=== PATIENT | female | born 1945 | race Caucasian/White ===

== ENCOUNTER 2018-11-28 20:50 | Emergency (ER) | payer MEDICARE, OTHER ==
[~2018-11-28] VITALS: Ht 165.1 cm; Wt 59.9 kg
--- NOTE | 2018-11-28 21:07 | ED Neurological Problem ---
General Stated Complaint: UNCONTROLLABLE SHAKING,WEAKNESS Source: patient, family, RN notes reviewed Exam Limitations: no limitations History of Present Illness Date Seen by Provider: Nov 28, 2018 Time Seen by Provider: 21:06 Initial Comments Patient presents c/ c/o chills and shaking today. States she has had abdominal pain for awhile now. Denies any respiratory, , or GI symptoms. Not aware of a fever. Timing/Duration: 4-6 hours Severity: moderate Associated Symptoms: denies symptoms (x/ as noted.), other (shaking) Allergies and Home Medications Allergies Coded Allergies: Sulfa (Sulfonamide Antibiotics) (Verified Allergy, Severe, 11/28/18) Home Medications Cefuroxime Axetil 250 Mg Tablet, 250 MG PO BID Prescribed by: MAXIM SAMUEL on 11/28/18 [id number] Patient Home Medication List Home Medication List Reviewed: Yes Review of Systems Review of Systems Constitutional: see HPI Gastrointestinal: abdominal pain : No Psychiatric/Neurological: Other (shaking) All Other Systems Reviewed Negative Unless Noted: Yes (Negative excepted noted.) Physical Exam Vital Signs Vital Signs - First Documented 11/28/18 20:54 Temp 103.2 Pulse 110 Resp 18 B/P (MAP) 196/74 (114) Pulse Ox 98 O2 Delivery Room Air Capillary Refill : Height, Weight, BMI Height: '" Weight: lbs. oz. kg; BMI Method: General Appearance: WD/WN, no apparent distress HEENT: normal ENT inspection Neck: normal inspection Respiratory: no respiratory distress Cardiovascular: tachycardia Gastrointestinal: soft; No guarding, No rebound; tenderness (suprapubic) Neurologic/Psychiatric: no motor/sensory deficits, alert, depressed affect Skin: warm/dry Focused Exam Lactate Level 11/28/18 21:02: Lactic Acid Level 1.65 Lactic Acid Level Laboratory Tests Test 11/28/18 21:02 Lactic Acid Level 1.65 MMOL/L (0.50-2.00) Progress/Results/Core Measures Results/Orders Lab Results Laboratory Tests Test 11/28/18 21:02 11/28/18 21:10 Range/Units White Blood Count 6.5 4.3-11.0 10^3/uL Red Blood Count 3.75 L 4.35-5.85 10^6/uL Hemoglobin 10.8 L 11.5-16.0 G/DL Hematocrit 33 L 35-52 % Mean Corpuscular Volume 87 80-99 FL Mean Corpuscular Hemoglobin 29 25-34 PG Mean Corpuscular Hemoglobin Concent 33 32-36 G/DL Red Cell Distribution Width 14.1 10.0-14.5 % Platelet Count 318 130-400 10^3/uL Mean Platelet Volume 10.1 7.4-10.4 FL Neutrophils (%) (Auto) 82 H 42-75 % Lymphocytes (%) (Auto) 12 12-44 % Monocytes (%) (Auto) 5 0-12 % Eosinophils (%) (Auto) 1 0-10 % Basophils (%) (Auto) 0 0-10 % Neutrophils # (Auto) 5.3 1.8-7.8 X 10^3 Lymphocytes # (Auto) 0.8 L 1.0-4.0 X 10^3 Monocytes # (Auto) 0.3 0.0-1.0 X 10^3 Eosinophils # (Auto) 0.1 0.0-0.3 10^3/uL Basophils # (Auto) 0.0 0.0-0.1 10^3/uL Sodium Level 136 135-145 MMOL/L Potassium Level 4.5 3.6-5.0 MMOL/L Chloride Level 94 L 98-107 MMOL/L Carbon Dioxide Level 24 21-32 MMOL/L Anion Gap 18 H 5-14 MMOL/L Blood Urea Nitrogen 27 H 7-18 MG/DL Creatinine 0.81 0.60-1.30 MG/DL Estimat Glomerular Filtration Rate > 60 BUN/Creatinine Ratio 33 Glucose Level 96 70-105 MG/DL Lactic Acid Level 1.65 0.50-2.00 MMOL/L Calcium Level 11.1 H 8.5-10.1 MG/DL Corrected Calcium 10.7 H 8.5-10.1 MG/DL Magnesium Level 1.5 L 1.8-2.4 MG/DL Total Bilirubin 0.3 0.1-1.0 MG/DL Aspartate Amino Transf (AST/SGOT) 22 5-34 U/L Alanine Aminotransferase (ALT/SGPT) 12 0-55 U/L Alkaline Phosphatase 119 40-136 U/L Total Protein 7.8 6.4-8.2 GM/DL Albumin 4.5 3.2-4.5 GM/DL Urine Color YELLOW Urine Clarity SLT CLOUDY Urine pH 7.0 5-9 Urine Specific [place] 1.010 L 1.016-1.022 Urine Protein 2+ H NEGATIVE Urine Glucose (UA) NEGATIVE NEGATIVE Urine Ketones NEGATIVE NEGATIVE Urine Nitrite POSITIVE H NEGATIVE Urine Bilirubin NEGATIVE NEGATIVE Urine Urobilinogen 0.2 NORMAL MG/DL Urine Leukocyte Esterase 3+ H NEGATIVE Urine RBC (Auto) 2+ H NEGATIVE Urine RBC NONE /HPF Urine WBC >100 H /HPF Urine Squamous Epithelial Cells NONE /HPF Urine Crystals NONE /LPF Urine Bacteria MODERATE H /HPF Urine Casts NONE /LPF Urine Mucus NONE /LPF Urine Culture Indicated YES My Orders Orders - MAXIM SAMUEL DO Ed Iv/Invasive Line Start (11/28/18 21:10) Ekg Tracing (11/28/18 21:10) Cbc With Automated Diff (11/28/18 21:10) Comprehensive Metabolic Panel (11/28/18 21:10) Lactic Acid Analyzer (11/28/18 21:10) Magnesium (11/28/18 21:10) Ua Culture If Indicated (11/28/18 21:10) Blood Culture (11/28/18 21:10) Chest 1 View Ap/Pa Only (11/28/18 21:10) Acetaminophen Tablet (Tylenol Tablet) (11/28/18 21:15) Urine Culture (11/28/18 21:10) Ceftriaxone For Iv Use (Rocephin For I (11/28/18 22:00) Ct Abdomen/Pelvis W (11/28/18 21:55) Iohexol Injection (Omnipaque 350 Mg/Ml 1 (11/28/18 22:00) Received Contrast (Hold Metformin- Contr (11/28/18 22:00) Ns (Ivpb) (Sodium Chloride 0.9% Ivpb Bag (11/28/18 22:00) Ceftriaxone For Iv Use (Rocephin For I (11/28/18 22:01) Water (Sterile) For Injection (Sterile W (11/28/18 22:01) Medications Given in ED Current Medications Medications Dose Ordered Sig/Kasandra Route Start Time Stop Time Status Last Admin Dose Admin Acetaminophen 1,000 mg ONCE ONCE PO 11/28/18 21:15 11/28/18 21:16 DC 11/28/18 21:31 1,000 MG Ceftriaxone Sodium 1000 mg/ Sterile Water 10 ml @ 200 mls/hr ONCE ONCE IV 11/28/18 22:00 11/28/18 23:01 DC 11/28/18 22:07 200 MLS/HR Iohexol 100 ml ONCE ONCE IV 11/28/18 22:00 11/28/18 22:01 DC 11/28/18 22:11 100 ML Sodium Chloride 100 ml ONCE ONCE IV 11/28/18 22:00 11/28/18 22:01 DC 11/28/18 22:11 100 ML Vital Signs/I&O 11/28/18 11/28/18 20:54 23:17 Temp 103.2 101.6 Pulse 110 102 Resp 18 16 B/P (MAP) 196/74 (114) 180/53 (95) Pulse Ox 98 97 O2 Delivery Room Air Room Air Initial ECG Impression Date: Nov 28, 2018 Initial ECG Impression Time: 21:05 Initial ECG Rate: 103 Initial ECG Rhythm: S.Tach Initial ECG Intervals: Normal Initial ECG Impression: Nonspecific Changes Initial ECG Comparisson: No Previous ECG Available Diagnostic Imaging Diagonstic Imaging: Xray, CT Plain Films/CT/US/NM/MRI: chest (nothing acute), abdomen, pelvis (nothing acute) Departure Impression Primary Impression: Fever Additional Impression: UTI (urinary tract infection) Disposition: 01 HOME, SELF-CARE Condition: Improved Departure-Patient Inst. Decision time for Depature: 23:11 Patient Instructions: Urinary Tract Infections in Adults, Fever, Adult (DC) Add. Discharge Instructions: RECOMMEND 1000 mg OF TYLENOL EVERY 6 HOURS NEEDED FOR FEVER/CHILLS. PUSH FLUIDS. Scripts Cefuroxime Axetil (Cefuroxime) 250 Mg Tablet 250 MG PO BID for UTI for 10 Days, #20 TAB 0 Refills Prov: MAXIM SAMUEL DO 11/28/18 MAXIM SAMUEL DO Nov 28, 2018 21:07
[2018-11-28] MEDS ORDERED: ACETAMINOPHEN 500 MG TAB (TYLENOL) PO ONE (21:15)
[2018-11-28 21:26] LABS: BASOPHILS % (AUTO) 0 % (0-10); EOSINOPHILS % (AUTO) 1 % (0-10); HEMATOCRIT 33 % (35-52); HEMOGLOBIN 10.8 G/DL (11.5-16.0); LYMPHOCYTES % (AUTO) 12 % (12-44); MEAN CORPUSCULAR HEMOGLOBIN 29 PG (25-34); MEAN CORPUSCULAR HGB CONC 33 G/DL (32-36); MEAN CORPUSCULAR VOLUME 87 FL (80-99); MEAN PLATELET VOLUME 10.1 FL (7.4-10.4); MONOCYTES % (AUTO) 5 % (0-12); NEUTROPHILS % (AUTO) 82 % (42-75); PLATELET COUNT 318 10^3/uL (130-400); RED CELL DISTRIBUTION WIDTH 14.1 % (10.0-14.5); WHITE BLOOD COUNT 6.5 10^3/uL (4.3-11.0)
[2018-11-28 21:27] LABS: EOSINOPHILS # (AUTO) 0.1 10^3/uL (0.0-0.3); LYMPHOCYTES # (AUTO) 0.8 X 10^3 (1.0-4.0); MONOCYTES # (AUTO) 0.3 X 10^3 (0.0-1.0); NEUTROPHILS # (AUTO) 5.3 X 10^3 (1.8-7.8)
--- OUTSIDE RECORDS SUMMARY | 2018-11-28 21:36 | XMS REPORT | Continuity of Care Document ---
Author Organization Unknown Address Unknown Allergies There is no data. Medications There is no data. Problems There is no data. Procedures There is no data. Results Test Result Range CMP - 08/10/18 12:21 GLUCOSE 66 mg/dL 65-99 UREA NITROGEN (BUN) 19 mg/dL 7-25 CREATININE 0.78 mg/dL 0.60-0.93 eGFR NON-AFR. PU[place] R[place] 76 mL/min/1.73m2 > OR=60 eGFR 88 mL/min/1.73m2 > OR=60 BUN/CREATININE RATIO NOT APPLICABLE (calc) 6-22 SODIUM 138 mmol/L 135-146 POTASSIUM 4.9 mmol/L 3.5-5.3 CHLORIDE 100 mmol/L 98-110 CARBON DIOXIDE 28 mmol/L 20-32 CALCIUM 10.8 mg/dL 8.6-10.4 PROTEIN, TOTAL 7.8 g/dL 6.1-8.1 ALBUMIN 4.6 g/dL 3.6-5.1 GLOBULIN 3.2 g/dL (calc) 1.9-3.7 ALBUMIN/GLOBULIN RATIO 1.4 (calc) 1.0-2.5 BILIRUBIN, TOTAL 0.3 mg/dL 0.2-1.2 ALKALINE PHOSPHATASE 119 U/L 33-130 AST 30 U/L 10-35 ALT 11 U/L 6-29 CBC w/MANUAL DIFF - 08/10/18 12:21 WHITE BLOOD CELL COUNT 11.0 Thousand/uL 3.8-10.8 RED BLOOD CELL COUNT 4.37 Million/uL 3.80-5.10 HEMOGLOBIN 11.8 g/dL 11.7-15.5 HEMATOCRIT 36.0 % 35.0-45.0 MCV 82.4 fL 80.0-100.0 MCH 27.0 pg 27.0-33.0 MCHC 32.8 g/dL 32.0-36.0 RDW 12.9 % 11.0-15.0 PLATELET COUNT 640 Thousand/uL 140-400 MPV 10.6 fL 7.5-12.5 ABSOLUTE NEUTROPHILS 7876 cells/uL 6847-9355 ABSOLUTE MONOCYTES 539 cells/uL 200-950 ABSOLUTE EOSINOPHILS 0 cells/uL 15-500 ABSOLUTE BASOPHILS 0 cells/uL 0-200 NEUTROPHILS 71.6 % NRG LYMPHOCYTES 20.6 % NRG MONOCYTES 4.9 % NRG EOSINOPHILS 0 % NRG BASOPHILS 0 % NRG ABSOLUTE BAND NEUTROPHILS 319 cells/uL 0-750 ABSOLUTE LYMPHOCYTES 2266 cells/uL 850-3900 BAND NEUTROPHILS 2.9 % NRG PLATELET ESTIMATION INCREASED ADEQUATE CBC MORPHOLOGY NORMAL A1C - 08/10/18 12:21 HEMOGLOBIN A1c 7.8 % of total Hgb <5.7 CULTURE, URINE - 08/16/18 15:04 CULTURE, URINE, ROUTINE SEE NOTE NRG CBC - 09/21/18 15:00 WHITE BLOOD CELL COUNT 8.8 Thousand/uL 3.8-10.8 RED BLOOD CELL COUNT 4.00 Million/uL 3.80-5.10 HEMOGLOBIN 11.1 g/dL 11.7-15.5 HEMATOCRIT 33.1 % 35.0-45.0 MCV 82.8 fL 80.0-100.0 MCH 27.8 pg 27.0-33.0 MCHC 33.5 g/dL 32.0-36.0 RDW 14.5 % 11.0-15.0 PLATELET COUNT 346 Thousand/uL 140-400 MPV 11.3 fL 7.5-12.5 ABSOLUTE NEUTROPHILS 6292 cells/uL 2594-2618 ABSOLUTE LYMPHOCYTES 2086 cells/uL 850-3900 ABSOLUTE MONOCYTES 352 cells/uL 200-950 ABSOLUTE EOSINOPHILS 18 cells/uL 15-500 ABSOLUTE BASOPHILS 53 cells/uL 0-200 NEUTROPHILS 71.5 % NRG LYMPHOCYTES 23.7 % NRG MONOCYTES 4.0 % NRG EOSINOPHILS 0.2 % NRG BASOPHILS 0.6 % NRG PDM - TRAMADOL - 11/12/18 10:54 Prescribed Drug 1 Tramadol NRG COMMENT NRG Desmethyltramadol 3689 ng/mL <100 medMATCH Desmethyltram CONSISTENT NRG Tramadol 9748 ng/mL <100 medMATCH Tramadol CONSISTENT NRG Encounters ACCT No. Visit Date/Time Discharge Status Pt. Type Provider Facility Loc./Unit Complaint [id number] 09/21/2018 13:30:00 09/21/2018 23:59:59 CLS Outpatient CANDIDO KEARNEY [facility] [id number] 11/12/2018 10:00:00 11/12/2018 23:59:59 CLS Outpatient CANDIDO KEARNEY [facility] [id number] 11/12/2018 10:00:00 Document Registration [id number] 09/21/2018 13:30:00 Document Registration [id number] 08/16/2018 14:15:00 Document Registration [id number] 08/10/2018 11:20:00 Document Registration
--- NOTE | 2018-11-28 21:38 | Diagnostic Imaging Report ---
INDICATION: Chills. TIME OF EXAM: 9:29 p.m. COMPARISON: No prior study is available for comparison. EXAMINATION: Single view of the chest was obtained. FINDINGS: Spinal stimulators overlie the midthoracic spine. There is a calcified nodule in the left base consistent with a granuloma. No infiltrates are seen. No effusion or pneumothorax is identified. IMPRESSION: No acute cardiopulmonary process is detected. Dictated by: Dictated on workstation # [id number]
[2018-11-28 21:39] LABS: BILIRUBIN,URINE NEGATIVE (NEGATIVE); CLARITY,URINE SLT CLOUDY; COLOR,URINE YELLOW; GLUCOSE, URINE (UA) NEGATIVE (NEGATIVE); KETONES,URINE NEGATIVE (NEGATIVE); LEUKOCYTE ESTERASE ,URINE 3+ (NEGATIVE); NITRITE,URINE POSITIVE (NEGATIVE); PROTEIN,URINE 2+ (NEGATIVE); UROBILINOGEN,URINE 0.2 MG/DL (NORMAL)
[2018-11-28 21:40] LABS: BACTERIA,URINE MODERATE /HPF; WBC,URINE >100 /HPF
[2018-11-28 21:43] LABS: ALANINE AMINOTRANSFERASE 12 U/L (0-55); ALKALINE PHOSPHATASE 119 U/L (40-136); BILIRUBIN,TOTAL 0.3 MG/DL (0.1-1.0); BUN/CREATININE RATIO 33; CALCIUM 11.1 MG/DL (8.5-10.1); CARBON DIOXIDE 24 MMOL/L (21-32); CHLORIDE 94 MMOL/L (98-107); CREATININE SERUM 0.81 MG/DL (0.60-1.30); GFR ESTIMATED > 60; GLUCOSE 96 MG/DL (70-105); MAGNESIUM 1.5 MG/DL (1.8-2.4); POTASSIUM 4.5 MMOL/L (3.6-5.0); SODIUM 136 MMOL/L (135-145)
[2018-11-28 21:44] LABS: ALBUMIN 4.5 GM/DL (3.2-4.5); TOTAL PROTEIN 7.8 GM/DL (6.4-8.2)
[2018-11-28] MEDS ORDERED: HOLD METFORMIN - RECEIVED CONTRAST 20 ML VIAL IV SCH (22:00)
[2018-11-28] MEDS ORDERED: IOHEXOL 350 MG/ML 100 ML (OMNIPAQUE 350) VIAL IV ONE (22:00)
[2018-11-28] MEDS ORDERED: NS 100 ML (IVPB) BAG IV ONE (22:00)
[2018-11-28] MEDS ORDERED: cefTRIAXone FOR IV USE 1,000 MG in WATER (STERILE) FOR INJECTION 10 ML IV ONE (22:00)
[2018-11-28] MEDS ORDERED: WATER (STERILE) FOR INJECTION 10 ML ONE (22:01)
[2018-11-28] MEDS ORDERED: cefTRIAXone 1,000 MG IV (ROCEPHIN) VIAL ONE (22:01)
[2018-11-28] MEDS ORDERED: CEFU250T80 PO (23:12)
[2018-11-28 23:17] VITALS: BP 180/53
[2018-11-28 23:32] VITALS: BP 180/53
--- NOTE | 2018-11-29 05:41 | Diagnostic Imaging Report ---
PROCEDURE: CT abdomen and pelvis with contrast. TECHNIQUE: Multiple contiguous axial images were obtained through the abdomen and pelvis after administration of intravenous contrast. Auto Exposure Controls were utilized during the CT exam to meet ALARA standards for radiation dose reduction. INDICATION: Chills and abdominal pain. COMPARISON: None available. FINDINGS: There is a calcified granuloma in the anterior basal segment of the left lower lobe. Lung bases are otherwise clear. The visualized heart is normal in size. Calcified granulomas are demonstrated in the liver and spleen. No focal hepatic or splenic lesion is demonstrated. Gallbladder surgically absent. No biliary ductal dilatation is appreciated. There is moderate atrophy of the pancreas. No pancreatic ductal dilatation is demonstrated. The adrenal glands are normal. The kidneys are symmetric in size and demonstrate normal enhancement, without evidence of renal calculus on either side. There is mild fullness of the collecting systems, without overt hydronephrosis on either side. There is mild nonspecific perinephric stranding on both sides. No focal perinephric collection is demonstrated. There is suggestion of mild urothelial enhancement in the collecting systems and ureters. No ureteral dilatation is appreciated. Subcentimeter foci of low attenuation right kidney are too small to characterize, likely cysts. No suspicious renal mass. There is no evidence of obstruction or focal bowel wall thickening. The appendix is surgically absent. There is no pneumoperitoneum, abdominal free fluid, or loculated collection. There is moderate colonic diverticulosis, without evidence of acute diverticulitis. No lymphadenopathy. There is marked calcified atherosclerotic plaque involving abdominal aorta, without aneurysmal dilatation. There is no evidence of venous thrombosis. There is suggestion of mild bladder wall thickening. A tiny focus of gas is demonstrated in the anti-dependent portion of the bladder. The uterus is surgically absent. No pelvic free fluid is demonstrated. There is no adnexal mass appreciated. The abdominal wall is unremarkable. Multilevel degenerative changes involve the spine. Spinal stimulator is demonstrated. There is moderate levoscoliosis of the lumbar spine. No acute osseous abnormality is appreciated. IMPRESSION: Minimal bladder wall thickening and mild urothelial enhancement could reflect urinary tract infection/cystitis. Recommend correlation with history/physical exam and urinalysis. There is mild bilateral perinephric stranding, greater on the left than on the right, which could be reactive in nature or reflect scarring. There is no discrete perinephric collection. Tiny focus of gas in the bladder could reflect recent instrumentation, less likely gas-forming organism. Otherwise no acute abdominal or pelvic pathology. Findings are in agreement with initial teleradiology report. Dictated by: Dictated on workstation # [id number]
== END 2018-11-28 23:35 | disposition home or self-care (01) ==
LOC: ER FS 20:54
DX: N39.0 Urinary tract infection, site not specified (principal); Z88.2 Allergy status to sulfonamides
CPT/HCPCS: 36415; 71045; 74177; 80053; 81000; 83605; 83735; 85025; 87040; 87077; 87088; 93005

== ENCOUNTER 2019-01-29 15:48 | Emergency (ER) | payer MEDICARE ==
[~2019-01-29] VITALS: Ht 165.1 cm; Wt 59.9 kg
[~2019-01-29 15:48] MED LIST: CEFU250T80 PO
[2019-01-29 16:15] LABS: CLARITY,URINE CLEAR; COLOR,URINE YELLOW; PH,URINE 7.5 (5-9); PROTEIN,URINE TRACE (NEGATIVE)
[2019-01-29 16:16] LABS: BACTERIA,URINE MODERATE /HPF; BILIRUBIN,URINE NEGATIVE (NEGATIVE); GLUCOSE, URINE (UA) NEGATIVE (NEGATIVE); KETONES,URINE NEGATIVE (NEGATIVE); LEUKOCYTE ESTERASE ,URINE 3+ (NEGATIVE); NITRITE,URINE NEGATIVE (NEGATIVE); RBC,URINE 0-2 /HPF; SQUAMOUS EPITHELIAL CELL,UR RARE /HPF; UROBILINOGEN,URINE 0.2 MG/DL (NORMAL); WBC,URINE 25-50 /HPF
--- NOTE | 2019-01-29 18:10 | ED GU-Female ---
General Chief Complaint: - Urinary Stated Complaint: BLOOD IN URINE Nursing Triage Note: Patient arrival to ED assisted with WC. Pt reports blood in urine since yesterday. Chronic UTI hx with urethral dilitations yrs ago. Pt on maintenance antibiotic Macrobid and was stopped Feb 18- to take her 7 day course Cephalexin 500 mg. Pt is up with help to void every 15-20 min. Nursing Sepsis Screen: No Definite Risk Source: patient, old records Exam Limitations: no limitations History of Present Illness Date Seen by Provider: Jan 29, 2019 Time Seen by Provider: 15:50 Initial Comments This 73-year-old woman presents to the emergency room with recurrent urinary tract infections. Last night and today she experienced hematuria. She has dysuria and back aching. She has lower abdominal pain as well that is migratory. She has extreme urinary frequency. She reports a remote history of a urethral dilation by a urologist who no longer practices in [place]. She is becoming very frustrated at her recurrent urinary tract infections. She generally feels quite well when she is on antibiotics but then feels ill again as soon as antibiotics are complete. Her primary care provider is Candido Kearney. She has not seen a urologist recently. Allergies and Home Medications Allergies Coded Allergies: Sulfa (Sulfonamide Antibiotics) (Verified Allergy, Severe, 11/28/18) Home Medications Cefuroxime Axetil 250 Mg Tablet, 250 MG PO BID Prescribed by: MAXIM SAMUEL on 11/28/18 [id number] Patient Home Medication List Home Medication List Reviewed: Yes Review of Systems Review of Systems Constitutional: no symptoms reported EENTM: no symptoms reported Respiratory: no symptoms reported Cardiovascular: no symptoms reported Gastrointestinal: no symptoms reported Genitourinary: see HPI : No Musculoskeletal: no symptoms reported Skin: no symptoms reported Psychiatric/Neurological: No Symptoms Reported Endocrine: No Symptoms Reported Past Wnshehk-Bvvoum-Yjtqaw Hx Past Med/Social Hx: Reviewed Nursing Past Med/Soc Hx Patient Social History Alcohol Use: Denies Use Recreational Drug Use: No Smoking Status: Former Smoker Type Used: Cigarettes Former Smoker, Quit: Jun 01, 1989 2nd Hand Smoke Exposure: No Recent Foreign Travel: No Contact w/Someone Who Travel: No Recent Infectious Disease Expo: No Recent Hopitalizations: No Physical Abuse: No Sexual Abuse: No Mistreated: No Fear: No Seasonal Allergies Seasonal Allergies: No Past Medical History Surgeries: Yes (Cystourethroscopy, colonoscopy, EGD, removal spinal stimulator, ESWL) Appendectomy, Gallbladder, Hysterectomy Respiratory: Yes (Hx former tobaccoism) Pneumonia Cardiac: Yes (Diastolic dysfunction) Hypertension Neurological: Yes Neuropathy Genitourinary: Yes (Urethral strictures, Hx Klebsiella cystitis) Kidney Stones, UTI-Chronic Gastrointestinal: Yes (Regional enteritis) Gastroesophageal Reflux, Crohns Disease Musculoskeletal: No Endocrine: Yes (DM Type II) Diabetes, Non-Insulin dep HEENT: No Cancer: No Psychosocial: No Integumentary: No Blood Disorders: No Physical Exam Vital Signs Vital Signs - First Documented 01/29/19 17:00 Temp 99.1 Pulse 72 Resp 18 B/P (MAP) 208/72 (117) Pulse Ox 99 O2 Delivery Room Air Capillary Refill : Less Than 3 Seconds Height, Weight, BMI Height: 5'5.00" Weight: 132lbs. oz. 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 nml as tested, no motor/sensory deficits, alert, normal mood/affect, oriented x 3 Skin: normal color, warm/dry Progress/Results/Core Measures Suspected Sepsis Recent Fever Within 48 Hours: No Infection Criteria Present: None New/Unexplained Altered Menta: No Sepsis Screen: No Definite Risk SIRS Temperature:99.1 Pulse: 72 Respiratory Rate: 18 Blood Pressure 208 /72 Mean: 117 Results/Orders Lab Results Laboratory Tests Test 01/29/19 15:53 Range/Units Urine Color YELLOW Urine Clarity CLEAR Urine pH 7.5 5-9 Urine Specific [place] 1.010 L 1.016-1.022 Urine Protein TRACE H NEGATIVE Urine Glucose (UA) NEGATIVE NEGATIVE Urine Ketones NEGATIVE NEGATIVE Urine Nitrite NEGATIVE NEGATIVE Urine Bilirubin NEGATIVE NEGATIVE Urine Urobilinogen 0.2 NORMAL MG/DL Urine Leukocyte Esterase 3+ H NEGATIVE Urine RBC (Auto) 3+ H NEGATIVE Urine RBC 0-2 /HPF Urine WBC 25-50 H /HPF Urine Squamous Epithelial Cells RARE /HPF Urine Crystals NONE /LPF Urine Bacteria MODERATE H /HPF Urine Casts NONE /LPF Urine Mucus NONE /LPF Urine Culture Indicated YES My Orders Orders - LIN RUIZ MD Ua Culture If Indicated (01/29/19 15:50) Urine Culture (01/29/19 15:53) Vital Signs/I&O 01/29/19 17:00 Temp 99.1 Pulse 72 Resp 18 B/P (MAP) 208/72 (117) Pulse Ox 99 O2 Delivery Room Air Capillary Refill : Less Than 3 Seconds Blood Pressure Mean: 117 Progress Note : Progress Note Patient was again found to have urinary tract infection by urinalysis. She was up to the bathroom multiple times throughout her ER stay. Bladder scan revealed a post void residual in the 200-300+ range. Garner catheter was inserted and patient was instructed to pursue follow-up with urology. Her first dose of Cipro was administered in the ER. Cipro was selected based on review of prior cultures. Patient was seen in this ER in October for significant bladder infection. CT scan was performed at that time and showed no evidence of ureteral stones. Patient states she does have a remote history of up to 9 and ureteral stones. Departure Impression Primary Impression: Urinary tract infection Qualified Codes: N39.0 - Urinary tract infection, site not specified Additional Impression: Urinary retention Disposition: 01 HOME, SELF-CARE Condition: Improved Departure-Patient Inst. Decision time for Depature: 18:15 [address]errals: [facility] (PCP) Primary Care Physician CANDIDO KEARNEY APRN (Family) Primary Care Physician FREDDY KRAUSE MD Patient Instructions: Urinary Tract Infections in Adults, Garner Catheter, Female Add. Discharge Instructions: Empty your catheter bag frequently. Keep the catheter bag lower than the level of your bladder. Complete your antibiotics as prescribed. Drink plenty of clear liquids. Follow-up with Dr. Krause and your primary care provider as soon as possible. Please call them on Thursday morning to schedule appointments. Return to the emergency room if you have worsening symptoms. All discharge instructions reviewed with patient and/or family. Voiced understanding. Scripts Ciprofloxacin HCl (Ciprofloxacin HCl) 500 Mg Tablet 500 MG PO BID, #14 TAB Prov: LIN RUIZ MD 01/29/19 Copy Copies To 1: FREDDY KRAUSE MD Copies To 2: NEIL CHOUDHURY JOSHUA T MD Jan 29, 2019 18:10
[2019-01-29] MEDS ORDERED: CIPR500T4 PO (18:22)
[2019-01-29] MEDS ORDERED: CIPROFLOXACIN 500 MG (CIPRO) TABLET PO ONE (18:30)
[2019-01-29 19:25] VITALS: BP 160/68
--- NOTE | 2019-01-29 19:25 | NUR ---
Pt discharged from ER via with spouse not assisting pt. Pt with significant gait imbalance r/t neuropathy of feet. Garner catheter placed in ED after post residual 330 ml urine and frequency of every 15-20 minutes to bathroom to void tiny amts. Pt was full assist helping to pull pt up from for all ambulatory requirements. Pt had 500 ml drainage immediate upon catheterizing and 700 ml emptied before discharge as total. Spouse was instructed three times with hands on training of usage of large overnight catheter drainage bag. Pt states she will not apply leg bag as stated "it is too much work to empty frequently." Pt's spouse appears nervous and anxious over ER visit. Upon discharge the asks if the overnight drainage bag could all urine till the urology visit sometime next week. Again instructed to keep bag level lower than bladder height, drain frequently if bag appears moderately full. Return to ED with any further questions or problems. Instructed on Cipro RX at [facility] pharmacy to pickle maker tomorrow. Pt's spouse asks if it can wait till next week with appt. Again explained the importance of starting script and completing as prescribed.
== END 2019-01-29 19:25 | disposition home or self-care (01) ==
LOC: EDUNIT# 15:48 → ER FS 15:49
DX: N39.0 Urinary tract infection, site not specified (principal); I10 Essential (primary) hypertension; E11.40 Type 2 diabetes mellitus with diabetic neuropathy, unspecified; K21.9 Gastro-esophageal reflux disease without esophagitis; Z87.19 Personal history of other diseases of the digestive system; Z87.442 Personal history of urinary calculi; Z88.2 Allergy status to sulfonamides; Z87.891 Personal history of nicotine dependence; Z90.710 Acquired absence of both cervix and uterus; Z90.49 Acquired absence of other specified parts of digestive tract
CPT/HCPCS: 51702; 81000; 87077; 87088; 87186

== ENCOUNTER 2019-04-04 12:37 | Inpatient (IN) | payer MEDICARE ==
[~2019-04-04] VITALS: Ht 162.6 cm; Wt 66.2 kg
[~2019-04-04 12:37] MED LIST changes: +CIPR500T4 PO
[2019-04-04 13:14] LABS: BASOPHILS % (AUTO) 0 % (0-10); EOSINOPHILS % (AUTO) 0 % (0-10); HEMATOCRIT 35 % (35-52); HEMOGLOBIN 11.4 G/DL (11.5-16.0); LYMPHOCYTES # (AUTO) 1.8 X 10^3 (1.0-4.0); LYMPHOCYTES % (AUTO) 25 % (12-44); MEAN CORPUSCULAR HEMOGLOBIN 28 PG (25-34); MEAN CORPUSCULAR HGB CONC 33 G/DL (32-36); MEAN CORPUSCULAR VOLUME 86 FL (80-99); MEAN PLATELET VOLUME 10.2 FL (7.4-10.4); MONOCYTES # (AUTO) 0.4 X 10^3 (0.0-1.0); MONOCYTES % (AUTO) 5 % (0-12); NEUTROPHILS # (AUTO) 5.1 X 10^3 (1.8-7.8); NEUTROPHILS % (AUTO) 70 % (42-75); PLATELET COUNT 351 10^3/uL (130-400); RED CELL DISTRIBUTION WIDTH 13.6 % (10.0-14.5); WHITE BLOOD COUNT 7.4 10^3/uL (4.3-11.0)
--- NOTE | 2019-04-04 13:25 | ED GU-Female ---
General Stated Complaint: VAGINAL BLEEDING Source: patient, other (plan) Exam Limitations: no limitations History of Present Illness Date Seen by Provider: Apr 04, 2019 Time Seen by Provider: 13:21 Initial Comments This 73-year-old white female presents with history of recurrent urinary tract infections. She is currently being suppressed with Macrobid daily. The patient began passing large clots precipitating her presentation in the emergency department. Patient had a recent urethroplasty with Dr. Moseley. Allergies and Home Medications Allergies Coded Allergies: Sulfa (Sulfonamide Antibiotics) (Verified Allergy, Severe, 11/28/18) Home Medications Cefuroxime Axetil 250 Mg Tablet, 250 MG PO BID Prescribed by: MAXIM SAMUEL on 11/28/18 2312 Ciprofloxacin HCl 500 Mg Tablet, 500 MG PO BID Prescribed by: LIN CASSIDY on 01/29/191821 Patient Home Medication List Home Medication List Reviewed: Yes Review of Systems Review of Systems Constitutional: No chills, No fever; weakness EENTM: no symptoms reported Respiratory: No cough Cardiovascular: No chest pain Gastrointestinal: abdominal pain (suprapubic abdominal discomfort); No nausea, No vomiting Genitourinary: hematuria Musculoskeletal: no symptoms reported; No back pain Skin: no symptoms reported; No change in color Psychiatric/Neurological: No Symptoms Reported Endocrine: No Symptoms Reported Hematologic/Lymphatic: No Symptoms Reported Past [place]eppo-Azezxq Hx Past Med/Social Hx: Reviewed Nursing Past Med/Soc Hx Patient Social History Type Used: Cigarettes Former Smoker, Quit: Jun 01, 1989 2nd Hand Smoke Exposure: No Recent Hopitalizations: No Seasonal Allergies Seasonal Allergies: No Past Medical History Surgeries: Yes (Cystourethroscopy, colonoscopy, EGD, removal spinal stimulator, ESWL) Appendectomy, Gallbladder, Hysterectomy Respiratory: Yes (Hx former tobaccoism) Pneumonia Cardiac: Yes (Diastolic dysfunction) Hypertension Neurological: Yes Neuropathy Genitourinary: Yes (Urethral strictures, Hx Klebsiella cystitis) Kidney Stones, UTI-Chronic Gastrointestinal: Yes (Regional enteritis) Gastroesophageal Reflux, Crohns Disease Musculoskeletal: No Endocrine: Yes (DM Type II) Diabetes, Non-Insulin dep HEENT: No Cancer: No Psychosocial: No Integumentary: No Blood Disorders: No Physical Exam Vital Signs Vital Signs - First Documented 04/04/19 12:40 Temp 36.3 Pulse 103 Resp 18 B/P (MAP) 198/101 (133) Pulse Ox 94 O2 Delivery Room Air Capillary Refill : Height, Weight, BMI Height: 5'5.00" Weight: 132lbs. oz. 59.207694qk; BMI Method:Stated General Appearance: mild distress, cachetic HEENT: normal ENT inspection Neck: non-tender, full range of motion, supple Cardiovascular: regular rate, rhythm Respiratory: chest non-tender, decreased breath sounds Gastrointestinal: normal bowel sounds, soft, tenderness (in the suprapubic region) Back: normal inspection Neurologic/Psychiatric: no motor/sensory deficits, alert, normal mood/affect Skin: normal color, warm/dry Focused Exam Lactate Level 04/04/19 13:50: Lactic Acid Level 1.11 Lactic Acid Level Laboratory Tests Test 04/04/19 13:50 Lactic Acid Level 1.11 MMOL/L (0.50-2.00) Progress/Results/Core Measures Suspected Sepsis SIRS Temperature: Pulse: Respiratory Rate: Laboratory Tests 04/04/19 12:50: White Blood Count 7.4 Blood Pressure / Mean: 04/04/19 13:50: Lactic Acid Level 1.11 Laboratory Tests 04/04/19 12:50: Creatinine 1.03, Platelet Count 351, Total Bilirubin 0.2 Results/Orders Lab Results Laboratory Tests Test 04/04/19 12:50 04/04/19 13:30 04/04/19 13:50 Range/Units White Blood Count 7.4 4.3-11.0 10^3/uL Red Blood Count 4.05 L 4.35-5.85 10^6/uL Hemoglobin 11.4 L 11.5-16.0 G/DL Hematocrit 35 35-52 % Mean Corpuscular Volume 86 80-99 FL Mean Corpuscular Hemoglobin 28 25-34 PG Mean Corpuscular Hemoglobin Concent 33 32-36 G/DL Red Cell Distribution Width 13.6 10.0-14.5 % Platelet Count 351 130-400 10^3/uL Mean Platelet Volume 10.2 7.4-10.4 FL Neutrophils (%) (Auto) 70 42-75 % Lymphocytes (%) (Auto) 25 12-44 % Monocytes (%) (Auto) 5 0-12 % Eosinophils (%) (Auto) 0 0-10 % Basophils (%) (Auto) 0 0-10 % Neutrophils # (Auto) 5.1 1.8-7.8 X 10^3 Lymphocytes # (Auto) 1.8 1.0-4.0 X 10^3 Monocytes # (Auto) 0.4 0.0-1.0 X 10^3 Eosinophils # (Auto) 0.0 0.0-0.3 10^3/uL Basophils # (Auto) 0.0 0.0-0.1 10^3/uL Sodium Level 137 135-145 MMOL/L Potassium Level 4.5 3.6-5.0 MMOL/L Chloride Level 101 98-107 MMOL/L Carbon Dioxide Level 23 21-32 MMOL/L Anion Gap 13 5-14 MMOL/L Blood Urea Nitrogen 19 H 7-18 MG/DL Creatinine 1.03 0.60-1.30 MG/DL Estimat Glomerular Filtration Rate 53 BUN/Creatinine Ratio 18 Glucose Level 152 H 70-105 MG/DL Calcium Level 11.1 H 8.5-10.1 MG/DL Corrected Calcium 8.5-10.1 MG/DL Total Bilirubin 0.2 0.1-1.0 MG/DL Aspartate Amino Transf (AST/SGOT) 24 5-34 U/L Alanine Aminotransferase (ALT/SGPT) 12 0-55 U/L Alkaline Phosphatase 101 40-136 U/L Total Protein 8.1 6.4-8.2 GM/DL Albumin 4.7 H 3.2-4.5 GM/DL Urine Color BROWN H Urine Clarity VERY CLOUDY H Urine pH 7 5-9 Urine Specific [place] 1.010 L 1.016-1.022 Urine Protein 3+ H NEGATIVE Urine Glucose (UA) 2+ H NEGATIVE Urine Ketones NEGATIVE NEGATIVE Urine Nitrite NEGATIVE NEGATIVE Urine Bilirubin NEGATIVE NEGATIVE Urine Urobilinogen NORMAL NORMAL MG/DL Urine Leukocyte Esterase 2+ H NEGATIVE Urine RBC (Auto) 5+ H NEGATIVE Urine RBC TNTC H /HPF Urine WBC 2-5 /HPF Urine Squamous Epithelial Cells RARE /HPF Urine Crystals PRESENT H /LPF Urine Amorphous Sediment FEW ALTA PHOSPHATE H /LPF Urine Bacteria FEW H /HPF Urine Casts NONE /LPF Urine Mucus NEGATIVE /LPF Urine Culture Indicated NO Lactic Acid Level 1.11 0.50-2.00 MMOL/L My Orders Orders - MADDY CARBAJAL MD Ua Culture If Indicated (04/04/19 13:06) Cbc With Automated Diff (04/04/19 13:06) Comprehensive Metabolic Panel (04/04/19 13:06) Chest 1 View, Ap/Pa Only (04/04/19 13:34) Blood Culture (04/04/19 13:34) Lactic Acid Analyzer (04/04/19 13:34) Blood Culture (04/04/19 13:38) Ns Iv 1000 Ml (Sodium Chloride 0.9%) (04/04/19 14:00) Ceftriaxone For Iv Use (Rocephin For I (04/04/19 14:00) Ct Abdomen/Pelvis Wo (04/04/19 13:54) Fentanyl Injection (Sublimaze Injection (04/04/19 15:00) Medications Given in ED Current Medications Medications Dose Ordered Sig/Kasandra Route Start Time Stop Time Status Last Admin Dose Admin Ceftriaxone Sodium 1000 mg/ Sterile Water 10 ml @ 200 mls/hr ONCE ONCE IV 04/04/19 14:00 04/04/19 14:02 DC 04/04/19 14:06 200 MLS/HR Fentanyl Citrate 50 mcg ONCE ONCE IVP 04/04/19 15:00 04/04/19 15:01 DC 04/04/19 14:56 50 MCG Vital Signs/I&O 04/04/19 12:40 Temp 36.3 Pulse 103 Resp 18 B/P (MAP) 198/101 (133) Pulse Ox 94 O2 Delivery Room Air Capillary Refill : Progress Note : Time: 16:04 Progress Note The patient laboratory and radiographic evaluation demonstrated no evidence of acute infection. Patient's urine did not require culture. Patient's white count was not elevated. Garner catheter was placed and patient was found to be in retention with [address] the abdomen and pelvis demonstrated a large fecal impaction which I digitally removed.. After consultation with plan was made with Garner catheter in place for him to see the patient on Thursday. Unfortunately the patient was too weak to get out of bed and walk. I called the hospitalist for their assistance in caring for this patient. Departure Communication (Admissions) Time/Spoke to Admitting Phy: 16:16 Dr. Ann Time/Spoke to Consulting Phy: 16:16 Dr. Moseley Impression Primary Impression: Weakness Additional Impressions: Urinary retention Fecal impaction in rectum Disposition: ADMITTED INPATIENT Condition: Improved Admissions Decision to Admit Reason: Admit from ER (General) Decision to Admit/Date: Apr 04, 2019 Time/Decision to Admit Time: 16:17 Departure-Patient Inst. Referrals: [facility] (PCP) Primary Care Physician CANDIDO KEARNEY APRN (Family) Primary Care Physician MADDY CARBAJAL MD Apr 04, 2019 13:25 POS
[2019-04-04 13:27] LABS: ALANINE AMINOTRANSFERASE 12 U/L (0-55); ALBUMIN 4.7 GM/DL (3.2-4.5); ALKALINE PHOSPHATASE 101 U/L (40-136); BILIRUBIN,TOTAL 0.2 MG/DL (0.1-1.0); BUN/CREATININE RATIO 18; CALCIUM 11.1 MG/DL (8.5-10.1); CARBON DIOXIDE 23 MMOL/L (21-32); CHLORIDE 101 MMOL/L (98-107); CREATININE SERUM 1.03 MG/DL (0.60-1.30); GFR ESTIMATED 53; GLUCOSE 152 MG/DL (70-105); POTASSIUM 4.5 MMOL/L (3.6-5.0); SODIUM 137 MMOL/L (135-145); TOTAL PROTEIN 8.1 GM/DL (6.4-8.2)
[2019-04-04 13:35] LABS: BILIRUBIN,URINE NEGATIVE (NEGATIVE); CLARITY,URINE VERY CLOUDY; COLOR,URINE BROWN; GLUCOSE, URINE (UA) 2+ (NEGATIVE); KETONES,URINE NEGATIVE (NEGATIVE); LEUKOCYTE ESTERASE ,URINE 2+ (NEGATIVE); NITRITE,URINE NEGATIVE (NEGATIVE); PH,URINE 7 (5-9); PROTEIN,URINE 3+ (NEGATIVE)
[2019-04-04 13:51] LABS: AMORPHOUS SEDIMENT,UR FEW AMOR PHOSPHATE /LPF; BACTERIA,URINE FEW /HPF; RBC,URINE TNTC /HPF; SQUAMOUS EPITHELIAL CELL,UR RARE /HPF
[2019-04-04] MEDS ORDERED: NS IV 1000 ML 1,000 ML IV SCH (14:00)
[2019-04-04] MEDS ORDERED: cefTRIAXone FOR IV USE 1,000 MG in WATER (STERILE) FOR INJECTION 10 ML IV ONE (14:00)
--- NOTE | 2019-04-04 14:10 | NUR ---
Pt reports increase abd pain. Increased abd distention noted. Facial grimacing, moaning, and guarding abd noted. Provider notified of change in pt status.
--- NOTE | 2019-04-04 14:43 | Diagnostic Imaging Report ---
PROCEDURE: CT abdomen and pelvis without contrast. TECHNIQUE: Multiple contiguous axial images were obtained through the abdomen and pelvis without the use of intravenous contrast. Auto Exposure Controls were utilized during the CT exam to meet ALARA standards for radiation dose reduction. INDICATION: Abdominal pain and bloating. Vaginal bleeding. Past surgical history includes appendectomy, cholecystectomy, and hysterectomy. COMPARISON: 11/28/2018. FINDINGS: The heart size is normal. The lung bases are clear. The liver is normal in size without focal lesions. The gallbladder is surgically absent. There is no biliary ductal dilatation. The spleen is normal. The pancreas and adrenal glands are unremarkable. The kidneys are normal in appearance. The aorta demonstrates some atherosclerotic calcification but is nonaneurysmal. The bowel gas pattern is nonspecific. There is a moderate amount of retained fecal material, likely reflecting some degree of constipation. There is diverticular disease without evidence of diverticulitis. There is no free air. There is no ascites. There are no focal inflammatory changes. There are degenerative changes in the spine. There is a Garner catheter in the bladder. IMPRESSION: There is a moderate amount of retained fecal material, likely reflecting some degree of constipation. Additionally, there is some diverticular disease without evidence of diverticulitis. Previous cholecystectomy, appendectomy, and hysterectomy. Degenerative changes in the spine. Dictated by: Dictated on workstation # [id number]
[2019-04-04] MEDS ORDERED: fentaNYL INJECTION 100 MCG/2 ML AMP IVP ONE (15:00)
--- NOTE | 2019-04-04 15:00 | NUR ---
Assisted provider with digital rectal exam to remove fecal impaction.
--- NOTE | 2019-04-04 15:21 | Diagnostic Imaging Report ---
INDICATION: Cardiac valvular disease COMPARISON: 11/28/2018 FINDINGS: There is no failure pattern. There is no evidence for pneumonia. Spinal stimulators unchanged from previous exam. No failure, effusion or pneumothorax. There are benign calcified granulomatous changes and mild apical scarring, chronic. IMPRESSION: Stable chronic findings, no failure or acute abnormality. Dictated by: Dictated on workstation # [id number]
--- NOTE | 2019-04-04 15:45 | NUR ---
1400ml brown, clear urine output via patent reyes catheter.
--- NOTE | 2019-04-04 15:50 | NUR ---
Attempted to assist pt with ambulating via walker. In attempt, pt reports she became light headed and felt as though she was going to pass out when ED staff attempted to place lower extremities on floor. Weakness noted. Provider notified.
--- NOTE | 2019-04-04 16:35 | NUR ---
Attempted to call pt report to fourth floor nurse, Raven, with no answer.
--- NOTE | 2019-04-04 17:08 | NUR ---
250ml pale, clear urine output via patent urinary catheter.
[2019-04-04 17:18] VITALS: BP 199/84
--- NOTE | 2019-04-04 17:23 | NUR ---
SUDHEER PATTERSON admitted to room 433-1, with an admitting diagnosis of constipation, on 04/04/19 from [place] via cart, accompanied by staff.SUDHEER PATTERSON introduced to surroundings, call light, bed controls, phone, TV, temperature control, lights, meal times, smoking policy, visitor policy, side rail policy, bathrooms and showers. Patient Rights given to patient in the handbook. SUDHEER PATTERSON verbalizes understanding that [facility] is not responsible for the loss or damage to any personal effects or valuables that are kept in the patients posession during their hospitalization. The following Patient Care Plans were discussed with the pt: Discharge Planning. SUDHEER PATTERSON verbalizes understanding of Interdisciplinary Patient Education. Patient and/or family were informed about the Rapid Response Team and its purpose.
[2019-04-04] MEDS ORDERED: CATHETER FLUSH 10 ML SYR IV PRN (17:30)
[2019-04-04] MEDS ORDERED: ONDANSETRON 4 MG (ZOFRAN) ORAL DISSOLVE TAB PO PRN (17:30)
[2019-04-04] MEDS: NS IV 1000 ML 1,000 ML IV SCH (18:13)
[2019-04-04 19:36] VITALS: BP 169/71
[2019-04-04] MEDS ORDERED: ONDANSETRON 4 MG/2 ML (SDV) Z0FRAN IVP PRN (20:30)
[2019-04-04] MEDS ORDERED: CALCIUM CARBONATE 500 MG (TUMS) TAB.CHEW PO PRN (20:30)
[2019-04-04] MEDS ORDERED: diphenhydrAMINE 25 MG TAB (BENADRYL) PO PRN (20:30)
[2019-04-04] MEDS: ENOXAPARIN 40 MG/0.4 ML (LOVENOX) SYR SC SCH (20:41)
[2019-04-04] MEDS: SENNA W/DOCUSATE (SENOKOT S) TABLET PO SCH (20:42)
[2019-04-04] MEDS: HYDROcodone/APAP 5 MG/325 MG (LORTAB) TAB PO PRN (20:58)
[2019-04-04] MEDS: inSUlin ASPART (NovoLOG) 1 UNIT/0.01 ML (CHARGE PER UNIT) SC SCH (21:38)
[2019-04-05] VITALS: BP 159/71
[2019-04-05] MEDS ORDERED: NITR0.4T39 SL (02:53)
[2019-04-05] MEDS ORDERED: PREG75CA PO (02:53)
[2019-04-05] MEDS ORDERED: PRED5TAB PO (02:53)
[2019-04-05] MEDS ORDERED: ISOS30TA3 PO (02:53)
[2019-04-05] MEDS ORDERED: NITR-68 PO (02:53)
[2019-04-05] MEDS ORDERED: GLIM4TAB PO (02:53)
[2019-04-05] MEDS ORDERED: CITA20TA12 PO (02:53)
[2019-04-05] MEDS ORDERED: TRAM50TA2 PO (02:53)
[2019-04-05] MEDS ORDERED: DICY10CA12 PO (02:53)
[2019-04-05] MEDS ORDERED: SIMV40TA4 PO (02:53)
[2019-04-05] MEDS ORDERED: METF-399 PO (02:53)
[2019-04-05] MEDS ORDERED: GEMF600T8 PO (02:53)
[2019-04-05] MEDS ORDERED: Premarin PV (03:11)
[2019-04-05] MEDS ORDERED: TRIM100T PO (03:11)
[2019-04-05 04:00] VITALS: BP 189/84
[2019-04-05] MEDS: inSUlin ASPART (NovoLOG) 1 UNIT/0.01 ML (CHARGE PER UNIT) SC SCH (06:17)
[2019-04-05 07:14] LABS: BASOPHILS % (AUTO) 1 % (0-10); EOSINOPHILS # (AUTO) 0.2 10^3/uL (0.0-0.3); EOSINOPHILS % (AUTO) 3 % (0-10); HEMATOCRIT 31 % (35-52); HEMOGLOBIN 9.9 G/DL (11.5-16.0); LYMPHOCYTES # (AUTO) 2.6 X 10^3 (1.0-4.0); LYMPHOCYTES % (AUTO) 43 % (12-44); MEAN CORPUSCULAR HEMOGLOBIN 28 PG (25-34); MEAN CORPUSCULAR HGB CONC 32 G/DL (32-36); MEAN CORPUSCULAR VOLUME 88 FL (80-99); MEAN PLATELET VOLUME 10.5 FL (7.4-10.4); MONOCYTES # (AUTO) 0.7 X 10^3 (0.0-1.0); MONOCYTES % (AUTO) 12 % (0-12); NEUTROPHILS # (AUTO) 2.5 X 10^3 (1.8-7.8); NEUTROPHILS % (AUTO) 41 % (42-75); PLATELET COUNT 320 10^3/uL (130-400); RED CELL DISTRIBUTION WIDTH 13.9 % (10.0-14.5)
[2019-04-05 07:43] LABS: ALANINE AMINOTRANSFERASE 11 U/L (0-55); ALBUMIN 3.8 GM/DL (3.2-4.5); ALKALINE PHOSPHATASE 86 U/L (40-136); BILIRUBIN,TOTAL 0.1 MG/DL (0.1-1.0); BUN/CREATININE RATIO 22; CALCIUM 9.2 MG/DL (8.5-10.1); CARBON DIOXIDE 22 MMOL/L (21-32); CHLORIDE 108 MMOL/L (98-107); CREATININE SERUM 0.82 MG/DL (0.60-1.30); GFR ESTIMATED > 60; GLUCOSE 136 MG/DL (70-105); POTASSIUM 3.8 MMOL/L (3.6-5.0); SODIUM 140 MMOL/L (135-145); TOTAL PROTEIN 6.5 GM/DL (6.4-8.2)
[2019-04-05 08:00] VITALS: BP 173/99
[2019-04-05] MEDS: SENNA W/DOCUSATE (SENOKOT S) TABLET PO SCH ×2 (09:07→20:47)
--- NOTE | 2019-04-05 09:25 | Physical Therapy Evaluation ---
PT Evaluation-General Medical Diagnosis Admission Date Apr 04, 2019 at 16:15 Medical Diagnosis: weakness, urinary retention, fecal impaction Onset Date: Apr 04, 2019 Therapy Diagnosis Therapy Diagnosis: generalized weakness and debility Height/Weight Height (Feet): 5 Height (Inches): 5.00 Weight (Pounds): 132 Precautions Precautions/Isolations: Standard Precautions Weight Bear Status Right Lower Extremity: Right Weight Bearing/Tolerated Left Lower Extremity: Left Weight Bearing/Tolerated Referral Physician: Marissa Reason for Referral: Evaluation/Treatment Medical History Pertinent Medical History: DM, HTN, Neuropathy Current History ER secondary to vaginal bleeding Reviewed History: Yes Social History Home: Single Level Current Living Status: Spouse Prior Prior Level of Function SCALE: Activities may be completed with or without assistive devices. 8-Gjdrqzgboh-eqxhvyi completes the activity by him/herself with no assistance from a helper. 5-Set-up or Clean-up Assistance-helper sets up or cleans up; patient completes activity. [place] assists only prior to or following the activity. 4-Supervision or Touching Assistance-helper provides verbal cues and/or touching/steadying and/or contact guard assistance as patient completes activity. Assistance may be provided throughout the activity or intermittently. 3-Partial/Moderate Assistance-helper does LESS THAN HALF the effort. [place] lifts, holds or supports trunk or limbs, but provides less than half the effort. 2-Substantial/Maximal Assistance-helper does MORE THAN HALF the effort. [place] lifts or holds trunk or limbs and provides more than half the effort. 0-Cwfgsbacv-gerpww does ALL the effort. Patient does none of the effort to complete the activity. Or, the assistance of 2 or more helpers is required for the patient to complete the activity. If activity was not attempted, code reason: 7-Patient Refused. 9-Not Applicable-not attempted and the patient did not perform the activity before the current illness, exacerbation or injury. 10-Not Attempted due to Environmental Limitations-(lack of equipment, weather restraints, etc.). 88-Not Attempted due to Medical Conditions or Safety Concerns. Bed Mobility: 5 Transfers (B,C,W/C): 5 Gait: 5 Indoor Mobility (Ambulation): Independent Prior Devices Use: Walker (or cane) PT Evaluation-Current Subjective Patient agrees to PT at this time. Patient reports severe LBP and pain that radiates down the legs. Patient is emotional about being in the hospital and missing other events. Pain Numeric Pain Scale: 8 Location: Lower Location Body Site: Back Pain Description: Ache Objective Patient Orientation: Normal For Age Problem Solving: Fair Attachments: Garner Catheter, IV ROM/Strength ROM Lower Extremities limited R knee active flexion Strength Lower Extremities grossly 3/5 Integumentary/Posture Integumentary See nursing notes Bladder Incontinence: Yes Posture WFL Sensory Vision: Functional Hearing: Functional Transfers Roll Left to Right (QC): 2 Sit to Lying (QC): 2 Lying to Sitting/Side of Bed(Q: 2 Sit to Stand (QC): 2 Chair/Fsj-yr-Uxkzc Xfer(QC): 2 Gait Does the Patient Walk?: Yes Mode of Locomotion: Walk Anticipated Mode of Locomotion: Walk Gait Assistive Device: FWW Comments/Gait Description did not assess Balance Sitting Static: Normal Sitting Dynamic: Normal Standing Static: Poor Standing Dynamic: Poor Assessment/Needs Patient required max assist to stand and transfer. Patient demonstrated poor standing balance due to ataxia in extremities and swaying but this did not appear to affect sitting balance. Patient required assistance to remain standing with FWW. Patient reported ambulation at home with cane or walker but ambulation was not assessed at this time d/t ataxia. Rehab Potential: Guarded PT Senior Production Manager Goals Senior Production Manager Goals PT Assisted Goals Time Frame: Apr 12, 2019 Sit to Lying (QC): 5 Lying-Sitting on Side/Bed(QC): 5 Sit to Stand (QC): 5 Roll Left to Right (QC): 5 Chair/Obu-cy-Xlyzs Xfer(QC): 5 Car Transfer (QC): 5 Does the Patient Walk: Yes Distance: 100' Walk 10 feet (QC): 5 Walk 50ft with 2 Turns (QC): 5 Gait Assistive Device: FWW PT Plan Problem List Problem List: Activity Tolerance, Functional Strength, Safety, Balance, Gait, Transfer, Bed Mobility Treatment/Plan Treatment Plan: Continue Plan of Care Treatment Plan: Bed Mobility, Education, Functional Activity Stephanie, Functional Strength, Gait, Safety, Therapeutic Exercise, Transfers Frequency: 6 times per week Estimated Hrs Per Day: .25 hour per day Patient and/or Family Agrees t: Yes Time/GCodes Time In: 900 Time Out: 913 Total Billed Treatment Time: 13 Total Billed Treatment 1 visit EVM 13min JADON EMMANUEL PT Apr 05, 2019 09:25 POS
[2019-04-05] MEDS ORDERED: CITA20TA9 PO (10:41)
[2019-04-05] MEDS ORDERED: [UNRECOGNIZED DRUG - CODE] PO (10:41)
[2019-04-05] MEDS ORDERED: METF-397 PO (10:41)
[2019-04-05] MEDS ORDERED: DOCU-143 PO (10:44)
[2019-04-05] MEDS ORDERED: ASCO500T6 PO (10:44)
[2019-04-05] MEDS ORDERED: CRAN450C PO (10:44)
[2019-04-05] MEDS ORDERED: NAPR220T66 PO (10:44)
[2019-04-05] MEDS ORDERED: EST30C VG (10:48)
--- NOTE | 2019-04-05 10:48 | NUR ---
SPOKE WITH THE PATIENT ABOUT HER MEDICATIONS. WE WENT OVER THE LIST THAT WAS SCANNED INTO HER CHART WELL COMPARING WITH THE EXT MED HX. SHE STATES SHE IS NO LONGER TAKING THE LYRICA THAT IS ON HER LIST BECAUSE SHE CAN NOT AFFORD IT, SHE STATES IT DID HELP HER HOWEVER. HER LIST HAS NITROFURANTOIN MAC DAILY HOWEVER MOST RECENTLY SHE HAS FILLED TRIMETHOPRIM, SHE VERIFIED THAT IS WHAT SHE IS NOW TAKING DAILY. IN ADDITION TO HER LIST SHE STATES SHE WAS PUT ON A VAGINAL CREAM, I VERIFIED WITH [facility] IN [place] THEY FILLED PREMARIN VAGINAL CREAM 02-28-19 1/2 GM TWICE WEEKLY. SHE TAKES THE FOLLOWING OTC: ANTACID CHEW 2 QID PRN COLACE HS ALEVE 1 PRN VITAMIN C DAILY CRANBERRY DAILY
--- NOTE | 2019-04-05 11:05 | History & Physical-Hospitalist ---
[facility] 04/05/19 1105: History of Present Illness HPI/Chief Complaint Pt is a poor historian regarding dates and actual procedures performed, but is able to recall most of her medical history. She states she has had some vaginal bleeding described as dark blood clots that started 2 days ago. She reports having bright red blood vaginal bleeding 1 month ago as well. She has a history of urinary retention with chronic UTI prophylaxis, followed by Dr. Moseley. She reports that in the [place] ER they found some constipation and did a digital rectal to help get it moving. She states he was able to get some fecal products, but states she has not had an actual bowel movement. She states she has been having small round BM recently and not a normal size BM. She was found to have urinary retention in the ER and placed on a Reyes catheter to remove the urine. She had 500-600ml of fluid in her bladder. She has a history of a nerve stimul ator in her back as well, but she was uncertain whe she had it placed. She states she has been falling a lot recently, uses a cane at home to walk. She denies feeling dizzy or lightheaded or tripping related to her falls , but states it was more that her legs would just give out form under her. She denies hitting her head or losing consciousness, but she did not seek any medical attention for her falls. When PT came in the room to have her stand she was extremely wobbly and unable to stand at all without a lot of assistance. Source: patient Exam Limitations: other (Poor historian) Date Seen 04/05/19 Attending Physician Shakira Paige DO [facility] Referring Physician Date of Admission Apr 04, 2019 at 16:15 Home Medications & Allergies Home Medications Reviewed patient Home Medication Reconciliation performed by pharmacy medication reconciliations paintless dent repair technician and/or nursing. Patients Allergies have been reviewed. Allergies Allergies Coded Allergies Sulfa (Sulfonamide Antibiotics) (Verified Allergy, Severe, 11/28/18) Past Lkjryjy-Zjkgfy-Otkkmm Hx Past Med/Social Hx: Reviewed Nursing Past Med/Soc Hx Patient Social History Alcohol Use: Denies Use Recreational Drug Use: No Smoking Status: Former Smoker Former Smoker, Quit: Jun 01, 1989 Type Used: Cigarettes 2nd Hand Smoke Exposure: No Recent Foreign Travel: No Contact w/other who traveled: No Recent Hopitalizations: No Recent Infectious Disease Expo: No Immunizations Up To Date Date of Pneumonia Vaccine: Apr 14, 2018 Date of Influenza Vaccine: Mar 03, 2019 Seasonal Allergies Seasonal Allergies: No Past Medical History Surgeries: Appendectomy, Gallbladder, Hysterectomy Cardiac: Hypertension Neurological: Neuropathy Genitourinary: Kidney Stones, UTI-Chronic Gastrointestinal: Gastroesophageal Reflux, Crohns Disease Endocrine: Diabetes, Non-Insulin dep History of Blood Disorders: No Review of Systems Constitutional: No chills, No dizziness, No fever; weakness EENTM: No blurred vision, No double vision Respiratory: No cough, No short of breath Cardiovascular: No chest pain, No palpitations Gastrointestinal: abdominal pain (Fullness Suprapubic), constipation; No diarrhea, No nausea, No vomiting Genitourinary: decreased output, pain Musculoskeletal: back pain, joint pain, muscle cramps, muscle weakness Psychiatric/Neurological: Numbness (Bilateral feet), Tingling (Bilateral Feet) Physical Exam Physical Exam Vital Signs Vital Signs - First Documented 04/04/19 12:40 Temp 36.3 Pulse 103 Resp 18 B/P (MAP) 198/101 (133) Pulse Ox 94 O2 Delivery Room Air Capillary Refill : Less Than 3 Seconds Height, Weight, BMI Height: 5'5.00" Weight: 132lbs. oz. 59.308498hl; 152.09 BMI Method:Stated General Appearance: Chronically ill, Moderate Distress, Thin Respiratory: Chest Non Tender, Lungs Clear, Normal Breath Sounds, No Accessory Muscle Use, No Respiratory Distress Cardiovascular: Regular Rate, Rhythm, No Edema, Normal Peripheral Pulses Gastrointestinal: Normal Bowel Sounds, Soft Extremity: Non Tender, No Calf Tenderness, No Pedal Edema Neurologic/Psychiatric: Alert, Abnormal Gait, Motor Weakness (Legs), Other (Poor historian) Skin: Normal Color, Warm/Dry Results Results/Procedures Labs Laboratory Tests 04/04/19 12:50 04/05/19 06:30 Patient resulted labs reviewed. Assessment/Plan Assessment and Plan Assessment: Urinary retention Constipation, Hx of Crohn's disease Vaginal bleeding Lower extremity weakness Diabetes Pain nerve stimulator lumbar in place Anemia (Hgb 9.9) HTN Plan: Consult about obtaining MRI of lumbar spine Consult Dr Moseley Urology, maintain Reyes catheter Consult DENTAL DETAIL REPRESENTATIVE for vaginal bleeding Consult cardiology for HTN management Manage diabetes Monitor anemia Monitor/Manage constipation DVT Prophylaxis Clinical Quality Measures DVT/VTE Risk/Contraindication: Risk Factor Score Per Nursin RFS Level Per Nursing on Admit: 2=Moderate SHAKIRA PAIGE DO 04/05/192001: History of Present Illness HPI/Chief Complaint Chief complaint: Weakness with urinary retention and impaction. HPI: This is a 73yoWF who is a very poor historian, who presented with urinary retention, reyes catheter initiated in the ER and Dr. Moseley was consulted and will leave reyes catheter in until Thursday, and a fecal impaction that was removed by the ER nurse staff. She was admitted, placed with supportive care, but upon PT and OT evaluation Pt was found to have severe inability to ambulate and stand without multiple odd gyrations and Pt has a history of pain stimulator will obtain more details with that, but Pt appears to be in need of a spinal MRI, so will evaluate if we can get that if it is compatible with the pain stimulator if she does have one, but very poor history from the Pt, will try our best to get more details. Source: patient Exam Limitations: other (Poor historian) Time Seen by a Provider: 08:00 Past Tmypppp-Vhnbxh-Mkzxxy Hx Past Med/Social Hx: Reviewed Nursing Past Med/Soc Hx, Reviewed and Corrections made Past Medical History Musculoskeletal: Chronic Back Pain Review of Systems Constitutional: see HPI, weakness Gastrointestinal: constipation Genitourinary: decreased output Musculoskeletal: back pain Physical Exam Physical Exam General Appearance: Anxious, Chronically ill, Moderate Distress, Thin Respiratory: Lungs Clear Cardiovascular: Regular Rate, Rhythm Neurologic/Psychiatric: Abnormal Gait, Motor Weakness (Legs) Assessment/Plan Admission Diagnosis Assessment: Neurological deficit likely at spinal cord or brain level Urinary retention acute Fecal impaction acute s/p disimpaction Dementia? DM with hypoglycemia episode this am Plan: Evaluate safety of MRI of pain stimulator since she needs spine and brain Reyes cath BM regimen PT/OT CT scan of c spine, brain and t-l-spine Admission Status: Observation Diagnosis/Problems Diagnosis/Problems (1) Neurological deficit present (2) Ataxia (3) Disorder of lumbar spine (4) Fecal impaction in rectum Status: Acute (5) Weakness Status: Acute (6) Urinary retention Status: Acute Supervisory-Addendum Brief Verification & Attestation Participated in pt care: history, MDM, physical Personally performed: exam, history, MDM, supervision of care Care discussed with: Medical Student Procedures: n/a Results interpretation: Verified all documentation Verification and Attestation of Medical Student E/M Service A medical student performed and documented this service in my presence. I reviewed and verified all information documented by the medical student and made modifications to such information, when appropriate. I personally performed the physical exam and medical decision making. Shakira Paige, Apr 05, 2019,20:05 [facility] Apr 05, 2019 11:05 SHAKIRA SMITH DO Apr 05, 2019 20:02 POS
[2019-04-05] MEDS: HYDROcodone/APAP 5 MG/325 MG (LORTAB) TAB PO PRN (13:38)
[2019-04-05] MEDS: NS IV 1000 ML 1,000 ML IV SCH (14:28)
--- NOTE | 2019-04-05 15:30 | Occupational Therapy Eval ---
OT Evaluation-General/PLF Medical Diagnosis Admission Date Apr 04, 2019 at 16:15 Medical Diagnosis: weakness, urinary retention, fecal impaction Onset Date: Apr 04, 2019 Therapy Diagnosis Therapy Diagnosis: Decreased ADL function Height/Weight Height (Feet): 5 Height (Inches): 5.00 Weight (Pounds): 132 Precautions Precautions/Isolations: Fall Prevention, Standard Precautions Safety Interventions: None Referral Physician: Marissa Referral Reason: Activity Tolerance, Self Care, Evaluation/Treatment, Strengthening/ROM Medical History Pertinent Medical History: DM, HTN, Neuropathy Additional Medical History hysterectomy, HTN, UTI chronic Current History Per H&P: "Pt is a poor historian regarding dates and actual procedures performed, but is able to recall most of her medical history. She states she has had some vaginal bleeding described as dark blood clots that started 2 days ago. She reports having bright red blood vaginal bleeding 1 month ago as well. She has a history of urinary retention with chronic UTI prophylaxis, followed by Dr. Moseley. She reports that in the [place] ER they found some constipation and did a digital rectal to help get it moving. She states he was able to get some fecal products, but states she has not had an actual bowel movement. She states she has been having small round BM recently and not a normal size BM. She was found to have urinary retention in the ER and placed on a Garner catheter to remove the urine. She had 500-600ml of fluid in her bladder. She has a history of a nerve stimulator in her back as well, but she was uncertain whe she had it placed. She states she has been falling a lot recently, uses a cane at home to walk. She denies feeling dizzy or lightheaded or tripping related to her falls , but states it was more that her legs would just give out form under her. She denies hitting her head or losing consciousness, but she did not seek any medical attention for her falls. When PT came in the room to have her stand she was extremely wobbly and unable to stand at all without a lot of assistance." Reviewed History: Yes Social History Home: Single Level Current Living Status: Spouse Entry Into Home: Ramp Steps Into Home: 0 Pt's retired, though he is at school from 8am-6pm 5x a week. Pt states is a hoarder and she is only able to ambulate with cane due to space within the home. Pt states neighbors gave her a horn to blow in case of falls, upon questioning pt states she has cell phone but hasn't made a habit of carrying it with her. ADL-Prior Level of Function SCALE: Activities may be completed with or without assistive devices. 5-Uizzvtiyyr-pzlbjqa completes the activity by him/herself with no assistance from a helper. 5-Set-up or Clean-up Assistance-helper sets up or cleans up; patient completes activity. Clymer assists only prior to or following the activity. 4-Supervision or Touching Assistance-helper provides verbal cues and/or touching/steadying and/or contact guard assistance as patient completes activity. Assistance may be provided throughout the activity or intermittently. 3-Partial/Moderate Assistance-helper does LESS THAN HALF the effort. Clymer lifts, holds or supports trunk or limbs, but provides less than half the effort. 2-Substantial/Maximal Assistance-helper does MORE THAN HALF the effort. Clymer lifts or holds trunk or limbs and provides more than half the effort. 0-Xsfnekxae-qhvfcs does ALL the effort. Patient does none of the effort to complete the activity. Or, the assistance of 2 or more helpers is required for the patient to complete the activity. If activity was not attempted, code reason: 7-Patient Refused. 9-Not Applicable-not attempted and the patient did not perform the activity before the current illness, exacerbation or injury. 10-Not Attempted due to Environmental Limitations-(lack of equipment, weather restraints, etc.). 88-Not Attempted due to Medical Conditions or Safety Concerns. Self Care: Needed Some Help Functional Cognition: Independent DME/Equipment: Bedside Commode, Tub/Shower DME/Equipment Comments Pt utilizes FWW outside of home and cane within the home due to limited space. Bedside commode used. Pt states her PLOF as "limited," she would lay/ sit on EOB to watch TV throughout day, receives Meals on Wheels for lunch, and eats sandwiches with for dinner. Pt states she was IND with activities but only utilized bedside commode beside bed and would complete sponge bath, though she states she hasn't taken one in "awhile." Pt states she has had multiple falls, she would stand and fall back to surface, states body just "gives out" Occupation: retired Drive Self: No Leisure Interests: cats OT Current Status Subjective Pt seen in recliner chair, /10 pain in R thigh, states "burning/ shooting" of upper thigh. Pt states she takes medication to regulate this at home. Pt agreeable to OT evaluation. Mental Status/Objective Patient Orientation: Person, Place, Situation, Normal For Age Attachments: Garner Catheter, IV Current Glasses/Contacts: Yes Hearing Aids: No Dentures/Partials: Yes Hand Dominance: Right Upper Extremity ROM WFL BUE shoulder/ elbow R hand impaired: finger MCP flexion ~90, limited IP flexion, cannot make full fist. Upper Extremity Coordination R impaired Upper Extremity Sensation no c/o paresthesias UE, but R LE burning/ shooting pain in anterior thigh Upper Extremity Strength Impaired BUE ADL-Treatment Eating (QC): 6 On/Off Footwear (QC): 4 (SBA in chair.) Other Treatments Pt completes sit to stand with min A, does not stand with knees extended before requires sit. Pt completes sock doff/ donning in chair with SBA. Pt left in recliner with all needs met, call light in reach, pillows for comfort. Education OT Patient Education: Correct positioning, Modified ADL techniques, Purpose of tx/functional activities, Rehab process, Safety issues, Transfer techniques Teaching Recipient: Patient Teaching Methods: Demonstration, Discussion Response to Teaching: Verbalize Understanding, Return Demonstration OT Short Term Goals Short Term Goals 1=Demonstrate adherence to instructed precautions during ADL tasks. 2=Patient will verbalize/demonstrate understanding of assistive devices/modifications for ADL. 3=Patient will improve strength/tolerance for activity to enable patient to perform ADL's. OT Longterm Goals Longterm Goals Time Frame: Apr 12, 2019 Eating (QC): 6 Oral Hygiene (QC): 6 Shower/Bathe Self (QC): 6 Upper Body Dressing (QC): 6 Lower Body Dressing (QC): 4 On/Off Footwear (QC): 6 Toileting Hygiene (QC): 4 Toilet/Commode Transfer (QC): 4 Additional Goals: 1-Demonstrate ADL Tasks, 2-Verbalize Understanding, 3- ImproveStrength/Stephanie 1=Demonstrate adherence to instructed precautions during ADL tasks. 2=Patient will verbalize/demonstrate understanding of assistive devices/modifications for ADL. 3=Patient will improve strength/tolerance for activity to enable patient to perform ADL's. OT Education/Plan Problem List/Assessment Assessment: Decreased Activ Tolerance, Decreased UE Strength, Dependent Transfers, Impaired Coordination, Impaired Funct Balance, Impaired I ADL's, Impaired Self-Care Skills Discharge Recommendations Plan/Recommendations: Continue POC Therapy Discharge Recommendati: Scheduled Assistance, Bath Aide, Post Acute OT Treatment Plan/Plan of Care Treatment,Training & Education: Yes Patient would benefit from OT for education, treatment and training to promote independence in ADL's, mobility, safety and/or upper extremity function for ADL's. Plan of Care: ADL Retraining, Caregiver Training, Functional Mobility, Group Exercise/Act as Ind, UE Funct Exercise/Act Treatment Duration: Apr 12, 2019 Frequency: 5 times per week Estimated Hrs Per Day: .25 hour per day Agreement: Yes Rehab Potential: Guarded Time/GCodes Start Time: 10:14 Stop Time: 10:38 Total Time Billed (hr/min): 24 Billed Treatment Time 1, EVM, ADL (24) KAILEY BENZ OTR Apr 05, 2019 15:30 POS
[2019-04-05 16:00] VITALS: BP 163/83
--- NOTE | 2019-04-05 16:49 | NUR ---
RD ASSESSMENT PMHx: HTN; GERD; Crohn's disease; DM PT INTERACTION: Pt was awake and pleasant during consult for MST score. Note pt is a poor historian, per chart review. Pt states current appetite is not very good, and has been this way for the last week. Note pt's avg PO intake <75% x1d, per chart review. Pt states following a low-CHO diet at home, and currently has no issues with chewing/swallowing food. Pt states no recent issues with n/v at this time. Pt states having some issues with constipation. Note pt currently on bowel regimen of colace, senna, per chart review. Pt states recent wt loss of "several pounds", but could not give an amount lost or timeframe of wt lost. Note recent 5# wt gain x2mon, per chart review. Given pt's PO intake and wt hx, pt is not at risk for malnutrition per ASPEN guidelines. ABNORMAL NUTRITION-RELATED LAB VALUES: Cl 108 (H); glu 136 (H) Est. kcal needs: 9113-2495 kcal (25-30 kcal/kg) Est. Pro needs: 62-74 g Pro (1.0-1.2 g Pro/kg) PES STATEMENT: Inadequate oral intake (NI-2.1) related to loss of appetite | constipation as evidenced by pt interview | <75% meals x1d INTERVENTION: Continue with current diet order of Regular diet. Encouraged pt to eat when able. MONITOR/EVALUATE: PO Intake; Plan of Care; Hydration Status; Weight Status; Lab Values Candido Vivar, MS, RD, LD Ext. 133
--- NOTE | 2019-04-05 18:00 | NUR ---
Patient reports having spine stimulater placed by a in [place] at [facility]. Phone number obtained from [facility] on physician card. Call placed to numbers on card. Numbers no longer working. Attempted to call Dr. Mcallister with [facility], his office states that they only do temporary stimulators and only do them in [place] office. Attempted to get records through [facility], received fax back stating that their were o records for patient. Patient report to this RN that she had her records released from [facility] to [facility] in [place]. Will attempt to get records from [facility]. Patient reports that stimulator was placed in 2012.
[2019-04-05 20:00] VITALS: BP 163/80
[2019-04-05] MEDS: ENOXAPARIN 40 MG/0.4 ML (LOVENOX) SYR SC SCH (20:47)
--- NOTE | 2019-04-05 21:07 | NUR ---
DR PAIGE CONTACTED REGARDING PT HOME MEDS, DR RESTARTED HOME MEDS.
[2019-04-05] MEDS ORDERED: NITROGLYCERIN 0.4 MG SL TABS BTL 25'S SL PRN (21:15)
[2019-04-05] MEDS: ALPRAZolam 0.25 MG (XANAX) TAB PO PRN (22:01)
[2019-04-05 23:55] VITALS: BP 160/76
[2019-04-06 04:00] VITALS: BP 165/65
[2019-04-06 05:14] LABS: BASOPHILS % (AUTO) 0 % (0-10); EOSINOPHILS # (AUTO) 0.2 10^3/uL (0.0-0.3); EOSINOPHILS % (AUTO) 4 % (0-10); HEMATOCRIT 32 % (35-52); HEMOGLOBIN 10.1 G/DL (11.5-16.0); LYMPHOCYTES # (AUTO) 2.3 X 10^3 (1.0-4.0); LYMPHOCYTES % (AUTO) 39 % (12-44); MEAN CORPUSCULAR HEMOGLOBIN 28 PG (25-34); MEAN CORPUSCULAR HGB CONC 32 G/DL (32-36); MEAN CORPUSCULAR VOLUME 88 FL (80-99); MEAN PLATELET VOLUME 10.6 FL (7.4-10.4); MONOCYTES # (AUTO) 0.6 X 10^3 (0.0-1.0); MONOCYTES % (AUTO) 9 % (0-12); NEUTROPHILS # (AUTO) 2.9 X 10^3 (1.8-7.8); NEUTROPHILS % (AUTO) 48 % (42-75); PLATELET COUNT 313 10^3/uL (130-400); RED CELL DISTRIBUTION WIDTH 13.8 % (10.0-14.5)
[2019-04-06 05:25] LABS: ALANINE AMINOTRANSFERASE 9 U/L (0-55); ALBUMIN 3.7 GM/DL (3.2-4.5); ALKALINE PHOSPHATASE 75 U/L (40-136); BILIRUBIN,TOTAL 0.2 MG/DL (0.1-1.0); BUN/CREATININE RATIO 18; CALCIUM 9.1 MG/DL (8.5-10.1); CARBON DIOXIDE 19 MMOL/L (21-32); CHLORIDE 112 MMOL/L (98-107); CREATININE SERUM 0.72 MG/DL (0.60-1.30); GFR ESTIMATED > 60; GLUCOSE 112 MG/DL (70-105); SODIUM 142 MMOL/L (135-145); TOTAL PROTEIN 6.3 GM/DL (6.4-8.2)
[2019-04-06] MEDS: HYDROcodone/APAP 5 MG/325 MG (LORTAB) TAB PO PRN ×3 (07:57→18:00)
[2019-04-06 08:00] VITALS: BP 162/80
[2019-04-06] MEDS ORDERED: NON-FORMULARY MEDICATION 1 EA EA (Cranberry Fruit Concentrate (Cranberry) 450 MG) PO SCH (09:00)
--- NOTE | 2019-04-06 09:00 | NUR ---
Records received from [facility] in [facility]. No [facility] records at this time. This RN attempted to call to get information. Unable to get call to go through to .
[2019-04-06] MEDS: ASCORBIC ACID (VIT C) 500 MG TABLET PO SCH (09:48)
[2019-04-06] MEDS: ISOSORBIDE MONONITRATE 30 MG (IMDUR) TAB PO SCH (09:48)
[2019-04-06] MEDS: DICYCLOMINE 10 MG (BENTYL) CAP PO SCH ×4 (09:49→20:52)
[2019-04-06] MEDS: SENNA W/DOCUSATE (SENOKOT S) TABLET PO SCH ×2 (09:49→20:53)
[2019-04-06] MEDS: predniSONE 5 MG TAB PO SCH (09:49)
--- NOTE | 2019-04-06 10:26 | Diagnostic Imaging Report ---
PROCEDURE: CT head and CT cervical spine without contrast. TECHNIQUE: Multiple contiguous axial images were obtained through the brain and cervical spine without the use of intravenous contrast. Sagittal and coronal reformations through the cervical spine were then performed. Auto Exposure Controls were utilized during the CT exam to meet ALARA standards for radiation dose reduction. INDICATION: Head and neck pain and confusion. FINDINGS: There is prominence of the ventricles and sulci. There is some chronic microvascular ischemic disease. There is no hydrocephalus. There is no midline shift. There is no intracranial mass, hemorrhage or extra-axial fluid collection. Calvarium is intact. Sinuses and mastoid air cells are clear. There is straightening of the normal cervical lordosis with some degenerative disc disease at C5-C6 and C6-C7. There is posterior facet arthropathy. There is no fracture or traumatic subluxation. The odontoid is intact and the lateral masses are well aligned. The prevertebral soft tissues are within normal limits. The lung apices are clear. IMPRESSION: Atrophy and mild chronic microvascular ischemic disease however no acute intracranial abnormality. Moderate lower cervical spondylosis and degenerative disease without acute fracture or traumatic fixation Dictated by: Dictated on workstation # [id number]
--- NOTE | 2019-04-06 11:10 | Progress Note - Hospitalist ---
[facility] 04/06/19 1110: Subjective HPI/CC On Admission Date Seen by Provider: Apr 06, 2019 Time Seen by Provider: 07:00 Chief complaint: Weakness with urinary retention and impaction. HPI: This is a 73yoWF who is a very poor historian, who presented with urinary retention, reyes catheter initiated in the ER and Dr. Moseley was consulted and will leave reyes catheter in until Thursday, and a fecal impaction that was removed by the ER nurse staff. She was admitted, placed with supportive care, but upon PT and OT evaluation Pt was found to have severe inability to ambulate and stand without multiple odd gyrations and Pt has a history of pain stimulator will obtain more details with that, but Pt appears to be in need of a spinal MRI, so will evaluate if we can get that if it is compatible with the pain stimulator if she does have one, but very poor history from the Pt, will try our best to get more details. Subjective/Events-last exam * Pt reports having a large BM yesterday that did temporarily help with her abdominal bloating and tension * She reports that the bloating has returned today however * She has started to have blood in her urinary catheter today * She states she has had increased back pain associated with her nerve stimulator in the lumbar region * She states that her stimulator has not been charging recently as well stating the interlocking tower operator shows an error like the stimulator is not responding * She reports having increased pain in her right leg especially the medial thigh region, and increased numbness in the lower right leg from the knee down * We have not been able to contact the surgeon who placed the stimulator or find the manufacture information to determine if it is safe to be able to obtain an MRI of the Lumbar spine * She does report increased pain in her bilateral knees related to arthritis * She is still a poor historian, but is able to remember most of the details related to her medical history, and her has been unable to be reached to provide further information Review of Systems General: No Chills; Fatigue HEENT: No Head Aches, No Visual Changes Pulmonary: No Dyspnea; Cough Cardiovascular: No: Chest Pain, Palpitations, Edema Gastrointestinal: Abdominal Pain (Fullness, Bloating), Constipation; No: Na usea, Vomiting, Diarrhea Genitourinary: Hematuria, Retention Musculoskeletal: back pain, leg pain, foot pain Neurological: Weakness, Numbness Focused Exam Lactate Level 04/04/19 13:50: Lactic Acid Level 1.11 Respiratory: Chest Non Tender, Lungs Clear, Normal Breath Sounds, No Accessory Muscle Use, No Respiratory Distress Cardiovascular: Regular Rate, Rhythm, No Edema, No JVD, No Murmur, Normal Peripheral Pulses Peripheral Pulses: 2+ Radial Pulses (R), 2+ Radial Pulses (L) Skin: normal color, warm/dry Objective Exam Vital Signs Vital Signs Date Time Temp Pulse Resp B/P (MAP) Pulse Ox O2 Delivery O2 Flow Rate FiO2 04/06/19 08:00 Room Air 04/06/19 08:00 36.9 80 18 162/80 (107) 99 Capillary Refill : Less Than 3 Seconds General Appearance: Moderate Distress Respiratory: Chest Non Tender, Lungs Clear, Normal Breath Sounds, No Accessory Muscle Use, No Respiratory Distress Cardiovascular: Regular Rate, Rhythm, No Edema, No Murmur, Normal Peripheral Pulses Gastrointestinal: Normal Bowel Sounds, Non Tender, Soft, Distended Extremity: No Non Tender (Right lower extremity ); No Calf Tenderness, No Pedal Edema Neurologic/Psychiatric: Alert, Oriented x3, Normal Mood/Affect, Abnormal Gait, Motor Weakness, Sensory Deficit Skin: Normal Color, Warm/Dry Results/Procedures Lab Laboratory Tests 04/06/19 04:20 Patient resulted labs reviewed. Assessment/Plan Assessment and Plan Assess & Plan/Chief Complaint Assessment: Urinary retention, hematuria Constipation, Hx of Crohn's disease Lower extremity weakness, pain Diabetes Pain nerve stimulator lumbar in place Anemia (Hgb 9.9) HTN Plan: Consult about obtaining MRI of lumbar spine Consult Dr Moseley Urology, maintain Reyes catheter Consult cardiology for HTN management Manage diabetes Monitor anemia Monitor/Manage constipation DVT Prophylaxis (SCD due to new onset hematuria likely related to anti coagulation) Clinical Quality Measures DVT/VTE Risk/Contraindication: Risk Factor Score Per Nursin RFS Level Per Nursing on Admit: 2=Moderate SHAKIRA PAIGE DO 04/07/19 0717: Subjective Subjective/Events-last exam Pt doing much better Spine CT scan pending at time of dictation but CT of the brain and cervical spine revealed no abnormalities. Inpatient rehab will be an option, we will submit for approval after CT of the spine is completed Hematuria noted so Lovenox will be held SCDS will be maintained Bowel regimen will be maintained Review of Systems Neurological: Weakness, Numbness, Incoordination Objective Exam General Appearance: No Apparent Distress, WD/WN, Chronically ill Respiratory: Lungs Clear Cardiovascular: Regular Rate, Rhythm Neurologic/Psychiatric: Motor Weakness, Sensory Deficit Assessment/Plan Assessment and Plan Assess & Plan/Chief Complaint CT scan of spine Dr Roblero consultation? PT/OT IRF? Diagnosis/Problems Diagnosis/Problems (1) Urinary retention Status: Acute (2) Weakness Status: Acute (3) Fecal impaction in rectum Status: Acute (4) Ataxia (5) Neurological deficit present (6) Disorder of lumbar spine Supervisory-Addendum Brief Verification & Attestation Participated in pt care: history, MDM, physical Personally performed: exam, history, MDM, supervision of care Care discussed with: Medical Student Procedures: n/a Results interpretation: Verified all documentation Verification and Attestation of Medical Student E/M Service A medical student performed and documented this service in my presence. I reviewed and verified all information documented by the medical student and made modifications to such information, when appropriate. I personally performed the physical exam and medical decision making. Shakira Paige, Apr 07, 2019,07:17 [facility] Apr 06, 2019 11:10 SHAKIRA SMITH DO Apr 07, 2019 07:17 POS
--- NOTE | 2019-04-06 11:33 | Physical Therapy Daily Note ---
PT Daily Note-Current Subjective Patient has just completed OT and agrees to PT at this time. Patient is in chair with LEs elevated. Pain Numeric Pain Scale: 7 Location: Right Location Body Site: Knee Pain Description: Ache Appearance Patient in recliner post tx with nurse call, phone, tray, all needs met. Mental Status Patient Orientation: Normal For Age Attachments: Garner Catheter, IV Transfers SCALE: Activities may be completed with or without assistive devices. 8-Ssyhehrxjf-fjtycun completes the activity by him/herself with no assistance from a helper. 5-Set-up or Clean-up Assistance-helper sets up or cleans up; patient completes activity. [place] assists only prior to or following the activity. 4-Supervision or Touching Assistance-helper provides verbal cues and/or touching/steadying and/or contact guard assistance as patient completes activity. Assistance may be provided throughout the activity or intermittently. 3-Partial/Moderate Assistance-helper does LESS THAN HALF the effort. [place] lifts, holds or supports trunk or limbs, but provides less than half the effort. 2-Substantial/Maximal Assistance-helper does MORE THAN HALF the effort. [place] lifts or holds trunk or limbs and provides more than half the effort. 4-Qpeqlpbuh-pluodh does ALL the effort. Patient does none of the effort to complete the activity. Or, the assistance of 2 or more helpers is required for the patient to complete the activity. If activity was not attempted, code reason: 7-Patient Refused. 9-Not Applicable-not attempted and the patient did not perform the activity before the current illness, exacerbation or injury. 10-Not Attempted due to Environmental Limitations-(lack of equipment, weather restraints, etc.). 88-Not Attempted due to Medical Conditions or Safety Concerns. Sit to Stand (QC): 1 Weight Bearing Right Lower Extremity: Right Weight Bearing/Tolerated Left Lower Extremity: Left Weight Bearing/Tolerated Exercises Seated Therapy Exercises: Long arc quads, Hip flexion Seated Reps: 8 (AAROM) Treatments standing, LE exercise Assessment Current Status: Poor Progress Before standing, patient instructed to flex R knee to bring under body for standing, which proved difficult and painful for patient. Patient able to stand from recliner with assist of 2 and began shaking once standing. Patient stood for approximately 1 minute with FWW without subsiding of shaking and swaying some side to side. Patient instructed to reach back with hands for chair before sitting. Babinski test was performed and was negative bilaterally and no abnormal clonus was noted. Patient demonstrated reduced sensation bilaterally below the knees and reports she often doesn't feel things on her feet. Patient performed LAQ with assistance for knee flexion and some flexion resistance was noted bilaterally. Patient performed hip flexion marches in seated and used manual assistance to perform exercise on RLE. Patient noted during exercise that LLE was stronger than RLE. Patient reclined in chair with feet elevated and call light at conclusion of treatment. PT Snf Goals [employer] Professor Goals PT Snf Goals Time Frame: Apr 12, 2019 Sit to Lying (QC): 5 Lying-Sitting on Side/Bed(QC): 5 Sit to Stand (QC): 5 Roll Left to Right (QC): 5 Chair/Rti-cv-Nwcbg Xfer(QC): 5 Car Transfer (QC): 5 Does the Patient Walk: Yes Distance: 100' Walk 10 feet (QC): 5 Walk 50ft with 2 Turns (QC): 5 Gait Assistive Device: FWW PT Plan Problem List Problem List: Activity Tolerance, Functional Strength, Safety, Balance, Gait, Transfer, Bed Mobility, ROM Treatment/Plan Treatment Plan: Continue Plan of Care Treatment Plan: Bed Mobility, Concurrent Therapy, Education, Functional Activity Stephanie, Functional Strength, Gait, Safety, Therapeutic Exercise, Transfe rs Frequency: 6 times per week Estimated Hrs Per Day: .25 hour per day Patient and/or Family Agrees t: Yes Safety Risks/Education Patient Education: Correct Positioning, Safety Issues Teaching Recipient: Patient Teaching Methods: Demonstration, Discussion Response to Teaching: Reinforcement Needed Time/GCodes Time In: 1106 Time Out: 1123 Total Billed Treatment Time: 17 Total Billed Treatment 1 visit FA 17min RAMYA RIOS PT Apr 06, 2019 11:33 POS
--- NOTE | 2019-04-06 11:33 | Occupational Ther Daily Note ---
OT Current Status-Daily Note Subjective Pt seen in bed, states 7/10 pain in R medial thigh, describes as "burning". Pt agreeable to OT tx session. Mental Status/Objective Patient Orientation: Normal For Age Attachments: Drains, IV ADL-Treatment Therapy Code Descriptions/Definitions Functional [place] Measure: 0=Not Assessed/NA 4=Minimal Assistance 1=Total Assistance 5=Supervision or Setup 2=Maximal Assistance 6=Modified [place] 3=Moderate Assistance 7=Complete IndependenceSCALE: Activities may be completed with or without assistive devices. 2-Gwmievljbf-bdesnfb completes the activity by him/herself with no assistance from a helper. 5-Set-up or Clean-up Assistance-helper sets up or cleans up; patient completes activity. [place] assists only prior to or following the activity. 4-Supervision or Touching Assistance-helper provides verbal cues and/or touching/steadying and/or contact guard assistance as patient completes activi ty. Assistance may be provided throughout the activity or intermittently. 3-Partial/Moderate Assistance-helper does LESS THAN HALF the effort. [place] lifts, holds or supports trunk or limbs, but provides less than half the effort. 2-Substantial/Maximal Assistance-helper does MORE THAN HALF the effort. [place] lifts or holds trunk or limbs and provides more than half the effort. 7-Suqnpsckb-zdknga does ALL the effort. Patient does none of the effort to complete the activity. Or, the assistance of 2 or more helpers is required for the patient to complete the activity. If activity was not attempted, code reason: 7-Patient Refused. 9-Not Applicable-not attempted and the patient did not perform the activity before the current illness, exacerbation or injury. 10-Not Attempted due to Environmental Limitations-(lack of equipment, weather restraints, etc.). 88-Not Attempted due to Medical Conditions or Safety Concerns. Other Treatment Pt seen in bed, supine. Pt agreeable to move to chair and work on sitting endurance and encourage abdominal strengthening throughout day. Pt bed mob with min A, able to mobilize L leg to EOB, requires assist with R leg to EOB. Pt scoots forward to EOB with encouragement. Pt sit to stand with max Ax1, legs shaking in standing position, squat-pivot completed to recliner chair. Pt educated on benefits of seated position and UE movement throughout day. Pt able to elevate legs with lever, left with PT with call light in reach, all needs met. Education OT Patient Education: Correct positioning, Energy conservation, Purpose of tx/functional activities, Transfer techniques Teaching Recipient: Patient Teaching Methods: Demonstration, Discussion Response to Teaching: Verbalize Understanding, Return Demonstration, Reinforcement Needed OT Short Term Goals Short Term Goals 1=Demonstrate adherence to instructed precautions during ADL tasks. 2=Patient will verbalize/demonstrate understanding of assistive devices/modifications for ADL. 3=Patient will improve strength/tolerance for activity to enable patient to perform ADL's. OT Carbon Lamp Cleaner Goals Carbon Lamp Cleaner Goals Time Frame: Apr 12, 2019 Eating (QC): 6 Oral Hygiene (QC): 6 Shower/Bathe Self (QC): 6 Upper Body Dressing (QC): 6 Lower Body Dressing (QC): 4 On/Off Footwear (QC): 6 Toileting Hygiene (QC): 4 Toilet/Commode Transfer (QC): 4 Additional Goals: 1-Demonstrate ADL Tasks, 2-Verbalize Understanding, 3-Impro veStrength/Stephanie 1=Demonstrate adherence to instructed precautions during ADL tasks. 2=Patient will verbalize/demonstrate understanding of assistive devices/modifications for ADL. 3=Patient will improve strength/tolerance for activity to enable patient to perform ADL's. OT Education/Plan Problem List/Assessment Assessment: Decreased Activ Tolerance, Decreased UE Strength, Dependent Transfers, Impaired Bed Mobility, Impaired Funct Balance, Impaired I ADL's, Impaired Self-Care Skills Discharge Recommendations Plan/Recommendations: Continue POC Therapy Discharge Recommendati: Scheduled Assistance, Post Acute OT Treatment Plan/Plan of Care Treatment,Training & Education: Yes Patient would benefit from OT for education, treatment and training to promote i ndependence in ADL's, mobility, safety and/or upper extremity function for ADL's. Plan of Care: ADL Retraining, Caregiver Training, Functional Mobility, Group Exercise/Act as Ind, UE Funct Exercise/Act Treatment Duration: Apr 12, 2019 Frequency: 5 times per week Estimated Hrs Per Day: .25 hour per day Agreement: Yes Rehab Potential: Guarded Time/GCodes Start Time: 10:55 Stop Time: 11:05 Total Time Billed (hr/min): 10 Billed Treatment Time 1, MILIND (10) KAILEY BENZ OTR Apr 06, 2019 11:32 POS
[2019-04-06] MEDS: GEMFIBROZIL 600 MG (LOPID) TAB PO SCH ×2 (11:59→20:52)
[2019-04-06 12:00] VITALS: BP 187/77
--- NOTE | 2019-04-06 12:05 | Diagnostic Imaging Report ---
PROCEDURE: CT thoracic and lumbar spine without contrast. TECHNIQUE: Multiple contiguous axial images were obtained through the thoracic and lumbar spine without the use of intravenous contrast. Sagittal and coronal reformations were then performed. INDICATION: Mid back pain. FINDINGS: The reconstructed coronal images do show levoscoliosis of the lumbar spine. This appearance is similar to the CT abdomen/pelvis exam performed on 11/28/2018. The axial images do show that there is trefoil stenosis at L4-L5 with narrowing of the neural foramen bilaterally, particularly on the right. These degenerative changes are similar to the previous CT abdomen/pelvis exam. There is also narrowing of the neural foramen on the right at L3-L4, and this too is unchanged when compared to the prior exam. In addition, there is slight anterior translation of L5 with respect to S1. There is narrowing of the disc space at this level, and there is a broad-based disc bulge eccentric to the right. There is no high-grade central stenosis evident, but the disc bulge to the right at L5-S1 may encroach upon the exiting right nerve root. The remainder of the lumbar spine and the thoracic spine show no sign of a high-grade central stenosis. As noted on the previous exam, there is a dorsal stimulator device in place. The leads enter the thecal sac at the L1-L2 level, and the leads extend cephalad to the level of T8. There is no fracture or acute bony abnormality appreciated. There is scar formation in both lung apices. The lungs where visualized are otherwise clear. There is no sign of a paraspinal mass. IMPRESSION: 1. There is no evidence for an acute bony abnormality. 2. 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 The L4-L5 level is the most severely affected as there is trefoil stenosis at this level with neural foraminal narrowing bilaterally, particularly on the right. There is no high-grade stenosis at L3-L4 or L5-S1, but there is neural foraminal narrowing on the right at both of these levels. These degenerative changes do seem similar to the previous CT abdomen/pelvis exam. 3. There is no evidence for spinal stenosis or nerve root encroachment in the thoracic spine. 4. The neurostimulator device seen previously is again evident. Dictated by: Dictated on workstation # [id number]
[2019-04-06] MEDS: NS IV 1000 ML 1,000 ML IV SCH (15:25)
[2019-04-06 16:00] VITALS: BP 151/68
[2019-04-06] MEDS: ENOXAPARIN 40 MG/0.4 ML (LOVENOX) SYR SC SCH (18:46)
[2019-04-06] MEDS: DOCUSATE SODIUM 100 MG (COLACE) CAP PO SCH (20:53)
[2019-04-06] MEDS: SIMvastatin 40 MG (ZOCOR) TAB PO SCH (20:53)
[2019-04-06] MEDS: TRIMETHOPRIM 100 MG TAB (PROLOPRIM) NON-FORMULARY PO SCH (20:59)
[2019-04-07] VITALS: BP 144/69
[2019-04-07] MEDS: NS IV 1000 ML 1,000 ML IV SCH ×2 (07:36)
[2019-04-07] MEDS: HYDROcodone/APAP 5 MG/325 MG (LORTAB) TAB PO PRN ×2 (07:44→13:43)
[2019-04-07 07:49] LABS: BASOPHILS % (AUTO) 0 % (0-10); EOSINOPHILS # (AUTO) 0.2 10^3/uL (0.0-0.3); EOSINOPHILS % (AUTO) 2 % (0-10); HEMATOCRIT 30 % (35-52); HEMOGLOBIN 9.3 G/DL (11.5-16.0); LYMPHOCYTES # (AUTO) 2.5 X 10^3 (1.0-4.0); LYMPHOCYTES % (AUTO) 35 % (12-44); MEAN CORPUSCULAR HEMOGLOBIN 28 PG (25-34); MEAN CORPUSCULAR HGB CONC 31 G/DL (32-36); MEAN CORPUSCULAR VOLUME 89 FL (80-99); MONOCYTES # (AUTO) 0.6 X 10^3 (0.0-1.0); MONOCYTES % (AUTO) 8 % (0-12); NEUTROPHILS # (AUTO) 3.8 X 10^3 (1.8-7.8); NEUTROPHILS % (AUTO) 54 % (42-75); PLATELET COUNT 310 10^3/uL (130-400); WHITE BLOOD COUNT 7.1 10^3/uL (4.3-11.0)
[2019-04-07 08:00] VITALS: BP 176/62
[2019-04-07 08:09] LABS: ALANINE AMINOTRANSFERASE 11 U/L (0-55); ALBUMIN 3.7 GM/DL (3.2-4.5); ALKALINE PHOSPHATASE 78 U/L (40-136); BILIRUBIN,TOTAL 0.2 MG/DL (0.1-1.0); BUN/CREATININE RATIO 22; CALCIUM 9.1 MG/DL (8.5-10.1); CARBON DIOXIDE 18 MMOL/L (21-32); CHLORIDE 115 MMOL/L (98-107); CREATININE SERUM 0.72 MG/DL (0.60-1.30); GFR ESTIMATED > 60; GLUCOSE 132 MG/DL (70-105); POTASSIUM 4.4 MMOL/L (3.6-5.0); SODIUM 142 MMOL/L (135-145); TOTAL PROTEIN 6.2 GM/DL (6.4-8.2)
[2019-04-07] MEDS: GEMFIBROZIL 600 MG (LOPID) TAB PO SCH ×2 (09:15→20:48)
[2019-04-07] MEDS: ASCORBIC ACID (VIT C) 500 MG TABLET PO SCH (09:16)
[2019-04-07] MEDS: ISOSORBIDE MONONITRATE 30 MG (IMDUR) TAB PO SCH (09:16)
[2019-04-07] MEDS: DICYCLOMINE 10 MG (BENTYL) CAP PO SCH ×4 (09:16→20:45)
[2019-04-07] MEDS: SENNA W/DOCUSATE (SENOKOT S) TABLET PO SCH ×2 (09:16→20:45)
[2019-04-07] MEDS: predniSONE 5 MG TAB PO SCH (09:19)
[2019-04-07] MEDS ORDERED: LACTULOSE SYRUP 10GM/15ML (ENULOSE) 30ML UDC PO NR (10:00)
[2019-04-07] MEDS ORDERED: BISACODYL 10 MG SUPP (DULCOLAX) PR NR (10:00)
--- NOTE | 2019-04-07 10:11 | Physical Therapy Daily Note ---
PT Daily Note-Current Subjective Patient agrees to PT at this time. Patient agrees to standing and moving to chair but reports that she is still very shaking when standing and walking will not happen today. Patient reports severe pain with movement of R knee. Pain Numeric Pain Scale: 10-Worst Possible Pain Location: Right Location Body Site: Knee Pain Description: Ache Mental Status Patient Orientation: Normal For Age Attachments: Polar Pack, IV Transfers SCALE: Activities may be completed with or without assistive devices. 2-Iybbcfhjum-fszekuo completes the activity by him/herself with no assistance from a helper. 5-Set-up or Clean-up Assistance-helper sets up or cleans up; patient completes activity. [place] assists only prior to or following the activity. 4-Supervision or Touching Assistance-helper provides verbal cues and/or touching/steadying and/or contact guard assistance as patient completes activity. Assistance may be provided throughout the activity or intermittently. 3-Partial/Moderate Assistance-helper does LESS THAN HALF the effort. [place] lifts, holds or supports trunk or limbs, but provides less than half the effort. 2-Substantial/Maximal Assistance-helper does MORE THAN HALF the effort. [place] lifts or holds trunk or limbs and provides more than half the effort. 2-Xzytavzjy-owoapu does ALL the effort. Patient does none of the effort to complete the activity. Or, the assistance of 2 or more helpers is required for the patient to complete the activity. If activity was not attempted, code reason: 7-Patient Refused. 9-Not Applicable-not attempted and the patient did not perform the activity before the current illness, exacerbation or injury. 10-Not Attempted due to Environmental Limitations-(lack of equipment, weather restraints, etc.). 88-Not Attempted due to Medical Conditions or Safety Concerns. Roll Left to Right (QC): 4 Sit to Lying (QC): 4 Sit to Stand (QC): 2 Chair/Irv-bb-Espgj Xfer(QC): 2 Bed to/from Chair: 2 Weight Bearing Right Lower Extremity: Right Weight Bearing/Tolerated Left Lower Extremity: Left Weight Bearing/Tolerated Gait Training Does the Patient Walk?: Yes Distance: 10' Walk 10 feet (QC): 2 Walk 50 ft with 2 Turns(QC): 88 Walk 150 ft (QC): 88 Gait Assistive Device: FWW ataxic/no purposeful bilateral LE movement Exercises Supine Ex: Ankle pumps, Heel Slides Supine Reps: 10 Assessment Patient performed heel slides while in bed with assistance, limited ROM, and increase in knee pain. As repetitions progressed, LEs became increasingly resistant to movement. Patient sat to EOB, requiring cues to roll over and assistance to sit up. Patient stood with max assist and FWW and shaking began once standing. Patient was able to take about 10 steps to transfer to chair with shaking and sway subsiding some and was seated in recliner with legs elevated. PT [facility] Goals Library Associate Goals PT [facility] Goals Time Frame: Apr 12, 2019 Sit to Lying (QC): 5 Lying-Sitting on Side/Bed(QC): 5 Sit to Stand (QC): 5 Roll Left to Right (QC): 5 Chair/Txy-qc-Arzfc Xfer(QC): 5 Car Transfer (QC): 5 Does the Patient Walk: Yes Distance: 100' Walk 10 feet (QC): 5 Walk 50ft with 2 Turns (QC): 5 Gait Assistive Device: FWW PT Plan Treatment/Plan Treatment Plan: Continue Plan of Care Treatment Plan: Bed Mobility, Concurrent Therapy, Education, Functional Activity Stephanie, Functional Strength, Gait, Safety, Therapeutic Exercise, Transfers Frequency: 6 times per week Estimated Hrs Per Day: .25 hour per day Patient and/or Family Agrees t: Yes Time/GCodes Time In: 923 Time Out: 943 Total Billed Treatment Time: 20 Total Billed Treatment 1 visit FA 20min JADON EMMANUEL PT Apr 07, 2019 10:11 POS
--- NOTE | 2019-04-07 10:27 | Progress Note - Hospitalist ---
[facility] 04/07/19 1027: Subjective HPI/CC On Admission Date Seen by Provider: Apr 07, 2019 Time Seen by Provider: 08:06 Chief complaint: Weakness with urinary retention and impaction. HPI: This is a 73yoWF who is a very poor historian, who presented with urinary retention, reyes catheter initiated in the ER and Dr. Moseley was consulted and will leave reyes catheter in until Thursday, and a fecal impaction that was removed by the ER nurse staff. She was admitted, placed with supportive care, but upon PT and OT evaluation Pt was found to have severe inability to ambulate and stand without multiple odd gyrations and Pt has a history of pain stimulator will obtain more details with that, but Pt appears to be in need of a spinal MRI, so will evaluate if we can get that if it is compatible with the pain stimulator if she does have one, but very poor history from the Pt, will try our best to get more details. Subjective/Events-last exam * Pt reports feeling about the same as yesterday * She is still having the abdominal bloating that has a fullness/tightness sensation * She did not have a BM yesterday but was able to have a small one earlier this morning * She is still having hematuria in her catheter and was wondering what may be causing it * She does report feeling dizzy especially if she turns her head to quickly * She states she did sleep really well last night * She reports having pain in her right leg especially and in her back near the nerve stimulator Review of Systems General: No Chills HEENT: No Head Aches, No Visual Changes Pulmonary: No Dyspnea; Cough (dry) Cardiovascular: No: Chest Pain, Palpitations Gastrointestinal: Constipation; No: Nausea, Vomiting, Abdominal Pain, Diarrhea Genitourinary: Hematuria, Retention Neurological: Weakness Focused Exam Lactate Level 04/04/19 13:50: Lactic Acid Level 1.11 Respiratory: Chest Non Tender, Lungs Clear, Normal Breath Sounds, No Accessory Muscle Use, No Respiratory Distress Cardiovascular: Regular Rate, Rhythm, No Edema, Normal Peripheral Pulses Peripheral Pulses: 2+ Dorsalis Pedis (R), 2+ Left Dors-Pedis (L), 2+ Radial Pulses (R), 2+ Radial Pulses (L) Skin: normal color, warm/dry Objective Exam Vital Signs Vital Signs Date Time Temp Pulse Resp B/P (MAP) Pulse Ox O2 Delivery O2 Flow Rate FiO2 04/07/19 09:46 37.2 04/07/19 08:00 Room Air 04/07/19 00:00 56 16 144/69 (94) 99 Capillary Refill : Less Than 3 Seconds General Appearance: Mild Distress Respiratory: Chest Non Tender, Lungs Clear, Normal Breath Sounds, No Accessory Muscle Use, No Respiratory Distress Cardiovascular: Regular Rate, Rhythm, No Edema, No Gallop, No Murmur, Normal Peripheral Pulses Gastrointestinal: Normal Bowel Sounds, No Organomegaly, Non Tender, Soft Extremity: No Calf Tenderness, No Pedal Edema, Other (Right leg tender from medial thigh to foot) Neurologic/Psychiatric: Alert, Normal Mood/Affect Skin: Normal Color, Warm/Dry Results/Procedures Lab Laboratory Tests 04/07/19 07:40 Patient resulted labs reviewed. Assessment/Plan Assessment and Plan Assess & Plan/Chief Complaint Assessment: Urinary retention, hematuria Constipation, Hx of Crohn's disease Lower extremity weakness, pain Diabetes Pain nerve stimulator lumbar in place Anemia HTN Debility, inability to stand/walk Plan: Consult about obtaining MRI of lumbar spine Consult Dr Moseley Urology, maintain Reyes catheter Consult cardiology for HTN management Manage diabetes Monitor anemia Monitor/Manage constipation DVT Prophylaxis (SCD due to new onset hematuria likely related to anti coagulation) Inpatient rehab evaluation Clinical Quality Measures DVT/VTE Risk/Contraindication: Risk Factor Score Per Nursin RFS Level Per Nursing on Admit: 2=Moderate SHAKIRA PAIGE 04/07/19 1709: Subjective Subjective/Events-last exam Hematuria still remains. Reports that she has hasBM but needs more meds so I initiated more aggressive r egimen. PT and OT working for her. Inpatient rehab referral. Reviewed CT scan and conferred with Dr. Roblero spine surgery. Checked meds and labs. Overall very complex case and unclear if we will be able to modify and improve enough to avoid a fdc at discharge. Review of Systems General: Fatigue Musculoskeletal: back pain Neurological: Weakness, Incoordination Objective Exam General Appearance: No Apparent Distress, WD/WN, Chronically ill Respiratory: Lungs Clear Cardiovascular: Regular Rate, Rhythm Neurologic/Psychiatric: Alert, Motor Weakness, Sensory Deficit Assessment/Plan Assessment and Plan Assess & Plan/Chief Complaint Hold Lovenox Conferred with spine surgery no acute surgery requirements Diagnosis/Problems Diagnosis/Problems (1) Neurological deficit present (2) Disorder of lumbar spine (3) Ataxia (4) Fecal impaction in rectum Status: Acute (5) Weakness Status: Acute (6) Urinary retention Status: Acute Supervisory-Addendum Brief Verification & Attestation Participated in pt care: history, MDM, physical Personally performed: exam, history, MDM, supervision of care Care discussed with: Medical Student Procedures: n/a Results interpretation: Verified all documentation Verification and Attestation of Medical Student E/M Service A medical student performed and documented this service in my presence. I reviewed and verified all information documented by the medical student and made modifications to such information, when appropriate. I personally performed the physical exam and medical decision making. Shakira Paige, Apr 07, 2019,17:09 [facility] Apr 07, 2019 10:27 SHAKIRA SMITH DO Apr 07, 2019 17:09 POS
--- NOTE | 2019-04-07 13:55 | NUR ---
IRF Evaluation Order received to evaluate patient for the ARU. Chart review complete and findings discussed with Dr. Ann - patient accepted. Prior authorization process initiated with [employer]. Will continue to follow. Thank you for this referral.
--- NOTE | 2019-04-07 15:07 | Occupational Ther Daily Note ---
OT Current Status-Daily Note Subjective Pt states no pain in R leg today, pt states 8/10 pain in abdomen, nursing present. Pt agreeable to OT tx session, seen in bed. Mental Status/Objective Patient Orientation: Normal For Age ADL-Treatment Therapy Code Descriptions/Definitions Functional [place] Measure: 0=Not Assessed/NA 4=Minimal Assistance 1=Total Assistance 5=Supervision or Setup 2=Maximal Assistance 6=Modified [place] 3=Moderate Assistance 7=Complete IndependenceSCALE: Activities may be completed with or without assistive devices. 3-Ysksmtpksl-oistseb completes the activity by him/herself with no assistance from a helper. 5-Set-up or Clean-up Assistance-helper sets up or cleans up; patient completes activity. [place] assists only prior to or following the activity. 4-Supervision or Touching Assistance-helper provides verbal cues and/or touching/steadying and/or contact guard assistance as patient completes activity. Assistance may be provided throughout the activity or intermittently. 3-Partial/Moderate Assistance-helper does LESS THAN HALF the effort. [place] lifts, holds or supports trunk or limbs, but provides less than half the effort. 2-Substantial/Maximal Assistance-helper does MORE THAN HALF the effort. [place] lifts or holds trunk or limbs and provides more than half the effort. 8-Apblmoqgn-kmcwax does ALL the effort. Patient does none of the effort to complete the activity. Or, the assistance of 2 or more helpers is required for the patient to complete the activity. If activity was not attempted, code reason: 7-Patient Refused. 9-Not Applicable-not attempted and the patient did not perform the activity before the current illness, exacerbation or injury. 10-Not Attempted due to Environmental Limitations-(lack of equipment, weather restraints, etc.). 88-Not Attempted due to Medical Conditions or Safety Concerns. Eating (QC): 6 Lower Body Dressing (QC): 2 (max A in bed. Able to reach L sock to doff/ requires assist to don both) Other Treatment Pt completes shower cap/ grooming in bed, completes with min cues. Pt states completes hair washing for her. Pt completes washing LB with wet wipes, requires assist with lower LE and feet. Pt completes hair grooming and UE washing with IND. Pt denies out of bed activities. Pt left in bed, head reclined, all needs met, call light in reach. Education OT Patient Education: Correct positioning, Modified ADL techniques, Purpose of tx/functional activities, Safety issues Teaching Recipient: Patient Teaching Methods: Demonstration, Discussion Response to Teaching: Verbalize Understanding, Return Demonstration OT Short Term Goals Short Term Goals 1=Demonstrate adherence to instructed precautions during ADL tasks. 2=Patient will verbalize/demonstrate understanding of assistive devices/modifications for ADL. 3=Patient will improve strength/tolerance for activity to enable patient to perform ADL's. OT Punch Card Operator Goals Punch Card Operator Goals Time Frame: Apr 12, 2019 Eating (QC): 6 (met) Oral Hygiene (QC): 6 Shower/Bathe Self (QC): 6 Upper Body Dressing (QC): 6 Lower Body Dressing (QC): 4 On/Off Footwear (QC): 6 Toileting Hygiene (QC): 4 Toilet/Commode Transfer (QC): 4 Additional Goals: 1-Demonstrate ADL Tasks, 2-Verbalize Understanding, 3- ImproveStrength/Stephanie 1=Demonstrate adherence to instructed precautions during ADL tasks. 2=Patient will verbalize/demonstrate understanding of assistive devices/modifications for ADL. 3=Patient will improve strength/tolerance for activity to enable patient to perform ADL's. OT Education/Plan Problem List/Assessment Assessment: Decreased Activ Tolerance, Decreased UE Strength, Impaired Funct Balance, Impaired I ADL's, Impaired Self-Care Skills Discharge Recommendations Plan/Recommendations: Continue POC Therapy Discharge Recommendati: Scheduled Assistance Treatment Plan/Plan of Care Treatment,Training & Education: Yes Patient would benefit from OT for education, treatment and training to promote independence in ADL's, mobility, safety and/or upper extremity function for ADL's. Plan of Care: ADL Retraining, Caregiver Training, Functional Mobility, Group Exercise/Act as Ind, UE Funct Exercise/Act Treatment Duration: Apr 12, 2019 Frequency: 5 times per week Estimated Hrs Per Day: .25 hour per day Agreement: Yes Rehab Potential: Guarded Time/GCodes Start Time: 13:43 Stop Time: 13:53 Total Time Billed (hr/min): 10 Billed Treatment Time 1, ADL (10) KAILEY BENZ OTR Apr 07, 2019 15:07 POS
[2019-04-07] MEDS: CALCIUM CARBONATE 500 MG (TUMS) TAB.CHEW PO PRN (16:30)
[2019-04-07 16:34] VITALS: BP 175/75
[2019-04-07] MEDS: TRIMETHOPRIM 100 MG TAB (PROLOPRIM) NON-FORMULARY PO SCH (20:45)
[2019-04-07] MEDS: DOCUSATE SODIUM 100 MG (COLACE) CAP PO SCH (20:45)
[2019-04-07] MEDS: SIMvastatin 40 MG (ZOCOR) TAB PO SCH (20:45)
[2019-04-07] MEDS: ENOXAPARIN 40 MG/0.4 ML (LOVENOX) SYR SC SCH (20:48)
[2019-04-08 00:40] VITALS: BP 163/77
[2019-04-08] MEDS: NS IV 1000 ML 1,000 ML IV SCH ×2 (03:47→22:33)
[2019-04-08 05:16] LABS: BASOPHILS % (AUTO) 0 % (0-10); EOSINOPHILS # (AUTO) 0.3 10^3/uL (0.0-0.3); EOSINOPHILS % (AUTO) 3 % (0-10); HEMATOCRIT 31 % (35-52); HEMOGLOBIN 9.9 G/DL (11.5-16.0); LYMPHOCYTES # (AUTO) 3.2 X 10^3 (1.0-4.0); LYMPHOCYTES % (AUTO) 39 % (12-44); MEAN CORPUSCULAR HEMOGLOBIN 28 PG (25-34); MEAN CORPUSCULAR HGB CONC 32 G/DL (32-36); MEAN CORPUSCULAR VOLUME 89 FL (80-99); MEAN PLATELET VOLUME 10.4 FL (7.4-10.4); MONOCYTES # (AUTO) 0.6 X 10^3 (0.0-1.0); MONOCYTES % (AUTO) 7 % (0-12); NEUTROPHILS # (AUTO) 4.2 X 10^3 (1.8-7.8); NEUTROPHILS % (AUTO) 50 % (42-75); PLATELET COUNT 314 10^3/uL (130-400); WHITE BLOOD COUNT 8.3 10^3/uL (4.3-11.0)
[2019-04-08 05:34] LABS: ALANINE AMINOTRANSFERASE 9 U/L (0-55); ALKALINE PHOSPHATASE 80 U/L (40-136); BILIRUBIN,TOTAL 0.1 MG/DL (0.1-1.0); BUN/CREATININE RATIO 20; CALCIUM 9.4 MG/DL (8.5-10.1); CARBON DIOXIDE 17 MMOL/L (21-32); CHLORIDE 115 MMOL/L (98-107); CREATININE SERUM 0.75 MG/DL (0.60-1.30); GFR ESTIMATED > 60; GLUCOSE 118 MG/DL (70-105); POTASSIUM 4.3 MMOL/L (3.6-5.0); SODIUM 142 MMOL/L (135-145); TOTAL PROTEIN 6.6 GM/DL (6.4-8.2)
[2019-04-08 08:00] VITALS: BP 184/81
[2019-04-08] MEDS: ISOSORBIDE MONONITRATE 30 MG (IMDUR) TAB PO SCH (08:09)
[2019-04-08] MEDS: DOCUSATE SODIUM 100 MG (COLACE) CAP PO PRN (08:10)
[2019-04-08] MEDS: predniSONE 5 MG TAB PO SCH (08:10)
[2019-04-08] MEDS: DICYCLOMINE 10 MG (BENTYL) CAP PO SCH ×4 (08:10→19:57)
[2019-04-08] MEDS: ASCORBIC ACID (VIT C) 500 MG TABLET PO SCH (08:10)
[2019-04-08] MEDS: HYDROcodone/APAP 5 MG/325 MG (LORTAB) TAB PO PRN (08:11)
[2019-04-08] MEDS: GEMFIBROZIL 600 MG (LOPID) TAB PO SCH ×2 (08:11→19:57)
--- NOTE | 2019-04-08 09:19 | Progress Note - Hospitalist ---
[facility] 04/08/19 0919: Subjective HPI/CC On Admission Date Seen by Provider: Apr 08, 2019 Time Seen by Provider: 08:28 Chief complaint: Weakness with urinary retention and impaction. HPI: This is a 73yoWF who is a very poor historian, who presented with urinary retention, reyes catheter initiated in the ER and Dr. Moseley was consulted and will leave reyes catheter in until Thursday, and a fecal impaction that was removed by the ER nurse staff. She was admitted, placed with supportive care, but upon PT and OT evaluation Pt was found to have severe inability to ambulate and stand without multiple odd gyrations and Pt has a history of pain stimulator will obtain more details with that, but Pt appears to be in need of a spinal MRI, so will evaluate if we can get that if it is compatible with the pain stimulator if she does have one, but very poor history from the Pt, will try our best to get more details. Subjective/Events-last exam * Pt reports feeling about the same as yesterday * She has been having more bowel movements that have been getting looser and more frequent * She is concerned why her stomach is still bloated, but I told her she had a significant amount of stool in her bowel * She complains that her right knee is the most painful and requiring pain medi cation * She did report that she has been having some hearing loss, and it is worse on the left side * She reports not having as much dizziness yesterday * She reports having chronic nose bleeds that clot and require her clean out damaris dried blood in right nostril * She is still having weakness and trouble getting her knee to bend in order to get her feet underneath her to be able to stand Review of Systems General: No Chills, No Fatigue HEENT: No Head Aches, No Visual Changes; Sinus Congestion Pulmonary: No Dyspnea, No Cough Cardiovascular: No: Chest Pain, Palpitations Gastrointestinal: Constipation; No: Nausea, Vomiting, Diarrhea Genitourinary: Hematuria, Retention Musculoskeletal: back pain, leg pain (Bilateral knee) Neurological: Weakness Objective Exam Vital Signs Vital Signs Date Time Temp Pulse Resp B/P (MAP) Pulse Ox O2 Delivery O2 Flow Rate FiO2 04/08/19 08:00 Room Air 04/08/19 08:00 36.2 67 18 184/81 (115) 100 Capillary Refill : Less Than 3 Seconds General Appearance: Chronically ill, Mild Distress Neck: Full Range of Motion, Non Tender Respiratory: Chest Non Tender, Lungs Clear, Normal Breath Sounds, No Accessory Muscle Use, No Respiratory Distress Cardiovascular: Regular Rate, Rhythm, No Edema, No Murmur, Normal Peripheral Pulses Gastrointestinal: Normal Bowel Sounds, No Organomegaly, Soft, Distended Extremity: No Calf Tenderness, No Pedal Edema, Other (Tenderness right medial thigh to foot, right knee pain) Neurologic/Psychiatric: Alert, Oriented x3, Normal Mood/Affect, Abnormal Gait, Motor Weakness (Bilateral legs ) Skin: Normal Color, Warm/Dry Results/Procedures Lab Laboratory Tests 04/08/19 04:45 Patient resulted labs reviewed. Assessment/Plan Assessment and Plan Assess & Plan/Chief Complaint Assessment: Urinary retention, hematuria Constipation, Hx of Crohn's disease Lower extremity weakness, pain Diabetes Pain nerve stimulator lumbar in place Anemia HTN Debility, inability to stand/walk Right knee pain Left sided Hearing loss Plan: Consult about obtaining MRI of lumbar spine Consult Dr Moseley Urology, maintain Reyes catheter Consult cardiology for HTN management Manage diabetes Monitor anemia Monitor/Manage constipation DVT Prophylaxis (SCD due to new onset hematuria likely related to anti coagulation) Inpatient rehab evaluation Clinical Quality Measures DVT/VTE Risk/Contraindication: Risk Factor Score Per Nursin RFS Level Per Nursing on Admit: 2=Moderate SHAKIRA PAIGE DO 04/08/19 1718: Subjective Subjective/Events-last exam Pt still not able to get around. Dr. Moseley will see her on Thursday for Hematuria since that has been going on apparently before the admission. No spine changes on CT scan that would require emergent surgery. Overall very complicated case. Review of Systems General: Fatigue Musculoskeletal: leg pain (Bilateral knee) Neurological: Confusion Objective Exam General Appearance: No Apparent Distress, WD/WN, Chronically ill Respiratory: Lungs Clear, Normal Breath Sounds Cardiovascular: Regular Rate, Rhythm Neurologic/Psychiatric: Alert, Oriented x3, Motor Weakness (Bilateral legs ) Assessment/Plan Assessment and Plan Assess & Plan/Chief Complaint Difficult case IRF not approved by insurance Needs AZP Supervisory-Addendum Brief Verification & Attestation Participated in pt care: history, MDM, physical Personally performed: exam, history, MDM, supervision of care Care discussed with: Medical Student Procedures: n/a Results interpretation: Verified all documentation Verification and Attestation of Medical Student E/M Service A medical student performed and documented this service in my presence. I reviewed and verified all information documented by the medical student and made modifications to such information, when appropriate. I personally performed the physical exam and medical decision making. Shakira Paige, Apr 08, 2019,17:[address] [facility] Apr 08, 2019 09:19 SHAKIRA SMITH DO Apr 08, 2019 17:18 POS
--- NOTE | 2019-04-08 10:12 | Occupational Ther Daily Note ---
OT Current Status-Daily Note Subjective Pt seen in recliner chair, pt no c/o pain currently in sit. Pt agreeable to OT tx session. ADL-Treatment Therapy Code Descriptions/Definitions Functional [place] Measure: 0=Not Assessed/NA 4=Minimal Assistance 1=Total Assistance 5=Supervision or Setup 2=Maximal Assistance 6=Modified [place] 3=Moderate Assistance 7=Complete IndependenceSCALE: Activities may be completed with or without assistive devices. 4-Hfsdsqhktg-wwbhpde completes the activity by him/herself with no assistance from a helper. 5-Set-up or Clean-up Assistance-helper sets up or cleans up; patient completes activity. [place] assists only prior to or following the activity. 4-Supervision or Touching Assistance-helper provides verbal cues and/or touching/steadying and/or contact guard assistance as patient completes activity. Assistance may be provided throughout the activity or intermittently. 3-Partial/Moderate Assistance-helper does LESS THAN HALF the effort. [place] lifts, holds or supports trunk or limbs, but provides less than half the effort. 2-Substantial/Maximal Assistance-helper does MORE THAN HALF the effort. [place] lifts or holds trunk or limbs and provides more than half the effort. 4-Eqtmuivnd-pvjeew does ALL the effort. Patient does none of the effort to complete the activity. Or, the assistance of 2 or more helpers is required for the patient to complete the activity. If activity was not attempted, code reason: 7-Patient Refused. 9-Not Applicable-not attempted and the patient did not perform the activity before the current illness, exacerbation or injury. 10-Not Attempted due to Environmental Limitations-(lack of equipment, weather restraints, etc.). 88-Not Attempted due to Medical Conditions or Safety Concerns. Eating (QC): 6 Other Treatment Pt completes UB exercises with modeling, pt completes with min cues, focusing on UE strength and endurance. Pt educated on importance of movement, especially while in bed. Pt completes yellow theraband exercises (2 exercises- external rotation and back flies) x5 reps. Pt demonstrates SOB, reminders to breathe. Pt completes AROM exercises with weight of arms, completes 10 reps of forward shoulder flexion, abduction, and back flies. Pt desires abdominal exercises, pt completes 3 modified abdominal crunches in chair with cues. Pt states she was not getting out of bed for many days prior to hospitalization due to her not having anything to do. Pt states she thinks she was depressed prior, denies current depression. Pt states she wants to be able to talk to/ go see family who is having health problems but not able to take her due to his schedule and phone has limited minutes to talk. Pt encouraged to write family members, pt states R hand discourages her to write due to reduced/ restricted ROM. Pt given 2 built up handles for food use and pen use. Pt demonstrates ability to write full name with legible writing with built up handles and ability to utilize knife with handles. Pt left with call light in reach, all needs met, pt in recliner chair. Education OT Patient Education: Correct positioning, Exercise program, Home exercise program, Modified ADL techniques, Purpose of tx/functional activities, Use of adapted equipment Teaching Recipient: Patient Teaching Methods: Demonstration, Discussion Response to Teaching: Verbalize Understanding, Return Demonstration OT Short Term Goals Short Term Goals 1=Demonstrate adherence to instructed precautions during ADL tasks. 2=Patient will verbalize/demonstrate understanding of assistive devices/modifications for ADL. 3=Patient will improve strength/tolerance for activity to enable patient to perform ADL's. OT Group Home Goals Group Home Goals Time Frame: Apr 12, 2019 Eating (QC): 6 (met) Oral Hygiene (QC): 6 Shower/Bathe Self (QC): 6 Upper Body Dressing (QC): 6 Lower Body Dressing (QC): 4 On/Off Footwear (QC): 6 Toileting Hygiene (QC): 4 Toilet/Commode Transfer (QC): 4 Additional Goals: 1-Demonstrate ADL Tasks, 2-Verbalize Understanding, 3-Improv eStrength/Stephanie 1=Demonstrate adherence to instructed precautions during ADL tasks. 2=Patient will verbalize/demonstrate understanding of assistive devices/modifications for ADL. 3=Patient will improve strength/tolerance for activity to enable patient to p erform ADL's. OT Education/Plan Problem List/Assessment Assessment: Decreased Activ Tolerance, Decreased UE Strength, Dependent Transfers, Impaired Bed Mobility, Impaired Coordination, Impaired Funct Balance, Impaired I ADL's, Impaired Self-Care Skills, Restricted Funct UE ROM Discharge Recommendations Plan/Recommendations: Continue POC Treatment Plan/Plan of Care Treatment,Training & Education: Yes Patient would benefit from OT for education, treatment and training to promote independence in ADL's, mobility, safety and/or upper extremity function for ADL's. Plan of Care: ADL Retraining, Caregiver Training, Functional Mobility, Group Exercise/Act as Ind, UE Funct Exercise/Act Treatment Duration: Apr 12, 2019 Frequency: 5 times per week Estimated Hrs Per Day: .25 hour per day Agreement: Yes Rehab Potential: Guarded Time/GCodes Start Time: 09:30 Stop Time: 09:45 Total Time Billed (hr/min): 15 Billed Treatment Time 1, EX (15) KAILEY BENZ OTR Apr 08, 2019 10:12 POS
[2019-04-08] MEDS: SENNA W/DOCUSATE (SENOKOT S) TABLET PO SCH ×2 (10:20→19:57)
--- NOTE | 2019-04-08 11:20 | NUR ---
FELECIA/SS spoke with the patient to assess for needs within the home. The patient states that she does plan to return home after the hospital stay but did state she had some concerns with the living situation. The patient verbalized she cannot walk about the house because she can't fit the walker in there due to husbands hoarding. The patient verbalized that she has tried to talk to her but he does not want to give up his stuff. The patient stated that her is in college and is gone alot which leaves her alone and not able to get up and around. The patient does not have any caregivers in the home. The patient does receive food from meals on wheels. FELECIA/SS gave the patient contact information for [facility] to possibly get homemaker services in the home. The patient does have a neighbor that will come check in on them every once in a while. Will continue to follow. Addendum: 04/08/19 at 1227 by SARITA WHITTAKER waxing machine operator helper student note approved by Sarita Whittaker [facility]
--- NOTE | 2019-04-08 12:15 | NUR ---
PHUONG made a Adult Protective Service report today on 04/08/19. The intake ID number is [id number]. Addendum: 04/08/19 at 1227 by SARITA RODRIGUEZ Yolanda approved by Sarita Webber
--- NOTE | 2019-04-08 12:59 | NUR ---
Initial visit by Riveting Machine Operatorvinny Castro: Pt states she is feeling less pain and fatigue. Riveting Machine Operator engaged in rapport building and introduced pt to Spiritual Care Services. No urgent needs reported to pastoral department.
--- NOTE | 2019-04-08 13:15 | Physical Therapy Daily Note ---
PT Daily Note-Current Subjective Patient in recliner pre tx, agrees to PT, voices no complaints of pain. Appearance Patient in recliner post tx with nurse call, phone, tray, all needs met. Mental Status Patient Orientation: Person, Place, Situation Attachments: Garner Catheter, IV Transfers SCALE: Activities may be completed with or without assistive devices. 1-Shyxlhzcog-qwcqtvy completes the activity by him/herself with no assistance from a helper. 5-Set-up or Clean-up Assistance-helper sets up or cleans up; patient completes activity. [place] assists only prior to or following the activity. 4-Supervision or Touching Assistance-helper provides verbal cues and/or touching/steadying and/or contact guard assistance as patient completes ac tivity. Assistance may be provided throughout the activity or intermittently. 3-Partial/Moderate Assistance-helper does LESS THAN HALF the effort. [place] lifts, holds or supports trunk or limbs, but provides less than half the effort. 2-Substantial/Maximal Assistance-helper does MORE THAN HALF the effort. [place] lifts or holds trunk or limbs and provides more than half the effort. 0-Icdaknufi-bfujvc does ALL the effort. Patient does none of the effort to complete the activity. Or, the assistance of 2 or more helpers is required for the patient to complete the activity. If activity was not attempted, code reason: 7-Patient Refused. 9-Not Applicable-not attempted and the patient did not perform the activity before the current illness, exacerbation or injury. 10-Not Attempted due to Environmental Limitations-(lack of equipment, weather restraints, etc.). 88-Not Attempted due to Medical Conditions or Safety Concerns. Sit to Stand (QC): 2 Weight Bearing Right Lower Extremity: Right Weight Bearing/Tolerated Left Lower Extremity: Left Weight Bearing/Tolerated Gait Training Distance: 5' Gait Persons Needed: 1 Gait Assistive Device: FWW Patient stood with max assist, has difficulty with flexing at the knees and getting her weight forward to prepare to stand, has increased bilateral LE extensor tone, after standing she takes a few steps forward, she doesn't need assist advancing her feet but it is very difficult for her, no foot clearance, no heel strike, poor foot advancement. Patient has a rhythmic shaking of the knees and hips and trunk all together. Exercises Attempted LAQ and hamstring curls and ankle pumps but patient doesn't seem to really be able to perform this possibly due to extensor tone or just poor control, she needs therapist assist to just flex at the knee and sits with knees fully extended and feet off the floor. Treatments standing, ambulation, LE exercise Assessment Current Status: Poor Progress Patient is a high fall risk, has shaking with mobility PT Investment Underwriter Goals Investment Underwriter Goals PT Investment Underwriter Goals Time Frame: Apr 12, 2019 Sit to Lying (QC): 5 Lying-Sitting on Side/Bed(QC): 5 Sit to Stand (QC): 5 Roll Left to Right (QC): 5 Chair/Cxb-py-Yuuvm Xfer(QC): 5 Car Transfer (QC): 5 Does the Patient Walk: Yes Distance: 100' Walk 10 feet (QC): 5 Walk 50ft with 2 Turns (QC): 5 Gait Assistive Device: FWW PT Plan Problem List Problem List: Activity Tolerance, Functional Strength, Safety, Balance, Gait, Transfer, Bed Mobility, ROM Treatment/Plan Treatment Plan: Continue Plan of Care Treatment Plan: Bed Mobility, Concurrent Therapy, Education, Functional Activity Stephanie, Functional Strength, Gait, Safety, Therapeutic Exercise, Transfers Frequency: 6 times per week Estimated Hrs Per Day: .25 hour per day Patient and/or Family Agrees t: Yes Safety Risks/Education Patient Education: Gait Training, Transfer Techniques, Correct Positioning, Safety Issues Teaching Methods: Demonstration, Discussion Response to Teaching: Reinforcement Needed Time/GCodes Time In: 1127 Time Out: 1140 Total Billed Treatment Time: 13 Total Billed Treatment 1 visit FA RAMYA PRIETO PT Apr 08, 2019 13:15 POS
--- NOTE | 2019-04-08 14:53 | NUR ---
IRF Received denial for admission from [facility]. If doctor elects to proceed with gvzq-ej-qqma, this can be completed by calling by noon on 04/11/19. Dr. Ann notified.
[2019-04-08 16:12] VITALS: BP 156/74
[2019-04-08] MEDS: ACETAMINOPHEN 325 MG TABLET PO PRN (18:35)
[2019-04-08] MEDS: SIMvastatin 40 MG (ZOCOR) TAB PO SCH (19:57)
[2019-04-08] MEDS: DOCUSATE SODIUM 100 MG (COLACE) CAP PO SCH (19:57)
[2019-04-08] MEDS: NAPROXEN 250 MG (NAPROSYN) TABLET PO PRN (20:02)
[2019-04-08] MEDS: TRIMETHOPRIM 100 MG TAB (PROLOPRIM) NON-FORMULARY PO SCH (20:02)
[2019-04-08] MEDS: ALPRAZolam 0.25 MG (XANAX) TAB PO PRN (22:33)
[2019-04-09] VITALS: BP 169/80
[2019-04-09 08:00] VITALS: BP 187/71
[2019-04-09] MEDS: GEMFIBROZIL 600 MG (LOPID) TAB PO SCH ×2 (08:43→19:48)
[2019-04-09] MEDS: SENNA W/DOCUSATE (SENOKOT S) TABLET PO SCH ×2 (08:44→19:48)
[2019-04-09] MEDS: ASCORBIC ACID (VIT C) 500 MG TABLET PO SCH (08:44)
[2019-04-09] MEDS: ISOSORBIDE MONONITRATE 30 MG (IMDUR) TAB PO SCH (08:44)
[2019-04-09] MEDS: DICYCLOMINE 10 MG (BENTYL) CAP PO SCH ×4 (08:44→19:48)
[2019-04-09] MEDS: predniSONE 5 MG TAB PO SCH (08:44)
--- NOTE | 2019-04-09 09:54 | Physical Therapy Daily Note ---
PT Daily Note-Current Subjective States that her legs still don't want to work. Transfers SCALE: Activities may be completed with or without assistive devices. 3-Rrmfqiwqhw-crkuvqv completes the activity by him/herself with no assistance from a helper. 5-Set-up or Clean-up Assistance-helper sets up or cleans up; patient completes activity. [place] assists only prior to or following the activity. 4-Supervision or Touching Assistance-helper provides verbal cues and/or touching/steadying and/or contact guard assistance as patient completes activity. Assistance may be provided throughout the activity or intermittently. 3-Partial/Moderate Assistance-helper does LESS THAN HALF the effort. [place] lifts, holds or supports trunk or limbs, but provides less than half the effort. 2-Substantial/Maximal Assistance-helper does MORE THAN HALF the effort. [place] lifts or holds trunk or limbs and provides more than half the effort. 5-Gnkgpqkzv-dwlfiz does ALL the effort. Patient does none of the effort to complete the activity. Or, the assistance of 2 or more helpers is required for the patient to complete the activity. If activity was not attempted, code reason: 7-Patient Refused. 9-Not Applicable-not attempted and the patient did not perform the activity before the current illness, exacerbation or injury. 10-Not Attempted due to Environmental Limitations-(lack of equipment, weather restraints, etc.). 88-Not Attempted due to Medical Conditions or Safety Concerns. Weight Bearing Right Lower Extremity: Right Weight Bearing/Tolerated Left Lower Extremity: Left Weight Bearing/Tolerated Gait Training Gait: 1 Distance: 0 patient unable to take steps today Exercises Supine Ex: LE Protocol Supine Reps: 15 Assessment Current Status: Excellent Progress, Good Progress The patient had difficulty with weightbearing throughout the right LE. PT Retirement Goals Bulk Pallet Builder Goals PT Retirement Goals Time Frame: Apr 12, 2019 Sit to Lying (QC): 5 Lying-Sitting on Side/Bed(QC): 5 Sit to Stand (QC): 5 Roll Left to Right (QC): 5 Chair/Tgi-cb-Duaad Xfer(QC): 5 Car Transfer (QC): 5 Does the Patient Walk: Yes Distance: 100' Walk 10 feet (QC): 5 Walk 50ft with 2 Turns (QC): 5 Gait Assistive Device: FWW PT Plan Treatment/Plan Treatment Plan: Continue Plan of Care Treatment Plan: Bed Mobility, Concurrent Therapy, Education, Functional Activity Stephanie, Functional Strength, Gait, Safety, Therapeutic Exercise, Transfers Frequency: 6 times per week Estimated Hrs Per Day: .25 hour per day Patient and/or Family Agrees t: Yes Time/GCodes Time In: 929 Time Out: 944 Total Billed Treatment Time: 15 Total Billed Treatment 1, EX x 15 RACHEL MENDIETA PT Apr 09, 2019 09:54 POS
[2019-04-09 12:00] VITALS: BP 178/74
[2019-04-09] MEDS: amLODIPine 5 MG (NORVASC) TAB PO SCH (16:37)
[2019-04-09] MEDS: NS IV 1000 ML 1,000 ML IV SCH (16:39)
[2019-04-09 16:45] VITALS: BP 187/81
[2019-04-09 19:42] VITALS: BP 174/78
[2019-04-09] MEDS: TRIMETHOPRIM 100 MG TAB (PROLOPRIM) NON-FORMULARY PO SCH (19:48)
[2019-04-09] MEDS: SIMvastatin 40 MG (ZOCOR) TAB PO SCH (19:48)
[2019-04-09] MEDS: DOCUSATE SODIUM 100 MG (COLACE) CAP PO SCH (19:48)
[2019-04-09] MEDS: ALPRAZolam 0.25 MG (XANAX) TAB PO PRN (19:54)
[2019-04-10 00:35] VITALS: BP 160/76
[2019-04-10 08:00] VITALS: BP 158/66
[2019-04-10] MEDS: amLODIPine 5 MG (NORVASC) TAB PO SCH (08:54)
[2019-04-10] MEDS: ASCORBIC ACID (VIT C) 500 MG TABLET PO SCH (08:54)
[2019-04-10] MEDS: ISOSORBIDE MONONITRATE 30 MG (IMDUR) TAB PO SCH (08:54)
[2019-04-10] MEDS: SENNA W/DOCUSATE (SENOKOT S) TABLET PO SCH ×2 (08:54→19:46)
[2019-04-10] MEDS: DICYCLOMINE 10 MG (BENTYL) CAP PO SCH ×4 (08:55→19:46)
[2019-04-10] MEDS: predniSONE 5 MG TAB PO SCH (08:57)
[2019-04-10] MEDS: GEMFIBROZIL 600 MG (LOPID) TAB PO SCH ×2 (08:57→19:46)
[2019-04-10] MEDS: NAPROXEN 250 MG (NAPROSYN) TABLET PO PRN (09:59)
--- NOTE | 2019-04-10 15:12 | Progress Note - Hospitalist ---
Subjective HPI/CC On Admission Date Seen by Provider: Apr 10, 2019 Time Seen by Provider: 15:00 Chief complaint: Weakness with urinary retention and impaction. HPI: This is a 73yoWF who is a very poor historian, who presented with urinary retention, reyes catheter initiated in the ER and Dr. Moseley was consulted and will leave reyes catheter in until Thursday, and a fecal impaction that was removed by the ER nurse staff. She was admitted, placed with supportive care, but upon PT and OT evaluation Pt was found to have severe inability to ambulate and stand without multiple odd gyrations and Pt has a history of pain stimulator will obtain more details with that, but Pt appears to be in need of a spinal MRI, so will evaluate if we can get that if it is compatible with the pain stimulator if she does have one, but very poor history from the Pt, will try our best to get more details. Subjective/Events-last exam Patient is without complaint. She wants to stay long enough to get everything fixed. She is hoping for an MRI of her back. She doesn't want a hurry going home. She has no complaints is sitting up in a chair is very cheerful and very relaxed Review of Systems Neurological: Weakness Objective Exam Vital Signs Vital Signs Date Time Temp Pulse Resp B/P (MAP) Pulse Ox O2 Delivery O2 Flow Rate FiO2 04/10/19 08:00 Room Air 04/10/19 08:00 36.8 60 16 158/66 (96) 100 Capillary Refill : Less Than 3 Seconds General Appearance: No Apparent Distress Neck: Normal Inspection, Non Tender, Supple Respiratory: Chest Non Tender, Lungs Clear, Normal Breath Sounds, No Accessory Muscle Use, No Respiratory Distress Cardiovascular: Regular Rate, Rhythm, No Gallop, No Murmur Gastrointestinal: Non Tender, Soft Extremity: Other (Profound weakness of the right lower extremity) Neurologic/Psychiatric: Alert, Motor Weakness Results/Procedures Lab Patient resulted labs reviewed. Assessment/Plan Assessment and Plan Assess & Plan/Chief Complaint 1. Leg weakness and inability to care for herself and ambulate most likely secondary to her chronic back problems 2. Fecal impaction resolved 3. Urinary retention possibly secondary to back pathology 4. Anemia we'll recheck a CBC in the morning Clinical Quality Measures DVT/VTE Risk/Contraindication: Risk Factor Score Per Nursin RFS Level Per Nursing on Admit: 2=Moderate SANDNESS,SINDY M MD Apr 10, 2019 15:12 POS
[2019-04-10 16:00] VITALS: BP 159/72
[2019-04-10] MEDS: SIMvastatin 40 MG (ZOCOR) TAB PO SCH (19:45)
[2019-04-10] MEDS: TRIMETHOPRIM 100 MG TAB (PROLOPRIM) NON-FORMULARY PO SCH (19:45)
[2019-04-10] MEDS: DOCUSATE SODIUM 100 MG (COLACE) CAP PO SCH (19:46)
[2019-04-10] MEDS: ALPRAZolam 0.25 MG (XANAX) TAB PO PRN (19:49)
[2019-04-11 00:55] VITALS: BP 178/84
[2019-04-11 05:51] LABS: BASOPHILS % (AUTO) 0 % (0-10); EOSINOPHILS # (AUTO) 0.2 10^3/uL (0.0-0.3); EOSINOPHILS % (AUTO) 3 % (0-10); HEMATOCRIT 31 % (35-52); HEMOGLOBIN 10.1 G/DL (11.5-16.0); LYMPHOCYTES # (AUTO) 2.9 X 10^3 (1.0-4.0); LYMPHOCYTES % (AUTO) 36 % (12-44); MEAN CORPUSCULAR HEMOGLOBIN 28 PG (25-34); MEAN CORPUSCULAR HGB CONC 32 G/DL (32-36); MEAN CORPUSCULAR VOLUME 87 FL (80-99); MEAN PLATELET VOLUME 10.2 FL (7.4-10.4); MONOCYTES # (AUTO) 0.8 X 10^3 (0.0-1.0); MONOCYTES % (AUTO) 10 % (0-12); NEUTROPHILS # (AUTO) 4.1 X 10^3 (1.8-7.8); NEUTROPHILS % (AUTO) 51 % (42-75); PLATELET COUNT 377 10^3/uL (130-400); RED CELL DISTRIBUTION WIDTH 14.5 % (10.0-14.5)
[2019-04-11 06:13] LABS: ALANINE AMINOTRANSFERASE 10 U/L (0-55); ALBUMIN 4.1 GM/DL (3.2-4.5); ALKALINE PHOSPHATASE 82 U/L (40-136); BILIRUBIN,TOTAL 0.2 MG/DL (0.1-1.0); BUN/CREATININE RATIO 20; CALCIUM 10.1 MG/DL (8.5-10.1); CARBON DIOXIDE 17 MMOL/L (21-32); CHLORIDE 117 MMOL/L (98-107); CREATININE SERUM 0.87 MG/DL (0.60-1.30); GFR ESTIMATED > 60; GLUCOSE 120 MG/DL (70-105); POTASSIUM 4.6 MMOL/L (3.6-5.0); SODIUM 143 MMOL/L (135-145)
[2019-04-11] MEDS: ACETAMINOPHEN 325 MG TABLET PO PRN ×2 (07:32→17:26)
[2019-04-11 08:00] VITALS: BP 162/68
[2019-04-11] MEDS: ISOSORBIDE MONONITRATE 30 MG (IMDUR) TAB PO SCH (09:32)
[2019-04-11] MEDS: GEMFIBROZIL 600 MG (LOPID) TAB PO SCH ×2 (09:32→20:14)
[2019-04-11] MEDS: DICYCLOMINE 10 MG (BENTYL) CAP PO SCH ×4 (09:33→20:14)
[2019-04-11] MEDS: amLODIPine 5 MG (NORVASC) TAB PO SCH (09:33)
[2019-04-11] MEDS: ASCORBIC ACID (VIT C) 500 MG TABLET PO SCH (09:33)
[2019-04-11] MEDS: SENNA W/DOCUSATE (SENOKOT S) TABLET PO SCH ×2 (09:34→20:13)
[2019-04-11] MEDS: predniSONE 5 MG TAB PO SCH (09:36)
--- NOTE | 2019-04-11 11:29 | Occupational Ther Daily Note ---
OT Current Status-Daily Note Subjective Pt seen on commode. Pt states no pain but "numbness" of BLE, agreeable to OT tx session. Mental Status/Objective Patient Orientation: Normal For Age ADL-Treatment Therapy Code Descriptions/Definitions Functional Lander Measure: 0=Not Assessed/NA 4=Minimal Assistance 1=Total Assistance 5=Supervision or Setup 2=Maximal Assistance 6=Modified Lander 3=Moderate Assistance 7=Complete IndependenceSCALE: Activities may be completed with or without assistive devices. 2-Hbpahuorvn-sxdbxbf completes the activity by him/herself with no assistance from a helper. 5-Set-up or Clean-up Assistance-helper sets up or cleans up; patient completes activity. [place] assists only prior to or following the activity. 4-Supervision or Touching Assistance-helper provides verbal cues and/or touching/steadying and/or contact guard assistance as patient completes activity. Assistance may be provided throughout the activity or intermittently. 3-Partial/Moderate Assistance-helper does LESS THAN HALF the effort. [place] lifts, holds or supports trunk or limbs, but provides less than half the effort. 2-Substantial/Maximal Assistance-helper does MORE THAN HALF the effort. [place] lifts or holds trunk or limbs and provides more than half the effort. 5-Unripyjnp-enzrqm does ALL the effort. Patient does none of the effort to complete the activity. Or, the assistance of 2 or more helpers is required for the patient to complete the activity. If activity was not attempted, code reason: 7-Patient Refused. 9-Not Applicable-not attempted and the patient did not perform the activity before the current illness, exacerbation or injury. 10-Not Attempted due to Environmental Limitations-(lack of equipment, weather restraints, etc.). 88-Not Attempted due to Medical Conditions or Safety Concerns. Eating (QC): 6 Shower/Bathe Self (QC): 2 (Pt completes sponge bath with warm wipes. Pt able to wipe abdomen/ chest/ upper LB and UB. Pt requires assist with bilateral feet, back, bottom/ shannon area. Pt requires min A in stance- CGA. Pt completes shower cap with s/u) Upper Body Dressing (QC): 5 (Pt completes gown doff/ donning wiht s/u) Lower Body Dressing (QC): 2 (Pt requires intermittent assist threading BLE, requires touching assist and mod A to pull breif up due to decreased balance and coordination in stance.) Toileting Hygiene (QC): 1 Toilet Transfer (QC): 2 (Pt sit to stand with min A, CGA throughout stance. Requires max cues for correct/ safe stance and max cues for walker placement to move to chair. Pt sits with CGA.) Other Treatment Pt states she has been completing AROM exercises but has not felt stronger, pt educated on continued repetitions to gain strength/ endurance. Pt completes sponge bath in chair, states assists with back and feet washing and also sock donning/ doffing. pt states she completes underwear donning/ doffing without assist from . Pt completes transfers with max cues. While transitioning sit to stand, pt placed R foot out from body, requires cues for placement on floor. Pt reaches to walker with L hand, requires additional time to gain balance to transfer R hand from commode to FWW. pt requires CGA-min A to maintain balance while at FWW. Pt returns to chair with feet elevated, call light in reach, all needs met. Education OT Patient Education: Correct positioning, Energy conservation, Exercise program, Home exercise program Teaching Recipient: Patient Teaching Methods: Demonstration, Discussion Response to Teaching: Verbalize Understanding, Return Demonstration OT Short Term Goals Short Term Goals 1=Demonstrate adherence to instructed precautions during ADL tasks. 2=Patient will verbalize/demonstrate understanding of assistive devices/ modifications for ADL. 3=Patient will improve strength/tolerance for activity to enable patient to perform ADL's. OT [facility] Goals Sound Recordist Goals Time Frame: Apr 12, 2019 Eating (QC): 6 (met) Oral Hygiene (QC): 6 Shower/Bathe Self (QC): 6 Upper Body Dressing (QC): 6 Lower Body Dressing (QC): 4 On/Off Footwear (QC): 6 Toileting Hygiene (QC): 4 Toilet/Commode Transfer (QC): 4 Additional Goals: 1-Demonstrate ADL Tasks, 2-Verbalize Understanding, 3- ImproveStrength/Stephanie 1=Demonstrate adherence to instructed precautions during ADL tasks. 2=Patient will verbalize/demonstrate understanding of assistive devices/modifications for ADL. 3=Patient will improve strength/tolerance for activity to enable patient to perform ADL's. OT Education/Plan Problem List/Assessment Assessment: Decreased Activ Tolerance, Decreased UE Strength, Dependent Transfers, Impaired Funct Balance, Impaired I ADL's, Impaired Self-Care Skills Discharge Recommendations Plan/Recommendations: Continue POC Therapy Discharge Recommendati: Scheduled Assistance, Post Acute OT Treatment Plan/Plan of Care Treatment,Training & Education: Yes Patient would benefit from OT for education, treatment and training to promote independence in ADL's, mobility, safety and/or upper extremity function for ADL's. Plan of Care: ADL Retraining, Caregiver Training, Functional Mobility, Group Exercise/Act as Ind, UE Funct Exercise/Act Treatment Duration: Apr 12, 2019 Frequency: 5 times per week Estimated Hrs Per Day: .25 hour per day Agreement: Yes Rehab Potential: Guarded Time/GCodes Start Time: 10:59 Stop Time: 11:17 Total Time Billed (hr/min): 18 Billed Treatment Time 1, ADL (18) KAILEY BENZ OTR Apr 11, 2019 11:29 POS
--- NOTE | 2019-04-11 12:40 | NUR ---
CM/SS followed up with the patient. The patient states that she is doing okay today. The patients was not present and she stated that he wouldn't be here today. The patient verbalized that she has a "[employer] Card" that she wants her to bring in to use for IRF. The patient stated that she worries about going back home and being able to shower. The patient verbalized that she will call the [facility] when she gets home. No other needs were expressed at this time. Will continue to follow.
--- NOTE | 2019-04-11 14:01 | Physical Therapy Daily Note ---
PT Daily Note-Current Subjective Patient agrees to PT at this time. Reports she is feeling pretty good today. Reports pain in legs that was worse after walking. Pain Numeric Pain Scale: 7 Location: Right Location Body Site: Thigh Pain Description: Ache Mental Status Patient Orientation: Normal For Age Transfers SCALE: Activities may be completed with or without assistive devices. 4-Yysytetivf-nhalrjj completes the activity by him/herself with no assistance from a helper. 5-Set-up or Clean-up Assistance-helper sets up or cleans up; patient completes activity. [place] assists only prior to or following the activity. 4-Supervision or Touching Assistance-helper provides verbal cues and/or touching/steadying and/or contact guard assistance as patient completes activity. Assistance may be provided throughout the activity or intermittently. 3-Partial/Moderate Assistance-helper does LESS THAN HALF the effort. [place] lifts, holds or supports trunk or limbs, but provides less than half the effort. 2-Substantial/Maximal Assistance-helper does MORE THAN HALF the effort. [place] lifts or holds trunk or limbs and provides more than half the effort. 5-Xirixaaji-ccuojq does ALL the effort. Patient does none of the effort to complete the activity. Or, the assistance of 2 or more helpers is required for the patient to complete the activity. If activity was not attempted, code reason: 7-Patient Refused. 9-Not Applicable-not attempted and the patient did not perform the activity before the current illness, exacerbation or injury. 10-Not Attempted due to Environmental Limitations-(lack of equipment, weather restraints, etc.). 88-Not Attempted due to Medical Conditions or Safety Concerns. Sit to Lying (QC): 3 Sit to Stand (QC): 2 Weight Bearing Right Lower Extremity: Right Weight Bearing/Tolerated Left Lower Extremity: Left Weight Bearing/Tolerated Gait Training Does the Patient Walk?: Yes Distance: 15' Walk 10 feet (QC): 3 Gait Assistive Device: FWW frequent LOB backwards, required assistance to move walker Exercises Seated Therapy Exercises: Long arc quads Seated Reps: 15 Assessment Patient performed LAQ, some AAROM to get full ROM and some within AROM to practice movement. Patient stood with moderate assistance and cues and was able to remain standing with slightly less shaking and swaying than previously. Patient ambulated 15' within room with FWW and mod assist. Patient had frequent LOB and required assistance to maintain balance and maneuver walker. Patient sat EOB and was able to lay supine from sitting with minimal assistance to move LEs. Patient positioned in bed with HOB elevated. PT Longterm Goals Longterm Goals PT Longterm Goals Time Frame: Apr 12, 2019 Sit to Lying (QC): 5 Lying-Sitting on Side/Bed(QC): 5 Sit to Stand (QC): 5 Roll Left to Right (QC): 5 Chair/Vhc-ir-Xfgvf Xfer(QC): 5 Car Transfer (QC): 5 Does the Patient Walk: Yes Distance: 100' Walk 10 feet (QC): 5 Walk 50ft with 2 Turns (QC): 5 Gait Assistive Device: FWW PT Plan Treatment/Plan Treatment Plan: Continue Plan of Care Treatment Plan: Bed Mobility, Concurrent Therapy, Education, Functional Activity Stephanie, Functional Strength, Gait, Safety, Therapeutic Exercise, Transfers Frequency: 6 times per week Estimated Hrs Per Day: .25 hour per day Patient and/or Family Agrees t: Yes Time/GCodes Time In: 1332 Time Out: 1351 Total Billed Treatment Time: 19 Total Billed Treatment 1 visit FA 19min JADON EMMANUEL PT Apr 11, 2019 14:00 POS
--- NOTE | 2019-04-11 14:24 | Progress Note ---
Subjective Subjective/Events-last exam Seen at 1125 am. Afebrile, states she is doing okay, still very weak. Anticipating bladder scope tomorrow. Objective Exam Last Set of Vital Signs Vital Signs Date Time Temp Pulse Resp B/P (MAP) Pulse Ox O2 Delivery O2 Flow Rate FiO2 04/11/19 08:00 Room Air 04/11/19 08:00 36.3 63 18 162/68 (99) 99 Capillary Refill : Less Than 3 Seconds I&O Intake and Output 04/11/19 00:00 Intake Total 2480 ml Output Total 3925 ml Balance -1445 ml Intake Oral 2480 ml Output Urine Total 3925 ml # Bowel Movements 2 General: Alert, No Acute Distress Lungs: Clear to Auscultation, Normal Air Movement Heart: Regular Rate, No Murmurs Abdomen: Normal Bowel Sounds, Soft Neuro: Normal Speech, Other (left leg with 4/5 strength, right leg with inability to flex at hip against gravity, inability to flex knee, able to dorsiflex foot but not against resistance) Psych/Mental Status: Mood NL Results/Procedures Lab Laboratory Tests 04/11/19 05:10: White Blood Count 8.0, Red Blood Count 3.57L, Hemoglobin 10.1L, Hematocrit 31L, Mean Corpuscular Volume 87, Mean Corpuscular Hemoglobin 28, Mean Corpuscular He moglobin Concent 32, Red Cell Distribution Width 14.5, Platelet Count 377, Mean Platelet Volume 10.2, Neutrophils (%) (Auto) 51, Lymphocytes (%) (Auto) 36, Monocytes (%) (Auto) 10, Eosinophils (%) (Auto) 3, Basophils (%) (Auto) 0, Neutrophils # (Auto) 4.1, Lymphocytes # (Auto) 2.9, Monocytes # (Auto) 0.8, Eosinophils # (Auto) 0.2, Basophils # (Auto) 0.0, Sodium Level 143, Potassium Level 4.6, Chloride Level 117H, Carbon Dioxide Level 17L, Anion Gap 9, Blood Urea Nitrogen 17, Creatinine 0.87, Estimat Glomerular Filtration Rate > 60, BUN/Creatinine Ratio 20, Glucose Level 120H, Calcium Level 10.1, Corrected Calcium 10.0, Total Bilirubin 0.2, Aspartate Amino Transf (AST/SGOT) 14, Alanine Aminotransferase (ALT/SGPT) 10, Alkaline Phosphatase 82, Total Protein 7.0, Albumin 4.1 Microbiology 04/04/19 Blood Culture - Final, Complete No growth Assessment/Plan Assessment/Plan (1) Ataxia Status: Acute Assessment & Plan: PT (2) Disorder of lumbar spine Status: Acute Assessment & Plan: 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 Per patient had outpatient referral but ended up admitted before having done. (3) Urinary retention Status: Acute Assessment & Plan: Garner taken out today, plan for scope per Dr. Moseley tomorrow. (4) Weakness Status: Acute Assessment & Plan: PT working with her, insurance declined inpatient rehab. Will need at least home health PT on d/c, may not be safe for home setting due to significant difficulty with ambulation. (5) Anemia Assessment & Plan: Uncertain etiology, per clinic chart did have mild anemia several months ago. Will check iron and peripheral smear. (6) DVT prophylaxis Status: Acute Assessment & Plan: SCDs, no enoxaparin due to hematuria and anemia. Clinical Quality Measures DVT/VTE Risk/Contraindication: Risk Factor Score Per Nursin RFS Level Per Nursing on Admit: 2=Moderate MERON LAMBERT MD Apr 11, 2019 14:24 POS
--- NOTE | 2019-04-11 15:06 | NUR ---
[employer] Social Work student note reviewed and approved
[2019-04-11 15:31] LABS: ABSOLUTE RETIC # 71 10e9/L (24-90); BASOPHILS % (AUTO) 1 % (0-10); EOSINOPHILS # (AUTO) 0.1 10^3/uL (0.0-0.3); EOSINOPHILS % (AUTO) 1 % (0-10); HEMATOCRIT 32 % (35-52); HEMOGLOBIN 10.4 G/DL (11.5-16.0); LYMPHOCYTES # (AUTO) 1.3 X 10^3 (1.0-4.0); LYMPHOCYTES % (AUTO) 15 % (12-44); MEAN CORPUSCULAR HEMOGLOBIN 28 PG (25-34); MEAN CORPUSCULAR HGB CONC 32 G/DL (32-36); MEAN CORPUSCULAR VOLUME 87 FL (80-99); MEAN PLATELET VOLUME 10.1 FL (7.4-10.4); MONOCYTES # (AUTO) 0.3 X 10^3 (0.0-1.0); MONOCYTES % (AUTO) 4 % (0-12); NEUTROPHILS # (AUTO) 7.1 X 10^3 (1.8-7.8); NEUTROPHILS % (AUTO) 81 % (42-75); PLATELET COUNT 379 10^3/uL (130-400); RED CELL DISTRIBUTION WIDTH 14.5 % (10.0-14.5); RETICULOCYTE % 1.94 % (0.50-2.40); WHITE BLOOD COUNT 8.8 10^3/uL (4.3-11.0)
--- NOTE | 2019-04-11 16:03 | NUR ---
CM/SS spoke with the patient about possible skilled nursing placement. The patient verbalized that she would feel better talking about it when her was present. CM/SS attempted to contact her Thony ([phone]) to discuss discharge planning but he did not answer and voice mail was full. Will try again Thursday. The patient seemed open to the idea of a skilled nursing placement but was concerned about the financial aspect. Will continue to follow.
[2019-04-11 16:04] VITALS: BP 145/66
[2019-04-11 16:14] LABS: BAND NEUTROPHILS 0 %; BASOPHILS % (MANUAL) 0 %; EOSINOPHILS % (MANUAL) 1 %; LYMPHOCYTES % (MANUAL) 10 %; MONOCYTES % (MANUAL) 3 %; NEUTROPHILS % (MANUAL) 86 %; RBC MORPH NORMAL
--- NOTE | 2019-04-11 16:31 | CONSULTATION REPORT ---
DATE OF SERVICE: 04/11/2019 ATTENDING PHYSICIAN: Dr. Ann. SUMMARY: After reviewing the patient's record at the office and in the hospital, this is a 73-year-old white lady previously known to me because of history of UTI, stone, gross hematuria and retention. She was worked up in the office on 02/[address] scan that was negative. A postvoid residual was 150. UD was carried easily. Cystoscopy was negative. Vaginal exam revealed atrophic vaginitis. She was put on Premarin vaginal cream half a gram twice a week at bedtime, vitamin C 500 mg daily, cranberry tablet b.i.d. and Proloprim 100 mg each day at bedtime. She was admitted a week ago from the emergency room with gross hematuria, retention, fecal impaction and weakness, and subsequently started getting better. Her urine is clear. She may need some physical therapy and rehabilitation, if she qualifies. IMPRESSION: Gross hematuria, retention with a history of urinary tract infection. PLAN: Discontinue Garner catheter and see the trial of voiding. Tomorrow under local, we will perform cystoscopy with possible urethral dilatation under local. Procedure was fully explained to the patient. Job ID: [id number] DocumentID: [id number] Dictated Date: 04/11/2019 11:12:07 Supervisor Slitting And Shipping Date: 04/11/2019 13:26:17 Dictated By: FREDDY KRAUSE MD
[2019-04-11] MEDS: ALPRAZolam 0.25 MG (XANAX) TAB PO PRN (17:25)
[2019-04-11] MEDS: SIMvastatin 40 MG (ZOCOR) TAB PO SCH (20:14)
[2019-04-11] MEDS: DOCUSATE SODIUM 100 MG (COLACE) CAP PO SCH (20:14)
[2019-04-11] MEDS: TRIMETHOPRIM 100 MG TAB (PROLOPRIM) NON-FORMULARY PO SCH (20:14)
[2019-04-12] VITALS: BP 135/65
[2019-04-12 06:08] LABS: HEMOGLOBIN 10.1 G/DL (11.5-16.0); MEAN PLATELET VOLUME 10.1 FL (7.4-10.4); RED CELL DISTRIBUTION WIDTH 14.6 % (10.0-14.5)
[2019-04-12 06:29] LABS: BUN/CREATININE RATIO 19; CARBON DIOXIDE 17 MMOL/L (21-32); CHLORIDE 114 MMOL/L (98-107); CREATININE SERUM 0.86 MG/DL (0.60-1.30); GFR ESTIMATED > 60; GLUCOSE 158 MG/DL (70-105); POTASSIUM 4.1 MMOL/L (3.6-5.0); SODIUM 140 MMOL/L (135-145)
[2019-04-12 08:00] VITALS: BP 144/78
--- NOTE | 2019-04-12 08:00 | NUR ---
TO OR PER BED.
[2019-04-12] MEDS ORDERED: LIDOCAINE UROJET 2% GEL 10 ML PKG ONE (08:07)
--- NOTE | 2019-04-12 08:08 | Progress Note-Pre Operative ---
Pre-Operative Progress Note H&P Reviewed The H&P was reviewed, patient examined and no changes noted. Date Seen by Provider: Apr 12, 2019 Time Seen by Provider: 08:07 Date H&P Reviewed: Apr 12, 2019 Time H&P Reviewed: 08:08 Pre-Operative Diagnosis: GROSS HEMATURIA AND URINE RETENTION FREDDY KRAUSE MD Apr 12, 2019 08:08 POS
--- NOTE | 2019-04-12 08:11 | Physical Therapy Progress Note ---
Therapy Progress Note Patient currently undergoing procedure. Will attempt tx again later. 1 visit, 0 tx, 8:07 am. JADON EMMANUEL PT Apr 12, 2019 08:11 POS
--- NOTE | 2019-04-12 08:32 | Progress Note-Post Operative ---
Post-Operative Progess Note Surgeon (s)/Gourmet Coffee Attendant (s) Surgeon FREDDY KRAUSE MD Gourmet Coffee Attendant: NONE Pre-Operative Diagnosis GROSS HEMATURIA AND URINE RETENTION Post-Operative Diagnosis SAME Procedure & Operative Findings Date of Procedure 04/12/19 Procedure Performed/Findings CYSTOSCOPY, U.D, AND VAGINAL EXAM Anesthesia Type LOCAL Estimated Blood Loss Estimated blood loss (mL): NONE Specimens/Packing Specimens Removed NONE Packing: NONE FREDDY KRAUSE MD Apr 12, 2019 08:32 POS
--- NOTE | 2019-04-12 08:35 | NUR ---
RETURNED FROM OR PER BED. ALERT AND COOPERATIVE. SKIN W/D RESP. REGULAR. C/O OF PIN IN LEGS MAGGIE. RATING IT 12/08. NO ACTIVE BLEEDING NOTED. MX=922/87 P-61 O2 SAT-97% ON R/A.
--- NOTE | 2019-04-12 08:42 | NUR ---
Pt currently having procedure. Will attempt nutrition follow-up later. Candido Vivar, MS, RD, LD
[2019-04-12 09:53] VITALS: BP 168/74
--- NOTE | 2019-04-12 09:54 | Occupational Ther Daily Note ---
OT Current Status-Daily Note Subjective Pt laying in bed at start of session, asked if her call light was on outside, OT told her it was not and asked what she needed. Pt reported pain in her legs 7- 01/08 stating she needed something for the pain. Nursing notified. Pt agreeable to OT session with focus on ADLs ADL-Treatment Pt used wet washcloth to wash face and hands during session, only requiring set up assist for task. Therapy Code Descriptions/Definitions Functional [place] Measure: 0=Not Assessed/NA 4=Minimal Assistance 1=Total Assistance 5=Supervision or Setup 2=Maximal Assistance 6=Modified [place] 3=Moderate Assistance 7=Complete IndependenceSCALE: Activities may be completed with or without assistive devices. 5-Wkzfbapwtf-edhhqml completes the activity by him/herself with no assistance from a helper. 5-Set-up or Clean-up Assistance-helper sets up or cleans up; patient completes activity. [place] assists only prior to or following the activity. 4-Supervision or Touching Assistance-helper provides verbal cues and/or touching/steadying and/or contact guard assistance as patient completes activity. Assistance may be provided throughout the activity or intermittently. 3-Partial/Moderate Assistance-helper does LESS THAN HALF the effort. [place] lifts, holds or supports trunk or limbs, but provides less than half the effort. 2-Substantial/Maximal Assistance-helper does MORE THAN HALF the effort. [place] lifts or holds trunk or limbs and provides more than half the effort. 0-Tnnbipnlq-inauwv does ALL the effort. Patient does none of the effort to complete the activity. Or, the assistance of 2 or more helpers is required for the patient to complete the activity. If activity was not attempted, code reason: 7-Patient Refused. 9-Not Applicable-not attempted and the patient did not perform the activity before the current illness, exacerbation or injury. 10-Not Attempted due to Environmental Limitations-(lack of equipment, weather restraints, etc.). 88-Not Attempted due to Medical Conditions or Safety Concerns. Oral Hygiene (QC): 4 (set up, pt able to complete oral hygiene at bed level. She brushed her dentures with toothbrush, then placed them into her mouth.) Other Treatment Pt laying in bed at start of session, stating she would like to put her dentures in. OT encouraged pt to walk to bathroom to perform task, pt pleasantly declined due to leg pain. Pt performed oral hygiene at bed level and washed face/hands. Pt then told OT that she has been completing her arm exercises in bed and reported they are going well. Post OT session, pt laying in bed with call light and tray table in reach, all needs met. Education OT Patient Education: Correct positioning, Energy conservation, Modified ADL techniques, Progress toward Goal/Update tx plan, Purpose of tx/functional activities Teaching Recipient: Patient Teaching Methods: Demonstration, Discussion Response to Teaching: Verbalize Understanding OT Short Term Goals Short Term Goals 1=Demonstrate adherence to instructed precautions during ADL tasks. 2=Patient will verbalize/demonstrate understanding of assistive devices/modifications for ADL. 3=Patient will improve strength/tolerance for activity to enable patient to perform ADL's. OT [facility] Goals Potato Chip Frier Goals Time Frame: Apr 12, 2019 Eating (QC): 6 (met) Oral Hygiene (QC): 6 Shower/Bathe Self (QC): 6 Upper Body Dressing (QC): 6 Lower Body Dressing (QC): 4 On/Off Footwear (QC): 6 Toileting Hygiene (QC): 4 Toilet/Commode Transfer (QC): 4 Additional Goals: 1-Demonstrate ADL Tasks, 2-Verbalize Understanding, 3- ImproveStrength/Stephanie 1=Demonstrate adherence to instructed precautions during ADL tasks. 2=Patient will verbalize/demonstrate understanding of assistive devices/modifications for ADL. 3=Patient will improve strength/tolerance for activity to enable patient to perform ADL's. OT Education/Plan Problem List/Assessment Assessment: Decreased Activ Tolerance, Decreased UE Strength, Impaired I ADL's, Impaired Self-Care Skills Discharge Recommendations Plan/Recommendations: Continue POC Treatment Plan/Plan of Care Patient would benefit from OT for education, treatment and training to promote independence in ADL's, mobility, safety and/or upper extremity function for ADL's. Plan of Care: ADL Retraining, Caregiver Training, Functional Mobility, Group Exercise/Act as Ind, UE Funct Exercise/Act Treatment Duration: Apr 12, 2019 Frequency: 5 times per week Estimated Hrs Per Day: .25 hour per day Agreement: Yes Rehab Potential: Guarded Time/GCodes Start Time: 09:20 Stop Time: 09:35 Total Time Billed (hr/min): 15 Billed Treatment Time 1, ADL (15min) CRUMPACKER,HAMIDA OT Apr 12, 2019 09:54 POS
[2019-04-12] MEDS: ISOSORBIDE MONONITRATE 30 MG (IMDUR) TAB PO SCH (10:06)
[2019-04-12] MEDS: amLODIPine 5 MG (NORVASC) TAB PO SCH (10:06)
[2019-04-12] MEDS: ASCORBIC ACID (VIT C) 500 MG TABLET PO SCH (10:07)
[2019-04-12] MEDS: predniSONE 5 MG TAB PO SCH (10:07)
[2019-04-12] MEDS: SENNA W/DOCUSATE (SENOKOT S) TABLET PO SCH ×2 (10:08→20:26)
[2019-04-12] MEDS: ACETAMINOPHEN 325 MG TABLET PO PRN ×2 (10:11→16:29)
[2019-04-12] MEDS: GEMFIBROZIL 600 MG (LOPID) TAB PO SCH ×2 (10:11→20:26)
[2019-04-12] MEDS: DICYCLOMINE 10 MG (BENTYL) CAP PO SCH ×4 (10:15→20:26)
--- NOTE | 2019-04-12 12:08 | Physical Therapy Daily Note ---
PT Daily Note-Current Subjective Patient agrees to PT at this time. Reports she recently had a pain pill so her legs are feeling much better. Agrees to transfer to chair. Pain Numeric Pain Scale: 3 Location: Right Location Body Site: Knee Pain Description: Ache Comment: and thigh and calf Mental Status Patient Orientation: Normal For Age Transfers SCALE: Activities may be completed with or without assistive devices. 7-Okckiljhbn-cuwpqwj completes the activity by him/herself with no assistance from a helper. 5-Set-up or Clean-up Assistance-helper sets up or cleans up; patient completes activity. [place] assists only prior to or following the activity. 4-Supervision or Touching Assistance-helper provides verbal cues and/or touching/steadying and/or contact guard assistance as patient completes activity. Assistance may be provided throughout the activity or intermittently. 3-Partial/Moderate Assistance-helper does LESS THAN HALF the effort. [place] lifts, holds or supports trunk or limbs, but provides less than half the effort. 2-Substantial/Maximal Assistance-helper does MORE THAN HALF the effort. [place] lifts or holds trunk or limbs and provides more than half the effort. 6-Qhqtjhsqr-ykfljb does ALL the effort. Patient does none of the effort to complete the activity. Or, the assistance of 2 or more helpers is required for the patient to complete the activity. If activity was not attempted, code reason: 7-Patient Refused. 9-Not Applicable-not attempted and the patient did not perform the activity before the current illness, exacerbation or injury. 10-Not Attempted due to Environmental Limitations-(lack of equipment, weather restraints, etc.). 88-Not Attempted due to Medical Conditions or Safety Concerns. Roll Left to Right (QC): 4 Sit to Stand (QC): 2 Chair/Ogl-wc-Isfmt Xfer(QC): 2 Reluctant to flex and bear weight on RLE to stand Weight Bearing Right Lower Extremity: Right Weight Bearing/Tolerated Left Lower Extremity: Left Weight Bearing/Tolerated Assessment Patient performed bed mobility with minimal assistance to complete LE movement off EOB. Once sitting EOB, patient can flex L knee to place foot flat on floor but keeps R knee extended. Patient stands with max assist, not bearing weight on RLE. Patient demonstrated difficulty straightening up to stand and balance. Patient able to assist with transfer to wheelchair for x-rays with use of FWW. PT Compass Operator Goals Penitentiary Goals PT Penitentiary Goals Time Frame: Apr 12, 2019 Sit to Lying (QC): 5 Lying-Sitting on Side/Bed(QC): 5 Sit to Stand (QC): 5 Roll Left to Right (QC): 5 Chair/Hkq-bd-Uetdc Xfer(QC): 5 Car Transfer (QC): 5 Does the Patient Walk: Yes Distance: 100' Walk 10 feet (QC): 5 Walk 50ft with 2 Turns (QC): 5 Gait Assistive Device: FWW PT Plan Treatment/Plan Treatment Plan: Continue Plan of Care Treatment Plan: Bed Mobility, Concurrent Therapy, Education, Functional Activity Stephanie, Functional Strength, Gait, Safety, Therapeutic Exercise, Transfers Frequency: 6 times per week Estimated Hrs Per Day: .25 hour per day Patient and/or Family Agrees t: Yes Time/GCodes Time In: 1152 Time Out: 1201 Total Billed Treatment Time: 9 Total Billed Treatment 1 visit FA 9min JADON EMMANUEL PT Apr 12, 2019 12:08 POS
--- NOTE | 2019-04-12 12:16 | OPERATIVE REPORT ---
DATE OF SERVICE: 04/12/2019 PREOPERATIVE DIAGNOSES: Gross hematuria and urinary retention. POSTOPERATIVE DIAGNOSES: Gross hematuria and urinary retention. OPERATION PERFORMED: Cystoscopy with urethral dilatation and vaginal exam. SURGEON: Bakari Krause MD ANESTHESIA: Local. COMPLICATIONS: None. DESCRIPTION OF PROCEDURE: With the patient in lithotomy position, genitalia were prepped and draped in the usual sterile fashion. Urethra was infiltrated with lidocaine jelly and a 4 x 4 gauze was applied. This was then removed and urethral dilatation was carried from 24 to 30-Bengali easily. There was about 100 mL residual. The patient had voided about an hour ago and the urine is clear. Cystoscopy was performed with both lenses and the bladder measuring enough for the catheter to be there for at least a week was completely negative. There was no catheter cystitis. No cystitis, carcinoma in situ, bladder tumor, foreign body or stone. Ureteric orifices with clear effluxes bilaterally. Bladder was evacuated and cystoscope was removed. Vaginoscopy showed no bleeding in the vagina at all and no lesions. The previous atrophic vaginitis was improved with the use of the Premarin cream. The patient tolerated the procedure and anesthesia well and was sent back upstairs in stable condition. PLAN: May discharge oneill and to keep their followup appointment as previously had in the office. Job ID: [id number] DocumentID: [id number] Dictated Date: 04/12/2019 08:35:52 Administrative Executive Date: 04/12/2019 12:15:47 Dictated By: BAKARI KRAUSE MD
--- NOTE | 2019-04-12 13:04 | Diagnostic Imaging Report ---
EXAM: LUMBAR SPINE COMP/BENDING. INDICATION: Low back pain. Spinal stimulator. COMPARISON: CT lumbar spine without contrast dated 04/06/2019. FINDINGS: There are five lumbar-type vertebral bodies. Moderate left apex lumbar curvature. Grade 2 anterolisthesis of L5 on S1. This appears to be stable with flexion and extension. Alignment is otherwise unremarkable. Vertebral body heights are preserved. Moderate degenerative endplate changes are greatest at L1-L3. An epidural spinal stimulator enters the spinal canal at T12-L1 and travels superiorly out of the eztyl-ry-nuqr. Moderate degenerative changes in the sacroiliac joints as well as surgical clips in the pelvis. Advanced atherosclerotic calcifications. IMPRESSION: 1. 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 2. Grade 2 anterolisthesis of L5 on S1 is stable with flexion and extension. 3. Moderate degenerative changes in the sacroiliac joints. Dictated by: Dictated on workstation # [id number]
--- NOTE | 2019-04-12 14:04 | Progress Note ---
Subjective Subjective/Events-last exam Seen at 0935. Afebrile, continues to have minimal movement of right leg. Had cystoscopy this am. Objective Exam Last Set of Vital Signs Vital Signs Date Time Temp Pulse Resp B/P (MAP) Pulse Ox O2 Delivery O2 Flow Rate FiO2 04/12/19 09:53 168/74 (105) 04/12/19 08:00 36.4 63 18 99 Room Air Capillary Refill : Less Than 3 Seconds I&O Intake and Output 04/12/19 00:00 Intake Total 1850 ml Output Total 2700 ml Balance -850 ml Intake Oral 1850 ml Output Urine Total 2700 ml # Bowel Movements 3 General: Alert, No Acute Distress Lungs: Clear to Auscultation, Normal Air Movement Heart: Regular Rate, No Murmurs Abdomen: Normal Bowel Sounds, Soft Neuro: Normal Speech Psych/Mental Status: Mood NL Results/Procedures Lab Laboratory Tests 04/11/19 15:08: White Blood Count 8.8, Red Blood Count 3.68L, Hemoglobin 10.4L, Hematocrit 32L, Mean Corpuscular Volume 87, Mean Corpuscular Hemoglobin 28, Mean Corpuscular Hemoglobin Concent 32, Red Cell Distribution Width 14.5, Platelet Count 379, Mean Platelet Volume 10.1, Neutrophils (%) (Auto) 81H, Lymphocytes (%) (Auto) 15, Monocytes (%) (Auto) 4, Eosinophils (%) (Auto) 1, Basophils (%) (Auto) 1, Neutrophils # (Auto) 7.1, Lymphocytes # (Auto) 1.3, Monocytes # (Auto) 0.3, Eosinophils # (Auto) 0.1, Basophils # (Auto) 0.0, Neutrophils % (Manual) 86, Lymphocytes % (Manual) 10, Monocytes % (Manual) 3, Eosinophils % (Manual) 1, Basophils % (Manual) 0, Band Neutrophils 0, Blood Morphology Comment NORMAL, Abs olute Reticulocyte Count 71, Percent Reticulocyte Count 1.94, Iron Level 33L, Total Iron Binding Capacity 442H, Unsaturated Iron Binding Capacity 409, Transferrin % Saturation 7L, Ferritin 13.9L 04/12/19 05:30: White Blood Count 7.0, Red Blood Count 3.68L, Hemoglobin 10.1L, Hematocrit 32L, Mean Corpuscular Volume 87, Mean Corpuscular Hemoglobin 27, Mean Corpuscular Hemoglobin Concent 32, Red Cell Distribution Width 14.6H, Platelet Count 415H, Mean Platelet Volume 10.1, Sodium Level 140, Potassium Level 4.1, Chloride Level 114H, Carbon Dioxide Level 17L, Anion Gap 9, Blood Urea Nitrogen 16, Creatinine 0.86, Estimat Glomerular Filtration Rate > 60, BUN/Creatinine Ratio 19, Glucose Level 158H, Calcium Level 10.0 Microbiology 04/04/19 Blood Culture - Final, Complete No growth Assessment/Plan Assessment/Plan (1) Ataxia Status: Acute Assessment & Plan: PT, looking in to SNF for d/c. (2) Disorder of lumbar spine Status: Acute Assessment & Plan: 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 Per patient had outpatient referral but ended up admitted before having done. 04/12 Ortho spine consulted (3) Urinary retention Status: Acute Assessment & Plan: Garner taken out today, plan for scope per Dr. Moseley tomorrow. 04/12 cystoscopy done this am with urethral dilatation and vaginal exam, no source of bleeding noted. (4) Weakness Status: Acute Assessment & Plan: PT working with her, insurance declined inpatient rehab. Will need at least home health PT on d/c, may not be safe for home setting due to significant difficulty with ambulation. (5) Anemia Assessment & Plan: Uncertain etiology, per clinic chart did have mild anemia several months ago. Will check iron and peripheral smear. 04/12 iron studies consistent with iron deficiency, did have gross hematuria more than once, will check hemoccult. (6) DVT prophylaxis Status: Acute Assessment & Plan: SCDs, no enoxaparin due to hematuria and anemia. Clinical Quality Measures DVT/VTE Risk/Contraindication: Risk Factor Score Per Nursin RFS Level Per Nursing on Admit: 2=Moderate MERON LAMBERT MD Apr 12, 2019 14:04 POS
[2019-04-12 16:00] VITALS: BP 145/69
--- NOTE | 2019-04-12 16:38 | NUR ---
RD ASSESSMENT PMHx: HTN; GERD; DM; Crohn's disease PT INTERACTION: Pt was awake and pleasant during follow-up. Pt states eating well since last assessment. Note pt avg PO intake >75% x3 day, per chart review. Pt states recent difficulty chewing food and would like to request softer food. Pt states no recent issues with n/v since last assessment. Pt states some recent issues with constipation since last assessment. Note last BM was 04/11 and pt currently on bowel regimen of senna, colace, per chart review. ABNORMAL NUTRITION-RELATED LAB VALUES: Cl 114 (H); glu 158 (H) Est. kcal needs: 9935-9552 kcal (20-25 kcal/kg) Est. Pro needs: 66-79 g Pro (1.0-1.2 g Pro/kg) PES STATEMENT: Biting/chewing (masticatory) difficulty (NC-1.2) related to pt having no teeth as evidenced by pt interview INTERVENTION: Recommend switch current diet order to DYS2 Mechanically Altered diet for patient comfort. Pt requested softer foods as she currently is without her dentures. MONITOR/EVALUATE: PO Intake; Plan of Care; Hydration Status; Weight Status; Lab Values Candido Vivar, MS, RD, LD
--- NOTE | 2019-04-12 17:12 | NUR ---
Pt willing to pursue ort-term skilled care at [facility]. Admission packet faxed and awaiting insurance and their approval
--- NOTE | 2019-04-12 17:45 | Consultation ---
History of Present Illness History of Present Illness Patient Consulted On(yesica/time) 04/12/19 17:38 Date Seen by Provider: Apr 12, 2019 Time Seen by Provider: 17:38 Reason for Visit: Weakness History of Present Illness 73 y/o white female admitted with progressive weakness and falls. Denies any headache, neck ache or upper extremity symptoms. Long standing history of back pain, Stimulator place [place] [address] Mcallister, [employer]. Had done well with that until it quit working. She now has noticed progressive weakness and numbness in her lower feet and legs, L>R. Allergies and Home Medications Allergies Coded Allergies: Sulfa (Sulfonamide Antibiotics) (Verified Allergy, Severe, 11/28/18) Home Medications Ascorbic Acid 500 Mg Tablet, 500 MG PO DAILY, (Reported) Calcium Carbonate 300 Mg Tab.chew, 1-2 TAB.CHEW PO QID PRN for INDIGESTION, (Reported) Citalopram Hydrobromide 20 Mg Tablet, 20 MG PO HS, (Reported) Cranberry Fruit Concentrate 450 Mg Capsule, 450 MG PO DAILY, (Reported) Dicyclomine HCl 10 Mg Capsule, 20 MG PO QID, (Reported) TAKES 2 (10MG) CAPSULES Docusate Sodium 100 Mg Capsule, 100 MG PO HS, (Reported) Estrogens Conjugated 30 Gm Cr, 0.5 GM VG TWICE WEEKLY, (Reported) Gemfibrozil 600 Mg Tablet, 600 MG PO BID, (Reported) Glimepiride 4 Mg Tablet, 4 MG PO DAILY, (Reported) Isosorbide Mononitrate 30 Mg Tab.er.24h, 30 MG PO DAILY, (Reported) Metformin HCl 500 Mg Tablet, 1,000 MG PO BID, (Reported) TAKES 2 (500MG) TABLETS Naproxen Sodium 220 Mg Tablet, 220 MG PO Q8H PRN for PAIN-MILD, (Reported) Nitroglycerin 0.4 Mg Tab.subl, 0.4 MG SL UD PRN for CHEST PAIN, (Reported) Prednisone 5 Mg Tablet, 5 MG PO DAILY, (Reported) Simvastatin 40 Mg Tablet, 40 MG PO HS, (Reported) Tramadol HCl 50 Mg Tablet, 50 MG PO Q6H PRN for PAIN-MODERATE, (Reported) Trimethoprim 100 Mg Tablet, 100 MG PO HS, (Reported) Patient Home Medication List Home Medication List Reviewed: Yes Past Expkmvm-Yainnx-Hohvpg Hx Past Med/Social Hx: Reviewed Nursing Past Med/Soc Hx, Reviewed and Corrections made Patient Social History Alcohol Use: Denies Use Recreational Drug Use: No Smoking Status: Former Smoker Type Used: Cigarettes Former Smoker, Quit: Jun 01, 1989 2nd Hand Smoke Exposure: No Recent Foreign Travel: No Contact w/Someone Who Travel: No Recent Infectious Disease Expo: No Recent Hopitalizations: No Physical Abuse: No Sexual Abuse: No Immunizations Up To Date Date of Pneumonia Vaccine: Apr 14, 2018 Date of Influenza Vaccine: Mar 03, 2019 Seasonal Allergies Seasonal Allergies: No Past Medical History Surgeries: Yes (Cystourethroscopy, colonoscopy, EGD, removal spinal stimulator, ESWL) Appendectomy, Gallbladder, Hysterectomy Respiratory: Yes Pneumonia Cardiac: Yes (Diastolic dysfunction) Hypertension Neurological: Yes Neuropathy : No Genitourinary: Yes (Urethral strictures, Hx Klebsiella cystitis) Kidney Stones, UTI-Chronic Gastrointestinal: Yes (Regional enteritis) Gastroesophageal Reflux, Crohns Disease Musculoskeletal: No Chronic Back Pain Endocrine: Yes (DM Type II) Diabetes, Non-Insulin dep HEENT: No Cancer: No Psychosocial: No Integumentary: No Blood Disorders: No Review of Systems-General Constitutional: no symptoms reported EENTM: no symptoms reported Respiratory: no symptoms reported Cardiovascular: no symptoms reported Gastrointestinal: no symptoms reported Genitourinary: decreased output : No Musculoskeletal: back pain Skin: no symptoms reported Psychiatric/Neurological: Numbness, Paresthesia, Weakness Physical Exam-General Problems Physical Exam Vital Signs Vital Signs - First Documented 04/06/19 04:00 Temp 37.1 Pulse 68 Resp 20 B/P (MAP) 165/65 (98) O2 Delivery Room Air Capillary Refill : Less Than 3 Seconds General Appearance: WD/WN, no apparent distress Eyes: Bilateral Eye Normal Inspection HEENT: normal ENT inspection Neck: non-tender, full range of motion, supple, normal inspection Respiratory: no respiratory distress, no accessory muscle use Cardiovascular: regular rate, rhythm Gastrointestinal: non tender, soft Rectal: deferred Back: no vertebral tenderness Extremities: normal range of motion, non-tender, normal inspection, no calf tenderness, normal capillary refill Neurologic/Psychiatric: alert, normal mood/affect, oriented x 3, motor weakness, sensory deficit, other (She has a significant foot drop on right, mild on left, has gastroc weakness bilaterally as well. can raise with assistance her legs off the bed. DTR's are decreased in lowers, normal in uppers. normal motor in uppers. normal genital senastion.) Reflexes: 2+ Bicep (R), 2+ Bicep (L); 0 Knee (R), 0 Knee (L), 0 Ankle (R), 0 Ankle (L) Skin: normal color, warm/dry Lymphatic: no adenopathy Comments CT lumbar spine shows high grade stenosis L4-5, centrally and in lateral recesses. Grade 1 spondy present at L4-5 and L5-S1. High grade neuroforaminal stenosis is present at L5-S1. CT T spine negative CT C spine, with spondylosis, without high grade stenosis. Flex/Ext films, show spondy at L4-S1. Assessment/Plan Assessment/Plan Admission Diagnosis/Plan High Grade Lumbar Spinal Stenosis Lumbar Spondylolisthesis Foot Drop/Lower extremity weakness Urinary retention S/P MRI compatable SCS placement Plan: Needs MRI scans of T and L spine will likely need a L4-S1 TLIF/PSF with Laminectomy and SCS battery removal on 04/14/19 once imaging and pre-operative optimization performed Will likely need SNF vs inpt rehab due to severe decompensation/weakness. D/W Dr Jones and [employer] Rep about MRI compatibility. Admission Status: Inpatient Order (span 2 midnights) Clinical Quality Measures DVT/VTE Risk/Contraindication: Risk Factor Score Per Nursin RFS Level Per Nursing on Admit: 2=Moderate MANPREET LALA MD Apr 12, 2019 17:45 POS
[2019-04-12] MEDS: DOCUSATE SODIUM 100 MG (COLACE) CAP PO SCH (20:26)
[2019-04-12] MEDS: TRIMETHOPRIM 100 MG TAB (PROLOPRIM) NON-FORMULARY PO SCH (20:26)
[2019-04-12] MEDS: SIMvastatin 40 MG (ZOCOR) TAB PO SCH (20:26)
[2019-04-12 23:51] VITALS: BP_SYST 145; BP_SYST 156; BP_DIAS 69; BP_DIAS 73
[2019-04-13 05:23] LABS: HEMOGLOBIN 10.2 G/DL (11.5-16.0); MEAN PLATELET VOLUME 10.3 FL (7.4-10.4); RED CELL DISTRIBUTION WIDTH 14.3 % (10.0-14.5); WHITE BLOOD COUNT 8.2 10^3/uL (4.3-11.0)
[2019-04-13 05:50] LABS: BUN/CREATININE RATIO 25; CALCIUM 10.1 MG/DL (8.5-10.1); CARBON DIOXIDE 17 MMOL/L (21-32); CHLORIDE 113 MMOL/L (98-107); CREATININE SERUM 0.84 MG/DL (0.60-1.30); GFR ESTIMATED > 60; GLUCOSE 157 MG/DL (70-105); POTASSIUM 4.1 MMOL/L (3.6-5.0); SODIUM 140 MMOL/L (135-145)
--- NOTE | 2019-04-13 06:37 | Progress Note ---
Subjective Subjective/Events-last exam Reviewed clinic records in advance of planned surgery- saw Cardiology 11/2018 and documented at that time- MPI 07/13/17- EF 75%, no ischemia. Echo 07/13/17- EF 60- 65%, no regional wall motion abnormalities, grade 1 diastolic dysfunction, mild aortic insufficiency, recommended repeat echocardiogram. She states she was to follow up with Cardiology in May. Objective Exam Last Set of Vital Signs Vital Signs Date Time Temp Pulse Resp B/P (MAP) Pulse Ox O2 Delivery O2 Flow Rate FiO2 04/12/19 23:51 37.3 66 16 156/73 (100) 99 Room Air Capillary Refill : Less Than 3 Seconds I&O Intake and Output 04/13/19 00:00 Intake Total 1150 ml Output Total 1350 ml Balance -200 ml Intake Oral 1150 ml Output Urine Total 1350 ml # Bowel Movements 1 General: Alert, No Acute Distress Lungs: Clear to Auscultation, Normal Air Movement Heart: Regular Rate, No Murmurs Neuro: Normal Speech Results/Procedures Lab Laboratory Tests 04/13/19 04:35: White Blood Count 8.2, Red Blood Count 3.62L, Hemoglobin 10.2L, Hematocrit 32L, Mean Corpuscular Volume 87, Mean Corpuscular Hemoglobin 28, Mean Corpuscular Hemoglobin Concent 32, Red Cell Distribution Width 14.3, Platelet Count 402H, Mean Platelet Volume 10.3, Sodium Level 140, Potassium Level 4.1, Chloride Level 113H, Carbon Dioxide Level 17L, Anion Gap 10, Blood Urea Nitrogen 21H, Creatinine 0.84, Estimat Glomerular Filtration Rate > 60, BUN/Creatinine Ratio 25, Glucose Level 157H, Calcium Level 10.1 Microbiology 04/04/19 Blood Culture - Final, Complete No growth Assessment/Plan Assessment/Plan (1) Ataxia Status: Acute Assessment & Plan: PT, looking in to SNF for d/c. (2) Disorder of lumbar spine Status: Acute Assessment & Plan: 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 Per patient had outpatient referral but ended up admitted before having done. 04/12 Ortho spine consulted 04/13- plan for surgery tomorrow, consult Cardiology due to history of DD and AI. (3) Urinary retention Status: Acute Assessment & Plan: Garner taken out today, plan for scope per Dr. Moseley tomorrow. 04/12 cystoscopy done this am with urethral dilatation and vaginal exam, no source of bleeding noted. (4) Weakness Status: Acute Assessment & Plan: PT working with her, insurance declined inpatient rehab. Will need at least home health PT on d/c, may not be safe for home setting due to significant difficulty with ambulation. Will eval for IRF after surgery. (5) Anemia Assessment & Plan: Uncertain etiology, per clinic chart did have mild anemia several months ago. Will check iron and peripheral smear. 04/12 iron studies consistent with iron deficiency, did have gross hematuria more than once, will check hemoccult. (6) DVT prophylaxis Status: Acute Assessment & Plan: SCDs, no enoxaparin due to hematuria and anemia. Clinical Quality Measures DVT/VTE Risk/Contraindication: Risk Factor Score Per Nursin RFS Level Per Nursing on Admit: 2=Moderate MERON LAMBERT MD Apr 13, 2019 06:37 POS
[2019-04-13 08:00] VITALS: BP 171/76
--- NOTE | 2019-04-13 09:15 | NUR ---
Dr. Roblero text regarding MRI. Scan unable to be completed without stimulator remote
--- NOTE | 2019-04-13 09:54 | Occupational Ther Daily Note ---
OT Current Status-Daily Note Subjective Pt pleasantly agreed to OT session this AM. Pt denied need to complete toileting but agreeable to UE exercises. Pt did not report any pain this tx. Mental Status/Objective Attachments: IV ADL-Treatment Therapy Code Descriptions/Definitions Functional [place] Measure: 0=Not Assessed/NA 4=Minimal Assistance 1=Total Assistance 5=Supervision or Setup 2=Maximal Assistance 6=Modified [place] 3=Moderate Assistance 7=Complete IndependenceSCALE: Activities may be completed with or without assistive devices. 7-Dayklnffnn-bpdnikc completes the activity by him/herself with no assistance from a helper. 5-Set-up or Clean-up Assistance-helper sets up or cleans up; patient completes activity. [place] assists only prior to or following the activity. 4-Supervision or Touching Assistance-helper provides verbal cues and/or touching/steadying and/or contact guard assistance as patient completes activity. Assistance may be provided throughout the activity or intermittently. 3-Partial/Moderate Assistance-helper does LESS THAN HALF the effort. [place] lifts, holds or supports trunk or limbs, but provides less than half the effort. 2-Substantial/Maximal Assistance-helper does MORE THAN HALF the effort. [place] lifts or holds trunk or limbs and provides more than half the effort. 4-Sbpmkrouu-opwekp does ALL the effort. Patient does none of the effort to complete the activity. Or, the assistance of 2 or more helpers is required for the patient to complete the activity. If activity was not attempted, code reason: 7-Patient Refused. 9-Not Applicable-not attempted and the patient did not perform the activity before the current illness, exacerbation or injury. 10-Not Attempted due to Environmental Limitations-(lack of equipment, weather restraints, etc.). 88-Not Attempted due to Medical Conditions or Safety Concerns. Other Treatment Pt laying in bed at start of session. In order to increase strength and fun ctional endurance in BUE, pt completed x10 reps each of the following movements with BUE: shoulder flexion, elbow flexion/extension, shoulder external rotation, wrist flexion/extension, ulnar/radial deviation, & finger flexion/extension. Pt reports she didn't realize how weak her arms felt. Post OT session, pt laying in bed, call light in reach and all needs met. Education OT Patient Education: Correct positioning, Energy conservation, Exercise program, Progress toward Goal/Update tx plan, Purpose of tx/functional activities Teaching Recipient: Patient Teaching Methods: Demonstration, Discussion Response to Teaching: Verbalize Understanding, Return Demonstration OT Short Term Goals Short Term Goals 1=Demonstrate adherence to instructed precautions during ADL tasks. 2=Patient will verbalize/demonstrate understanding of assistive devices/modifications for ADL. 3=Patient will improve strength/tolerance for activity to enable patient to perform ADL's. OT [facility] Goals Manager [employer] Goals Time Frame: Apr 12, 2019 Eating (QC): 6 (met) Oral Hygiene (QC): 6 Shower/Bathe Self (QC): 6 Upper Body Dressing (QC): 6 Lower Body Dressing (QC): 4 On/Off Footwear (QC): 6 Toileting Hygiene (QC): 4 Toilet/Commode Transfer (QC): 4 Additional Goals: 1-Demonstrate ADL Tasks, 2-Verbalize Understanding, 3- ImproveStrength/Stephanie 1=Demonstrate adherence to instructed precautions during ADL tasks. 2=Patient will verbalize/demonstrate understanding of assistive devices/modifications for ADL. 3=Patient will improve strength/tolerance for activity to enable patient to perform ADL's. OT Education/Plan Problem List/Assessment Assessment: Decreased Activ Tolerance, Decreased UE Strength, Impaired Funct Balance, Impaired I ADL's, Impaired Self-Care Skills Discharge Recommendations Plan/Recommendations: Continue POC Treatment Plan/Plan of Care Treatment,Training & Education: Yes Patient would benefit from OT for education, treatment and training to promote independence in ADL's, mobility, safety and/or upper extremity function for ADL's. Plan of Care: ADL Retraining, Caregiver Training, Functional Mobility, Group Exercise/Act as Ind, UE Funct Exercise/Act Treatment Duration: Apr 12, 2019 Frequency: 5 times per week Estimated Hrs Per Day: .25 hour per day Agreement: Yes Rehab Potential: Guarded Time/GCodes Start Time: 09:30 Stop Time: 09:40 Total Time Billed (hr/min): 10 Billed Treatment Time 1, EX (10mins) HAMIDA WOLFE OT Apr 13, 2019 09:54 POS
[2019-04-13] MEDS: ASCORBIC ACID (VIT C) 500 MG TABLET PO SCH (09:58)
[2019-04-13] MEDS: amLODIPine 5 MG (NORVASC) TAB PO SCH (09:59)
[2019-04-13] MEDS: ISOSORBIDE MONONITRATE 30 MG (IMDUR) TAB PO SCH (09:59)
[2019-04-13] MEDS: predniSONE 5 MG TAB PO SCH (10:00)
[2019-04-13] MEDS: GEMFIBROZIL 600 MG (LOPID) TAB PO SCH ×2 (10:00→20:51)
[2019-04-13] MEDS: DICYCLOMINE 10 MG (BENTYL) CAP PO SCH ×4 (10:03→20:50)
[2019-04-13] MEDS: SENNA W/DOCUSATE (SENOKOT S) TABLET PO SCH ×2 (10:04→20:50)
--- NOTE | 2019-04-13 10:05 | NUR ---
CM/SS following up with the patient. The patient states that she is to have surgery on her back tomorrow. The patient verbalized that her has not been here due to an eye issue. The will be in [place] to obtain treatment. [facility] Hope Dunham sent a referral to [facility] yesterday (04-13-19) and awaiting approval. The patient will be assessed again for Inpatient rehab after surgery tomorrow. Will continue to follow.
--- NOTE | 2019-04-13 10:10 | Occ Therapy Rehab Re-Cert ---
OT Re-Certification Form Plan of Care: ADL Retraining, Caregiver Training, Functional Mobility, Group Exercise/Act as Ind, UE Funct Exercise/Act Pt reports she is having surgery on her back tomorrow (04/14/19). Continue with pt's current POC, with goals remaining the same. Frequency: 5 times per week Estimated Hrs Per Day: .25 hour per day Agreement: Yes Rehab Potential: Guarded OT Short Term Goals Short Term Goals 1=Demonstrate adherence to instructed precautions during ADL tasks. 2=Patient will verbalize/demonstrate understanding of assistive devices/modifications for ADL. 3=Patient will improve strength/tolerance for activity to enable patient to perform ADL's. OT Mcc Goals Mcc Goals Time Frame: Apr 29, 2019 Additional Goals: 1-Demonstrate ADL Tasks, 2-Verbalize Understanding, 3- ImproveStrength/Stephanie 1=Demonstrate adherence to instructed precautions during ADL tasks. 2=Patient will verbalize/demonstrate understanding of assistive devices/modifications for ADL. 3=Patient will improve strength/tolerance for activity to enable patient to perform ADL's. Eating (QC): 6 Oral Hygiene (QC): 6 Shower/Bathe Self (QC): 6 Upper Body Dressing (QC): 6 Lower Body Dressing (QC): 4 On/Off Footwear (QC): 6 Toileting Hygiene (QC): 4 Toilet/Commode Transfer (QC): 4 HAMIDA WOLFE OT Apr 13, 2019 10:09 POS
--- NOTE | 2019-04-13 10:40 | Physical Therapy Daily Note ---
PT Daily Note-Current Subjective pt in bed pre-tx agrees to PT. Pt reports 7/10 pain in B/L LE at this time. in room during session states pt is to have back surgery tomorrow. Appearance pt in recliner with feet elevated post-tx with call light, room phone, tray table in reach and all needs met at this time. Mental Status Patient Orientation: Person, Place, Time, Situation Attachments: IV Transfers SCALE: Activities may be completed with or without assistive devices. 1-Wstfryiiew-cwvduiu completes the activity by him/herself with no assistance from a helper. 5-Set-up or Clean-up Assistance-helper sets up or cleans up; patient completes activity. [place] assists only prior to or following the activity. 4-Supervision or Touching Assistance-helper provides verbal cues and/or touching/steadying and/or contact guard assistance as patient completes activity. Assistance may be provided throughout the activity or intermittently. 3-Partial/Moderate Assistance-helper does LESS THAN HALF the effort. [place] lifts, holds or supports trunk or limbs, but provides less than half the effort. 2-Substantial/Maximal Assistance-helper does MORE THAN HALF the effort. [place] lifts or holds trunk or limbs and provides more than half the effort. 4-Zeyanihew-cqnozu does ALL the effort. Patient does none of the effort to complete the activity. Or, the assistance of 2 or more helpers is required for the patient to complete the activity. If activity was not attempted, code reason: 7-Patient Refused. 9-Not Applicable-not attempted and the patient did not perform the activity before the current illness, exacerbation or injury. 10-Not Attempted due to Environmental Limitations-(lack of equipment, weather restraints, etc.). 88-Not Attempted due to Medical Conditions or Safety Concerns. Roll Left to Right (QC): 6 Sit to Stand (QC): 3 (Reyes) Weight Bearing Right Lower Extremity: Right Weight Bearing/Tolerated Left Lower Extremity: Left Weight Bearing/Tolerated Gait Training Distance: 14' Walk 10 feet (QC): 3 (Reyes) Gait Assistive Device: FWW pt takes short shuffled hop steps with the LLE and drags the RLE in a toe out position. Pt continues to have a reflexive response to an unknown motion that throw the pt's trunk posterior and laterally to the L causing the pt to have a mod LOB Treatments pt performed bed mobility training, transfer training, skilled ambulation training and education this date. Assessment Current Status: Fair Progress pt continues to have reflexive response in the upper trunk with ambulation that causes pt to fatigue quickly. Pt is motivated and pleasant for therapy at this time. 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 Time Frame: Apr 12, 2019 Sit to Lying (QC): 5 Lying-Sitting on Side/Bed(QC): 5 Sit to Stand (QC): 5 Roll Left to Right (QC): 5 Chair/Bab-sv-Jnsef Xfer(QC): 5 Car Transfer (QC): 5 Does the Patient Walk: Yes Distance: 100' Walk 10 feet (QC): 5 Walk 50ft with 2 Turns (QC): 5 Gait Assistive Device: FWW PT Plan Problem List Problem List: Activity Tolerance, Functional Strength, Safety, Balance, Gait, Transfer, Bed Mobility, ROM Treatment/Plan Treatment Plan: Continue Plan of Care Treatment Plan: Bed Mobility, Concurrent Therapy, Education, Functional Activity Stephanie, Functional Strength, Gait, Safety, Therapeutic Exercise, Transfers Frequency: 6 times per week Estimated Hrs Per Day: .25 hour per day Patient and/or Family Agrees t: Yes Safety Risks/Education Patient Education: Gait Training, Transfer Techniques, Correct Positioning, Safety Issues Teaching Recipient: Patient Teaching Methods: Demonstration, Discussion Response to Teaching: Return Demonstration, Reinforcement Needed Time/GCodes Time In: 1017 Time Out: 1032 Total Billed Treatment Time: 15 Total Billed Treatment 1 visit FA 15' RAMYA RIOS PT Apr 13, 2019 10:40 POS
--- NOTE | 2019-04-13 11:04 | NUR ---
Dr Jones notified about MRI calling and needing the remote for the pt's nerve stimulator. Pt is unable to obtain remote at this time, MRI on hold.
--- NOTE | 2019-04-13 12:04 | Consultation-Cardiology ---
HPI-Cardiology Cardiology Consultation Date of Consultation 04/13/19 Date of Admission Time Seen by Provider: 11:58 Indication: HTN, HLP, cardiac risk factors HPI Patient is a 73 y/o female with history of HTN, HLP, DM. Began having progressive weakness and pain on lower extremities. History of back pain with stimulator placement. Dx with high grade lumbar spinal stenosis and lumbar spondylolisthesis and planning for OR. Needing cardiac clearance. Patient reports she has seen cardiology in earlier this summer and diagnosed with a leaky valve. Reports occasional episode of chest pain, relieved by nitro. Last reported chest pain approx 1 month ago. Denies any dizziness or lightheadedness. Denies dyspnea. 73-year-old lady with history of chronic stable angina, hypertension hyperlipidemia, has seen a dedicated intermodal truck driver in [place] recently, no recent cardiac workup. Admitted for urinary retention and bleeding, has been having increasing weakness in her legs and she is scheduled for back surgery tomorrow, I was called for preoperative cardiac evaluation. Denied any recent episodes of chest pain, reported occasional chest pressure described it as dull in the retrosternal area. No syncope. No palpitation, exercise ability somewhat limited. Home Medications & Allergies Allergies: Coded Allergies: Sulfa (Sulfonamide Antibiotics) (Verified Allergy, Severe, 11/28/18) Home Medication List Reviewed: Yes Medication list reviewed [id number]-Lqwepm Hx Patient Social History Employed/Student: retired Alcohol Use: Denies Use Recreational Drug Use: No Smoking Status: Former Smoker Type Used: Cigarettes 2nd Hand Smoke Exposure: No Recent Foreign Travel: No Recent Infectious Disease Expo: No Recent Hopitalizations: No Immunizations Up To Date Date of Pneumonia Vaccine: Apr 14, 2018 Date of Influenza Vaccine: Mar 03, 2019 Past Medical History Chronic stable angina, HTN, HLP, DM Family Medical History Family Medical Hx Noncontributory to her current condition Review of Systems-General Review of Systems Constitutional: no symptoms reported; No chills, No diaphoresis EENTM: no symptoms reported; No hearing loss, No blurred vision, No double vision Respiratory: no symptoms reported; No cough, No dyspnea on exertion Cardiovascular: chest pain; No edema, No Hx of Intervention, No palpitations, No syncope, No vascular heart diseas Gastrointestinal: no symptoms reported; No abdominal pain; constipation Genitourinary: decreased output; No hematuria : No Musculoskeletal: back pain, joint pain, muscle weakness Skin: no symptoms reported Psychiatric/Neurological: Numbness, Paresthesia, Weakness Reviewed Test Results Reviewed Test Results Lab Laboratory Tests 04/13/19 04:35: White Blood Count 8.2, Red Blood Count 3.62L, Hemoglobin 10.2L, Hematocrit 32L, Mean Corpuscular Volume 87, Mean Corpuscular Hemoglobin 28, Mean Corpuscular Hemoglobin Concent 32, Red Cell Distribution Width 14.3, Platelet Count 402H, Mean Platelet Volume 10.3, Sodium Level 140, Potassium Level 4.1, Chloride Level 113H, Carbon Dioxide Level 17L, Anion Gap 10, Blood Urea Nitrogen 21H, Creatinine 0.84, Estimat Glomerular Filtration Rate > 60, BUN/Creatinine Ratio 25, Glucose Level 157H, Calcium Level 10.1 Microbiology 04/04/19 Blood Culture - Final, Complete No growth ECG Impression ECG Initial ECG Rhythm: Normal Sinus Physical Exam Physical Exam Vital Signs Vital Signs - First Documented 04/07/19 00:00 Temp 37.2 Pulse 56 Resp 16 B/P (MAP) 144/69 (94) Pulse Ox 99 O2 Delivery Room Air Capillary Refill : Less Than 3 Seconds Height, Weight, BMI Height: 5'5.00" Weight: 132lbs. oz. 59.965171dv; 152.09 BMI Method:Stated General Appearance: No Apparent Distress Eyes: Bilateral Eye Normal Inspection HEENT: PERRL/EOMI, Normal ENT Inspection Neck: Normal Inspection, Non Tender, Supple Respiratory: Chest Non Tender, Lungs Clear, Normal Breath Sounds, No Accessory Muscle Use, No Respiratory Distress Cardiovascular: Regular Rate, Rhythm, No Edema, No Gallop, No Murmur, Other (left sided carotid bruit) Gastrointestinal: Non Tender, Soft Rectal: Deferred Back: No CVA Tenderness Extremity: No Pedal Edema, Other (Profound weakness of the right lower extremity) Neurologic/Psychiatric: Alert, Oriented x3, placement interviewer II-XII Norm as Tested, Motor Weakness Reflexes: 2+ Bicep (R), 2+ Bicep (L); 0 Knee (R), 0 Knee (L), 0 Ankle (R), 0 Ankle (L) Skin: Normal Color, Warm/Dry A/P-Cardiology Admission Diagnosis Chest pain CAD HTN HLP Assessment/Plan Chest pain, resembling chronic stable angina, with suspected underlying CAD. EKG reveals SR with no acute ST changes. Patient takes Isosorbide and uses SL nitro as needed to relieve chest pain. Last episode of chest pain approx 1 month ago. Reports she underwent stress testing approx 3 years ago. Has been following with dedicated intermodal truck driver in . I will obtain 2D echo, try to obtain copy of records from primary dedicated intermodal truck driver for further review. Patient will need to have a stress test done as an outpatient in the future HTN- controlled. Continue on current medications and continue to monitor. HLP- maintained on statin, continue to monitor DM, management per medical services Back pain, high grade lumbar spinal stenosis and lumbar spondylolisthesis, planning for OR with Dr. Roblero Preoperative cardiovascular clearance- overall patient is considered intermediate to high risk for perioperative cardiovascular complications. Risk versus benefits will be deferred to the surgeon. Recommend close monitoring with postoperative EKG and perioperative beta blockers. Thank you for allowing us to participate in the management of Ms. Gross. This is Shannan Hartley PA-C, as a scribe for Dr. Mckeon. Patient was seen and evaluated with Shannan, examination performed, management plan was discussed, agree with the current scribed note, I made few changes to the note using Italic font Patient is sitting in bed, comfortably, on examination lungs were clear to auscultation, faint left-sided carotid bruit Mild abdominal discomfort mainly in the left lower quadrant Good dorsalis pedis pulse, no significant edema Patient is considered at intermediate to high risk for perioperative cardiovascular complication, decision regarding the surgery, risks versus benefit is deferred to the surgeon EKG was done today showing sinus rhythm with no acute ischemic changes Recommend monitoring postoperative telemetry and blood pressure, use perioperative beta blockers as needed Clinical Quality Measures DVT/VTE Risk/Contraindication: Risk Factor Score Per Nursin RFS Level Per Nursing on Admit: 2=Moderate SHANNAN LYLES Apr 13, 2019 12:04 pm ALTHEA CASTELLANOS MD Apr 13, 2019 1:14 pm CHARLY
[2019-04-13 16:40] VITALS: BP 151/79
[2019-04-13] MEDS: DOCUSATE SODIUM 100 MG (COLACE) CAP PO SCH (20:49)
[2019-04-13] MEDS: SIMvastatin 40 MG (ZOCOR) TAB PO SCH (20:50)
[2019-04-13] MEDS: TRIMETHOPRIM 100 MG TAB (PROLOPRIM) NON-FORMULARY PO SCH (20:53)
[2019-04-14] VITALS (12 sets, daily range): BP systolic 120–160; BP diastolic 47–86
[2019-04-14 06:33] LABS: HEMOGLOBIN 10.2 G/DL (11.5-16.0); MEAN PLATELET VOLUME 10.1 FL (7.4-10.4); RED CELL DISTRIBUTION WIDTH 14.2 % (10.0-14.5); WHITE BLOOD COUNT 8.4 10^3/uL (4.3-11.0)
[2019-04-14 06:55] LABS: BUN/CREATININE RATIO 28; CALCIUM 9.9 MG/DL (8.5-10.1); CARBON DIOXIDE 16 MMOL/L (21-32); CHLORIDE 111 MMOL/L (98-107); CREATININE SERUM 0.89 MG/DL (0.60-1.30); GFR ESTIMATED > 60; GLUCOSE 190 MG/DL (70-105); POTASSIUM 3.9 MMOL/L (3.6-5.0); SODIUM 138 MMOL/L (135-145)
--- NOTE | 2019-04-14 08:10 | Cardiology Progress Note ---
Subjective Date Seen by Provider: Apr 14, 2019 Time Seen by Provider: 08:07 Subjective/Events-last exam Patient in bed, continues to complain of lower extremity weakness. Denies any chest pain or dyspnea. Review of Systems General: No Chills, No Night Sweats, No Fatigue; Malaise; No Appetite, No Other HEENT: No Head Aches, No Visual Changes, No Eye Pain, No Ear Pain, No Dysphasia, No Sinus Congestion, No Post Nasal Drip, No Sore Throat, No Other Pulmonary: No Dyspnea, No Cough, No Pleuritic Chest Pain, No Other Cardiovascular: No: Chest Pain, Palpitations, Orthopnea, Paroxysmal Noc. Dyspnea, Edema, Lt Headedness, Other Objective-Cardiology Exam Last Set of Vital Signs Vital Signs 04/14/19 00:00 Temp 36.5 Pulse 72 Resp 18 B/P (MAP) 120/74 (89) Pulse Ox 99 O2 Delivery Room Air Capillary Refill : Less Than 3 Seconds I&O Intake and Output 04/14/19 00:00 Intake Total 2240 ml Output Total 1050 ml Balance 1190 ml Intake Oral 2240 ml Output Urine Total 1050 ml # Voids 3 General: Alert, Oriented X3, Cooperative, No Acute Distress HEENT: Atraumatic, PERRLA Neck: Supple, Other (left carotid bruit) Lungs: Clear to Auscultation, Normal Air Movement Heart: Regular Rate, Normal S1, Normal S2, No Murmurs Abdomen: Normal Bowel Sounds, Soft Extremities: No Clubbing, No Edema Skin: No Rashes, No Significant Lesion Neuro: Normal Speech Psych/Mental Status: Mental Status NL, Mood NL Results Lab Laboratory Tests 04/14/19 06:25 A/P-Cardiology Admission Diagnosis Chest pain CAD HTN HLP Assessment/Plan Chest pain, resembling chronic stable angina, with suspected underlying CAD. EKG reveals SR with no acute ST changes. Patient takes Isosorbide and uses SL nitro as needed to relieve chest pain. Last episode of chest pain approx 1 month ago. Reports she underwent stress testing approx 3 years ago. Has been following with industrial health and safety professor in . 2D Echo done yesterday revealed mild AR, mild to mod TR, grade 1 diastolic dysfunction with EF 55-60%, PA 35-40mmHg. I try to obtain copy of records from primary industrial health and safety professor for further review. Patient will need to have a stress test done as an outpatient in the future HTN- controlled. Continue on current medications and continue to monitor. HLP- maintained on statin, continue to monitor DM, management per medical services Back pain, high grade lumbar spinal stenosis and lumbar spondylolisthesis, planning for OR with Dr. Roblero Preoperative cardiovascular clearance- overall patient is considered intermediate to high risk for perioperative cardiovascular complications. Risk versus benefits will be deferred to the surgeon. Recommend close monitoring with postoperative EKG and perioperative beta blockers. Patient was seen and evaluated with Shannan, examination performed, management plan was discussed, agree with the current scribed note, I made few changes to the note using Italic font Patient is in bed, still having discomfort in her legs and back, no chest pain today On examination lungs were clear to auscultation, heart is regular Scheduled for surgery today Continue to monitor blood pressure and lipids, planning to evaluate EKG tomorrow Clinical Quality Measures DVT/VTE Risk/Contraindication: Risk Factor Score Per Nursin RFS Level Per Nursing on Admit: 2=Moderate SHANNAN LYLES Apr 14, 2019 8:10 am ALTHEA CASTELLANOS MD Apr 14, 2019 8:42 am CHARLY
[2019-04-14] MEDS: HYDROmorphone 2 MG/ML VIAL (DILAUDID) IV ONE ×3 (09:05→19:05)
[2019-04-14] MEDS: ISOSORBIDE MONONITRATE 30 MG (IMDUR) TAB PO SCH (10:13)
[2019-04-14] MEDS: GEMFIBROZIL 600 MG (LOPID) TAB PO SCH ×2 (10:13→20:59)
[2019-04-14] MEDS: DICYCLOMINE 10 MG (BENTYL) CAP PO SCH ×4 (10:13→21:00)
[2019-04-14] MEDS: predniSONE 5 MG TAB PO SCH (10:13)
[2019-04-14] MEDS: SENNA W/DOCUSATE (SENOKOT S) TABLET PO SCH ×2 (10:14→21:00)
[2019-04-14] MEDS: amLODIPine 5 MG (NORVASC) TAB PO SCH (10:14)
[2019-04-14] MEDS: ASCORBIC ACID (VIT C) 500 MG TABLET PO SCH (10:14)
--- NOTE | 2019-04-14 10:22 | Occupational Ther Daily Note ---
OT Current Status-Daily Note Subjective Pt laying in bed at start of session, agreeable to OT tx with focus on ADLs, stating she would like to use the restroom. Pt reported she is ready for surgery this afternoon, and was wishing she was able to eat something. She reported that she understood she cannot have anything to eat/drink before surgery. Mental Status/Objective Attachments: IV ADL-Treatment Therapy Code Descriptions/Definitions Functional [place] Measure: 0=Not Assessed/NA 4=Minimal Assistance 1=Total Assistance 5=Supervision or Setup 2=Maximal Assistance 6=Modified [place] 3=Moderate Assistance 7=Complete IndependenceSCALE: Activities may be completed with or without assistive devices. 1-Lhpcpcymig-yvtzpui completes the activity by him/herself with no assistance from a helper. 5-Set-up or Clean-up Assistance-helper sets up or cleans up; patient completes activity. Isabel assists only prior to or following the activity. 4-Supervision or Touching Assistance-helper provides verbal cues and/or touching/steadying and/or contact guard assistance as patient completes activity. Assistance may be provided throughout the activity or intermittently. 3-Partial/Moderate Assistance-helper does LESS THAN HALF the effort. Isabel lifts, holds or supports trunk or limbs, but provides less than half the effort. 2-Substantial/Maximal Assistance-helper does MORE THAN HALF the effort. Isabel lifts or holds trunk or limbs and provides more than half the effort. 4-Xghzycdld-uhgqph does ALL the effort. Patient does none of the effort to complete the activity. Or, the assistance of 2 or more helpers is required for the patient to complete the activity. If activity was not attempted, code reason: 7-Patient Refused. 9-Not Applicable-not attempted and the patient did not perform the activity before the current illness, exacerbation or injury. 10-Not Attempted due to Environmental Limitations-(lack of equipment, weather restraints, etc.). 88-Not Attempted due to Medical Conditions or Safety Concerns. Toileting Hygiene (QC): 1 (Assist X2 in order to manage clothing off. Pt required assistance with hygiene, and assistance (assist x1) pulling pants up during stand. ) Toilet Transfer (QC): 1 (Pt completed stand pivot transfer from EOB to BSC. OT assisted pt with standing (mod A to stand), and assit to sit (min A). Pt's legs were shaking throughout transfer, pt stated, "I don't want to fall") Other Treatment Pt transferred supine to sit (required assist with BLE, she was able to pull her upper body up to seated position). Pt then completed stand pivot transfer from B to [facility] [place]. Pt completed toileting before transferring back to bed. Pt transferred sit to supine with assistance with BLE. OT flattened the bed, instructing pt on how to scoot herself up towards HOB using bed rails. Pt able to scoot up in bed with Min A from OT. Post OT session, pt lying in bed, call light in reach and all needs met. Education OT Patient Education: Correct positioning, Energy conservation, Modified ADL techniques, Progress toward Goal/Update tx plan, Purpose of tx/functional activities, Transfer techniques Teaching Recipient: Patient Teaching Methods: Demonstration, Discussion Response to Teaching: Verbalize Understanding OT Short Term Goals Short Term Goals 1=Demonstrate adherence to instructed precautions during ADL tasks. 2=Patient will verbalize/demonstrate understanding of assistive devices/modifications for ADL. 3=Patient will improve strength/tolerance for activity to enable patient to perform ADL's. OT Shelter Goals Shelter Goals Time Frame: Apr 29, 2019 Eating (QC): 6 (met) Oral Hygiene (QC): 6 Shower/Bathe Self (QC): 6 Upper Body Dressing (QC): 6 Lower Body Dressing (QC): 4 On/Off Footwear (QC): 6 Toileting Hygiene (QC): 4 Toilet/Commode Transfer (QC): 4 Additional Goals: 1-Demonstrate ADL Tasks, 2-Verbalize Understanding, 3- ImproveStrength/Stephanie 1=Demonstrate adherence to instructed precautions during ADL tasks. 2=Patient will verbalize/demonstrate understanding of assistive devices/modifications for ADL. 3=Patient will improve strength/tolerance for activity to enable patient to perform ADL's. OT Education/Plan Problem List/Assessment Assessment: Decreased Activ Tolerance, Decreased UE Strength, Impaired Bed Mobility, Impaired Funct Balance, Impaired I ADL's, Impaired Self-Care Skills Discharge Recommendations Plan/Recommendations: Continue POC Treatment Plan/Plan of Care Patient would benefit from OT for education, treatment and training to promote independence in ADL's, mobility, safety and/or upper extremity function for ADL's. Plan of Care: ADL Retraining, Caregiver Training, Functional Mobility, Group Exercise/Act as Ind, UE Funct Exercise/Act Treatment Duration: Apr 12, 2019 Frequency: 5 times per week Estimated Hrs Per Day: .25 hour per day Agreement: Yes Rehab Potential: Guarded Time/GCodes Start Time: 09:10 Stop Time: 09:27 Total Time Billed (hr/min): 17 Billed Treatment Time 1, ADL 17 HAMIDA WOLFE OT Apr 14, 2019 10:22 POS
--- NOTE | 2019-04-14 10:41 | Progress Note - Urology ---
Progress Note-Urology Progress Notes/Assess & Plan Progress/Assessment & Plan CONTINUES VOIDING WELL. BACK SURGERY THIS AFTERNOON Final Diagnosis URINE RETENTION AND HEMATURIA FREDDY KRAUSE MD Apr 14, 2019 10:41 POS
--- NOTE | 2019-04-14 11:58 | Physical Therapy Progress Note ---
Therapy Progress Note Patient to undergo procedure on this date. PT will monitor patient and resume tomorrow. 0 tx JADON EMMANUEL PT Apr 14, 2019 11:58 POS
--- NOTE | 2019-04-14 12:16 | Progress Note ---
Subjective Subjective/Events-last exam Afebrile, no acute events. Planning for surgery today. Objective Exam Last Set of Vital Signs Vital Signs Date Time Temp Pulse Resp B/P (MAP) Pulse Ox O2 Delivery O2 Flow Rate FiO2 04/14/19 08:00 36.8 63 20 143/67 (92) 98 Room Air Capillary Refill : Less Than 3 Seconds I&O Intake and Output 04/14/19 00:00 Intake Total 2240 ml Output Total 1050 ml Balance 1190 ml Intake Oral 2240 ml Output Urine Total 1050 ml # Voids 3 General: Alert, No Acute Distress Lungs: Clear to Auscultation, Normal Air Movement Heart: Regular Rate, No Murmurs Abdomen: Normal Bowel Sounds, Soft, Other (ttp diffusely) Neuro: Normal Speech Psych/Mental Status: Mood NL Results/Procedures Lab Laboratory Tests 04/14/19 06:25: White Blood Count 8.4, Red Blood Count 3.63L, Hemoglobin 10.2L, Hematocrit 31L, Mean Corpuscular Volume 87, Mean Corpuscular Hemoglobin 28, Mean Corpuscular Hemoglobin Concent 33, Red Cell Distribution Width 14.2, Platelet Count 408H, Mean Platelet Volume 10.1, Sodium Level 138, Potassium Level 3.9, Chloride Level 111H, Carbon Dioxide Level 16L, Anion Gap 11, Blood Urea Nitrogen 25H, Creatinine 0.89, Estimat Glomerular Filtration Rate > 60, BUN/Creatinine Ratio 28, Glucose Level 190H, Calcium Level 9.9 Microbiology 04/04/19 Blood Culture - Final, Complete No growth 04/12/19 MRSA Screen - Final, Complete MRSA not isolated Assessment/Plan Assessment/Plan (1) Ataxia Status: Acute Assessment & Plan: PT, looking in to SNF for d/c. (2) Disorder of lumbar spine Status: Acute Assessment & Plan: CT lumbar spine with multilevel degenerative disease and sp inal stimulator, but no central cord compression or lesions and is similar to 10/2018. Per patient had outpatient referral but ended up admitted before having done. 04/12 Ortho spine consulted 04/13- plan for surgery tomorrow, consult Cardiology due to history of DD and AI. (3) Urinary retention Status: Acute Assessment & Plan: Garner taken out 04/11, plan for scope per Dr. Moseley tomorrow. 04/12 cystoscopy done this am with urethral dilatation and vaginal exam, no source of bleeding noted. (4) Weakness Status: Acute Assessment & Plan: PT working with her, insurance declined inpatient rehab. Will need at least home health PT on d/c, may not be safe for home setting due to significant difficulty with ambulation. Will eval for IRF after surgery. (5) Anemia Assessment & Plan: Uncertain etiology, per clinic chart did have mild anemia several months ago. Will check iron and peripheral smear. 04/12 iron studies consistent with iron deficiency, did have gross hematuria more than once, will check hemoccult. (6) DVT prophylaxis Status: Acute Assessment & Plan: SCDs, no enoxaparin due to hematuria and anemia. Clinical Quality Measures DVT/VTE Risk/Contraindication: Risk Factor Score Per Nursin RFS Level Per Nursing on Admit: 2=Moderate MERON LAMBERT MD Apr 14, 2019 12:16 POS
[2019-04-14] MEDS ORDERED: SEVOFLURANE (ULTANE) 15 ML INHAL SOLN ONE ×12 (14:16→18:25)
[2019-04-14] MEDS ORDERED: fentaNYL INJECTION 100 MCG/2 ML AMP ONE (14:16)
[2019-04-14] MEDS ORDERED: ONDANSETRON 4 MG/2 ML (SDV) Z0FRAN ONE (14:16)
[2019-04-14] MEDS ORDERED: LIDOCAINE PF 2% 5 ML (XYLOCAINE) VIAL ONE (14:16)
[2019-04-14] MEDS ORDERED: proPOfol 200 MG/20 ML (DIPRIVAN) VIAL IV ONE ×2 (14:16→17:55)
[2019-04-14] MEDS ORDERED: GENTAMICIN 40 MG/ML 2 ML INJ SDV ONE (14:25)
[2019-04-14] MEDS ORDERED: VANCOMYCIN 1000 MG/VIAL ONE (14:25)
[2019-04-14] MEDS ORDERED: BACITRACIN OINTMENT 28 GM TUBE ONE (14:25)
[2019-04-14] MEDS ORDERED: SUCCINYLCHOLINE INJ 100 MG/5 ML SYR ONE (14:29)
[2019-04-14] MEDS ORDERED: ROCURONIUM 10 MG/ML 5 ML SYRINGE IV ONE (14:29)
[2019-04-14] MEDS ORDERED: MIDAZOLAM 2 MG/2 ML (VERSED) VIAL ONE (15:22)
--- NOTE | 2019-04-14 15:25 | NUR ---
Pt to surgery via bed with family and staff
[2019-04-14] MEDS ORDERED: LACTATED RINGERS 1,000 ML IV PRN (15:40)
[2019-04-14] MEDS ORDERED: ceFAZolin INJECTION 2,000 MG ONE (15:41)
[2019-04-14] MEDS: LACTATED RINGERS 1,000 ML IV PRN ×2 (15:42→16:35)
--- NOTE | 2019-04-14 15:43 | Progress Note-Pre Operative ---
Pre-Operative Progress Note H&P Reviewed The H&P was reviewed, patient examined and no changes noted. Date Seen by Provider: Apr 14, 2019 Time Seen by Provider: 15:32 Date H&P Reviewed: Apr 12, 2019 Time H&P Reviewed: 15:43 Pre-Operative Diagnosis: Lumbar Stenosis/Spondylolisthesis MANPREET LALA MD Apr 14, 2019 15:43 POS
[2019-04-14] MEDS ORDERED: ceFAZolin INJECTION 1,000 MG VIAL IV ONE (15:45)
[2019-04-14] MEDS ORDERED: TRANEXAMIC ACID 100 MG/ML 10 ML INJECTION IV ONE ×2 (16:03→16:22)
[2019-04-14] MEDS ORDERED: HYDROmorphone 2 MG/ML VIAL (DILAUDID) ONE (16:09)
[2019-04-14] MEDS ORDERED: PROPOFOL INJECTION 50 ML IV ONE ×2 (17:53→17:55)
[2019-04-14] MEDS ORDERED: GLYCOPYRROLATE 0.2 MG/ML (ROBINUL) 2 ML VIAL ONE (17:57)
[2019-04-14] MEDS ORDERED: NEOSTIGMINE 3 MG/3 ML VIAL ONE (17:57)
[2019-04-14] MEDS ORDERED: LABETALOL HCL 20 MG/4 ML VIAL ONE (18:24)
--- NOTE | 2019-04-14 18:24 | Diagnostic Imaging Report ---
IMPRESSION: 12 seconds of fluoroscopy was utilized by Dr. Roblero during a posterior lumbar interbody fusion of L4-L5 and L5-S1. Dictated by: Dictated on workstation # [id number]
--- NOTE | 2019-04-14 18:35 | Progress Note-Post Operative ---
Post-Operative Progess Note Surgeon (s)/Cage Clerk (s) Surgeon MANPREET LALA MD Cage Clerk: KIARA Hickey Pre-Operative Diagnosis Lumbar Stenosis/Spondylolisthesis Post-Operative Diagnosis Same Procedure & Operative Findings Date of Procedure 04/14/19 Procedure Performed/Findings L4-S1 TLIF/PSF with lami, instrumentation and bone graft Anesthesia Type GETA Estimated Blood Loss Estimated blood loss (mL): 150 Specimens/Packing Specimens Removed none Packing: NONE MANPREET LALA MD Apr 14, 2019 18:35 POS
[2019-04-14] MEDS ORDERED: ONDANSETRON 4 MG/2 ML (SDV) Z0FRAN IVP PRN (19:00)
[2019-04-14] MEDS: HYDROmorphone 2 MG/ML VIAL (DILAUDID) ONE ×2 (19:05→21:34)
[2019-04-14] MEDS: SIMvastatin 40 MG (ZOCOR) TAB PO SCH (20:59)
[2019-04-14] MEDS: TRIMETHOPRIM 100 MG TAB (PROLOPRIM) NON-FORMULARY PO SCH (20:59)
[2019-04-14] MEDS: DOCUSATE SODIUM 100 MG (COLACE) CAP PO SCH (21:00)
[2019-04-14] MEDS: HYDROcodone/APAP 5 MG/325 MG (LORTAB) TAB PO PRN (22:40)
[2019-04-14] MEDS: ceFAZolin 2 GM IV Premixed 50 ML IV SCH (22:40)
[2019-04-14] MEDS: ALPRAZolam 0.25 MG (XANAX) TAB PO PRN (22:40)
[2019-04-14] MEDS: fentaNYL INJECTION 100 MCG/2 ML AMP IVP PRN (22:46)
--- NOTE | 2019-04-14 23:51 | OPERATIVE REPORT ---
DATE OF SERVICE: 04/14/2019 PREOPERATIVE DIAGNOSES: High-grade lumbar spinal stenosis, lumbar spondylolisthesis, lumbar radiculopathy, footdrop and painful lumbar hardware. POSTOPERATIVE DIAGNOSES: High-grade lumbar spinal stenosis, lumbar spondylolisthesis, lumbar radiculopathy, footdrop and painful lumbar hardware. PROCEDURE PERFORMED: 1. L4-L5 transforaminal lumbar interbody fusion and posterior spinal fusion. 2. L5-S1 transforaminal lumbar interbody fusion and posterior spinal fusion. 3. L4-L5 interbody cage instrumentation without interval fixation. 4. L5-S1 interbody cage instrumentation without interval fixation. 5. L4, L5, S1 posterior segmental pedicle screw instrumentation. 6. Autograft for spine surgery, local. 7. Allograft for spine surgery, morselized. 8. Removal of battery for spinal cord stimulator. DATE AND TIME OF SURGERY: Please see anesthesia record. IMPLANTS USED: [employer] Vital pedicle screws, [employer] TrellOss titanium interbody cages, [employer] i-FACTOR bone graft. SURGEON: Manpreet Roblero MD PEOPLESOFT: DELORES Richards ROLE OF BALANCE WHEEL ARM BURNISHER: Aid in retraction of the procedure, aid in implantation incisional closure. ANESTHESIA: General endotracheal. ESTIMATED BLOOD LOSS: Minimal. INTRAVENOUS FLUIDS: Please see anesthesia record. ANTIBIOTICS: Ancef. COMPLICATIONS: Incidental durotomy repaired without difficulty. SPECIMENS: None. INDICATIONS FOR PROCEDURE: The patient is a 73-year-old female with severe high-grade spinal stenosis to the point lower extremity weakness, failed conservative therapy, desires operative treatment, has a nonfunctioning spinal cord stimulator, desires battery removal. Risks, benefits, alternatives discussed and elects to proceed with operative intervention. NEUROMONITORING: Standard intraoperative neuromonitoring carried out by means of real time continuous high quality bidirectional mode, audio and visual communication to both the sales technician and surgeon by Dr. Fung, who has performed SSEPs, EMGs, TcMEPs and TOFs were carried out continuously throughout the procedure and stable. DESCRIPTION OF PROCEDURE: The patient was taken to preoperative holding area and brought back to the operative suite. After adequate induction of general anesthesia, preoperative antibiotics, carefully turned prone on Rafat table, careful padding torso, extremities, sterilely prepped and draped posterior lumbar spine, attention directed to midline incision made from L4-S1. Dissection was carried down to the level of lamina. C-arm was brought in for confirmation of the level. Once the appropriate level was confirmed, standard TLIF approach on the left side was carried out at L4-L5, disk was prepped, trial spacer was utilized and 30 long 6-degree TrellOss cage filled with i-FACTOR bone graft was impacted into the disk space after autograft bone was packed in as well. Procedure was then carried out at the L5-S1 level and once both levels were decompressed and fused full, bilateral decompression and foraminotomy was carried out. Once full decompression was assured, attention was directed to placement of screws. Bilateral L4, L5 and S1 screws were placed, checked on imaging, checked with neuromonitoring. Rods were applied. Final tightening was performed. High speed bur was used to decorticate the posterolateral structures in the right-sided spine. A combination of autograft and allograft bone was packed in the posterolateral gutters for the fusion portion of the procedure. During inspection, there was noted to be a small hole in the dorsal surface of the dura where the laminectomy was performed. This was oversewn with a 4-0 Nurolon suture reinforced with Duragen and Evicel. At this point, the battery was disconnected from the wires in the subcutaneous tissue. The wound was then closed in layers. The patient was transferred to recovery room in stable condition, having tolerated the procedure well with stable spinal monitoring. Job ID: [id number] DocumentID: [id number] Dictated Date: 04/14/2019 18:31:50 Graphic Editor Date: 04/14/2019 19:40:54 Dictated By: MANPREET ROBLERO MD [facility]
[2019-04-15 00:50] VITALS: BP 143/67
[2019-04-15] MEDS: HYDROcodone/APAP 5 MG/325 MG (LORTAB) TAB PO PRN ×5 (02:46→20:22)
[2019-04-15] MEDS: fentaNYL INJECTION 100 MCG/2 ML AMP IVP PRN ×3 (04:44→18:53)
[2019-04-15] MEDS: ceFAZolin 2 GM IV Premixed 50 ML IV SCH ×2 (06:19→14:54)
[2019-04-15] MEDS: ALPRAZolam 0.25 MG (XANAX) TAB PO PRN ×2 (06:23→20:22)
[2019-04-15 07:59] LABS: HEMOGLOBIN 9.6 G/DL (11.5-16.0); MEAN PLATELET VOLUME 10.1 FL (7.4-10.4); RED CELL DISTRIBUTION WIDTH 14.1 % (10.0-14.5); WHITE BLOOD COUNT 11.5 10^3/uL (4.3-11.0)
[2019-04-15 08:00] VITALS: BP 148/70
[2019-04-15 08:17] LABS: BUN/CREATININE RATIO 21; CALCIUM 9.6 MG/DL (8.5-10.1); CARBON DIOXIDE 18 MMOL/L (21-32); CHLORIDE 110 MMOL/L (98-107); GFR ESTIMATED > 60; GLUCOSE 218 MG/DL (70-105); POTASSIUM 3.8 MMOL/L (3.6-5.0); SODIUM 141 MMOL/L (135-145)
[2019-04-15] MEDS: predniSONE 5 MG TAB PO SCH (08:34)
[2019-04-15] MEDS: amLODIPine 5 MG (NORVASC) TAB PO SCH (08:34)
[2019-04-15] MEDS: ASCORBIC ACID (VIT C) 500 MG TABLET PO SCH (08:34)
[2019-04-15] MEDS: DICYCLOMINE 10 MG (BENTYL) CAP PO SCH ×4 (08:35→20:23)
[2019-04-15] MEDS: SENNA W/DOCUSATE (SENOKOT S) TABLET PO SCH ×2 (08:35→20:22)
[2019-04-15] MEDS: GEMFIBROZIL 600 MG (LOPID) TAB PO SCH ×2 (08:35→20:22)
[2019-04-15] MEDS: ISOSORBIDE MONONITRATE 30 MG (IMDUR) TAB PO SCH (08:35)
--- NOTE | 2019-04-15 09:42 | Anesthesia-General Post-Op ---
General Patient Condition Mental Status/LOC: Same as Preop Cardiovascular: Satisfactory Nausea/Vomiting: Absent Respiratory: Satisfactory Pain: Uncontrolled Complications: Absent Post Op Complications Complications None Follow Up Care/Instructions Patient Instructions None needed. Anesthesia/Patient Condition Patient Condition Patient is doing well other than pain, no anesthetic complaints, stable vital signs, no apparent adverse anesthesia problems. No complications reported per nursing. SHAYLEE ZELAYA CRNA Apr 15, 2019 09:42 POS
--- NOTE | 2019-04-15 10:50 | Cardiology Progress Note ---
Subjective Date Seen by Provider: Apr 15, 2019 Time Seen by Provider: 10:48 Subjective/Events-last exam Patient is in bed, feeling better, still having back pain Review of Systems General: No Chills, No Night Sweats, No Fatigue, No Malaise, No Appetite, No Other HEENT: No Head Aches, No Visual Changes, No Eye Pain, No Ear Pain, No Dysphasia, No Sinus Congestion, No Post Nasal Drip, No Sore Throat, No Other Pulmonary: No Dyspnea, No Cough, No Pleuritic Chest Pain, No Other Cardiovascular: No: Chest Pain, Palpitations, Orthopnea, Paroxysmal Noc. Dyspnea, Edema, Lt Headedness, Other Objective-Cardiology Exam Last Set of Vital Signs Vital Signs 04/14/19 04/15/19 19:45 08:00 Temp 37.8 Pulse 97 Resp 18 B/P (MAP) 148/70 (96) Pulse Ox 95 O2 Delivery Room Air O2 Flow Rate 3 Capillary Refill : Less Than 3 SecondsLess Than 3 Seconds I&O Intake and Output 04/15/19 00:00 Intake Total 1350 ml Output Total 1175 ml Balance 175 ml Intake Oral 300 ml IV Total 1050 ml Output Urine Total 1025 ml Estimated Blood Loss 150 ml # Voids 3 # Bowel Movements 1 General: Alert, Oriented X3, Cooperative, No Acute Distress HEENT: Atraumatic, PERRLA Neck: Supple, Other (left carotid bruit) Lungs: Clear to Auscultation, Normal Air Movement Heart: Regular Rate, Normal S1, Normal S2, No Murmurs Abdomen: Normal Bowel Sounds, Soft, Other (ttp diffusely) Extremities: No Clubbing, No Edema Skin: No Rashes, No Significant Lesion Neuro: Normal Speech Psych/Mental Status: Mental Status NL, Mood NL Results Lab Laboratory Tests 04/15/19 07:48 A/P-Cardiology Admission Diagnosis Chest pain CAD HTN HLP Assessment/Plan Chest pain, resembling chronic stable angina, with suspected underlying CAD. EKG reveals SR with no acute ST changes. Patient takes Isosorbide and uses SL nitro as needed to relieve chest pain. Last episode of chest pain approx 1 month ago. Reports she underwent stress testing approx 3 years ago. Has been following with bellmaker in . 2D Echo showed mild AR, mild to mod TR, grade 1 diastolic dysfunction with EF 55-60%, PA 35-40mmHg. I try to obtain copy of records from primary bellmaker for further review. Patient will need to have a stress test done as an outpatient in the future HTN- controlled. Continue on current medications and continue to monitor. HLP- maintained on statin, continue to monitor DM, management per medical services Back pain, high grade lumbar spinal stenosis and lumbar spondylolisthesis, post surgery done on 04/14 ( spinal fusion), recovering slowly Clinical Quality Measures DVT/VTE Risk/Contraindication: Risk Factor Score Per Nursin RFS Level Per Nursing on Admit: 2=Moderate ALTHEA PRITCHETT MD Apr 15, 2019 10:50 POS
--- NOTE | 2019-04-15 10:53 | NUR ---
CM/SS following up with the patient. The patient reports that she is doing good today just having some pain from the surgery. CM/SS waiting to find out if she is eligible for IRF before sending more information to [facility]. Addendum: 04/15/19 at 1637 by MARIOLA PERRY SS CRYSTAL social work student note reviewed and approved
--- NOTE | 2019-04-15 11:30 | Progress Note ---
Subjective Subjective/Events-last exam Afebrile, no acute events. Back is hurting quite a bit inpatient. Objective Exam Last Set of Vital Signs Vital Signs Date Time Temp Pulse Resp B/P (MAP) Pulse Ox O2 Delivery O2 Flow Rate FiO2 04/15/19 08:00 95 Room Air 04/15/19 08:00 37.8 97 18 148/70 (96) 04/14/19 19:45 3 Capillary Refill : Less Than 3 SecondsLess Than 3 Seconds I&O Intake and Output 04/15/19 00:00 Intake Total 1350 ml Output Total 1175 ml Balance 175 ml Intake Oral 300 ml IV Total 1050 ml Output Urine Total 1025 ml Estimated Blood Loss 150 ml # Voids 3 # Bowel Movements 1 General: Alert, No Acute Distress Lungs: Clear to Auscultation, Normal Air Movement Heart: Regular Rate, No Murmurs Abdomen: Normal Bowel Sounds, Soft Psych/Mental Status: Mental Status NL Results/Procedures Lab Laboratory Tests 04/15/19 07:48: White Blood Count 11.5H, Red Blood Count 3.43L, Hemoglobin 9.6L, Hematocrit 30L, Mean Corpuscular Volume 87, Mean Corpuscular Hemoglobin 28, Mean Corpuscular Hemoglobin Concent 32, Red Cell Distribution Width 14.1, Platelet Count 345, Mean Platelet Volume 10.1, Sodium Level 141, Potassium Level 3.8, Chloride Level 110H, Carbon Dioxide Level 18L, Anion Gap 13, Blood Urea Nitrogen 19H, Creatinine 0.90, Estimat Glomerular Filtration Rate > 60, BUN/Creatinine Ratio 21, Glucose Level 218H, Calcium Level 9.6 Microbiology 04/04/19 Blood Culture - Final, Complete No growth 04/12/19 MRSA Screen - Final, Complete MRSA not isolated Assessment/Plan Assessment/Plan (1) Ataxia Status: Acute Assessment & Plan: PT, looking in to IRF for d/c. (2) Disorder of lumbar spine Status: Acute Assessment & Plan: 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 Per patient had outpatient referral but ended up admitted before having done. 04/12 Ortho spine consulted 04/13- plan for surgery tomorrow, consult Cardiology due to history of DD and AI. 04/15 s/p lumbar surgery (3) Urinary retention Status: Acute Assessment & Plan: Garner taken out 04/11, plan for scope per Dr. Moseley tomorrow. 04/12 cystoscopy done this am with urethral dilatation and vaginal exam, no source of bleeding noted. (4) Weakness Status: Acute Assessment & Plan: PT working with her, insurance declined inpatient rehab. Will need at least home health PT on d/c, may not be safe for home setting due to significant difficulty with ambulation. Will eval for IRF after surgery. (5) Anemia Assessment & Plan: Uncertain etiology, per clinic chart did have mild anemia several months ago. Will check iron and peripheral smear. 04/12 iron studies consistent with iron deficiency, did have gross hematuria more than once, will check hemoccult. (6) DVT prophylaxis Status: Acute Assessment & Plan: SCDs, no enoxaparin due to hematuria and anemia. Clinical Quality Measures DVT/VTE Risk/Contraindication: Risk Factor Score Per Nursin RFS Level Per Nursing on Admit: 2=Moderate MERON LAMBERT MD Apr 15, 2019 11:30 POS
--- NOTE | 2019-04-15 11:38 | Occupational Ther Daily Note ---
OT Current Status-Daily Note Subjective Pt seen in recliner chair, states 10/10 pain in back, states she just took medication prior to session. Pt agreeable to OT tx session. Mental Status/Objective Patient Orientation: Normal For Age ADL-Treatment Therapy Code Descriptions/Definitions Functional Love Measure: 0=Not Assessed/NA 4=Minimal Assistance 1=Total Assistance 5=Supervision or Setup 2=Maximal Assistance 6=Modified Love 3=Moderate Assistance 7=Complete IndependenceSCALE: Activities may be completed with or without assistive devices. 3-Ukbsyhifwt-urjowxw completes the activity by him/herself with no assistance from a helper. 5-Set-up or Clean-up Assistance-helper sets up or cleans up; patient completes activity. [place] assists only prior to or following the activity. 4-Supervision or Touching Assistance-helper provides verbal cues and/or touching/steadying and/or contact guard assistance as patient completes activity. Assistance may be provided throughout the activity or intermittently. 3-Partial/Moderate Assistance-helper does LESS THAN HALF the effort. [place] lifts, holds or supports trunk or limbs, but provides less than half the effort. 2-Substantial/Maximal Assistance-helper does MORE THAN HALF the effort. [place] lifts or holds trunk or limbs and provides more than half the effort. 5-Pzsgumuyu-gjscpb does ALL the effort. Patient does none of the effort to complete the activity. Or, the assistance of 2 or more helpers is required for the patient to complete the activity. If activity was not attempted, code reason: 7-Patient Refused. 9-Not Applicable-not attempted and the patient did not perform the activity before the current illness, exacerbation or injury. 10-Not Attempted due to Environmental Limitations-(lack of equipment, weather restraints, etc.). 88-Not Attempted due to Medical Conditions or Safety Concerns. Eating (QC): 6 Other Treatment Pt completes UE exercises against gravity in recliner chair with modeling to encourage functional movement and strengthening, pt completes 10 reps of 5 movements with UE weight. Pt educated on importance of movement throughout day. Pt educated of ARU expectations as pt had asked. Pt states she does not know if she can tolerate 3 hours of therapy, states it may be good for her to push through her pain. Pt educated in pain management techniques and ARU expectations reiterated. Pt's questions answered, call light in reach, all needs met. Education OT Patient Education: Correct positioning, Exercise program, Home exercise program, Rehab process Teaching Recipient: Patient Teaching Methods: Demonstration, Discussion Response to Teaching: Verbalize Understanding, Return Demonstration OT Short Term Goals Short Term Goals 1=Demonstrate adherence to instructed precautions during ADL tasks. 2=Patient will verbalize/demonstrate understanding of assistive devices/modifications for ADL. 3=Patient will improve strength/tolerance for activity to enable patient to perform ADL's. OT [facility] Goals Time Frame: Apr 29, 2019 Eating (QC): 6 (met) Oral Hygiene (QC): 6 Shower/Bathe Self (QC): 6 Upper Body Dressing (QC): 6 Lower Body Dressing (QC): 4 On/Off Footwear (QC): 6 Toileting Hygiene (QC): 4 Toilet/Commode Transfer (QC): 4 Additional Goals: 1-Demonstrate ADL Tasks, 2-Verbalize Understanding, 3- ImproveStrength/Stephanie 1=Demonstrate adherence to instructed precautions during ADL tasks. 2=Patient will verbalize/demonstrate understanding of assistive d evices/modifications for ADL. 3=Patient will improve strength/tolerance for activity to enable patient to perform ADL's. OT Education/Plan Problem List/Assessment Assessment: Decreased Activ Tolerance, Decreased UE Strength, Dependent Transfers, Impaired Funct Balance, Impaired I ADL's, Impaired Self-Care Skills Discharge Recommendations Plan/Recommendations: Continue POC Therapy Discharge Recommendati: Scheduled Assistance, Post Acute OT Treatment Plan/Plan of Care Treatment,Training & Education: Yes Patient would benefit from OT for education, treatment and training to promote independence in ADL's, mobility, safety and/or upper extremity function for ADL's. Plan of Care: ADL Retraining, Caregiver Training, Functional Mobility, Group Exercise/Act as Ind, UE Funct Exercise/Act Treatment Duration: Apr 12, 2019 Frequency: 5 times per week Estimated Hrs Per Day: .25 hour per day Agreement: Yes Rehab Potential: Guarded Time/GCodes Start Time: 11:15 Stop Time: 11:24 Total Time Billed (hr/min): 9 Billed Treatment Time 1, EX (9) KAILEY BENZ OTR Apr 15, 2019 11:38 POS
--- NOTE | 2019-04-15 11:42 | Physical Therapy Daily Note ---
PT Daily Note-Current Subjective Patient reports incisional pain but leg pain is better. Pain Numeric Pain Scale: 5-Moderate Pain Location: Lower Location Body Site: Back Pain Description: Acute Mental Status Patient Orientation: Normal For Age Attachments: Garner Catheter, IV Transfers SCALE: Activities may be completed with or without assistive devices. 2-Ligrrgipia-wnmwyez completes the activity by him/herself with no assistance from a helper. 5-Set-up or Clean-up Assistance-helper sets up or cleans up; patient completes activity. [place] assists only prior to or following the activity. 4-Supervision or Touching Assistance-helper provides verbal cues and/or touching/steadying and/or contact guard assistance as patient completes activity. Assistance may be provided throughout the activity or intermittently. 3-Partial/Moderate Assistance-helper does LESS THAN HALF the effort. [place] lifts, holds or supports trunk or limbs, but provides less than half the effort. 2-Substantial/Maximal Assistance-helper does MORE THAN HALF the effort. [place] lifts or holds trunk or limbs and provides more than half the effort. 0-Rkiurhddx-tdzgnv does ALL the effort. Patient does none of the effort to complete the activity. Or, the assistance of 2 or more helpers is required for the patient to complete the activity. If activity was not attempted, code reason: 7-Patient Refused. 9-Not Applicable-not attempted and the patient did not perform the activity before the current illness, exacerbation or injury. 10-Not Attempted due to Environmental Limitations-(lack of equipment, weather restraints, etc.). 88-Not Attempted due to Medical Conditions or Safety Concerns. Roll Left to Right (QC): 2 Sit to Lying (QC): 2 Sit to Stand (QC): 3 Chair/Rrf-vl-Ywdzj Xfer(QC): 3 Bed to/from Chair: 3 Weight Bearing Right Lower Extremity: Right Weight Bearing/Tolerated Left Lower Extremity: Left Weight Bearing/Tolerated Gait Training Does the Patient Walk?: Yes Distance: 30' Walk 10 feet (QC): 2 Walk 50 ft with 2 Turns(QC): 88 Walk 150 ft (QC): 88 Gait Assistive Device: FWW improve gait sequence, however, decreased marti and step length/ataxia improved Exercises Supine Ex: Ankle pumps, Heel Slides, Hip abd/add Supine Reps: 10 Seated Therapy Exercises: Long arc quads Seated Reps: 15 Assessment Patient requires time to complete all functional tasks. Patient is improving, however, tolerated minimal activity at this time. PT [facility] Goals [facility] Goals PT [facility] Goals Time Frame: Apr 23, 2019 Sit to Lying (QC): 5 Lying-Sitting on Side/Bed(QC): 5 Sit to Stand (QC): 5 Roll Left to Right (QC): 5 Chair/Gqf-do-Wdovm Xfer(QC): 5 Car Transfer (QC): 5 Does the Patient Walk: Yes Distance: 100' Walk 10 feet (QC): 5 Walk 50ft with 2 Turns (QC): 5 Gait Assistive Device: FWW PT Plan Treatment/Plan Treatment Plan: Continue Plan of Care Treatment Plan: Bed Mobility, Concurrent Therapy, Education, Functional Activit y Stephanie, Functional Strength, Gait, Safety, Therapeutic Exercise, Transfers Treatment Duration: Apr 23, 2019 Frequency: 6 times per week Estimated Hrs Per Day: .25 hour per day Patient and/or Family Agrees t: Yes Time/GCodes Time In: 935 Time Out: 958 Total Billed Treatment Time: 23 Total Billed Treatment 1 visit EX 9 min GT 14 min JADON EMMANUEL PT Apr 15, 2019 11:42 POS
--- NOTE | 2019-04-15 15:05 | Diagnostic Imaging Report ---
INDICATION: Lumbar fusion. TIME OF EXAM: 2:26 p.m. FINDINGS: Two views of the lumbar spine show normal lordotic curvature. There is left convexity scoliotic curvature. Spinal stimulator is noted in the midline of the mid thoracic spine. There are postoperative changes of posterior instrumented fusion with vertical stabilization rods and pedicle screws transfixing the L4-S1 levels. Hardware is intact. Intervertebral body spacers at the L4-L5 and L5-S1 levels are also seen. Vertebral body heights are maintained. No acute compression fracture is seen. There is generalized degenerative disc disease with variable disc space narrowing and marginal spurring. Atherosclerotic calcifications in the abdominal aorta are noted. IMPRESSION: Posterior instrumented fusion at L4-S1. No complicating features are detected. Dictated by: Dictated on workstation # [id number]
--- NOTE | 2019-04-15 15:13 | NUR ---
CM/SS spoke with the patient to let her know that she was denied from rehab. CM/SS have sent over the rest of the information to [facility] and spoke with staff there. They stated that most likely it will be Thursday before they are able to get her. will continue to follow. Addendum: 04/15/19 at 1638 by MARIOLA PERRY CRYSTAL huitron note reviewed and approved.
[2019-04-15 16:19] VITALS: BP 148/88
--- NOTE | 2019-04-15 16:38 | NUR ---
Recent evaluations and medication list faxed to [facility], They will contact pt's insurance approval and advise on Thursday if can accept.
[2019-04-15] MEDS: TRIMETHOPRIM 100 MG TAB (PROLOPRIM) NON-FORMULARY PO SCH (20:21)
[2019-04-15] MEDS: SIMvastatin 40 MG (ZOCOR) TAB PO SCH (20:21)
[2019-04-15] MEDS: DOCUSATE SODIUM 100 MG (COLACE) CAP PO SCH (20:23)
[2019-04-16] MEDS: ACETAMINOPHEN 325 MG TABLET PO PRN (00:34)
[2019-04-16] MEDS: HYDROcodone/APAP 5 MG/325 MG (LORTAB) TAB PO PRN ×4 (00:35→20:46)
[2019-04-16 00:38] VITALS: BP 158/65
--- NOTE | 2019-04-16 04:37 | Cardiology Progress Note ---
Subjective Date Seen by Provider: Apr 16, 2019 Time Seen by Provider: 04:36 Subjective/Events-last exam Patient is laying down in bed, complaining of back pain. No chest pain Review of Systems General: No Chills, No Night Sweats, No Fatigue, No Malaise, No Appetite, No Other HEENT: No Head Aches, No Visual Changes, No Eye Pain, No Ear Pain, No Dysphasia, No Sinus Congestion, No Post Nasal Drip, No Sore Throat, No Other Pulmonary: No Dyspnea, No Cough, No Pleuritic Chest Pain, No Other Cardiovascular: No: Chest Pain, Palpitations, Orthopnea, Paroxysmal Noc. Dyspnea, Edema, Lt Headedness, Other Objective-Cardiology Exam Last Set of Vital Signs Vital Signs 04/14/19 04/16/19 04/16/19 19:45 00:38 01:04 Temp 37.5 Pulse 90 Resp 18 B/P (MAP) 158/65 (96) Pulse Ox 98 O2 Delivery Room Air O2 Flow Rate 3 Capillary Refill : Less Than 3 SecondsLess Than 3 Seconds I&O Intake and Output 04/16/19 00:00 Intake Total 2400 ml Output Total 1225 ml Balance 1175 ml Intake Oral 2350 ml IV Total 50 ml Output Urine Total 1225 ml # Bowel Movements 1 General: Alert, No Acute Distress HEENT: Atraumatic, PERRLA Neck: Supple, Other (left carotid bruit) Lungs: Clear to Auscultation, Normal Air Movement Heart: Regular Rate, Normal S1, Normal S2, No Murmurs Abdomen: Normal Bowel Sounds, Soft Extremities: No Clubbing, No Edema Skin: No Rashes, No Significant Lesion Neuro: Normal Speech Psych/Mental Status: Mental Status NL Results Lab Laboratory Tests 04/15/19 07:48 A/P-Cardiology Admission Diagnosis Chest pain CAD HTN HLP Assessment/Plan Chest pain, resembling chronic stable angina, with suspected underlying CAD. EKG reveals SR with no acute ST changes. Patient takes Isosorbide and uses SL nitro as needed to relieve chest pain. Last episode of chest pain approx 1 month ago. Reports she underwent stress testing approx 3 years ago. Has been following with burn nurse in . 2D Echo showed mild AR, mild to mod TR, grade 1 diastolic dysfunction with EF 55-60%, PA 35-40mmHg. I try to obtain copy of records from primary burn nurse for further review. Patient will need to have a stress test done as an outpatient in the future Hypertension, poor control, probably due to steroids and pain, I will increase amlodipine to 10 mg daily and continue all other medications and monitor next Hyperlipidemia, maintained on Lopid and simvastatin. I will change simvastatin to Lipitor 20 mg and evaluate lipid profile Diabetes mellitus, followed and managed by primary care physician Back pain, high grade lumbar spinal stenosis and lumbar spondylolisthesis, post surgery done on 04/14 ( spinal fusion), recovering slowly, continue physical therapy Clinical Quality Measures DVT/VTE Risk/Contraindication: Risk Factor Score Per Nursin RFS Level Per Nursing on Admit: 2=Moderate ALTHEA PRITCHETT MD Apr 16, 2019 04:37 POS
[2019-04-16 06:16] LABS: BASOPHILS % (AUTO) 0 % (0-10); EOSINOPHILS # (AUTO) 0.1 10^3/uL (0.0-0.3); EOSINOPHILS % (AUTO) 0 % (0-10); HEMATOCRIT 27 % (35-52); HEMOGLOBIN 8.9 G/DL (11.5-16.0); LYMPHOCYTES # (AUTO) 2.4 X 10^3 (1.0-4.0); LYMPHOCYTES % (AUTO) 17 % (12-44); MEAN CORPUSCULAR HEMOGLOBIN 28 PG (25-34); MEAN CORPUSCULAR HGB CONC 33 G/DL (32-36); MEAN CORPUSCULAR VOLUME 86 FL (80-99); MEAN PLATELET VOLUME 9.9 FL (7.4-10.4); MONOCYTES # (AUTO) 1.5 X 10^3 (0.0-1.0); MONOCYTES % (AUTO) 11 % (0-12); NEUTROPHILS % (AUTO) 72 % (42-75); PLATELET COUNT 335 10^3/uL (130-400); RED CELL DISTRIBUTION WIDTH 14.1 % (10.0-14.5)
[2019-04-16 06:34] LABS: CALCIUM 10.1 MG/DL (8.5-10.1); CREATININE SERUM 0.93 MG/DL (0.60-1.30); POTASSIUM 3.5 MMOL/L (3.6-5.0)
[2019-04-16 08:00] VITALS: BP 146/72
--- NOTE | 2019-04-16 08:24 | Physical Therapy Daily Note ---
PT Daily Note-Current Subjective Patient reports less pain today than yesterday. Pain Numeric Pain Scale: 5-Moderate Pain Location: Lower Location Body Site: Back Pain Description: Acute, Chronic Mental Status Patient Orientation: Normal For Age Attachments: Garner Catheter Transfers SCALE: Activities may be completed with or without assistive devices. 4-Olnfzxnvzp-udvtpar completes the activity by him/herself with no assistance from a helper. 5-Set-up or Clean-up Assistance-helper sets up or cleans up; patient completes activity. [place] assists only prior to or following the activity. 4-Supervision or Touching Assistance-helper provides verbal cues and/or touching/steadying and/or contact guard assistance as patient completes activity. Assistance may be provided throughout the activity or intermittently. 3-Partial/Moderate Assistance-helper does LESS THAN HALF the effort. [place] l ifts, holds or supports trunk or limbs, but provides less than half the effort. 2-Substantial/Maximal Assistance-helper does MORE THAN HALF the effort. [place] lifts or holds trunk or limbs and provides more than half the effort. 8-Ieqfrzbsv-tsggtg does ALL the effort. Patient does none of the effort to complete the activity. Or, the assistance of 2 or more helpers is required for t he patient to complete the activity. If activity was not attempted, code reason: 7-Patient Refused. 9-Not Applicable-not attempted and the patient did not perform the activity before the current illness, exacerbation or injury. 10-Not Attempted due to Environmental Limitations-(lack of equipment, weather restraints, etc.). 88-Not Attempted due to Medical Conditions or Safety Concerns. Roll Left to Right (QC): 3 Sit to Lying (QC): 3 Sit to Stand (QC): 3 Chair/Dhj-sr-Uanij Xfer(QC): 3 Bed to/from Chair: 3 Weight Bearing Right Lower Extremity: Right Weight Bearing/Tolerated Left Lower Extremity: Left Weight Bearing/Tolerated Gait Training Does the Patient Walk?: Yes Distance: 50' Walk 10 feet (QC): 3 Walk 50 ft with 2 Turns(QC): 3 Walk 150 ft (QC): 88 Gait Assistive Device: FWW slow, shuffle gait sequence with skilled VC's for step length Exercises Seated Therapy Exercises: Ankle pumps, Long arc quads Seated Reps: 15 Assessment Patient improving slowly with treatment plan and is highly motivated with leyla temple. PT to continue to increase activity as tolerated by patient. PT [employer] Coordination [employer] Head Goals Assisted Goals PT Assisted Goals Time Frame: Apr 23, 2019 Sit to Lying (QC): 5 Lying-Sitting on Side/Bed(QC): 5 Sit to Stand (QC): 5 Roll Left to Right (QC): 5 Chair/Nxm-yl-Zbwhq Xfer(QC): 5 Car Transfer (QC): 5 Does the Patient Walk: Yes Distance: 100' Walk 10 feet (QC): 5 Walk 50ft with 2 Turns (QC): 5 Gait Assistive Device: FWW PT Plan Treatment/Plan Treatment Plan: Continue Plan of Care Treatment Plan: Bed Mobility, Concurrent Therapy, Education, Functional Activity Stephanie, Functional Strength, Gait, Safety, Therapeutic Exercise, Transfers Treatment Duration: Apr 23, 2019 Frequency: 6 times per week Estimated Hrs Per Day: .25 hour per day Patient and/or Family Agrees t: Yes Time/GCodes Time In: 753 Time Out: 805 Total Billed Treatment Time: 12 Total Billed Treatment 1 visit GT 12 min JADON EMMANUEL PT Apr 16, 2019 08:24 POS
[2019-04-16] MEDS: DICYCLOMINE 10 MG (BENTYL) CAP PO SCH ×4 (09:23→20:46)
[2019-04-16] MEDS: SENNA W/DOCUSATE (SENOKOT S) TABLET PO SCH ×2 (09:24→20:47)
[2019-04-16] MEDS: ISOSORBIDE MONONITRATE 30 MG (IMDUR) TAB PO SCH (09:24)
[2019-04-16] MEDS: ASCORBIC ACID (VIT C) 500 MG TABLET PO SCH (09:24)
[2019-04-16] MEDS: amLODIPine 10 MG (NORVASC) TAB PO SCH (09:24)
[2019-04-16] MEDS: GEMFIBROZIL 600 MG (LOPID) TAB PO SCH ×2 (09:28→20:47)
[2019-04-16] MEDS: predniSONE 5 MG TAB PO SCH (09:29)
[2019-04-16] MEDS: fentaNYL INJECTION 100 MCG/2 ML AMP IVP PRN (09:30)
--- NOTE | 2019-04-16 10:37 | Progress Note - Hospitalist ---
Subjective HPI/CC On Admission Date Seen by Provider: Apr 16, 2019 Time Seen by Provider: 09:45 Chief complaint: Weakness with urinary retention and impaction. HPI: This is a 73yoWF who is a very poor historian, who presented with urinary retention, reyes catheter initiated in the ER and Dr. Moseley was consulted and will leave reyes catheter in until Thursday, and a fecal impaction that was removed by the ER nurse staff. She was admitted, placed with supportive care, but upon PT and OT evaluation Pt was found to have severe inability to ambulate and stand without multiple odd gyrations and Pt has a history of pain stimulator will obtain more details with that, but Pt appears to be in need of a spinal MRI, so will evaluate if we can get that if it is compatible with the pain stimulator if she does have one, but very poor history from the Pt, will try our best to get more details. Subjective/Events-last exam patient spiked a temperature to 38.7 la she denies feeling feverish and denied Reiger's. Her incision site is less painful than yesterday and she denies cough and currently has a Reyes catheter in place Objective Exam Vital Signs Vital Signs Date Time Temp Pulse Resp B/P (MAP) Pulse Ox O2 Delivery O2 Flow Rate FiO2 04/16/19 01:04 37.5 04/16/19 00:38 90 18 158/65 (96) 98 Room Air 04/14/19 19:45 3 Capillary Refill : Less Than 3 SecondsLess Than 3 Seconds General Appearance: No Apparent Distress Respiratory: Chest Non Tender, Lungs Clear, Normal Breath Sounds, No Accessory Muscle Use, No Respiratory Distress Cardiovascular: Regular Rate, Rhythm, No Edema, No Gallop, No JVD, No Murmur, Normal Peripheral Pulses Gastrointestinal: Normal Bowel Sounds, No Organomegaly, No Pulsatile Mass, Non Tender, Soft Back: Normal Inspection, Other (no drainage on surgical bandage peaking at the wound is no erythema evidence for infection.) Results/Procedures Lab Laboratory Tests 04/16/19 06:00 Patient resulted labs reviewed. Assessment/Plan Assessment and Plan Assess & Plan/Chief Complaint 1. Lumbar radiculopathy with myelopathy postop day 2 lumbar fusion appearing well. 2. Fever last night no evidence to suggest infection continue to monitor Clinical Quality Measures DVT/VTE Risk/Contraindication: Risk Factor Score Per Nursin RFS Level Per Nursing on Admit: 2=Moderate MADDY SMYTH MD Apr 16, 2019 10:37 POS
--- NOTE | 2019-04-16 10:39 | Progress Note ---
Subjective Time Seen by a Provider: 10:35 Subjective/Events-last exam Pt states that she is doing better today. She is still sore in her back, but the pain is a lot less than yesterday. She is able to move her feet and has walked to the door and back, but she is still pretty weak. Optimistic about her recovery. Objective Exam Vital Signs Date Time Temp Pulse Resp B/P (MAP) Pulse Ox O2 Delivery O2 Flow Rate FiO2 04/16/19 01:04 37.5 04/16/19 00:38 38.7 90 18 158/65 (96) 98 Room Air 04/16/19 00:34 38.6 04/15/19 20:00 Room Air 04/15/19 16:19 37.6 99 18 148/88 (108) 98 Room Air I & O 04/16/19 07:00 Intake Total 2350 ml Output Total 1725 ml Balance 625 ml Capillary Refill : Less Than 3 SecondsLess Than 3 Seconds General Appearance: No Apparent Distress, WD/WN Respiratory: No Respiratory Distress Neurologic/Psychiatric: Alert, Oriented x3, Motor Weakness Skin: Normal Color, Warm/Dry Results Lab Laboratory Tests 04/16/19 06:00: White Blood Count 14.0H, Red Blood Count 3.19L, Hemoglobin 8.9L, Hematocrit 27L, Mean Corpuscular Volume 86, Mean Corpuscular Hemoglobin 28, Mean Corpuscular Hemoglobin Concent 33, Red Cell Distribution Width 14.1, Platelet Count 335, Mean Platelet Volume 9.9, Neutrophils (%) (Auto) 72, Lymphocytes (%) (Auto) 17, Monocytes (%) (Auto) 11, Eosinophils (%) (Auto) 0, Basophils (%) (Auto) 0, Neutrophils # (Auto) 10.0H, Lymphocytes # (Auto) 2.4, Monocytes # (Auto) 1.5H, Eosinophils # (Auto) 0.1, Basophils # (Auto) 0.0, Sodium Level 139, Potassium Level 3.5L, Chloride Level 107, Carbon Dioxide Level 19L, Anion Gap 13, Blood Urea Nitrogen 13, Creatinine 0.93, Estimat Glomerular Filtration Rate 59, BUN/Creatinine Ratio 14, Glucose Level 190H, Calcium Level 10.1 Microbiology 04/04/19 Blood Culture - Final, Complete No growth 04/12/19 MRSA Screen - Final, Complete MRSA not isolated Assessment/Plan Assessment/Plan Assess & Plan/Chief Complaint S/P lumbar fusion ABLA Ataxia Motor weakness Continue with PT and pain control Diligence with spirometer Clinical Quality Measures DVT/VTE Risk/Contraindication: Risk Factor Score Per Nursin RFS Level Per Nursing on Admit: 2=Moderate JAMES PETERS Apr 16, 2019 10:39 POS
[2019-04-16] MEDS: CALCIUM CARBONATE 500 MG (TUMS) TAB.CHEW PO PRN (12:14)
[2019-04-16 16:00] VITALS: BP 146/65
[2019-04-16] MEDS: TRIMETHOPRIM 100 MG TAB (PROLOPRIM) NON-FORMULARY PO SCH (20:45)
[2019-04-16] MEDS: ALPRAZolam 0.25 MG (XANAX) TAB PO PRN (20:45)
[2019-04-16] MEDS: DOCUSATE SODIUM 100 MG (COLACE) CAP PO SCH (20:47)
[2019-04-17] VITALS: BP 139/68
[2019-04-17 05:28] LABS: HEMOGLOBIN 8.4 G/DL (11.5-16.0); MEAN PLATELET VOLUME 10.3 FL (7.4-10.4); RED CELL DISTRIBUTION WIDTH 13.6 % (10.0-14.5); WHITE BLOOD COUNT 11.3 10^3/uL (4.3-11.0)
[2019-04-17 05:56] LABS: ALANINE AMINOTRANSFERASE 7 U/L (0-55); ALBUMIN 3.5 GM/DL (3.2-4.5); ALKALINE PHOSPHATASE 108 U/L (40-136); BILIRUBIN,TOTAL 0.2 MG/DL (0.1-1.0); BUN/CREATININE RATIO 11; CALCIUM 10.2 MG/DL (8.5-10.1); CARBON DIOXIDE 18 MMOL/L (21-32); CHLORIDE 106 MMOL/L (98-107); CHOLESTEROL 110 MG/DL (< 200); CREATININE SERUM 0.87 MG/DL (0.60-1.30); GFR ESTIMATED > 60; GLUCOSE 277 MG/DL (70-105); HDL CHOLESTEROL 45 MG/DL (40-60); POTASSIUM 3.4 MMOL/L (3.6-5.0); SODIUM 136 MMOL/L (135-145); TOTAL PROTEIN 6.7 GM/DL (6.4-8.2); TRIGLYCERIDES 72 MG/DL (<150); VLDL CHOLESTEROL 14 MG/DL (5-40)
--- NOTE | 2019-04-17 07:29 | Cardiology Progress Note ---
Subjective Date Seen by Provider: Apr 17, 2019 Time Seen by Provider: 07:27 Subjective/Events-last exam Patient is laying down in bed, feeling better, still having back pain Review of Systems General: No Chills, No Night Sweats, No Fatigue, No Malaise, No Appetite, No Other HEENT: No Head Aches, No Visual Changes, No Eye Pain, No Ear Pain, No Dysphasia, No Sinus Congestion, No Post Nasal Drip, No Sore Throat, No Other Pulmonary: No Dyspnea, No Cough, No Pleuritic Chest Pain, No Other Cardiovascular: No: Chest Pain, Palpitations, Orthopnea, Paroxysmal Noc. Dyspnea, Edema, Lt Headedness, Other Objective-Cardiology Exam Last Set of Vital Signs Vital Signs 04/14/19 04/17/19 19:45 00:00 Temp 37.6 Pulse 98 Resp 18 B/P (MAP) 139/68 (91) Pulse Ox 98 O2 Delivery Room Air O2 Flow Rate 3 Capillary Refill : Less Than 3 SecondsLess Than 3 Seconds I&O Intake and Output 04/17/19 00:00 Intake Total 1450 ml Output Total 2625 ml Balance -1175 ml Intake Oral 1400 ml IV Total 50 ml Output Urine Total 2625 ml General: Alert, Oriented X3, Cooperative, No Acute Distress HEENT: Atraumatic, PERRLA Neck: Supple, Other (left carotid bruit) Lungs: Clear to Auscultation, Normal Air Movement Heart: Regular Rate, Normal S1, Normal S2, No Murmurs Abdomen: Normal Bowel Sounds, Soft Extremities: No Clubbing, No Edema Skin: No Rashes, No Significant Lesion Neuro: Normal Speech Psych/Mental Status: Mental Status NL Results Lab Laboratory Tests 04/17/19 05:00 A/P-Cardiology Admission Diagnosis Chest pain CAD HTN HLP Assessment/Plan Chest pain, resembling chronic stable angina, with suspected underlying CAD. Currently chest pain-free. EKG reveals SR with no acute ST changes. Patient takes Isosorbide and uses SL nitro as needed to relieve chest pain. Last episode of chest pain approx 1 month ago. Reports she underwent stress testing approx 3 years ago. 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 2D Echo showed mild AR, mild to mod TR, grade 1 diastolic dysfunction with EF 55-60%, PA 35-40mmHg. Patient will need to have a stress test done as an outpatient in the future Hypertension, better control on current medication, continue to monitor Hyperlipidemia, started on Lipitor instead of simvastatin. Continue to monitor Diabetes mellitus, followed and managed by primary care physician Back pain, high grade lumbar spinal stenosis and lumbar spondylolisthesis, post Lumbar perfusion done on 04/14 ( spinal fusion), recovering slowly, continue physical therapy Clinical Quality Measures DVT/VTE Risk/Contraindication: Risk Factor Score Per Nursin RFS Level Per Nursing on Admit: 2=Moderate ALTHEA PRITCHETT MD Apr 17, 2019 07:29 POS
[2019-04-17 08:00] VITALS: BP 161/74
[2019-04-17] MEDS: DICYCLOMINE 10 MG (BENTYL) CAP PO SCH ×4 (09:39→20:02)
[2019-04-17] MEDS: ISOSORBIDE MONONITRATE 30 MG (IMDUR) TAB PO SCH (09:40)
[2019-04-17] MEDS: ASCORBIC ACID (VIT C) 500 MG TABLET PO SCH (09:40)
[2019-04-17] MEDS: SENNA W/DOCUSATE (SENOKOT S) TABLET PO SCH ×2 (09:40→20:03)
[2019-04-17] MEDS: HYDROcodone/APAP 5 MG/325 MG (LORTAB) TAB PO PRN ×2 (09:40→20:01)
[2019-04-17] MEDS: DOCUSATE SODIUM 100 MG (COLACE) CAP PO PRN (09:40)
[2019-04-17] MEDS: amLODIPine 10 MG (NORVASC) TAB PO SCH (09:40)
[2019-04-17] MEDS: GEMFIBROZIL 600 MG (LOPID) TAB PO SCH ×2 (09:43→20:03)
[2019-04-17] MEDS: predniSONE 5 MG TAB PO SCH (09:43)
--- NOTE | 2019-04-17 12:15 | Progress Note - Hospitalist ---
Subjective HPI/CC On Admission Date Seen by Provider: Apr 17, 2019 Time Seen by Provider: 12:10 Chief complaint: Weakness with urinary retention and impaction. HPI: This is a 73yoWF who is a very poor historian, who presented with urinary retention, reyes catheter initiated in the ER and Dr. Moseley was consulted and will leave reyes catheter in until Thursday, and a fecal impaction that was removed by the ER nurse staff. She was admitted, placed with supportive care, but upon PT and OT evaluation Pt was found to have severe inability to ambulate and stand without multiple odd gyrations and Pt has a history of pain stimulator will obtain more details with that, but Pt appears to be in need of a spinal MRI, so will evaluate if we can get that if it is compatible with the pain stimulator if she does have one, but very poor history from the Pt, will try our best to get more details. Subjective/Events-last exam Patient reports she feels well with increased right lower extremity strength although she still is max assist with transfer. She reports decreased low back pain at the site of her surgery incision no drainage is been reported. She denies any radicular pain in the right lower extremity has had no cough night sweats chills or fever subjective or recorded since the night before last. Objective Exam Vital Signs Vital Signs Date Time Temp Pulse Resp B/P (MAP) Pulse Ox O2 Delivery O2 Flow Rate FiO2 04/17/19 08:00 36.0 101 16 161/74 (103) 93 Room Air 04/14/19 19:45 3 Capillary Refill : Less Than 3 SecondsLess Than 3 Seconds General Appearance: No Apparent Distress Respiratory: Chest Non Tender, Lungs Clear, Normal Breath Sounds, No Accessory Muscle Use, No Respiratory Distress Cardiovascular: Regular Rate, Rhythm, No Edema, No Gallop, No JVD, No Murmur, Normal Peripheral Pulses Extremity: Normal Range of Motion, No Pedal Edema Neurologic/Psychiatric: Alert, Oriented x3, Normal Mood/Affect, Other (Jesica 4+ strength of the right lower extremity 4-5+ of the left lower extremity) Results/Procedures Lab Laboratory Tests 04/17/19 05:00 Patient resulted labs reviewed. Assessment/Plan Assessment and Plan Assess & Plan/Chief Complaint 1. Lumbar radiculopathy with myelopathy postop day 3 lumbar fusion appearing well. 2. Fever to 38.7 night before last night no evidence to suggest infection and no fever last night continue to monitor. Considering ongoing myelopathy which hours improving she should be a good candidate for acute rehabilitation as she is still too weak requiring max assist of one for ria sharp for safe discharge to home. 3. Considering improvement in her other neurologic symptoms and resolution of fecal impaction will DC Reyes and monitor for any evidence for urinary retention. Clinical Quality Measures DVT/VTE Risk/Contraindication: Risk Factor Score Per Nursin RFS Level Per Nursing on Admit: 2=Moderate MADDY SMYTH MD Apr 17, 2019 12:15 POS
[2019-04-17] MEDS: CALCIUM CARBONATE 500 MG (TUMS) TAB.CHEW PO PRN (15:51)
[2019-04-17 16:00] VITALS: BP 152/67
[2019-04-17] MEDS: metFORMIN 500 MG (GLUCOPHAGE) TAB PO SCH (17:09)
[2019-04-17] MEDS: ALPRAZolam 0.25 MG (XANAX) TAB PO PRN (20:02)
[2019-04-17] MEDS: DOCUSATE SODIUM 100 MG (COLACE) CAP PO SCH (20:03)
[2019-04-17] MEDS: TRIMETHOPRIM 100 MG TAB (PROLOPRIM) NON-FORMULARY PO SCH (20:03)
[2019-04-18 00:55] VITALS: BP 147/73
[2019-04-18] MEDS: metFORMIN 500 MG (GLUCOPHAGE) TAB PO SCH (06:50)
[2019-04-18 08:00] VITALS: BP 134/62
[2019-04-18] MEDS: HYDROcodone/APAP 5 MG/325 MG (LORTAB) TAB PO PRN (08:40)
[2019-04-18] MEDS: ISOSORBIDE MONONITRATE 30 MG (IMDUR) TAB PO SCH (08:41)
[2019-04-18] MEDS: SENNA W/DOCUSATE (SENOKOT S) TABLET PO SCH (08:41)
[2019-04-18] MEDS: DICYCLOMINE 10 MG (BENTYL) CAP PO SCH ×2 (08:41→12:52)
[2019-04-18] MEDS: amLODIPine 10 MG (NORVASC) TAB PO SCH (08:41)
[2019-04-18] MEDS: ASCORBIC ACID (VIT C) 500 MG TABLET PO SCH (08:41)
[2019-04-18] MEDS: predniSONE 5 MG TAB PO SCH (08:45)
[2019-04-18] MEDS: GEMFIBROZIL 600 MG (LOPID) TAB PO SCH (08:45)
[2019-04-18] MEDS ORDERED: GLIMEPIRIDE 4 MG (AMARYL) TAB PO SCH (09:00)
--- NOTE | 2019-04-18 09:37 | Cardiology Progress Note ---
Subjective Date Seen by Provider: Apr 18, 2019 Time Seen by Provider: 09:34 Subjective/Events-last exam patient is receiving therapy. No chest pain, no palpitation. Review of Systems General: No Chills, No Night Sweats, No Fatigue, No Malaise, No Appetite, No Other HEENT: No Head Aches, No Visual Changes, No Eye Pain, No Ear Pain, No Dysphasia, No Sinus Congestion, No Post Nasal Drip, No Sore Throat, No Other Pulmonary: No Dyspnea, No Cough, No Pleuritic Chest Pain, No Other Cardiovascular: No: Chest Pain, Palpitations, Orthopnea, Paroxysmal Noc. Dyspnea, Edema, Lt Headedness, Other Objective-Cardiology Exam Last Set of Vital Signs Vital Signs 04/14/19 19:45 O2 Flow Rate 3 Capillary Refill : Less Than 3 SecondsLess Than 3 Seconds I&O Intake and Output 04/18/19 00:00 Intake Total 1002 ml Output Total 2000 ml Balance -998 ml Intake Oral 1002 ml Output Urine Total 1400 ml Post Void Residual 600 ml # Voids 5 General: Alert, Oriented X3, Cooperative, No Acute Distress HEENT: Atraumatic, PERRLA Neck: Supple, Other (left carotid bruit) Lungs: Clear to Auscultation, Normal Air Movement Heart: Regular Rate, Normal S1, Normal S2, No Murmurs Abdomen: Normal Bowel Sounds, Soft Extremities: No Clubbing, No Edema Skin: No Rashes, No Significant Lesion Neuro: Normal Speech Psych/Mental Status: Mental Status NL A/P-Cardiology Admission Diagnosis Chest pain CAD HTN HLP Assessment/Plan Chest pain, resembling chronic stable angina, with suspected underlying CAD. Currently chest pain-free. EKG reveals SR with no acute ST changes. Patient takes Isosorbide and uses SL nitro as needed to relieve chest pain. Last episode of chest pain approx 1 month ago. Reports she underwent stress testing approx 3 years ago. 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 2D Echo showed mild AR, mild to mod TR, grade 1 diastolic dysfunction with EF 55-60%, PA 35-40mmHg. Patient will need to have a stress test done as an outpatient in the future Hypertension, better control on current medication, continue to monitor Hyperlipidemia, started on Lipitor instead of simvastatin. Continue to monitor Diabetes mellitus, followed and managed by primary care physician Back pain, high grade lumbar spinal stenosis and lumbar spondylolisthesis, post Lumbar perfusion done on 04/14 ( spinal fusion), recovering slowly, continue physical therapy Okay for discharge from Cardiology standpoint. Follow up as an outpatient Clinical Quality Measures DVT/VTE Risk/Contraindication: Risk Factor Score Per Nursin RFS Level Per Nursing on Admit: 2=Moderate ALTHEA PRITCHETT MD Apr 18, 2019 09:37 POS
--- NOTE | 2019-04-18 09:54 | Cardiology Progress Note ---
Subjective Date Seen by Provider: Apr 18, 2019 Time Seen by Provider: 08:55 Subjective/Events-last exam Patient sitting up in chair, complaining of some back pain. Denies any chest pain. Objective-Cardiology Exam Last Set of Vital Signs Vital Signs 04/14/19 19:45 O2 Flow Rate 3 Capillary Refill : Less Than 3 SecondsLess Than 3 Seconds I&O Intake and Output 04/18/19 00:00 Intake Total 1002 ml Output Total 2000 ml Balance -998 ml Intake Oral 1002 ml Output Urine Total 1400 ml Post Void Residual 600 ml # Voids 5 General: Alert, Oriented X3, Cooperative, No Acute Distress HEENT: Atraumatic, PERRLA Neck: Supple, Other (left carotid bruit) Lungs: Clear to Auscultation, Normal Air Movement Heart: Regular Rate, Normal S1, Normal S2, No Murmurs Abdomen: Normal Bowel Sounds, Soft Extremities: No Clubbing, No Edema Skin: No Rashes, No Significant Lesion Neuro: Normal Speech Psych/Mental Status: Mental Status NL A/P-Cardiology Admission Diagnosis Chest pain CAD HTN HLP Assessment/Plan Chest pain, resembling chronic stable angina, with suspected underlying CAD. Currently chest pain-free. EKG reveals SR with no acute ST changes. Patient takes Isosorbide and uses SL nitro as needed to relieve chest pain. Last episode of chest pain approx 1 month ago. Reports she underwent stress testing approx 3 years ago. 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 2D Echo showed mild AR, m ild to mod TR, grade 1 diastolic dysfunction with EF 55-60%, PA 35-40mmHg. Patient will need to have a stress test done as an outpatient in the future Hypertension, controlled on current medication, continue to monitor Hyperlipidemia, started on Lipitor instead of simvastatin. Continue to monitor Diabetes mellitus, followed and managed by primary care physician Back pain, high grade lumbar spinal stenosis and lumbar spondylolisthesis, post Lumbar perfusion done on 04/14 ( spinal fusion), recovering slowly, continue physical therapy Mild hypokalemia, replace and continue to monitor. Okay for discharge from Cardiology standpoint. Follow up as an outpatient Clinical Quality Measures DVT/VTE Risk/Contraindication: Risk Factor Score Per Nursin RFS Level Per Nursing on Admit: 2=Moderate VICKI LYLES Apr 18, 2019 09:54 POS
--- NOTE | 2019-04-18 09:58 | Physical Therapy Daily Note ---
PT Daily Note-Current Subjective Patient agrees to PT. Reports she is feeling better and stronger, only having pain at incision sight but she was recently given pain pill, so pain is low. Pain Numeric Pain Scale: 3 Location: Lower Location Body Site: Back Pain Description: Acute Mental Status Patient Orientation: Normal For Age Transfers SCALE: Activities may be completed with or without assistive devices. 0-Krqqbmvqsd-gpqhjki completes the activity by him/herself with no assistance from a helper. 5-Set-up or Clean-up Assistance-helper sets up or cleans up; patient completes activity. [place] assists only prior to or following the activity. 4-Supervision or Touching Assistance-helper provides verbal cues and/or touching/steadying and/or contact guard assistance as patient completes ac tivity. Assistance may be provided throughout the activity or intermittently. 3-Partial/Moderate Assistance-helper does LESS THAN HALF the effort. [place] lifts, holds or supports trunk or limbs, but provides less than half the effort. 2-Substantial/Maximal Assistance-helper does MORE THAN HALF the effort. [place] lifts or holds trunk or limbs and provides more than half the effort. 4-Xepjltvvy-fwfyfn does ALL the effort. Patient does none of the effort to complete the activity. Or, the assistance of 2 or more helpers is required for the patient to complete the activity. If activity was not attempted, code reason: 7-Patient Refused. 9-Not Applicable-not attempted and the patient did not perform the activity before the current illness, exacerbation or injury. 10-Not Attempted due to Environmental Limitations-(lack of equipment, weather restraints, etc.). 88-Not Attempted due to Medical Conditions or Safety Concerns. Sit to Stand (QC): 3 Weight Bearing Right Lower Extremity: Right Weight Bearing/Tolerated Left Lower Extremity: Left Weight Bearing/Tolerated Gait Training Does the Patient Walk?: Yes Distance: 30' Walk 10 feet (QC): 3 Gait Assistive Device: FWW Very slow pace, small, shuffling, step to pattern Exercises Supine Ex: Ankle pumps, Heel Slides, Straight leg raise Supine Reps: 10 Seated Therapy Exercises: Long arc quads, Hip flexion Seated Reps: 10 Assessment Patient performed supine and seated exercises in recliner chair. Demonstrated improved strength and ability to perform exercises with less assistance than previously required. Patient also able to complete full knee ROM during exercises independently. Patient stood from chair with FWW with mod assist and demonstrated less shaking than previously. Ambulated with very slow small shuffling steps 30' with FWW and mod assist. Patient returned to chair with legs elevated at conclusion of treatment. PT Leaflet Distributor Goals Leaflet Distributor Goals PT Senior Living Goals Time Frame: Apr 23, 2019 Sit to Lying (QC): 5 Lying-Sitting on Side/Bed(QC): 5 Sit to Stand (QC): 5 Roll Left to Right (QC): 5 Chair/Nmn-oz-Eezqp Xfer(QC): 5 Car Transfer (QC): 5 Does the Patient Walk: Yes Distance: 100' Walk 10 feet (QC): 5 Walk 50ft with 2 Turns (QC): 5 Gait Assistive Device: FWW PT Plan Treatment/Plan Treatment Plan: Continue Plan of Care Treatment Plan: Bed Mobility, Concurrent Therapy, Education, Functional Activity Stephanie, Functional Strength, Gait, Safety, Therapeutic Exercise, Transfers Treatment Duration: Apr 23, 2019 Frequency: 6 times per week Estimated Hrs Per Day: .25 hour per day Patient and/or Family Agrees t: Yes Time/GCodes Time In: 910 Time Out: 933 Total Billed Treatment Time: 23 Total Billed Treatment 1 visit GT 10min EX 13min JADON EMMANUEL PT Apr 18, 2019 09:58 POS
--- NOTE | 2019-04-18 10:31 | Progress Note - Hospitalist ---
[facility] 04/18/19 1031: Subjective HPI/CC On Admission Date Seen by Provider: Apr 18, 2019 Time Seen by Provider: 07:12 Chief complaint: Weakness with urinary retention and impaction. HPI: This is a 73yoWF who is a very poor historian, who presented with urinary retention, reyes catheter initiated in the ER and Dr. Moseley was consulted and will leave reyes catheter in until Thursday, and a fecal impaction that was removed by the ER nurse staff. She was admitted, placed with supportive care, but upon PT and OT evaluation Pt was found to have severe inability to ambulate and stand without multiple odd gyrations and Pt has a history of pain stimulator will obtain more details with that, but Pt appears to be in need of a spinal MRI, so will evaluate if we can get that if it is compatible with the pain stimulator if she does have one, but very poor history from the Pt, will try our best to get more details. Subjective/Events-last exam Pt reports decreased pain in her legs since the surgery on her back She is stilling having pain around the surgical site on her back She is no longer having the abdominal bloating or pain She did not have BM yesterday, but thinks she is going to have one today She states she has been able to walk a little using the walker, but she gets ti red and her legs feel very weak She is unable to stand up from sitting on her own due to the leg weakness She no longer has any blood in her urine and Dr Moseley told her that if she starts bleeding to go to the ER and make sure they find out if the blood is from the bladder or vagina Review of Systems General: No Chills HEENT: No Head Aches, No Visual Changes Pulmonary: No Dyspnea, No Cough Cardiovascular: No: Chest Pain, Palpitations Gastrointestinal: No: Nausea, Vomiting, Abdominal Pain, Diarrhea, Constipation Genitourinary: No Dysuria, No Hematuria Musculoskeletal: back pain; No: leg pain, foot pain Neurological: Weakness; No: Numbness Objective Exam Vital Signs Vital Signs Date Time Temp Pulse Resp B/P (MAP) Pulse Ox O2 Delivery O2 Flow Rate FiO2 04/18/19 08:00 36.0 88 18 134/62 (86) 96 Room Air 04/14/19 19:45 3 Capillary Refill : Less Than 3 SecondsLess Than 3 Seconds General Appearance: No Apparent Distress, WD/WN Respiratory: Chest Non Tender, Lungs Clear, Normal Breath Sounds, No Accessory Muscle Use, No Respiratory Distress Cardiovascular: Regular Rate, Rhythm, No Edema, Normal Peripheral Pulses Gastrointestinal: Non Tender, Soft Extremity: Non Tender, No Calf Tenderness, No Pedal Edema Neurologic/Psychiatric: Alert, Oriented x3, Normal Mood/Affect, Abnormal Gait Skin: Normal Color, Warm/Dry Results/Procedures Lab Patient resulted labs reviewed. Assessment/Plan Assessment and Plan Assess & Plan/Chief Complaint Assessment: Lower extremity weakness Post Lumbar spine surgery and nerve stimulator removal Hx urinary retention Hx of Crohn's disease Diabetes Anemia HTN Debility, inability to stand/walk Plan: Manage post surgical pain Consult cardiology for HTN management Manage diabetes Monitor anemia Monitor constipation DVT Prophylaxis (SCD due to new onset hematuria likely related to anti coagulation) crisis worker consult for mcc placement likely Clinical Quality Measures DVT/VTE Risk/Contraindication: Risk Factor Score Per Nursin RFS Level Per Nursing on Admit: 2=Moderate SHAKIRA PAIGE DO 04/18/19 1847: Subjective Subjective/Events-last exam Pt doing much better Bowels moving okay no impaction No urinary retention Leg pain is much improved [facility] pending for placement Very slow, weak and shaky Objective Exam General Appearance: No Apparent Distress, Anxious, Chronically ill, Thin Respiratory: Lungs Clear Cardiovascular: Regular Rate, Rhythm Assessment/Plan Assessment and Plan Assess & Plan/Chief Complaint NHP once arranged Diagnosis/Problems Diagnosis/Problems (1) Disorder of lumbar spine Status: Acute (2) Neurological deficit present Status: Acute (3) Hypertension (4) Ataxia Status: Acute (5) Anemia (6) Diabetes mellitus, type 2 Supervisory-Addendum Brief Verification & Attestation Participated in pt care: history, MDM, physical Personally performed: exam, history, MDM, supervision of care Care discussed with: Medical Student Procedures: n/a Results interpretation: Verified all documentation Verification and Attestation of Medical Student E/M Service A medical student performed and documented this service in my presence. I reviewed and verified all information documented by the medical student and made modifications to such information, when appropriate. I personally performed the physical exam and medical decision making. Shakira Paige, Apr 18, 2019,18:47 [facility] Apr 18, 2019 10:31 SHAKIRA SMITH DO Apr 18, 2019 18:47 POS
[2019-04-18] MEDS ORDERED: AMLO10TA7 PO (14:42)
[2019-04-18] MEDS ORDERED: ACHD5005 PO (14:42)
--- NOTE | 2019-04-18 14:42 | Occupational Ther Daily Note ---
OT Current Status-Daily Note Subjective Pt seen in recliner chair, states no current pain. Pt agreeable to OT tx session. Mental Status/Objective Patient Orientation: Normal For Age ADL-Treatment Therapy Code Descriptions/Definitions Functional [place] Measure: 0=Not Assessed/NA 4=Minimal Assistance 1=Total Assistance 5=Supervision or Setup 2=Maximal Assistance 6=Modified [place] 3=Moderate Assistance 7=Complete IndependenceSCALE: Activities may be completed with or without assistive devices. 9-Mdvinzvlcr-pldnrol completes the activity by him/herself with no assistance from a helper. 5-Set-up or Clean-up Assistance-helper sets up or cleans up; patient completes activity. [place] assists only prior to or following the activity. 4-Supervision or Touching Assistance-helper provides verbal cues and/or touching/steadying and/or contact guard assistance as patient completes activity. Assistance may be provided throughout the activity or intermittently. 3-Partial/Moderate Assistance-helper does LESS THAN HALF the effort. [place] lifts, holds or supports trunk or limbs, but provides less than half the effort. 2-Substantial/Maximal Assistance-helper does MORE THAN HALF the effort. [place] lifts or holds trunk or limbs and provides more than half the effort. 7-Vqkzoqrgp-yaacli does ALL the effort. Patient does none of the effort to complete the activity. Or, the assistance of 2 or more helpers is required for the patient to complete the activity. If activity was not attempted, code reason: 7-Patient Refused. 9-Not Applicable-not attempted and the patient did not perform the activity before the current illness, exacerbation or injury. 10-Not Attempted due to Environmental Limitations-(lack of equipment, weather restraints, etc.). 88-Not Attempted due to Medical Conditions or Safety Concerns. Eating (QC): 6 (Pt drinks from cup with straw) Shower/Bathe Self (QC): 3 (Pt completes sponge bath with wipes, requires assist with feet and back. Pt states she does not need to wash bottom/ shannon area due to showering previous date. ) Other Treatment Pt completes ADLs in recliner chair, denies need for bathroom or other ADL activities. Pt discusses plan to go to [facility], expresses desire to continue to work towards [facility]. Pt not able to reach feet for washing or sock doff/ donning; pt educated on dressing stick for sock doffing and sock aide for sock donning. Pt states she is interested in demonstration. Pt left in recliner with call light in reach, all needs met. Education OT Patient Education: Correct positioning, Progress toward Goal/Update tx plan, Use of adapted equipment Teaching Recipient: Patient Teaching Methods: Demonstration, Discussion Response to Teaching: Verbalize Understanding, Return Demonstration OT Short Term Goals Short Term Goals 1=Demonstrate adherence to instructed precautions during ADL tasks. 2=Patient will verbalize/demonstrate understanding of assistive de vices/modifications for ADL. 3=Patient will improve strength/tolerance for activity to enable patient to perform ADL's. OT Senior Care Goals Senior Care Goals Time Frame: Apr 29, 2019 Eating (QC): 6 (met) Oral Hygiene (QC): 6 Shower/Bathe Self (QC): 6 Upper Body Dressing (QC): 6 Lower Body Dressing (QC): 4 On/Off Footwear (QC): 6 Toileting Hygiene (QC): 4 Toilet/Commode Transfer (QC): 4 Additional Goals: 1-Demonstrate ADL Tasks, 2-Verbalize Understanding, 3- ImproveStrength/Stephanie 1=Demonstrate adherence to instructed precautions during ADL tasks. 2=Patient will verbalize/demonstrate understanding of assistive devices/modifications for ADL. 3=Patient will improve strength/tolerance for activity to enable patient to perform ADL's. OT Education/Plan Problem List/Assessment Assessment: Decreased Activ Tolerance, Decreased UE Strength, Dependent Transfers, Impaired Funct Balance, Impaired I ADL's, Impaired Self-Care Skills Discharge Recommendations Plan/Recommendations: Continue POC Therapy Discharge Recommendati: Post Acute OT Treatment Plan/Plan of Care Treatment,Training & Education: Yes Patient would benefit from OT for education, treatment and training to promote independence in ADL's, mobility, safety and/or upper extremity function for ADL's. Plan of Care: ADL Retraining, Caregiver Training, Functional Mobility, Group Exercise/Act as Ind, UE Funct Exercise/Act Treatment Duration: Apr 12, 2019 Frequency: 5 times per week Estimated Hrs Per Day: .25 hour per day Agreement: Yes Rehab Potential: Guarded Time/GCodes Start Time: 13:36 Stop Time: 13:49 Total Time Billed (hr/min): 13 Billed Treatment Time 1, ADL (13) KAILEY BENZ OTR Apr 18, 2019 14:42 POS
--- NOTE | 2019-04-18 14:44 | Discharge Inst-Skilled Nursing ---
Discharge Inst-Skilled NF Reconcile Patient Problems Problems Reviewed?: Yes Chief Complaint Chief complaint: Weakness with urinary retention and impaction. HPI: This is a 73yoWF who is a very poor historian, who presented with urinary retention, reyes catheter initiated in the ER and Dr. Moseley was consulted and will leave reyes catheter in until Thursday, and a fecal impaction that was removed by the ER nurse staff. She was admitted, placed with supportive care, but upon PT and OT evaluation Pt was found to have severe inability to ambulate and stand without multiple odd gyrations and Pt has a history of pain stimulator will obtain more details with that, but Pt appears to be in need of a spinal MRI, so will evaluate if we can get that if it is compatible with the pain stimulator if she does have one, but very poor history from the Pt, will try our best to get more details. Patient Instructions Patient Problems: Lumar stenosis s/p surgery Weakness Confusion DM Goal: Return to indepednent living Consult/Follow Up/Orders Follow Up Appt.: [facility] rounds Skilled NF Admit to: [facility] Certification (SNF) I certify that SNF services are required to be given on an inpatient basis because of the above named patient's need for mcc care on a continuing basis for the conditions(s) for which he/she was receiving inpatient hospital services prior to his/her transfer to the SNF. Care Home Facility Order: Nursing Services, Heat Treatment Technician-Evaluate & Treat, Physical Therapy-Evaluate & Treat, Speech Language-Evaluate & Treat Oxygen Delivery Method: Room Air Discharge Diet: ADA Diet Daily Activity as Tolerated: Yes Resuscitation Status: Full Code New & Resume Previous Orders New Medications: Amlodipine Besylate (Amlodipine Besylate) 10 Mg Tablet 10 MG PO DAILY, #30 TAB Hydrocodone Bit/Acetaminophen (Hydrocodone/Acetaminophen 5/325mg Tablet) 1 Tab Tab 1 TAB PO Q4H PRN for PAIN-MODERATE (5-7), #15 TAB Continued Medications: Ascorbic Acid (Vitamin C) 500 Mg Tablet 500 MG PO DAILY, TAB Calcium Carbonate (Antacid) 300 Mg Tab.chew 1-2 TAB.CHEW PO QID PRN for INDIGESTION, TAB Citalopram Hydrobromide (Citalopram HBr) 20 Mg Tablet 20 MG PO HS, TAB Cranberry Fruit Concentrate (Cranberry) 450 Mg Capsule 450 MG PO DAILY, CAP Dicyclomine HCl (Dicyclomine HCl) 10 Mg Capsule 20 MG PO QID, CAP TAKES 2 (10MG) CAPSULES Docusate Sodium (Colace) 100 Mg Capsule 100 MG PO HS, CAP Estrogens Conjugated (Premarin) 30 Gm Cr 0.5 GM VG TWICE WEEKLY, TUBE Gemfibrozil (Gemfibrozil) 600 Mg Tablet 600 MG PO BID, TAB Glimepiride (Glimepiride) 4 Mg Tablet 4 MG PO DAILY, TAB Isosorbide Mononitrate (Isosorbide Mononitrate ER) 30 Mg Tab.er.24h 30 MG PO DAILY, TAB Metformin HCl (Metformin HCl) 500 Mg Tablet 1000 MG PO BID, TAB TAKES 2 (500MG) TABLETS Naproxen Sodium (Aleve) 220 Mg Tablet 220 MG PO Q8H PRN for PAIN-MILD, TAB Nitroglycerin (Nitroglycerin) 0.4 Mg Tab.subl 0.4 MG SL UD PRN for CHEST PAIN, TAB Prednisone (Prednisone) 5 Mg Tablet 5 MG PO DAILY, TAB Simvastatin (Simvastatin) 40 Mg Tablet 40 MG PO HS, TAB Tramadol HCl (Tramadol HCl) 50 Mg Tablet 50 MG PO Q6H PRN for PAIN-MODERATE, TAB Trimethoprim (Trimethoprim) 100 Mg Tablet 100 MG PO HS, TAB Shakira Paige Apr 18, 2019 14:43 SHAKIRA PAIGE DO Apr 18, 2019 14:44 POS
--- NOTE | 2019-04-18 14:52 | NUR ---
FELECIA/JENNIFER discussed approval of facility upon discharge. Plan: The patient is going to [facility] for skilled therapies. [facility] is picking up the patient today at 3:30. CM/SS informed the patient of the approval and cloth picker time. The patient verbalized understanding. FELECIA/SS informed the patients Nurse. FELECIA/JENNIFER Cyry Panfilo completed a Care Assessment with the patient and it was sent to the facility along with DAVE. Finalized discharge orders will be sent to the facility. No other needs at this time. Addendum: 04/18/19 at 1614 by MARIOLA RODRIGUEZ AT [employer] social work student note reviewed and approved. Addendum: 04/18/19 at 1615 by MARIOLA PERRY AT [employer] social work note reviewed and approved
--- NOTE | 2019-04-18 15:07 | Progress Note ---
Progress Note Hospital Course: Pt was admitted after having what she thought was vaginal bleeding with dark clots, but no vaginal bleeding was observed. She has a history of urinary retention and was placed on a Garner catheter due to retention. She began to have significant hematuria, and oral anticoagulation was discontinued along with consultation to Dr Moseley urology who later performed a cystoscopy that showed no significant findings. She was found to have significant constipation with associated bloating and abdominal pain that was treated with laxatives. She also had significant back and right leg pain that was associated with a nerve stimulator she had placed years ago. We were unable to find out if an MRI was safe to perform to evaluate her spine and resulting in CT imaging to evaluate. Findings included high-grade lumbar spinal stenosis, lumbar spondylolisthesis, lumbar radiculopathy, footdrop and painful lumbar hardware. Orthopedics Dr Roblero was consulted. He performed a lumbar vertebral fusion and fixation as well as removed the battery for the nerve stimulator. The patient reported no more lower extremity pain after the procedure and had only pain at the surgical incision site. Her gait and lower extremity weakness did not improve dramatically and she is unable to stand or walk without assistance. She will require skilled nursing placement due to moderate assist on movements and transfers until her strength and coordination return to her normal baseline levels. [facility] Apr 18, 2019 15:07 POS
[2019-04-18 16:12] VITALS: BP 134/62
--- NOTE | 2019-04-18 20:48 | Discharge Summary ---
Discharge Summary Hospital Course Was the Problem List Reviewed?: Yes Problems/Dx: (1) Disorder of lumbar spine Status: Acute (2) Neurological deficit present Status: Acute (3) Hypertension (4) Ataxia Status: Acute (5) Anemia (6) Diabetes mellitus, type 2 Hospital Course Date of Admission: Apr 07, 2019 at 13:18 Admission Diagnosis : Family Physician/Provider: Sushila Lynch Aprn Date of Discharge: 04/18/19 Discharge Diagnosis: Ataxia, lumbar stenosis, weakness dementia DM Hospital Course: Hospital course: Patient had an uneventful lengthy 14-day hospital course that began as urinary retention with hematuria along with fecal impaction and ataxia resulting in close monitoring and UTI treatment then CT scan of the spine since pain stimulator could not undergo MRI which revealed stenosis that ultimately required surgical intervention by Dr. Roblero. After a long course patient was very weak and still ataxia still a major fall risk and dementia and severe debility requiring alf placement. Labs and Pending Lab Test: Microbiology 04/04/19 Blood Culture - Final, Complete No growth 04/12/19 MRSA Screen - Final, Complete MRSA not isolated Home Meds Active Hydrocodone/Acetaminophen 5/325mg Tablet (Acetaminophen/Hydrocodone Bitart) 1 Tab Tab 1 Tab PO Q4H PRN Amlodipine Besylate 10 Mg Tablet 10 Mg PO DAILY Reported Premarin (Estrogens Conjugated) 30 Gm Cr 0.5 Gm VG TWICE WEEKLY Cranberry (Cranberry Fruit Concentrate) 450 Mg Capsule 450 Mg PO DAILY Vitamin C (Ascorbic Acid) 500 Mg Tablet 500 Mg PO DAILY Aleve (Naproxen Sodium) 220 Mg Tablet 220 Mg PO Q8H PRN Colace (Docusate Sodium) 100 Mg Capsule 100 Mg PO HS Antacid (Calcium Carbonate) 300 Mg Tab.chew 1-2 Tab.chew PO QID PRN Citalopram HBr (Citalopram Hydrobromide) 20 Mg Tablet 20 Mg PO HS Metformin HCl 500 Mg Tablet 1,000 Mg PO BID TAKES 2 (500MG) TABLETS Trimethoprim 100 Mg Tablet 100 Mg PO HS Nitroglycerin 0.4 Mg Tab.subl 0.4 Mg SL UD PRN Tramadol HCl 50 Mg Tablet 50 Mg PO Q6H PRN Simvastatin 40 Mg Tablet 40 Mg PO HS Prednisone 5 Mg Tablet 5 Mg PO DAILY Isosorbide Mononitrate ER (Isosorbide Mononitrate) 30 Mg Tab.er.24h 30 Mg PO DAILY Glimepiride 4 Mg Tablet 4 Mg PO DAILY Gemfibrozil 600 Mg Tablet 600 Mg PO BID Dicyclomine HCl 10 Mg Capsule 20 Mg PO QID TAKES 2 (10MG) CAPSULES Assessment/Pt Instructions [facility] rounds Discharge Planning: <30 minutes discharge planning Discharge Instructions Discharge Diet: ADA Diet Activity as Tolerated: Yes Discharge Physical Examination Vital Signs Vital Signs Date Time Temp Pulse Resp B/P (MAP) Pulse Ox O2 Delivery O2 Flow Rate FiO2 04/18/19 16:12 36.0 88 18 134/62 96 Room Air 3.00 General Appearance: No Apparent Distress, WD/WN, Chronically ill Neurologic/Psychiatric: Alert, Oriented x3, No Motor/Sensory Deficits, Normal Mood/Affect Allergies: Coded Allergies: Sulfa (Sulfonamide Antibiotics) (Verified Allergy, Severe, 11/28/18) Discharge Summary Date of Admission Apr 07, 2019 at 13:18 Date of Discharge Apr 18, 2019 at 16:17 Discharge Date: Apr 18, 2019 Admission Diagnosis Assessment: Neurological deficit likely at spinal cord or brain level Urinary retention acute Fecal impaction acute s/p disimpaction Dementia? DM with hypoglycemia episode this am Plan: Evaluate safety of MRI of pain stimulator since she needs spine and brain Garner cath BM regimen PT/OT CT scan of c spine, brain and t-l-spine Discharge Diagnosis NHP once arranged (1) Disorder of lumbar spine Status: Acute (2) Neurological deficit present Status: Acute (3) Hypertension (4) Ataxia Status: Acute (5) Anemia (6) Diabetes mellitus, type 2 Clinical Quality Measures DVT/VTE Risk/Contraindication: Risk Factor Score Per Nursin RFS Level Per Nursing on Admit: 2=Moderate ORA PAIGE DO Apr 18, 2019 20:48 POS
== END 2019-04-18 16:17 | DRG 454 ==
LOC: ER 12:37 → 4TH 16:15 → UNDOADMOB 16:15 → 4TH 16:15 → OBSVTOIN 04-07 13:18 → INTOOBSV 04-07 13:18 → 4TH 04-11 13:44 → UNDODISIN 04-18 16:17
PROVIDERS: ADMIT Internal Medicine; ATTEND Family Medicine
PROC: 0UJH8ZZ Inspection of Vagina and Cul-de-sac, Via Natural or Artificial Opening Endoscopic (ICD-10-PCS; 2019-04-12)
PROC: 0TJB8ZZ Inspection of Bladder, Via Natural or Artificial Opening Endoscopic (ICD-10-PCS; 2019-04-12)
PROC: 0SG30AJ Fusion of Lumbosacral Joint with Interbody Fusion Device, Posterior Approach, Anterior Column, Open Approach (ICD-10-PCS; 2019-04-14)
PROC: 0SG0071 Fusion of Lumbar Vertebral Joint with Autologous Tissue Substitute, Posterior Approach, Posterior Column, Open Approach (ICD-10-PCS; 2019-04-14)
PROC: 0SG3071 Fusion of Lumbosacral Joint with Autologous Tissue Substitute, Posterior Approach, Posterior Column, Open Approach (ICD-10-PCS; 2019-04-14)
PROC: 00QT0ZZ Repair Spinal Meninges, Open Approach (ICD-10-PCS; 2019-04-14)
PROC: 0JPT0MZ Removal of Stimulator Generator from Trunk Subcutaneous Tissue and Fascia, Open Approach (ICD-10-PCS; 2019-04-14)
PROC: 0SG00AJ Fusion of Lumbar Vertebral Joint with Interbody Fusion Device, Posterior Approach, Anterior Column, Open Approach (ICD-10-PCS; principal; 2019-04-14 15:42)
DX: M48.061 Spinal stenosis, lumbar region without neurogenic claudication (principal); M43.16 Spondylolisthesis, lumbar region; G95.89 Other specified diseases of spinal cord; M54.16 Radiculopathy, lumbar region; R26.0 Ataxic gait; G97.41 Accidental puncture or laceration of dura during a procedure; N39.0 Urinary tract infection, site not specified; D62 Acute posthemorrhagic anemia; Z45.42 Encounter for adjustment and management of neurostimulator; R31.0 Gross hematuria; R33.9 Retention of urine, unspecified; K59.00 Constipation, unspecified; E11.649 Type 2 diabetes mellitus with hypoglycemia without coma; E11.40 Type 2 diabetes mellitus with diabetic neuropathy, unspecified; I25.119 Atherosclerotic heart disease of native coronary artery with unspecified angina pectoris; N95.2 Postmenopausal atrophic vaginitis; I08.2 Rheumatic disorders of both aortic and tricuspid valves; M17.0 Bilateral primary osteoarthritis of knee; E87.6 Hypokalemia; I10 Essential (primary) hypertension; E78.5 Hyperlipidemia, unspecified; K21.9 Gastro-esophageal reflux disease without esophagitis; R29.6 Repeated falls; Z87.891 Personal history of nicotine dependence; Z90.710 Acquired absence of both cervix and uterus; Z79.84 Long term (current) use of oral hypoglycemic drugs
CPT/HCPCS: 36415; 51702; 70450; 71045; 72100; 72114; 72125; 72128; 72131; 74176; 80048; 80053; 80061; 81000; 82728; 82962; 83540; 83605; 85007; 85025; 85027; 85045; 87040; 87081; 93005; 93306; 94664; G0378

== ENCOUNTER → 2020-01-25 | Outpatient (CLI) | payer MEDICARE ==
[~2020-01-25] VITALS: Ht 162 cm; Wt 59.0 kg
[~2020-01-25] MED LIST changes: +ACHD5005 PO; +AMLO10TA7 PO; +ASCO500T17 PO; +CATHETER FLUSH 10 ML SYR IV PRN; +CITA20TA12 PO; +CITA20TA9 PO; +CRAN450C PO; +DICY10CA12 PO; +DOCU-143 PO; +EST30C VG; +GEMF600T8 PO; +GLIM4TAB5 PO; +ISOS30TA3 PO; +METF-397 PO; +METF-399 PO; +NAPR220T66 PO; +NITR-68 PO; +NITR0.4T39 SL; +PRED5TAB PO; +PREG75CA PO; +Premarin PV; +REGADENOSON 0.4 MG/5 ML SYR (LEXISCAN) IV ONE; +SIMV40TA25 PO; +TRIM100T PO; +TRM50T PO; +[UNRECOGNIZED DRUG - CODE] PO
[2020-01-25 11:10] LABS: ALANINE AMINOTRANSFERASE 12 U/L (0-55); ALBUMIN 4.7 GM/DL (3.2-4.5); ALKALINE PHOSPHATASE 104 U/L (40-136); BILIRUBIN,TOTAL 0.2 MG/DL (0.1-1.0); BUN/CREATININE RATIO 22; CALCIUM 11.7 MG/DL (8.5-10.1); CARBON DIOXIDE 27 MMOL/L (21-32); CHLORIDE 104 MMOL/L (98-107); CHOLESTEROL 153 MG/DL (< 200); CREATININE SERUM 0.94 MG/DL (0.60-1.30); GFR ESTIMATED 58; GLUCOSE 87 MG/DL (70-105); HDL CHOLESTEROL 63 MG/DL (40-60); POTASSIUM 4.6 MMOL/L (3.6-5.0); SODIUM 139 MMOL/L (135-145); TRIGLYCERIDES 77 MG/DL (<150); VLDL CHOLESTEROL 15 MG/DL (5-40)
[2020-01-25 12:48] VITALS: BP 160/92
--- NOTE | 2020-01-25 14:57 | Cardiology Stress Test Report ---
Stress Test Report Date of Procedure/Referring: Date of Procedure: Jan 25, 2020 PCP Althea Mckeon MD Admitting Physician [facility] Indications: Chest pain Baseline Heart Rate: 86 Baseline Blood Pressure: Blood Pressure Systolic: 160 Blood Pressure Diastolic: 92 Baseline Vitals Vital Signs Date Time Temp Pulse Resp B/P (MAP) Pulse Ox O2 Delivery O2 Flow Rate FiO2 01/25/20 12:48 99 19 160/92 (114) 99 Room Air Baseline EKG: Baseline EKG: normal sinus rhythm Summary After explaining the procedure to the patient, she signed a consent and then brought to the stress nuclear laboratory. Patient received 0.4 mg Lexiscan for stress test, ECG, heart rate and blood pressure were monitored continuously. Resting and stress dose of radio tracer were injected, imaging was acquired and reviewed in short axis, horizontal long axis and vertical long axis views. TID: 1.02 SSS: 2 SDS: 0 EF: 71 1. Patient tolerated Lexiscan well 2. No significant ischemia or infarction on SPECT images 3. Normal left ventricular size, EF 71 percent ALTHEA MCKEON MD Jan 25, 2020 14:57
== END ==
LOC: CARD 11:00
PROVIDERS: ATTEND Internal Medicine Cardiovascular Disease
DX: I35.1 Nonrheumatic aortic (valve) insufficiency (principal); I10 Essential (primary) hypertension; E11.9 Type 2 diabetes mellitus without complications; E78.2 Mixed hyperlipidemia
CPT/HCPCS: 78452; 80053; 80061; 93017; 93306; A9502; 36415

== ENCOUNTER 2020-04-25 10:00 | Day surgery (SDC) | payer MEDICARE ==
[~2020-04-25] VITALS: Ht 165.1 cm; Wt 66.0 kg
[2020-04-25] VITALS (16 sets, daily range): BP systolic 116–175; BP diastolic 48–80
[2020-04-25 08:34] LABS: MEAN PLATELET VOLUME 10.2 fL (9.0-12.2); WHITE BLOOD COUNT 7.6 10^3/uL (4.3-11.0)
[2020-04-25 08:50] LABS: PROTHROMBIN TIME PATIENT 13.6 SEC (12.2-14.7)
[2020-04-25 08:58] LABS: ALANINE AMINOTRANSFERASE 11 U/L (0-55); ALBUMIN 4.6 GM/DL (3.2-4.5); ALKALINE PHOSPHATASE 98 U/L (40-136); BILIRUBIN,TOTAL 0.2 MG/DL (0.1-1.0); BUN/CREATININE RATIO 14; CALCIUM 10.2 MG/DL (8.5-10.1); CARBON DIOXIDE 24 MMOL/L (21-32); CHLORIDE 106 MMOL/L (98-107); CHOLESTEROL 164 MG/DL (< 200); CREATININE SERUM 1.02 MG/DL (0.60-1.30); GFR ESTIMATED 53; GLUCOSE 123 MG/DL (70-105); HDL CHOLESTEROL 57 MG/DL (40-60); SODIUM 143 MMOL/L (135-145); TOTAL PROTEIN 7.8 GM/DL (6.4-8.2); TRIGLYCERIDES 77 MG/DL (<150); VLDL CHOLESTEROL 15 MG/DL (5-40)
--- NOTE | 2020-04-25 09:14 | Diagnostic Imaging Report ---
INDICATION: Coronary artery disease. COMPARISON: 11/28/2018. FINDINGS: A spinal stimulator device is in stable alignment. The lungs are clear. There is no failure, effusion, or pneumothorax. IMPRESSION: Stable chest. Dictated by: Dictated on workstation # [id number]
--- NOTE | 2020-04-25 09:40 | NUR ---
SPOKE WITH THE PT (SHE HAS HER HOME MEDS) TO COMPLETE THE MED REC 02-09-2020 METFORMIN 500MG #360/90DS 02-11-2020 GEMFIBROZIL 600MG #180/90DS 02-27-2020 PREDNISONE 5MG #90/90DS 02-29-2020 GLIMEPIRIDE 4MG #180/90DS 02-29-2020 PANTOPRAZOLE 20MG #90/90DS 02-29-2020 LOSARTAN 100MG #90/90DS 03-09-2020 SIMVASTATIN 40MG #90/90DS 03-23-2020 ISOSORBIDE MONO ER #90/90DS 04-13-2020 CITALOPRAM 20MG #90/90DS 04-13-2020 DICYCLOMINE 10MG #720/90DS 04-18-2020 TRAMADOL 50MG #112 OTC MEDS: GRACIA
[~2020-04-25 10:00] MED LIST changes: +ACET325T38 PO; +AMLO-251 PO; -AMLO10TA7 PO; -CATHETER FLUSH 10 ML SYR IV PRN; +HEParin (CATH LAB) 2,000 ML IV ONE; +LIDOCAINE 1% INJ 20 ML 20 ML VIAL ONE; +LOSA100T57 PO; +NS IV 1000 ML 1,000 ML IV SCH; +NS IV 1000 ML 1,000 ML ONE; +PANT20TA18 PO; +PANT40TA2 PO; -REGADENOSON 0.4 MG/5 ML SYR (LEXISCAN) IV ONE
[2020-04-25] MEDS ORDERED: fentaNYL INJECTION 100 MCG/2 ML AMP ONE (13:10)
[2020-04-25] MEDS ORDERED: MIDAZOLAM 5 MG/5 ML (VERSED) VIAL ONE (13:10)
[2020-04-25] MEDS ORDERED: VERAPAMIL 5 MG/2 ML (CALAN) VIAL IV ONE (13:18)
[2020-04-25] MEDS ORDERED: NITRO DRIP 25000 MCG/D5W 250 ML IV ONE (13:18)
[2020-04-25] MEDS ORDERED: HEParin 1000 UNIT/ML (10ML VIAL) FOR BOLUS ONE (13:18)
--- NOTE | 2020-04-25 14:01 | Cardiac Procedure Note-CS/ASA ---
Pre-Procedure Note Pre-Op Procedure Note H&P Reviewed The H&P was reviewed, patient examined and no changes noted. Date H&P Reviewed: Apr 25, 2020 Time H&P Reviewed: 11:00 Conscious Sedation Pre-Proced Time 11:00 ASA Score 3 For ASA 3 and 4: Consider anesthesia and medical clearance. Also, for patients with a history of failed moderate sedation consider anesthesia. Airway Lungs Heart ASA score ASA 1: a normal healthy patient ASA 2: a patient with a mild systemic disease (mid diabetes, controlled hypertension, obesity x ASA 3: a patient with a severe systemic disease that limits activity (angina, COPD, prior Myocardial infarction) ASA 4: a patient with an incapacitating disease that is a constant threat to life (CHF, renal failure) ASA 5: a moribund patient not expected to survive 24 hrs. (ruptured aneurysm) ASA 6: a declared brain- patient whose organs are being harvested. For emergent operations, add the letter E after the classification Mallampati Classification Grade 3 Sedation Plan Analgesia, Amnesia, Plan communicated to team members, Discussed options with patient/fam, Discussed risks with patient/fam The patient is an appropriate candidate to undergo the planned procedure, sedation, and anesthesia. The patient immediately re-assessed prior to indication. ALTHEA PRITCHETT MD Apr 25, 2020 2:01 pm
--- NOTE | 2020-04-25 14:03 | Discharge Inst-Post CATH ---
Discharge Inst-CATH/EP Problems Reviewed?: Yes Post Cardiac Cath/EP D/C Inst Follow Up/Plan Appointment with Dr Mckeon in 4 weeks <b>CARDIAC CATH/EP PROCEDURE DISCHARGE INSTRUCTIONS</b> ACTIVITY * Go Home directly and rest. * Limit activity of the leg (or wrist if it was used) for 7 days including aerobics, swimming, jogging, bicycling, etc. * Restrict stair-climbing for 7 days if possible, if not, climb up with your non-cath leg, then bring together on the same step. * Avoid lifting, pushing, pulling or excessive movement of the affected extremity for 7 days. * Customary sexual activity may be resumed after 2 days-use caution not to use a position that strains or causes pain to the affected extremity. * No driving for 24 hours. * NO SMOKING. * Avoid straining for bowel movements for 7 days. * Gentle walking on level ground is allowed. * Returning to work will depend on the type of procedure and the results. Your doctor will discuss this with you. CALL YOUR DOCTOR FOR ANY OF THE FOLLOWING: *If bleeding from the puncture site occurs- Apply gentle pressure to site with clean cloth and call your doctor or EMS. * If a knot or lump forms under the skin, increases in size, or causes pain. * If bruising appears to be worsening or moving further down your leg instead of disappearing. * Temperature above 101 F. CARE OF YOUR GROIN INCISION; * Bruising or purple discoloration of the skin near the puncture site is common. * You may shower only, no bathtub bathing for 5 days. Be careful to avoid slipping as your leg may feel stiff. * If a closure device was used on your femoral artery, please see the attached guide regarding care of the device and your leg. * Leave dressing on FOR 24 hours. CARE OF YOUR WRIST INCISION; * Bruising or purple discoloration of the skin near the puncture site is common. * You may shower. * DO NOT submerge wrist. * Leave dressing on FOR 24 hours. ALTHEA MCKEON MD Apr 25, 2020 2:03 pm
--- NOTE | 2020-04-25 14:09 | Cardiac Cath Report ---
Cardiac Cath Report Physician (s)/Meter Tester Primary (s) Physician ALTHEA PRITCHETT MD Pre-Procedure Diagnosis Pre-Procedure Diagnosis: chest pain, coronary artery disease Post-Procedure Note Procedure Start Date: Apr 25, 2020 Name of Procedure: Left heart catheterization Aortic root angiogram Findings/Procedure Note PROCEDURE NOTE: 74-year-old lady with history of recurrent chest pain, has been having increasing episodes of chest pain responsive to nitroglycerin, had abnormal stress test in the past but continue to have recurrent chest pain, she was scheduled for cardiac catheterization possible PTCA. After explaining the procedure to the patient, all pros and cons were explained, all questions were answered. The patient signed the consent and then she was placed on the cardiac catheterization laboratory. Groin was prepped SL fashion local anesthesia was used. Sheath placed in the right radial artery, [place] catheter advanced to the left ventricular cavity, left ventriculogram was done, pullback LV to aorta was done, dressed of the left coronary system and angiogram was done then I was unable to find any origin of her right coronary artery. I proceeded with multiple nonselective injection in the right coronary cusp and noncoronary cusp without finding any arteries coming off that area. The circumflex artery is a large dominant artery and giving the right ventricular branch, I exchanged the catheter to pigtail catheter and placed it in the aortic root and did aortic root angiogram. At the end of the procedure the sheath was removed. Vascular band was used FINDINGS: Hemodynamics LV 140/7, end-diastolic pressure of 7 Aorta 146/54 mean of 83 ANATOMY: Left Main is very short, almost separate ostium of the LAD and circumflex artery Left Anterior Descending is moderate in size with mild irregularity with no significant obstructive disease Left Circumflex is large dominant artery giving the right posterior descending branch and giving large right ventricular branch, probably compensating for the absent right coronary artery Right Coronory Artery was not visualized, I was unable to find the right coronary artery with multiple injection in the cusp and with aortic root angiogram probably absent right coronary artery LV Gram was done showing normal left ventricular size and systolic function and ejection fraction 60 percent Aorta evaluation done with aortic root angiogram showing normal aortic root, no dissection or aneurysm, normal cusp of the aortic valve, the left cusp showing origin of left coronary system, there is no other coronary artery coming off to the right side CONCLUSION: 1. Absent right coronary artery, a she has a large dominant circumflex artery that giving the right posterior descending branch of the right ventricular branch 2. Moderate LAD system with mild disease nonobstructive disease 3. Normal left ventricular size and systolic function estimated ejection fraction 60 percent 4. Normal aortic root and no dissection or aneurysm DISCUSSION AND RECOMMENDATION: Medical therapy is recommended. Patient has absent right coronary artery. She has been having chest pain responsive to nitroglycerin probably due to small vessel disease Anesthesia Type: Conscious Sedation Estimated blood loss (mL): 25 ml Contrast Amount: 75 ml Total Radiation Dose: 271 mGy Post-Procedure Diagnosis Post-operative diagnosis: Chest pain Coronary artery disease Hypertension Hyperlipidemia ALTHEA PRITCHETT MD Apr 25, 2020 2:09 pm
[2020-04-25] MEDS: NS IV 1000 ML 1,000 ML IV SCH (14:34)
[2020-04-25] MEDS ORDERED: NITROGLYCERIN 0.4 MG SL TABS BTL 25'S SL PRN (16:45)
[2020-04-25] MEDS ORDERED: ACETAMINOPHEN 325 MG TABLET PO PRN (16:45)
--- NOTE | 2020-04-25 17:00 | NUR ---
RIGHT AFTER REMOVING PRESSURE DEVICE AT APPROX 1620 THIS RN NOTICED SMALL KNOT NEAR PUNCTURE SITE AND OOZING FROM RIGHT RADIAL PUNCTURE SITE, REPLACED PRESSURE DEVICE AND FILLED WITH 10CC OF AIR. PULSE PRESENT TO RIGHT WRIST PER PALPATION. CALL DR. PRITCHETT AT 1625 TO REPORT OOZING/BLEEDING AT SITE, RECEIVED ORDER TO KEEP PATIENT OVERNIGHT TO MONITOR. THIS RN NOTIFIED WAGON DRIVER SALESPERSON. PATIENT TO GO TO ROOM 417. REPORT CALLED TO DALILA DIALLO AT APPROX. 1645. PATIENT VOIDED X1 VIA BEDPAN. DALILA MONTEMAYOR TRANSPORTED PATIENT UP TO 417 WITH MONITOR AT 1700.
--- NOTE | 2020-04-25 17:04 | NUR ---
PATIENT TO ROOM 417 VIA CART/ TRANSPORTED BY DAY VAMP STRAP IRONERDALILA MONTEMAYOR. TELEPHONE REPORT RECEIVED FROM DAY VAMP STRAP IRONERDALILA CASTANEDA. RIGHT RADIAL HEART CATH SIT ASSESSED, NO BLEEDING NOTED. VITALS TAKEN. PATIENT IS STABLE AND DENIES ANY NEEDS AT THIS TIME.
--- NOTE | 2020-04-25 18:31 | NUR ---
NOTIFIED DR PRITCHETT PRESSURE OFF RADIAL HEART CATH. NO BLEEDING. HE DOES NOT WANT TELEMETRY OR LOVENOX ORDERED.
[2020-04-25] MEDS ORDERED: DOCUSATE SODIUM 100 MG (COLACE) CAP PO SCH (21:00)
[2020-04-25] MEDS ORDERED: SIMvastatin 40 MG (ZOCOR) TAB PO SCH (21:00)
[2020-04-25] MEDS: GEMFIBROZIL 600 MG (LOPID) TAB PO SCH (21:56)
[2020-04-26 00:37] VITALS: BP 158/74
[2020-04-26] MEDS: NS IV 1000 ML 1,000 ML IV SCH ×2 (00:46→09:56)
[2020-04-26 04:00] VITALS: BP 152/65
[2020-04-26] MEDS ORDERED: GLIMEPIRIDE 4 MG (AMARYL) TAB PO SCH (07:00)
[2020-04-26 08:00] VITALS: BP 160/71
[2020-04-26] MEDS ORDERED: predniSONE 5 MG TAB PO SCH (08:00)
[2020-04-26] MEDS: GEMFIBROZIL 600 MG (LOPID) TAB PO SCH (08:27)
[2020-04-26] MEDS ORDERED: LOSARTAN 100 MG (COZAAR) TABLET PO SCH (09:00)
[2020-04-26] MEDS ORDERED: PANTOPRAZOLE 20 MG TABLET (PROTONIX) PO SCH (09:00)
[2020-04-26] MEDS ORDERED: ISOSORBIDE MONONITRATE 30 MG (IMDUR) TAB PO SCH (09:00)
--- NOTE | 2020-04-26 09:14 | Cardiology Progress Note ---
Subjective Date Seen by Provider: Apr 26, 2020 Time Seen by Provider: 09:37 Subjective/Events-last exam Patient is laying down in bed no new complaint. Feeling well Review of Systems General: No Chills, No Night Sweats, No Fatigue, No Malaise, No Appetite, No Other HEENT: No Head Aches, No Visual Changes, No Eye Pain, No Ear Pain, No Dysphasia, No Sinus Congestion, No Post Nasal Drip, No Sore Throat, No Other Pulmonary: No Dyspnea, No Cough, No Pleuritic Chest Pain, No Other Cardiovascular: No: Chest Pain, Palpitations, Orthopnea, Paroxysmal Noc. Dyspnea, Edema, Lt Headedness, Other Objective-Cardiology Exam Last Set of Vital Signs Vital Signs 04/26/20 04/26/20 08:00 09:00 Temp 36.5 Pulse 71 Resp 16 B/P (MAP) 160/71 (100) Pulse Ox 98 O2 Delivery Room Air Capillary Refill : Less Than 3 Seconds I&O Intake and Output 04/26/20 00:00 Intake Total 640 ml Balance 640 ml Intake Oral 640 ml # Voids 1 General: Alert, Oriented X3, Cooperative HEENT: Atraumatic, PERRLA Neck: Supple, No JVD, No Thyromegaly Lungs: Clear to Auscultation, Normal Air Movement Heart: Regular Rate, Normal S1, Normal S2, No Murmurs Abdomen: Normal Bowel Sounds, Soft, No Tenderness, No Hepatosplenomegaly, No Masses Extremities: No Clubbing, No Cyanosis, No Edema, Normal Pulses, No Tenderness/Swelling Skin: No Rashes, No Breakdown, No Significant Lesion Neuro: Normal Gait, Normal Speech, Strength at 5/5 X4 Ext, Normal Tone, Sensation Intact Psych/Mental Status: Mental Status NL, Mood NL A/P-Cardiology Admission Diagnosis Coronary artery disease Hypertension Hyperlipidemia Assessment/Plan Coronary artery disease status post cardiac catheterization, mild to moderate disease 1. Absent right coronary artery, a she has a large dominant circumflex artery that giving the right posterior descending branch of the right ventricular branch 2. Moderate LAD system with mild disease nonobstructive disease 3. Normal left ventricular size and systolic function estimated ejection fraction 60 percent 4. Normal aortic root and no dissection or aneurysm Hypertension, continue on home medication monitor Hyperlipidemia, continue to monitor Catheter site is healing well. No hematoma or bleed Clinical Quality Measures DVT/VTE Risk/Contraindication: Risk Factor Score Per Nursin RFS Level Per Nursing on Admit: 2=Moderate ALTHEA PRITCHETT MD Apr 26, 2020 9:14 am
--- NOTE | 2020-04-26 11:42 | NUR ---
CALLED TO NOTIFY HIM THE PATIENT IS DISCHARGED AND READY TO GO HOME. HIS PHONE IMMEDIATELY WENT TO VOICE MAIL BOX THAT IS FULL. CALLED NEIGHBOR LISTED EMERGENCY CONTACT. SHE IS IN [place] BUT WILL CALL ANOTHER NEIGHBOR WHO WILL BE ABLE TO LET KIKA KNOW THAT SUDHEER IS READY TO GO HOME.
[2020-04-26 12:00] VITALS: BP 130/61
[2020-04-26 14:30] VITALS: BP 130/61
== END 2020-04-26 14:30 ==
LOC: CATH 10:00 → SDC 14:07 → 4TH 17:05 → CATH 04-26 14:30
PROVIDERS: ATTEND Internal Medicine Cardiovascular Disease
DX: I25.10 Atherosclerotic heart disease of native coronary artery without angina pectoris (principal); I10 Essential (primary) hypertension; E78.5 Hyperlipidemia, unspecified; E78.2 Mixed hyperlipidemia; E11.9 Type 2 diabetes mellitus without complications; R94.39 Abnormal result of other cardiovascular function study; Z79.899 Other long term (current) drug therapy; Z79.84 Long term (current) use of oral hypoglycemic drugs; Z88.2 Allergy status to sulfonamides; Z87.891 Personal history of nicotine dependence
CPT/HCPCS: 71045; 80053; 80061; 85027; 85610; 85730; 87081; 93458; 93567; C1894; 36415

== ENCOUNTER → 2020-05-23 | Outpatient (CLI) | payer MEDICARE ==
[~2020-05-23] MED LIST changes: +CATHETER FLUSH 10 ML SYR IV PRN; -HEParin (CATH LAB) 2,000 ML IV ONE; +HOLD METFORMIN - RECEIVED CONTRAST 20 ML VIAL IV SCH; +IOHEXOL 350 MG/ML 100 ML (OMNIPAQUE 350) VIAL IV ONE; -LIDOCAINE 1% INJ 20 ML 20 ML VIAL ONE; +NS 100 ML (IVPB) BAG IV ONE; -NS IV 1000 ML 1,000 ML IV SCH; -NS IV 1000 ML 1,000 ML ONE
--- NOTE | 2020-05-23 11:23 | Diagnostic Imaging Report ---
CLINICAL INDICATION: Patient with history of occlusion and stenosis of carotid artery. EXAMS: 1: Head CT with and without IV contrast. Auto Exposure Controls were utilized during the CT exam to meet ALARA standards for radiation dose reduction. 2: CT angiogram of the head and neck performed with 100 cc of Omnipaque 350 IV contrast. Sagittal and coronal MIP reformations were created for better visualization of vascular anatomy. COMPARISON: CT scan of the head and cervical spine without contrast dated 04/06/2019. FINDINGS: Head CT: There is skull streak artifact which obscures portions of the brainstem, posterior fossa, and portions of the brain near the skull base. There is no evidence of acute cerebral infarct, intracranial hemorrhage, or gross mass effect. The brain parenchymal volume appears appropriate for patient's age. There are diffuse patchy and confluent areas of low-attenuation white matter changes seen throughout both cerebral hemispheres and periventricular regions are again seen and slightly progressed in interim. There is normal gamez-white matter distinction. There is no significant midline shift or herniation. There is no evidence of hydrocephalus. The basal cisterns are unremarkable. The skull, extracranial soft tissue, and orbits are unremarkable. The paranasal sinuses are unremarkable. Temporal bones show no significant abnormality. CT Angiogram: There is motion and streak artifact which obscures portions of aortic arch and proximal great vessels. There is common origin of the brachiocephalic artery and left common carotid consistent with bovine arch. There is mild stenosis involving the proximal mid left subclavian artery. Remainder of the left subclavian artery is patent. The brachiocephalic artery demonstrates significant artifact, but is patent. The right subclavian artery is patent. The proximal portion of the right common carotid artery is obscured by artifact. The distal right common carotid artery demonstrates atherosclerotic disease with pozi-sf-trgyyciw narrowing. There is atherosclerotic disease involving the origin of the right ECA and cervical right ICA region. There is roughly 50-69% stenosis of the origins of the cervical right ICA and right ECA regions. The remainder of the cervical right ICA and right ECA are patent. The left common carotid artery is patent. The cervical left ICA and left ECA are patent. The bilateral petrous, cavernous and supraclinoid ICA are patent without significant stenosis. There is a small caliber right A1 MARY. There is a prominent left A1 MARY and anterior communicating artery. Trifurcation is seen with patent bilateral A2 ACAs and their distal branches. The bilateral MCAs and their distal branches are patent. Bilateral cervical vertebral arteries are patent. Slightly dominant left cervical vertebral artery is seen. The intradural bilateral vertebral arteries are patent. The basilar artery, bilateral superior cerebellar arteries, and bilateral HAMMERSMITH HELPER are patent. There is prominence of the basilar tip with no definite aneurysm seen. The dural venous sinuses are patent. The neck soft tissue structures show no significant abnormality. There is cervical spine degenerative disease. There is bilateral apical pleural parenchymal scarring/thickening seen in the lung apices. IMPRESSION: 1: There is no definite CT evidence of interval acute cerebral infarction, intracranial hemorrhage, or mass seen. Given the diffuse low attenuation changes throughout the brain parenchyma which can obscure more subtle findings, if there is clinical concern for acute cerebral infarction, MRI of the brain would better evaluate. 2: There is progression of suspected diffuse chronic small vessel ischemic disease and leukoaraiosis. 3: There is 50-69% stenosis involving the origins of the cervical right ICA and right ECA regions. 4: Otherwise, the remainder of the CT angiogram of the head and neck shows no other significant stenosis, vascular malformation, aneurysm, or dissection. Dictated by: Dictated on workstation # [id number]
== END ==
LOC: RAD FS 09:50
PROVIDERS: ATTEND Physician Assistant
DX: I65.21 Occlusion and stenosis of right carotid artery (principal)
CPT/HCPCS: 70496; 70498

== ENCOUNTER 2020-06-29 10:03 | Emergency (ER) | payer MEDICARE ==
[~2020-06-29] VITALS: Ht 162.5 cm; Wt 66.0 kg
[~2020-06-29 10:03] MED LIST changes: -CATHETER FLUSH 10 ML SYR IV PRN; -HOLD METFORMIN - RECEIVED CONTRAST 20 ML VIAL IV SCH; -IOHEXOL 350 MG/ML 100 ML (OMNIPAQUE 350) VIAL IV ONE; -NS 100 ML (IVPB) BAG IV ONE
[2020-06-29 11:00] LABS: BASOPHILS % (AUTO) 0 % (0-10); EOSINOPHILS % (AUTO) 0 % (0-10); HEMATOCRIT 30 % (35-52); HEMOGLOBIN 10.2 G/DL (11.5-16.0); LYMPHOCYTES # (AUTO) 1.1 X 10^3 (1.0-4.0); LYMPHOCYTES % (AUTO) 13 % (12-44); MEAN CORPUSCULAR HEMOGLOBIN 29 PG (25-34); MEAN CORPUSCULAR HGB CONC 34 G/DL (32-36); MEAN CORPUSCULAR VOLUME 87 FL (80-99); MEAN PLATELET VOLUME 10.5 FL (7.4-10.4); MONOCYTES # (AUTO) 0.3 X 10^3 (0.0-1.0); MONOCYTES % (AUTO) 4 % (0-12); NEUTROPHILS % (AUTO) 82 % (42-75); PLATELET COUNT 334 10^3/uL (130-400); WHITE BLOOD COUNT 8.4 10^3/uL (4.3-11.0)
[2020-06-29] MEDS ORDERED: ONDANSETRON 4 MG/2 ML (SDV) Z0FRAN IVP ONE (11:15)
[2020-06-29] MEDS ORDERED: fentaNYL INJECTION 100 MCG/2 ML AMP IVP ONE (11:15)
[2020-06-29 11:16] LABS: ALKALINE PHOSPHATASE 106 U/L (40-136); BILIRUBIN,TOTAL 0.2 MG/DL (0.1-1.0); BUN/CREATININE RATIO 22; CARBON DIOXIDE 22 MMOL/L (21-32); CHLORIDE 93 MMOL/L (98-107); CREATININE SERUM 0.74 MG/DL (0.60-1.30); GFR ESTIMATED > 60; SODIUM 127 MMOL/L (135-145)
[2020-06-29 11:17] LABS: ALANINE AMINOTRANSFERASE 8 U/L (0-55); ALBUMIN 4.5 GM/DL (3.2-4.5); TOTAL PROTEIN 7.1 GM/DL (6.4-8.2)
[2020-06-29 11:19] LABS: GLUCOSE 452 MG/DL (70-105)
[2020-06-29 11:36] LABS: COLOR,URINE PALE YELLOW
[2020-06-29 11:37] LABS: CLARITY,URINE SLIGHTLY CLOUDY
[2020-06-29 11:38] LABS: BACTERIA,URINE LARGE /HPF; BILIRUBIN,URINE NEGATIVE (NEGATIVE); GLUCOSE, URINE (UA) 3+ (NEGATIVE); KETONES,URINE NEGATIVE (NEGATIVE); LEUKOCYTE ESTERASE ,URINE TRACE (NEGATIVE); NITRITE,URINE NEGATIVE (NEGATIVE); PROTEIN,URINE NEGATIVE (NEGATIVE); RBC,URINE 0-2 /HPF
--- NOTE | 2020-06-29 12:51 | ED General ---
General Chief Complaint: General Problems/Pain Stated Complaint: AMS; GEN WEAKNESS; ELEV BP Nursing Triage Note: Patient presents to the ED from [facility] with c/o of general weakness, confusion, and right flank pain. Patient is alert and oriented x 4 upon arrival to the ED. She states that a couple weeks ago she was seen and started on an antibiotic for a kidney infection; the antibiotic was then started on a new antibiotic a few days ago. She reports that she had this same issue back in May with a severe kidney infection and had to be admitted to [facility]; she states at that time her sodium was also low. Nursing Sepsis Screen: No Definite Risk Source of Information: Patient History of Present Illness Date Seen by Provider: Jun 29, 2020 Time Seen by Provider: 10:45 Initial Comments Patient is a 75-year-old female with history of Crohn's disease and recurrent urinary tract infections who presents with right flank pain, generalized weakness malaise and nausea. Patient also reports subjective fever and chills. Patient has been on antibiotics for the past 3 weeks and was started on the second antibiotic 2 days ago for treatment of the same. Urine culture results are unknown. Patient reports increased flank pain today. States symptoms are similar to condition 3 months ago which required hospitalization and treatment by her urologist.. Timing/Duration: 1-3 Hours, 3-4 Days Severity: Moderate Associated Systoms: Weakness Allergies and Home Medications Allergies Coded Allergies: Sulfa (Sulfonamide Antibiotics) (Verified Allergy, Severe, 11/28/18) Home Medications Acetaminophen 325 Mg Tablet, 325-650 MG PO Q8H PRN for PAIN-MILD (1-4), (Reported) Citalopram Hydrobromide 20 Mg Tablet, 20 MG PO HS, (Reported) Dicyclomine HCl 10 Mg Capsule, 20 MG PO QID, (Reported) TAKES 2 (10MG) CAPSULES Docusate Sodium 100 Mg Capsule, 100 MG PO HS, (Reported) Gemfibrozil 600 Mg Tablet, 600 MG PO BID, (Reported) Glimepiride 4 Mg Tablet, 4 MG PO BIDAC, (Reported) Isosorbide Mononitrate 30 Mg Tab.er.24h, 30 MG PO DAILY, (Reported) Losartan Potassium 100 Mg Tablet, 100 MG PO DAILY, (Reported) Metformin HCl 500 Mg Tablet, 1,000 MG PO BID, (Reported) TAKES 2 (500MG) TABLETS Nitroglycerin 0.4 Mg Tab.subl, 0.4 MG SL UD PRN for CHEST PAIN, (Reported) Pantoprazole Sodium 20 Mg Tablet.dr, 20 MG PO DAILY, (Reported) Prednisone 5 Mg Tablet, 5 MG PO DAILY, (Reported) Simvastatin 40 Mg Tablet, 40 MG PO HS, (Reported) Tramadol HCl 50 Mg Tablet, 50 MG PO Q6H PRN for PAIN-MODERATE, (Reported) Patient Home Medication List Home Medication List Reviewed: Yes Review of Systems Review of Systems Constitutional: see HPI EENTM: see HPI Respiratory: see HPI Cardiovascular: see HPI Gastrointestinal: see HPI Genitourinary: see HPI Musculoskeletal: see HPI Skin: see HPI Psychiatric/Neurological: See HPI Hematologic/Lymphatic: See HPI All Other Systems Reviewed Negative Unless Noted: Yes Past Duyiogc-Dkdxlk-Ghbhep Hx Past Med/Social Hx: Reviewed Nursing Past Med/Soc Hx Patient Social History Alcohol Use: Denies Use Smoking Status: Former Smoker Type Used: Cigarettes Former Smoker, Quit: Jun 01, 1989 2nd Hand Smoke Exposure: No Recent Infectious Disease Expo: No Recent Hopitalizations: No Immunizations Up To Date Date of Pneumonia Vaccine: Apr 14, 2018 Date of Influenza Vaccine: Mar 05, 2020 Seasonal Allergies Seasonal Allergies: No Past Medical History Surgeries: Yes (Cystourethroscopy, colonoscopy, EGD, removal spinal stimulator, ESWL) Appendectomy, Gallbladder, Hysterectomy Respiratory: Yes Pneumonia Cardiac: Yes (Diastolic dysfunction) Hypertension Neurological: Yes Neuropathy Genitourinary: Yes (Urethral strictures, Hx Klebsiella cystitis) Kidney Stones, UTI-Chronic Gastrointestinal: Yes (Regional enteritis) Gastroesophageal Reflux, Crohns Disease Musculoskeletal: No Chronic Back Pain Endocrine: Yes (DM Type II) Diabetes, Non-Insulin dep HEENT: No Cancer: No Psychosocial: No Integumentary: No Blood Disorders: No Physical Exam Vital Signs Vital Signs - First Documented 06/29/20 10:10 Temp 37.0 Pulse 82 Resp 12 B/P (MAP) 179/75 (109) Pulse Ox 98 O2 Delivery Room Air Capillary Refill : Less Than 3 Seconds Height, Weight, BMI Height: 5'5.00" Weight: 132lbs. oz. [id number]; 24.00 BMI Method:Stated General Appearance: Other Eyes: Bilateral Eye Normal Inspection, Bilateral Eye PERRL, Bilateral Eye EOMI HEENT: PERRL/EOMI, Pharynx Normal Neck: Full Range of Motion, Normal Inspection, Supple Respiratory: Chest Non Tender, Normal Breath Sounds Cardiovascular: Regular Rate, Rhythm, No Gallop, No JVD Gastrointestinal: Non Tender Back: Other (Right CVA tenderness) Extremity: Non Tender, No Calf Tenderness Neurologic/Psychiatric: Alert, Oriented x3 Focused Exam Sepsis Stage: Ruled Out Lactate Level 06/29/20 10:45: Lactic Acid Level 1.75 Lactic Acid Level Laboratory Tests Test 06/29/20 10:45 Lactic Acid Level 1.75 MMOL/L (0.50-2.00) Progress/Results/Core Measures Suspected Sepsis Recent Fever Within 48 Hours: No Infection Criteria Present: Documented Infection New/Unexplained Altered Menta: Yes Sepsis Screen: No Definite Risk SIRS Temperature: Pulse: 82 Respiratory Rate: 12 Laboratory Tests 06/29/20 10:20: White Blood Count 8.4 Blood Pressure 179 /75 Mean: 109 06/29/20 10:45: Lactic Acid Level 1.75 Laboratory Tests 06/29/20 10:20: Creatinine 0.74, Platelet Count 334, Total Bilirubin 0.2 Results/Orders Lab Results Laboratory Tests Test 06/29/20 10:20 06/29/20 10:45 06/29/20 11:05 06/29/20 13:51 Range/Units White Blood Count 8.4 4.3-11.0 10^3/uL Red Blood Count 3.46 L 4.35-5.85 10^6/uL Hemoglobin 10.2 L 11.5-16.0 G/DL Hematocrit 30 L 35-52 % Mean Corpuscular Volume 87 80-99 FL Mean Corpuscular Hemoglobin 29 25-34 PG Mean Corpuscular Hemoglobin Concent 34 32-36 G/DL Red Cell Distribution Width 13.5 10.0-14.5 % Platelet Count 334 130-400 10^3/uL Mean Platelet Volume 10.5 H 7.4-10.4 FL Immature Granulocyte % (Auto) 0 % Neutrophils (%) (Auto) 82 H 42-75 % Lymphocytes (%) (Auto) 13 12-44 % Monocytes (%) (Auto) 4 0-12 % Eosinophils (%) (Auto) 0 0-10 % Basophils (%) (Auto) 0 0-10 % Neutrophils # (Auto) 7.0 1.8-7.8 X 10^3 Lymphocytes # (Auto) 1.1 1.0-4.0 X 10^3 Monocytes # (Auto) 0.3 0.0-1.0 X 10^3 Eosinophils # (Auto) 0.0 0.0-0.3 10^3/uL Basophils # (Auto) 0.0 0.0-0.1 10^3/uL Immature Granulocyte # (Auto) 0.0 0.0-0.1 10^3/uL Sodium Level 127 L 135-145 MMOL/L Potassium Level 5.0 3.6-5.0 MMOL/L Chloride Level 93 L 98-107 MMOL/L Carbon Dioxide Level 22 21-32 MMOL/L Anion Gap 12 5-14 MMOL/L Blood Urea Nitrogen 16 7-18 MG/DL Creatinine 0.74 0.60-1.30 MG/DL Estimat Glomerular Filtration Rate > 60 BUN/Creatinine Ratio 22 Glucose Level 452 *H 70-105 MG/DL Calcium Level 10.0 8.5-10.1 MG/DL Corrected Calcium 9.6 8.5-10.1 MG/DL Total Bilirubin 0.2 0.1-1.0 MG/DL Aspartate Amino Transf (AST/SGOT) 18 5-34 U/L Alanine Aminotransferase (ALT/SGPT) 8 0-55 U/L Alkaline Phosphatase 106 40-136 U/L Pro-B-Type Natriuretic Peptide 89.9 H <75.0 PG/ML Total Protein 7.1 6.4-8.2 GM/DL Albumin 4.5 3.2-4.5 GM/DL Lactic Acid Level 1.75 0.50-2.00 MMOL/L Urine Color PALE YELLOW Urine Clarity SLIGHTLY CLOUDY Urine pH 7.0 5-[address] <=1.005 1.016-1.022 Urine Protein NEGATIVE NEGATIVE Urine Glucose (UA) 3+ H NEGATIVE Urine Ketones NEGATIVE NEGATIVE Urine Nitrite NEGATIVE NEGATIVE Urine Bilirubin NEGATIVE NEGATIVE Urine Urobilinogen 0.2 < = 1.0 MG/DL Urine Leukocyte Esterase TRACE H NEGATIVE Urine RBC (Auto) TRACE H NEGATIVE Urine RBC 0-2 /HPF Urine WBC 10-25 H /HPF Urine Squamous Epithelial Cells 2-5 /HPF Urine Crystals NONE /LPF Urine Bacteria LARGE H /HPF Urine Casts NONE /LPF Urine Mucus NEGATIVE /LPF Urine Culture Indicated YES Glucometer 215 H 70-110 MG/DL My Orders Orders - RACHEL BOTELLO DO Cbc With Automated Diff (06/29/20 10:41) Comprehensive Metabolic Panel (06/29/20 10:41) Ua Culture If Indicated (06/29/20 10:41) Blood Culture (06/29/20 10:41) Lactic Acid Analyzer (06/29/20 10:41) Probnp Fs (06/29/20 10:41) Fentanyl Injection (Sublimaze Injection (06/29/20 11:15) Ondansetron Injection (Zofran Injectio (06/29/20 11:15) Blood Culture (06/29/20 10:55) Urine Culture (06/29/20 11:05) Ct Abdomen/Pelvis Wo (06/29/20 12:12) Ns Iv 1000 Ml (Sodium Chloride 0.9%) (06/29/20 13:00) Medications Given in ED Current Medications Medications Dose Ordered Sig/Kasandra Route Start Time Stop Time Status Last Admin Dose Admin Fentanyl Citrate 50 mcg ONCE ONCE IVP 06/29/20 11:15 06/29/20 11:16 DC 06/29/20 11:16 50 MCG Ondansetron HCl 4 mg ONCE ONCE IVP 06/29/20 11:15 06/29/20 11:16 DC 06/29/20 11:16 4 MG Vital Signs/I&O 06/29/20 10:10 Temp 37.0 Pulse 82 Resp 12 B/P (MAP) 179/75 (109) Pulse Ox 98 O2 Delivery Room Air Capillary Refill : Less Than 3 Seconds Blood Pressure Mean: 109 Departure Communication (Admissions) CT abdomen pelvis: No acute findings per radiology report. Labs reviewed. Pain addressed. Blood sugar improved with fluids. 215 on recheck. Vital signs remained stable. Patient complains of generalized weakness with inability to stand by herself with frequent falls in the past week. Concern for generalized deconditioning and at risk grave injury from fall. Dr. Macias to admit to [facility]. Impression Primary Impression: Generalized weakness Additional Impression: Hyperglycemia Disposition: ADMITTED INPATIENT Condition: Stable Departure-Patient Inst. Decision time for Depature: 14:27 Referrals: [facility] (PCP) Primary Care Physician CANDIDO KEARNEY APRN (Family) Primary Care Physician Patient Instructions: Generalized Weakness (DC) RACHEL BOTELLO DO Jun 29, 2020 12:51
--- NOTE | 2020-06-29 12:55 | Diagnostic Imaging Report ---
CT ABDOMEN/PELVIS WO TECHNIQUE: Unenhanced CT imaging of the abdomen and pelvis was performed. 2-D reformats are created and submitted for interpretation. Automatic exposure controls were utilized to optimize patient dose. INDICATION: Right flank pain. COMPARISON: None available. FINDINGS: Evaluation of the abdominal viscera is mildly limited without contrast. Lower chest: The lung bases are clear. No pericardial or pleural effusion. Peritoneum: No free intraperitoneal air or fluid. Liver and biliary system: Unenhanced liver is normal. Cholecystectomy. No pathologic biliary duct dilatation. Spleen and Pancreas: Scattered calcified splenic granulomas are unchanged. No concerning splenic lesion. Unenhanced pancreas is grossly normal. Adrenals: Normal. tract: No renal or ureteral calculi. No obstructive uropathy. Hysterectomy. No adnexal mass. GI tract: Stomach is decompressed. No bowel obstruction. No pericolonic inflammatory changes. Appendectomy. Vasculature and Lymph nodes: Normal caliber aorta with moderate atherosclerotic plaquing. No abdominal or pelvic lymphadenopathy. Musculoskeletal: Discectomies of L4-L5 and L5-S1 with well-positioned interbody spacers. Posterior instrumented fusion of L4-S1 has intact hardware. Laminectomy of L5 is noted. IMPRESSION: 1. No urinary tract calculi or obstructive uropathy. 2. Cholecystectomy and appendectomy. 3. No colitis or diverticulitis. Dictated by: Dictated on workstation # [id number]
[2020-06-29] MEDS ORDERED: NS IV 1000 ML 1,000 ML IV SCH (13:00)
[2020-06-29 15:30] VITALS: BP 135/52
== END 2020-06-29 15:45 | disposition other institution (70) ==
LOC: EDUNIT# 10:03 → ER FS 10:07
DX: R53.1 Weakness (principal); E11.65 Type 2 diabetes mellitus with hyperglycemia; K21.9 Gastro-esophageal reflux disease without esophagitis; I10 Essential (primary) hypertension; Z79.84 Long term (current) use of oral hypoglycemic drugs; Z87.891 Personal history of nicotine dependence; Z88.2 Allergy status to sulfonamides; Z79.52 Long term (current) use of systemic steroids
CPT/HCPCS: 36415; 74176; 80053; 81000; 82962; 83605; 83880; 85025; 87040; 87077; 87088; 87186

== ENCOUNTER → 2020-08-29 | Outpatient (CLI) | payer MEDICARE ==
[~2020-08-29] MED LIST changes: +CALC-666 PO; -CIPR500T4 PO; +CIPR500T5 PO; -GEMF600T8 PO; +GEMF600T88 PO; -ISOS30TA3 PO; +ISOS30TA82 PO; -[UNRECOGNIZED DRUG - CODE] PO
[2020-08-29 14:34] LABS: BILIRUBIN,URINE NEGATIVE (NEGATIVE); CLARITY,URINE CLEAR; COLOR,URINE YELLOW; GLUCOSE, URINE (UA) 2+ (NEGATIVE); KETONES,URINE NEGATIVE (NEGATIVE); LEUKOCYTE ESTERASE ,URINE 1+ (NEGATIVE); NITRITE,URINE NEGATIVE (NEGATIVE); PH,URINE 6.5 (5-9); PROTEIN,URINE NEGATIVE (NEGATIVE)
[2020-08-29 14:35] LABS: BACTERIA,URINE MODERATE /HPF; SQUAMOUS EPITHELIAL CELL,UR 0-2 /HPF
== END ==
LOC: LAB FS 13:30
PROVIDERS: ATTEND Nurse Practitioner Family
DX: Z01.89 Encounter for other specified special examinations (principal)
CPT/HCPCS: 81000; 87088

== ENCOUNTER → 2020-09-21 | Outpatient (CLI) | payer MEDICARE ==
--- NOTE | 2020-09-21 11:44 | Diagnostic Imaging Report ---
INDICATION: Abdominal distention Supine and upright abdominal images show postoperative changes from a cholecystectomy. There are also mily in the right lower quadrant likely from appendectomy. The patient has had discectomy/fusion of L4-L5 and L5-S1. There are dorsal column stimulator leads projecting over the thoracic spine from T7 to T9. There is a moderate amount of stool fecal stasis in the colon. Bowel gas pattern is normal. There are no pathologic masses or calcifications. IMPRESSION: Fecal stasis consistent with constipation. Dictated by: Dictated on workstation # [id number]
== END ==
LOC: RAD FS 10:53
PROVIDERS: ATTEND Nurse Practitioner Family
DX: R14.0 Abdominal distension (gaseous) (principal); K56.41 Fecal impaction
CPT/HCPCS: 74019

== ENCOUNTER 2021-01-24 06:30 | Outpatient (CLI) | payer MEDICARE ==
[~2021-01-24] VITALS: Ht 162.6 cm; Wt 66.0 kg
[2021-01-26] MEDS ORDERED: METO-351 PO (09:08)
[2021-01-26] MEDS ORDERED: INSULIN SQ (09:10)
== END 2021-01-28 14:28 ==
LOC: PREOP 06:30
PROVIDERS: ATTEND Surgery
DX: Z01.818 Encounter for other preprocedural examination (principal)

== ENCOUNTER → 2021-01-30 | Outpatient (CLI) | payer MEDICARE ==
[~2021-01-30] MED LIST changes: +INSULIN SQ; +METO-351 PO
== END ==
LOC: LAB FS 10:09
PROVIDERS: ATTEND Surgery
DX: Z01.812 Encounter for preprocedural laboratory examination (principal); K21.9 Gastro-esophageal reflux disease without esophagitis; Z20.822 Contact with and (suspected) exposure to COVID-19
CPT/HCPCS: 87636

== ENCOUNTER 2021-02-01 13:07 | Day surgery (SDC) | payer MEDICARE ==
[~2021-02-01] VITALS: Ht 162.6 cm; Wt 66.0 kg
[2021-02-01] MEDS ORDERED: LACTATED RINGERS 1,000 ML IV STA (13:26)
[2021-02-01] MEDS ORDERED: LACTATED RINGERS 1,000 ML IV ONE (13:29)
[2021-02-01 13:30] VITALS: BP 164/81
[2021-02-01] MEDS ORDERED: HURRICAINE EXT TUBE (BENZOCAINE) XX PRN (13:30)
[2021-02-01] MEDS ORDERED: DEXTROSE 50% 50 ML (IMS) SYR IV ONE (13:45)
[2021-02-01] MEDS ORDERED: proPOfol 200 MG/20 ML (DIPRIVAN) VIAL IV ONE (14:14)
--- NOTE | 2021-02-01 14:25 | Progress Note-Pre Operative ---
Pre-Operative Progress Note H&P Reviewed The H&P was reviewed, patient examined and no changes noted. Date Seen by Provider: Feb 01, 2021 Time Seen by Provider: 14:24 Date H&P Reviewed: Feb 01, 2021 Time H&P Reviewed: 14:24 Pre-Operative Diagnosis: chest pain, gerd MADELIN LOYOLA DO Feb 01, 2021 14:25
[2021-02-01 14:40] VITALS: BP 147/65
[2021-02-01 14:45] VITALS: BP 137/65
[2021-02-01 14:50] VITALS: BP 154/67
[2021-02-01 14:55] VITALS: BP 154/67
--- NOTE | 2021-02-01 15:01 | Anesthesia-General Post-Op ---
MAC Patient Condition Mental Status/LOC: Same as Preop Cardiovascular: Satisfactory Nausea/Vomiting: Absent Respiratory: Satisfactory Pain: Controlled Complications: Absent Post Op Complications Complications None Follow Up Care/Instructions Patient Instructions None needed. Anesthesiology Discharge Order Discharge Order Patient is doing well, no complaints, stable vital signs, no apparent adverse anesthesia problems. No complications reported per nursing. SHAYLEE ZELAYA CRNA Feb 01, 2021 15:01
--- NOTE | 2021-02-01 15:03 | Discharge Inst-Simple/Standard ---
Discharge Inst-Standard Patient Instructions/Follow Up Plan of Care/Instructions/FU: 2 weeks Dylan Activity as Tolerated: Yes Discharge Diet: Regular Diet MADELIN LOYOLA DO Feb 01, 2021 15:03
[2021-02-01 15:21] VITALS: BP 160/69
--- NOTE | 2021-02-01 21:06 | OPERATIVE REPORT ---
DATE OF SERVICE: 02/01/2021 PREOPERATIVE DIAGNOSES: Gastroesophageal reflux disease and chest pain. POSTOPERATIVE DIAGNOSIS: Small hiatal hernia. SURGEON: Madelin Richardson DO ANESTHESIA: Per MDA. ESTIMATED BLOOD LOSS: None. COMPLICATIONS: None. INDICATIONS: The patient is a 75-year-old female in need of EGD for further evaluation of GERD and chest pain. She understands risks and benefits of procedure and wished to proceed with procedure. Consent was signed in the chart. DESCRIPTION OF PROCEDURE: The patient was taken to the endoscopy suite, placed in left lateral recumbent position. Timeout was performed. Scope was inserted in mouth, down the esophagus, stomach and into the duodenum without difficulty. There were no polyps, masses or ulcerations within the duodenum. Scope was slowly retracted back into the stomach where it was further insufflated. Biopsy of the antrum was obtained. Scope was retroflexed noting a small hiatal hernia, no other pathology. Scope was returned to its normal position, slowly withdrawn to the distal esophagus. No polyps, masses or ulcerations. Maybe some reflux esophagitis. Biopsy of the GE junction was obtained. Scope was slowly retracted back until completely removed. The patient tolerated procedure well without any complications. She was taken to recovery room in stable condition. RECOMMENDATIONS: The patient will follow up on pathology. We will not change any current medications at this time. Further recommendations pending. Followup symptoms and biopsies. CC: Sushila Lynch - requested, unable to deliver. Job ID: [id number] DocumentID: [id number] Dictated Date: 02/01/2021 16:23:52 [employer] Operator Date: 02/01/2021 21:05:14 Dictated By: MADELIN RICHARDSON DO
== END 2021-02-01 16:00 | disposition home or self-care (01) ==
LOC: ENDO 13:07
PROVIDERS: ATTEND Surgery
DX: K21.00 Gastro-esophageal reflux disease with esophagitis, without bleeding (principal); K44.9 Diaphragmatic hernia without obstruction or gangrene; I10 Essential (primary) hypertension; I20.9 Angina pectoris, unspecified; E11.40 Type 2 diabetes mellitus with diabetic neuropathy, unspecified; G89.29 Other chronic pain; M54.9 Dorsalgia, unspecified; Z79.899 Other long term (current) drug therapy; Z79.891 Long term (current) use of opiate analgesic; Z79.4 Long term (current) use of insulin; Z87.891 Personal history of nicotine dependence; Z90.49 Acquired absence of other specified parts of digestive tract; Z98.890 Other specified postprocedural states
CPT/HCPCS: 82947

== ENCOUNTER 2021-02-17 12:21 | Emergency (ER) | payer MEDICARE ==
[~2021-02-17] VITALS: Ht 162.6 cm; Wt 68.0 kg
[2021-02-17 12:44] LABS: CLARITY,URINE CLOUDY; COLOR,URINE YELLOW
[2021-02-17 12:45] LABS: BACTERIA,URINE MODERATE /HPF; BILIRUBIN,URINE NEGATIVE (NEGATIVE); GLUCOSE, URINE (UA) NEGATIVE (NEGATIVE); KETONES,URINE NEGATIVE (NEGATIVE); LEUKOCYTE ESTERASE ,URINE 2+ (NEGATIVE); NITRITE,URINE NEGATIVE (NEGATIVE); PH,URINE 6 (5-9); PROTEIN,URINE TRACE (NEGATIVE); WBC,URINE >100 /HPF
[2021-02-17] MEDS ORDERED: KETOROLAC 30 MG/ML VIAL IVP STA (13:28)
[2021-02-17] MEDS ORDERED: cefTRIAXone 1,000 MG in WATER (STERILE) FOR INJECTION 10 ML IV STA (13:28)
[2021-02-17] MEDS ORDERED: NS IV 1000 ML 1,000 ML IV STA (13:28)
[2021-02-17 13:33] LABS: BASOPHILS % (AUTO) 1 % (0-10); EOSINOPHILS # (AUTO) 0.1 10^3/uL (0.0-0.3); EOSINOPHILS % (AUTO) 2 % (0-10); HEMATOCRIT 30 % (35-52); HEMOGLOBIN 9.7 g/dL (11.5-16.0); LYMPHOCYTES # (AUTO) 1.3 X 10^3 (1.0-4.0); LYMPHOCYTES % (AUTO) 19 % (12-44); MEAN CORPUSCULAR HEMOGLOBIN 28 pg (25-34); MEAN CORPUSCULAR HGB CONC 33 g/dL (32-36); MEAN CORPUSCULAR VOLUME 85 fL (80-99); MONOCYTES # (AUTO) 0.4 X 10^3 (0.0-1.0); MONOCYTES % (AUTO) 5 % (0-12); NEUTROPHILS % (AUTO) 73 % (42-75); PLATELET COUNT 299 10^3/uL (130-400); WHITE BLOOD COUNT 6.8 10^3/uL (4.3-11.0)
[2021-02-17 13:35] LABS: ALBUMIN 4.4 GM/DL (3.2-4.5); BILIRUBIN,TOTAL 0.2 MG/DL (0.1-1.0); POTASSIUM 4.9 MMOL/L (3.6-5.0); TOTAL PROTEIN 7.7 GM/DL (6.4-8.2)
--- NOTE | 2021-02-17 13:58 | ED General ---
General Chief Complaint: Back Problems Stated Complaint: RIGHT SIDE/BACK PAIN Nursing Triage Note: Patient reports she began having burning with urination and right flank/back pain last night. Source of Information: Patient History of Present Illness Date Seen by Provider: Feb 17, 2021 Time Seen by Provider: 12:29 Initial Comments 75-year-old female presenting with complaints of right flank pain for several days. She states that it was more severe since last night. She has been having burning with urination as well. She had multiple urinary tract infections in the past and this feels similar. She does not usually get the flank pain with her urinary tract infections. She reports a history of Crohn's disease as well as kidney stones. She denies seeing any blood in her stools. She has had no fever or chills. She intermittently will have acute spasms of pain in her right flank. Allergies and Home Medications Allergies Coded Allergies: Sulfa (Sulfonamide Antibiotics) (Verified Allergy, Severe, 02/01/21) Patient Home Medication List Home Medication List Reviewed: Yes Ciprofloxacin HCl (Ciprofloxacin HCl) 500 Mg Tablet, 500 MG PO BID Prescribed by: CHUCHO LEO on 02/17/21 1501 Citalopram Hydrobromide (Citalopram HBr) 20 Mg Tablet, 20 MG PO HS, (Reported) Entered as Reported by: CANDIDO GUTIERREZ on 04/05/19 1041 Dicyclomine HCl (Dicyclomine HCl) 10 Mg Capsule, 20 MG PO QID, (Reported) Entered as Reported by: RAIN RUDOLPH on 04/05/19 025 Docusate Sodium (Colace) 100 Mg Capsule, 100 MG PO HS, (Reported) Entered as Reported by: CANDIDO GUTIERREZ on 04/05/19 1044 Gemfibrozil (Gemfibrozil) 600 Mg Tablet, 600 MG PO BID, (Reported) Entered as Reported by: RAIN RUDOLPH on 04/05/19 025 Glimepiride (Glimepiride) 4 Mg Tablet, 4 MG PO BIDAC, (Reported) Entered as Reported by: RAIN RUDOPLH on 04/05/19 025 Isosorbide Mononitrate (Isosorbide Mononitrate ER) 30 Mg Tab.er.24h, 30 MG PO DAILY, (Reported) Entered as Reported by: RAIN RUDOLPH on 04/05/19252 Losartan Potassium (Losartan Potassium) 100 Mg Tablet, 100 MG PO DAILY, (Reported) Entered as Reported by: DAVID ARITA on 04/25/20 08 Metformin HCl (Metformin HCl) 500 Mg Tablet, 1,000 MG PO BID, (Reported) Entered as Reported by: CANDIDO GUTIERREZ on 04/05/19 104 Metoprolol Succinate (Toprol Xl) 25 Mg Tab.er.24h, 25 MG PO DAILY, (Reported) Entered as Reported by: CONRAD WAGONER on 01/26/21 0908 Nitroglycerin (Nitroglycerin) 0.4 Mg Tab.subl, 0.4 MG SL UD PRN for CHEST PAIN, (Reported) Entered as Reported by: RAIN RUDOLPH on 04/05/19252 Pantoprazole Sodium (Pantoprazole Sodium) 20 Mg Tablet.dr, 20 MG PO DAILY, (Reported) Entered as Reported by: DAVID ARITA on 04/25/20 0938 Prednisone (Prednisone) 5 Mg Tablet, 5 MG PO DAILY, (Reported) Entered as Reported by: DAVID ARITA on 04/25/20 08 Simvastatin (Simvastatin) 40 Mg Tablet, 40 MG PO HS, (Reported) Entered as Reported by: RAIN RUDOLPH on 04/05/19252 Tramadol HCl (Tramadol HCl) 50 Mg Tablet, 50 MG PO Q6H PRN for PAIN-MODERATE, (Reported) Entered as Reported by: RAIN RUDOLPH on 04/05/19252 [Insulin] , 10 UNITS SQ, (Reported) Entered as Reported by: CONRAD WAGONER on 01/26/21 0910 Review of Systems Review of Systems Constitutional: No chills, No fever; malaise EENTM: no symptoms reported Respiratory: no symptoms reported Cardiovascular: no symptoms reported Gastrointestinal: see HPI Genitourinary: see HPI Musculoskeletal: back pain (Right flank pain with spasm) Skin: no symptoms reported Psychiatric/Neurological: Anxiety Past Dclcxpf-Wgseml-Vkjuzq Hx Patient Social History Tobacco Use?: No Substance use?: No Alcohol Use?: No Pt feels they are or have been: No Immunizations Up To Date First/Initial COVID19 Vaccinat: YES Second COVID19 Vaccination [place]: YES Seasonal Allergies Seasonal Allergies: No Past Medical History Surgeries: Yes (Cystourethroscopy, colonoscopy, EGD, removal spinal stimulator, ESWL) Appendectomy, Gallbladder, Hysterectomy Respiratory: Yes Pneumonia Currently Using CPAP: No Cardiac: Yes (Diastolic dysfunction) Hypertension Neurological: Yes Neuropathy Female Reproductive Disorders: Denies [employer] History: Hysterectomy HIV/AIDS: No Genitourinary: Yes (Urethral strictures, Hx Klebsiella cystitis) Kidney Stones, UTI-Chronic Gastrointestinal: Yes (Regional enteritis) Gastroesophageal Reflux, Crohns Disease Musculoskeletal: No Chronic Back Pain Endocrine: Yes (DM Type II) Diabetes, Insulin dep HEENT: No Hearing Impairment: Denies Cancer: No Psychosocial: No Integumentary: No Blood Disorders: No Physical Exam Vital Signs Vital Signs - First Documented 02/17/21 12:35 Temp 37.1 Pulse 73 Resp 14 B/P (MAP) 141/45 (77) Pulse Ox 100 O2 Delivery Room Air Capillary Refill : Less Than 3 Seconds Height, Weight, BMI Height: 5'5.00" Weight: 132lbs. oz. [id number]; 25.00 BMI Method:Stated General Appearance: Anxious, Chronically ill HEENT: Pharynx Normal Neck: Full Range of Motion, Normal Inspection, Non Tender, Supple Respiratory: Chest Non Tender, Lungs Clear, Normal Breath Sounds Cardiovascular: Regular Rate, Rhythm, Normal Peripheral Pulses Gastrointestinal: Normal Bowel Sounds, No Pulsatile Mass, Soft, Distended; No Guarding, No Rebound; Tenderness (Mild tenderness in the right flank) Rectal: Deferred Back: No CVA Tenderness Extremity: Normal Capillary Refill Neurologic/Psychiatric: Alert, Oriented x3 Skin: Warm/Dry Progress/Results/Core Measures Suspected Sepsis SIRS Temperature: Pulse: 73 Respiratory Rate: 14 Laboratory Tests 02/17/21 13:04: White Blood Count 6.8 Blood Pressure 141 /45 Mean: 77 Laboratory Tests 02/17/21 13:04: Creatinine 1.00, Platelet Count 299, Total Bilirubin 0.2 Results/Orders Lab Results Laboratory Tests Test 02/17/21 12:40 02/17/21 13:04 Range/Units Urine Color YELLOW Urine Clarity CLOUDY Urine pH 6 5-9 Urine Specific [place] <=1.005 1.016-1.022 Urine Protein TRACE H NEGATIVE Urine Glucose (UA) NEGATIVE NEGATIVE Urine Ketones NEGATIVE NEGATIVE Urine Nitrite NEGATIVE NEGATIVE Urine Bilirubin NEGATIVE NEGATIVE Urine Urobilinogen 0.2 < = 1.0 MG/DL Urine Leukocyte Esterase 2+ H NEGATIVE Urine RBC (Auto) 2+ H NEGATIVE Urine RBC 2-5 H /HPF Urine WBC >100 H /HPF Urine Squamous Epithelial Cells 5-10 /HPF Urine Crystals NONE /LPF Urine Bacteria MODERATE H /HPF Urine Casts NONE /LPF Urine Mucus NEGATIVE /LPF Urine Culture Indicated YES White Blood Count 6.8 4.3-11.0 10^3/uL Red Blood Count 3.50 L 3.80-5.11 10^6/uL Hemoglobin 9.7 L 11.5-16.0 g/dL Hematocrit 30 L 35-52 % Mean Corpuscular Volume 85 80-99 fL Mean Corpuscular Hemoglobin 28 25-34 pg Mean Corpuscular Hemoglobin Concent 33 32-36 g/dL Red Cell Distribution Width 14.5 10.0-14.5 % Platelet Count 299 130-400 10^3/uL Mean Platelet Volume 10.0 9.0-12.2 fL Immature Granulocyte % (Auto) 0 % Neutrophils (%) (Auto) 73 42-75 % Lymphocytes (%) (Auto) 19 12-44 % Monocytes (%) (Auto) 5 0-12 % Eosinophils (%) (Auto) 2 0-10 % Basophils (%) (Auto) 1 0-10 % Neutrophils # (Auto) 5.0 1.8-7.8 X 10^3 Lymphocytes # (Auto) 1.3 1.0-4.0 X 10^3 Monocytes # (Auto) 0.4 0.0-1.0 X 10^3 Eosinophils # (Auto) 0.1 0.0-0.3 10^3/uL Basophils # (Auto) 0.0 0.0-0.1 10^3/uL Immature Granulocyte # (Auto) 0.0 0.0-0.1 10^3/uL Sodium Level 130 L 135-145 MMOL/L Potassium Level 4.9 3.6-5.0 MMOL/L Chloride Level 96 L 98-107 MMOL/L Carbon Dioxide Level 22 21-32 MMOL/L Anion Gap 12 5-14 MMOL/L Blood Urea Nitrogen 18 7-18 MG/DL Creatinine 1.00 0.60-1.30 MG/DL Estimat Glomerular Filtration Rate 54 BUN/Creatinine Ratio 18 Glucose Level 117 H 70-105 MG/DL Calcium Level 11.0 H 8.5-10.1 MG/DL Corrected Calcium 10.7 H 8.5-10.1 MG/DL Total Bilirubin 0.2 0.1-1.0 MG/DL Aspartate Amino Transf (AST/SGOT) 25 5-34 U/L Alanine Aminotransferase (ALT/SGPT) 10 0-55 U/L Alkaline Phosphatase 137 H 40-136 U/L Total Protein 7.7 6.4-8.2 GM/DL Albumin 4.4 3.2-4.5 GM/DL Lipase 13 8-78 U/L My Orders Orders - CHUCHO LEO MD Ua Culture If Indicated (02/17/21 12:29) Urine Culture (02/17/21 12:40) Comprehensive Metabolic Panel (02/17/21 13:28) Lipase (02/17/21 13:28) Ed Iv/Invasive Line Start (02/17/21 13:28) Cbc With Automated Diff (02/17/21 13:28) Ct Abdomen/Pelvis Wo (02/17/21 13:28) Ns Iv 1000 Ml (Sodium Chloride 0.9%) (02/17/21 13:28) Ketorolac Injection (Toradol Injection) (02/17/21 13:28) Ceftriaxone (Rocephin) (02/17/21 13:28) Vital Signs/I&O 02/17/21 02/17/21 12:35 16:12 Temp 37.1 Pulse 73 68 Resp 14 18 B/P (MAP) 141/45 (77) 136/79 Pulse Ox 100 98 O2 Delivery Room Air Room Air Capillary Refill : Less Than 3 Seconds Blood Pressure Mean: 77 Progress Note #1: Progress Note Obtain urinalysis as well as check basic labs and a CT scan of her abdomen pelvis since she was having the flank pain and abdominal distention. She also has a history of kidney stones and Crohn's so a CT would help to look for other reasons for her pain besides a urinary tract infection. Give IV fluids for hydration, Toradol for pain Progress Note #2: Progress Note Labs appear stable without acute significant normality. Her urinalysis did show signs of infection so she was given a dose of Rocephin based off of her last urine culture in the system. She was previously on Macrobid was recently so we will plan on discharging on fluoroquinolone as she was resistant to most cephalosporins other than Rocephin. A new culture is pending. The CT scan of her abdomen pelvis did not show any acute significant ability to account for her flank pain or abdominal distention. We will continue with treatment for her UTI and have her continue with the follow-up on Thursday with Dr. Richardson who has been doing testing of her GI tract. Patient and family expressed frustration with current providers and given phone number and contact information for Dr. George Thakur as well as Dr. Levin since pt was requesting a physician instead of nurse practitioner Diagnostic Imaging Diagonstic Imaging: CT Plain Films/CT/US/NM/MRI: abdomen, pelvis Comments [facility] [place] NAME: SUDHEER PATTERSON [facility] REC#: [id number] PT STATUS: DEP ER : 1945 PHYSICIAN: CHUCHO LEO MD ADMIT DATE: 02/17/21/ER FS Signed Date of Exam:02/17/21 CT ABDOMEN/PELVIS WO Clinical Indication: Patient with right flank pain and distended abdomen. Exam: CT exam of the abdomen and pelvis is performed without IV or oral contrast using stone protocol. Coronal and sagittal reformatted images were created. Auto Exposure Controls were utilized during the CT exam to meet ALARA standards for radiation dose reduction. Comparisons: CT scan of the abdomen and pelvis with contrast dated 11/28/2018. Findings: Visualized lung bases are clear. There are degenerative spurs involving the visualized lower thoracic spine and lumbar spine. There is left curvature of the lumbar spine. There are interval postoperative changes to the lower lumbar spine with L4 through S1 posterior lumbar interbody fusion. L5 laminectomy is seen. Neurostimulator electrode wires are again noted. The gallbladder is surgically absent, as noted on the prior study. Stable calcifications are seen near the periphery of the right lobe of the liver. Liver is otherwise unremarkable. Calcified granuloma are also seen involving the liver and spleen. The spleen is unremarkable. Fatty infiltration of the pancreas is again noted. There is no intrahepatic or extrahepatic ductal dilation. The adrenal glands are unremarkable. Both kidneys are unremarkable with no hydronephrosis, stone, or mass. The bladder is fluid-filled and otherwise unremarkable. Uterus is surgically absent. The ovaries are not visualized and may also possibly be surgically absent. There is no intra-abdominal free air or free fluid. There are surgical clips in the right lower quadrant region. Appendectomy changes are noted. There is a small to moderate amount of stool throughout the colon. There is wall thickening of the stomach, but the stomach is decompressed. There is a moderate amount of stool throughout the colon. The extra-abdominal and extrapelvic soft tissue structures show no other significant interval abnormality. IMPRESSION: 1: There is no CT evidence of acute abdominal or pelvic process. There is no intestinal obstruction. There are no urinary tract stones. 2: There are interval postoperative changes with L4-S1 posterior lumbar interbody fusion. 3: The remainder of this exam is not significantly changed in the interim, as visualized Dictated by: Dictated on workstation # [id number] Dict: 02/17/21 1423 Trans: 02/17/21 1743 [facility] [id number] Interpreted by: MERRICK CURIEL MD Electronically signed by: MERRICK CURIEL MD 02/17/21 1743 Reviewed: Reviewed by Me Departure Impression Primary Impression: Cystitis with hematuria Additional Impression: Right flank pain Disposition: 01 HOME, SELF-CARE Condition: Stable Departure-Patient Inst. Decision time for Depature: 16:03 Referrals: [facility]/ (PCP) Primary Care Physician CANDIDO KEARNEY APRN (Family) Primary Care Physician GEORGE THAKUR MD Patient Instructions: Flank Pain ED, Urinary Tract Infection, Adult ED Add. Discharge Instructions: Take antibiotic to treat for urine infection. Cipro 250 mg twice a day for 10 days. Follow up with Dr. Richardson Thursday as scheduled to find out more about your abdominal bloating. No kidney stones showed up on the imaging of the test today so it seems to be more the urine infection causing your pain. You could have a muscle component related to your back as well but they do not see any new bony injury or issue on the CT scan from today. If you want to check with a doctor about a different provider you could call Dr. George Thakur and see about changing to her clinic with [facility] or you could ask the [facility] clinic if you could see Dr. Levin in place of [facility]. All discharge instructions reviewed with patient and/or family. Voiced understtsering pimentel. Scripts Ciprofloxacin HCl (Ciprofloxacin HCl) 500 Mg Tablet 500 MG PO BID for UTI for 10 Days, #20 TAB 0 Refills Prov: CHUCHO LEO MD 02/17/21 CHUCHO LEO MD Feb 17, 2021 13:58
--- NOTE | 2021-02-17 14:37 | Diagnostic Imaging Report ---
Clinical Indication: Patient with right flank pain and distended abdomen. Exam: CT exam of the abdomen and pelvis is performed without IV or oral contrast using stone protocol. Coronal and sagittal reformatted images were created. Auto Exposure Controls were utilized during the CT exam to meet ALARA standards for radiation dose reduction. Comparisons: CT scan of the abdomen and pelvis with contrast dated 11/28/2018. Findings: Visualized lung bases are clear. There are degenerative spurs involving the visualized lower thoracic spine and lumbar spine. There is left curvature of the lumbar spine. There are interval postoperative changes to the lower lumbar spine with L4 through S1 posterior lumbar interbody fusion. L5 laminectomy is seen. Neurostimulator electrode wires are again noted. The gallbladder is surgically absent, as noted on the prior study. Stable calcifications are seen near the periphery of the right lobe of the liver. Liver is otherwise unremarkable. Calcified granuloma are also seen involving the liver and spleen. The spleen is unremarkable. Fatty infiltration of the pancreas is again noted. There is no intrahepatic or extrahepatic ductal dilation. The adrenal glands are unremarkable. Both kidneys are unremarkable with no hydronephrosis, stone, or mass. The bladder is fluid-filled and otherwise unremarkable. Uterus is surgically absent. The ovaries are not visualized and may also possibly be surgically absent. There is no intra-abdominal free air or free fluid. There are surgical clips in the right lower quadrant region. Appendectomy changes are noted. There is a small to moderate amount of stool throughout the colon. There is wall thickening of the stomach, but the stomach is decompressed. There is a moderate amount of stool throughout the colon. The extra-abdominal and extrapelvic soft tissue structures show no other significant interval abnormality. IMPRESSION: 1: There is no CT evidence of acute abdominal or pelvic process. There is no intestinal obstruction. There are no urinary tract stones. 2: There are interval postoperative changes with L4-S1 posterior lumbar interbody fusion. 3: The remainder of this exam is not significantly changed in the interim, as visualized Dictated by: Dictated on workstation # [id number]
[2021-02-17] MEDS ORDERED: CIPR500T5 PO (15:01)
[2021-02-17 16:12] VITALS: BP 136/79
== END 2021-02-17 16:13 | disposition home or self-care (01) ==
LOC: EDUNIT# 12:21 → ER FS 12:24
DX: N30.91 Cystitis, unspecified with hematuria (principal); I10 Essential (primary) hypertension; E11.9 Type 2 diabetes mellitus without complications; K21.9 Gastro-esophageal reflux disease without esophagitis; Z79.4 Long term (current) use of insulin; Z79.899 Other long term (current) drug therapy; Z79.52 Long term (current) use of systemic steroids
CPT/HCPCS: 36415; 74176; 80053; 81000; 83690; 85025; 87077; 87088; 87186

== ENCOUNTER → 2021-02-27 | Outpatient (CLI) | payer MEDICARE ==
--- NOTE | 2021-02-27 11:10 | Diagnostic Imaging Report ---
EXAMINATION: Lumbar spine at 1034 AM INDICATION: Back pain 3 views were obtained. As noted on the prior exam of 04/15/2019 there are postsurgical changes consistent with a posterior fusion of L4, L5 and S1. The orthopedic hardware seems to be in good position. The interbody devices at the L4-L5 and L5-S1 level seen previously are also unchanged. The overall appearance of the lumbar spine itself is also essentially no different than on the prior exam. There is no fracture or acute bony abnormality evident. There is no sign of a paraspinal mass. The sacroiliac joints show mild symmetrical sclerosis. There is a dorsal stimulator lead device in place although the battery pack is not evident. Surgical clips are also again seen overlying the right upper quadrant. IMPRESSION: The postsurgical changes involving the lower lumbar spine seen previously appears stable. There is no acute bony abnormality noted. Dictated by: Dictated on workstation # [id number]
== END ==
LOC: RAD FS 10:10
PROVIDERS: ATTEND Nurse Practitioner Family
DX: M54.5 Low back pain (principal); Z98.890 Other specified postprocedural states
CPT/HCPCS: 72100

== ENCOUNTER → 2021-07-23 | Outpatient (CLI) | payer MEDICARE ==
--- NOTE | 2021-07-23 13:52 | Diagnostic Imaging Report ---
INDICATION: Abdominal pain. TIME OF EXAM: 1:08 p.m. FINDINGS: Two views of the abdomen show a large amount of stool in the transverse and left colon. Bowel gas pattern is nonobstructed. No free air is seen. There are surgical clips in the gallbladder fossa. Spinal instrumentation from posterior instrumented fusion in the lower lumbosacral spine is noted. There are spinal stimulator leads extending to the level of the mid thoracic spine. No pathologic calcifications are seen. IMPRESSION: Moderate stool in the colon suggesting constipation. The study is otherwise unremarkable. Dictated by: Dictated on workstation # [id number]
== END ==
LOC: RAD FS 12:57
PROVIDERS: ATTEND Nurse Practitioner Family
DX: R10.9 Unspecified abdominal pain (principal); Z98.1 Arthrodesis status
CPT/HCPCS: 74019

== ENCOUNTER → 2021-10-22 | Outpatient (CLI) | payer MEDICARE ==
--- NOTE | 2021-10-22 14:42 | Diagnostic Imaging Report ---
Indication: Low back pain. Time of Exam: 1:10 PM There is mild left convexity lumbar scoliotic curvature. There is normal lordotic curvature. There are postop changes with posterior instrumented fusion with vertical stabilization rods and pedicle screws extending from L4 to S1. Hardware appears to be intact. Vertebral body heights are maintained. No acute compression fracture is seen. There is some generalized degenerative disc disease. Abdominal aorta is heavily calcified. Spinal stimulator leads extend into the thoracic spinal canal, not entirely included on this radiograph. IMPRESSION: Lumbar spondylosis and scoliosis as well as postsurgical changes. No acute feature is detected. Dictated by: Dictated on workstation # [id number]
== END ==
LOC: RAD FS 12:47
PROVIDERS: ATTEND Nurse Practitioner Family
DX: M47.816 Spondylosis without myelopathy or radiculopathy, lumbar region (principal); M41.86 Other forms of scoliosis, lumbar region
CPT/HCPCS: 72110

== ENCOUNTER → 2021-12-12 | Outpatient (CLI) | payer MEDICARE ==
[~2021-12-12] MED LIST changes: +CATHETER FLUSH 10 ML SYR IV PRN; +HOLD METFORMIN - RECEIVED CONTRAST 20 ML VIAL IV SCH; +IOHEXOL 350 MG/ML 100 ML (OMNIPAQUE 350) VIAL IV ONE; +NS 100 ML (IVPB) BAG IV ONE
[2021-12-12 13:16] LABS: CREATININE SERUM 1.25 MG/DL (0.60-1.30)
--- NOTE | 2021-12-12 16:32 | Diagnostic Imaging Report ---
CLINICAL INDICATION: Follow-up for occlusion and stenosis of bilateral carotid arteries. EXAMS: 1: Head CT with and without IV contrast. Auto Exposure Controls were utilized during the CT exam to meet ALARA standards for radiation dose reduction. 2: CT angiogram of the head and neck performed with 100 cc of Omnipaque 350 IV contrast. Sagittal and coronal MIP reformations were created for better visualization of vascular anatomy. CT angiogram was post-processed using RAPID LVO detection to include quantitative measurements of cerebral blood flow and automated results notification to the stroke and/or neurointerventional team. COMPARISON: CT angiogram of the head/neck dated 05/23/2020. FINDINGS: HEAD CT: There is no evidence of acute cerebral infarct, intracranial hemorrhage, brain herniation or midline shift. There is no hydrocephalus. There is no abnormal IV contrast enhancement. Basal cisterns are unremarkable. There are diffuse patchy and confluent areas of low density involving the white matter of both cerebral hemispheres, likely representing chronic small vessel ischemic disease and leukoaraiosis. The extracranial soft tissues, skull, and orbits are unremarkable. Mastoid air cells are clear. CT ANGIOGRAM: Three-vessel aortic arch is seen. Stable segment of atherosclerotic disease involving the evzvlvzz-xf-bsd left subclavian artery with mild stenosis. Remainder of the left subclavian artery is patent. The brachiocephalic artery and right subclavian artery were patent. There is stable mild stenosis of the iry-ee-rluyfj left common carotid artery with no significant stenosis. The cervical left ICA and left ECA are patent. There is moderate stenosis involving the bifurcation of the right common carotid artery again noted. There is minimal progression involving the now ljshowgk-tr-hxsvpm stenosis involving the origins of the cervical right ICA and right ECA. The remainder of the cervical right ICA and right ECA are patent. Stable atherosclerotic disease involving the bilateral cavernous carotid arteries with no significant stenosis. The bilateral ACAs and distal branches show no significant abnormality. The bilateral MCAs and distal branches are patent. The bilateral cervical vertebral arteries are patent. The intradural bilateral vertebral arteries, basilar artery, bilateral superior cerebellar artery, and bilateral [employer]AD [employer]ER are patent. Dural venous sinuses are patent. The remainder of this exam shows no significant interval change compared to the prior study of comparison. IMPRESSION: 1: There is minimal progression of the now kqrxckno-nf-ztwgml stenosis involving the origins of the right ECA and cervical right ICA. 2: The remainder of the CT angiogram of the head and neck shows no other significant stenosis. 3: Stable CT scan of the brain with chronic small vessel ischemic disease and leukoaraiosis. Dictated by: Dictated on workstation # [id number]
== END ==
LOC: RAD FS 12:30
DX: I65.23 Occlusion and stenosis of bilateral carotid arteries (principal); I67.82 Cerebral ischemia; I67.81 Acute cerebrovascular insufficiency
CPT/HCPCS: 36415; 70496; 70498; 82565; Q9967

== ENCOUNTER 2022-02-22 13:00 | Emergency (ER) | payer MEDICARE ==
[~2022-02-22] VITALS: Ht 162.6 cm; Wt 68.0 kg
[~2022-02-22 13:00] MED LIST changes: -CATHETER FLUSH 10 ML SYR IV PRN; -HOLD METFORMIN - RECEIVED CONTRAST 20 ML VIAL IV SCH; -IOHEXOL 350 MG/ML 100 ML (OMNIPAQUE 350) VIAL IV ONE; -NS 100 ML (IVPB) BAG IV ONE
[2022-02-22] MEDS ORDERED: HYDROcodone/APAP 5 MG/325 MG (LORTAB) TAB PO ONE (13:30)
[2022-02-22] MEDS ORDERED: ONDANSETRON 4 MG/2 ML (SDV) Z0FRAN IVP ONE (13:30)
[2022-02-22] MEDS ORDERED: NS IV 1000 ML 1,000 ML IV STA (13:30)
[2022-02-22 13:34] LABS: BASOPHILS % (AUTO) 0 % (0-10); EOSINOPHILS % (AUTO) 0 % (0-10); HEMATOCRIT 32 % (35-52); HEMOGLOBIN 10.7 g/dL (11.5-16.0); LYMPHOCYTES # (AUTO) 1.8 10^3/uL (1.0-4.0); LYMPHOCYTES % (AUTO) 26 % (12-44); MEAN CORPUSCULAR HEMOGLOBIN 29 pg (25-34); MEAN CORPUSCULAR HGB CONC 33 g/dL (32-36); MEAN CORPUSCULAR VOLUME 86 fL (80-99); MONOCYTES # (AUTO) 0.3 10^3/uL (0.0-1.0); MONOCYTES % (AUTO) 4 % (0-12); NEUTROPHILS # (AUTO) 4.8 10^3/uL (1.8-7.8); NEUTROPHILS % (AUTO) 69 % (42-75); PLATELET COUNT 349 10^3/uL (130-400)
--- NOTE | 2022-02-22 13:34 | ED GI ---
General Stated Complaint: BLOODY STOOL Source of Information: Patient Exam Limitations: No Limitations History of Present Illness Date Seen by Provider: Feb 22, 2022 Time Seen by Provider: 13:02 Initial Comments 76-year-old female with past medical history of diabetes, hypertension, Crohn's disease on chronic prednisone coming in due to 1 month of diarrhea that she says several days ago was black, and now is more normal color. She says she just feels generally very weak now and just wants to sleep all the time. Had an episode of nonbloody nonbilious vomiting yesterday as well. Despite this, is really denying any significant abdominal pain. She does have chronic back pain which is unchanged. Otherwise denying any chest pain, current nausea, focal weakness or numbness, shortness of breath, abdominal pain currently, rash, vaginal discharge or bleeding, or any other concerns. She does endorse dysuria which is more chronic for her. Allergies and Home Medications Allergies Coded Allergies: Sulfa (Sulfonamide Antibiotics) (Verified Allergy, Severe, 02/01/21) Patient Home Medication List Home Medication List Reviewed: Yes Ciprofloxacin HCl (Ciprofloxacin HCl) 500 Mg Tablet, 500 MG PO BID Prescribed by: CHUCHO LEO on 02/17/21 1501 Ciprofloxacin HCl (Ciprofloxacin HCl) 500 Mg Tablet, 500 MG PO BID Prescribed by: NANCY SWANSON on 02/22/22 1412 Citalopram Hydrobromide (Citalopram HBr) 20 Mg Tablet, 20 MG PO HS, (Reported) Entered as Reported by: CANDIDO GUTIERREZ on 04/05/19 1041 Dicyclomine HCl (Dicyclomine HCl) 10 Mg Capsule, 20 MG PO QID, (Reported) Entered as Reported by: RAIN RUDOLPH on 04/05/19 025 Docusate Sodium (Colace) 100 Mg Capsule, 100 MG PO HS, (Reported) Entered as Reported by: CANDIDO GUTIERREZ on 04/05/19 1044 Gemfibrozil (Gemfibrozil) 600 Mg Tablet, 600 MG PO BID, (Reported) Entered as Reported by: RAIN RUDOLPH on 04/05/19 025 Glimepiride (Glimepiride) 4 Mg Tablet, 4 MG PO BIDAC, (Reported) Entered as Reported by: RAIN RUDOLPH on 04/05/19252 Isosorbide Mononitrate (Isosorbide Mononitrate ER) 30 Mg Tab.er.24h, 30 MG PO DAILY, (Reported) Entered as Reported by: RAIN RUDOLPH on 04/05/19252 Loperamide HCl (Loperamide) 2 Mg Tablet, 2 MG PO Q12H PRN for DIARRHEA Prescribed by: NANCY SWANSON on 02/22/22 141 Losartan Potassium (Losartan Potassium) 100 Mg Tablet, 100 MG PO DAILY, (Reported) Entered as Reported by: DAVID ARITA on 04/25/20 0859 Metformin HCl (Metformin HCl) 500 Mg Tablet, 1,000 MG PO BID, (Reported) Entered as Reported by: CANDIDO GUTIERREZ on 04/05/19 104 Metoprolol Succinate (Toprol Xl) 25 Mg Tab.er.24h, 25 MG PO DAILY, (Reported) Entered as Reported by: CONRAD WAGONER on 01/26/21 0908 Nitroglycerin (Nitroglycerin) 0.4 Mg Tab.subl, 0.4 MG SL UD PRN for CHEST PAIN, (Reported) Entered as Reported by: RAIN RUDOLPH on 04/05/19252 Ondansetron (Ondansetron Odt) 4 Mg Tab.rapdis, 4 MG PO Q6H PRN for NAUSEA/VOMITING-1ST LINE Prescribed by: NANCY SWANSON on 02/22/22 141 Pantoprazole Sodium (Pantoprazole Sodium) 20 Mg Tablet.dr, 20 MG PO DAILY, (Reported) Entered as Reported by: DAVID ARITA on 04/25/20 0938 Prednisone (Prednisone) 5 Mg Tablet, 5 MG PO DAILY, (Reported) Entered as Reported by: DAVID ARITA on 04/25/20 0859 Simvastatin (Simvastatin) 40 Mg Tablet, 40 MG PO HS, (Reported) Entered as Reported by: RAIN RUDOLPH on 04/05/19252 Tramadol HCl (Tramadol HCl) 50 Mg Tablet, 50 MG PO Q6H PRN for PAIN-MODERATE, (Reported) Entered as Reported by: RAIN RUDOLPH on 04/05/19252 [Insulin] , 10 UNITS SQ, (Reported) Entered as Reported by: CONRAD WAGONER on 01/26/21 0910 Review of Systems Review of Systems Constitutional: No fever EENTM: No Blurred Vision Respiratory: Denies Cough Cardiovascular: Denies Chest Pain Gastrointestinal: Diarrhea Genitourinary: No Symptoms Reported Musculoskeletal: no symptoms reported Skin: no symptoms reported Psychiatric/Neurological: No Symptoms Reported Endocrine: No Symptoms Reported Hematologic/Lymphatic: No Symptoms Reported All Other Systems Reviewed Negative Unless Noted: Yes Past Vmwyoyk-Uzjuag-Klppqh Hx Patient Social History Substance use?: No Immunizations Up To Date First/Initial COVID19 Vaccinat: YES Second COVID19 Vaccination Dickson: YES Seasonal Allergies Seasonal Allergies: No Past Medical History Surgeries: Yes (Cystourethroscopy, colonoscopy, EGD, removal spinal stimulator, ESWL) Appendectomy, Gallbladder, Hysterectomy Respiratory: Yes Pneumonia Currently Using CPAP: No Cardiac: Yes (Diastolic dysfunction) Hypertension Neurological: Yes Neuropathy Female Reproductive Disorders: Denies [employer] 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[employer] History: Hysterectomy HIV/AIDS: No Genitourinary: Yes (Urethral strictures, Hx Klebsiella cystitis) Kidney Stones, UTI-Chronic Gastrointestinal: Yes (Regional enteritis) Gastroesophageal Reflux, Crohns Disease Musculoskeletal: No Chronic Back Pain Endocrine: Yes (DM Type II) Diabetes, Insulin dep HEENT: No Hearing Impairment: Denies Cancer: No Psychosocial: No Integumentary: No Blood Disorders: No Physical Exam Vital Signs Vital Signs - First Documented 02/22/22 13:06 Temp 36.5 Pulse 86 Resp 18 B/P (MAP) 154/55 (88) O2 Delivery Room Air Capillary Refill : Height/Weight/BMI Height: 5'5.00" Weight: 132lbs. oz. [id number]; 25.00 BMI Method:Stated General Appearance: WD/WN, no apparent distress HEENT: PERRL/EOMI, normal ENT inspection, pharynx normal Neck: non-tender, full range of motion, supple, normal inspection Respiratory: chest non-tender, lungs clear, normal breath sounds, no respiratory distress, no accessory muscle use Cardiovascular: regular rate, rhythm, no edema, no murmur Gastrointestinal: normal bowel sounds, non tender, soft; No distended, No guarding, No rebound Extremities: normal range of motion, non-tender, normal inspection, no pedal edema, no calf tenderness, normal capillary refill Back: normal inspection, no CVA tenderness Neurologic/Psychiatric: no motor/sensory deficits, alert, normal mood/affect Skin: normal color, warm/dry Lymphatic: no adenopathy Progress/Results/Core Measures Results/Orders Lab Results Laboratory Tests Test 02/22/22 13:10 02/22/22 13:30 Range/Units Urine Color YELLOW Urine Clarity CLOUDY Urine pH 5.5 5-9 Urine Specific [place] 1.010 L 1.016-1.022 Urine Protein NEGATIVE NEGATIVE Urine Glucose (UA) NEGATIVE NEGATIVE Urine Ketones NEGATIVE NEGATIVE Urine Nitrite NEGATIVE NEGATIVE Urine Bilirubin NEGATIVE NEGATIVE Urine Urobilinogen 0.2 < = 1.0 MG/DL Urine Leukocyte Esterase 2+ H NEGATIVE Urine RBC (Auto) TRACE-I H NEGATIVE Urine RBC NONE /HPF Urine WBC TNTC H /HPF Urine Squamous Epithelial Cells 10-25 H /HPF Urine Crystals NONE /LPF Urine Bacteria LARGE H /HPF Urine Casts NONE /LPF Urine Mucus NEGATIVE /LPF Urine Yeast MODERATE H /HPF Urine Culture Indicated YES Sodium Level 136 135-145 MMOL/L Potassium Level 5.2 H 3.6-5.0 MMOL/L Chloride Level 102 98-107 MMOL/L Carbon Dioxide Level 18 L 21-32 MMOL/L Anion Gap 16 H 5-14 MMOL/L Blood Urea Nitrogen 37 H 7-18 MG/DL Creatinine 1.44 H 0.60-1.30 MG/DL Estimat Glomerular Filtration Rate 38 BUN/Creatinine Ratio 26 Glucose Level 108 H 70-105 MG/DL Calcium Level 10.4 H 8.5-10.1 MG/DL Corrected Calcium 10.1 8.5-10.1 MG/DL Total Bilirubin 0.2 0.1-1.0 MG/DL Aspartate Amino Transf (AST/SGOT) 24 5-34 U/L Alanine Aminotransferase (ALT/SGPT) 11 0-55 U/L Alkaline Phosphatase 140 H 40-136 U/L C-Reactive Protein 0.55 H <0.50 MG/DL Total Protein 7.5 6.4-8.2 GM/DL Albumin 4.4 3.2-4.5 GM/DL Lipase 13 8-78 U/L White Blood Count 7.0 4.3-11.0 10^3/uL Red Blood Count 3.73 L 3.80-5.11 10^6/uL Hemoglobin 10.7 L 11.5-16.0 g/dL Hematocrit 32 L 35-52 % Mean Corpuscular Volume 86 80-99 fL Mean Corpuscular Hemoglobin 29 25-34 pg Mean Corpuscular Hemoglobin Concent 33 32-36 g/dL Red Cell Distribution Width 14.7 H 10.0-14.5 % Platelet Count 349 130-400 10^3/uL Mean Platelet Volume 10.0 9.0-12.2 fL Immature Granulocyte % (Auto) 0 % Neutrophils (%) (Auto) 69 42-75 % Lymphocytes (%) (Auto) 26 12-44 % Monocytes (%) (Auto) 4 0-12 % Eosinophils (%) (Auto) 0 0-10 % Basophils (%) (Auto) 0 0-10 % Neutrophils # (Auto) 4.8 1.8-7.8 10^3/uL Lymphocytes # (Auto) 1.8 1.0-4.0 10^3/uL Monocytes # (Auto) 0.3 0.0-1.0 10^3/uL Eosinophils # (Auto) 0.0 0.0-0.3 10^3/uL Basophils # (Auto) 0.0 0.0-0.1 10^3/uL Immature Granulocyte # (Auto) 0.0 0.0-0.1 10^3/uL My Orders Orders - NANCY SWANSON MD Cbc With Automated Diff (02/22/22 13:30) Comprehensive Metabolic Panel (02/22/22 13:30) Lipase (02/22/22 13:30) Ua Culture If Indicated (02/22/22 13:30) Crp Fs (02/22/22 13:30) Ondansetron Injection (Zofran Injectio (02/22/22 13:30) Ns Iv 1000 Ml (Sodium Chloride 0.9%) (02/22/22 13:30) Ed Iv/Invasive Line Start (02/22/22 13:30) Hydrocodone/Apap 5/325 Tablet (Lortab 5 (02/22/22 13:30) Urine Culture (02/22/22 13:10) Medications Given in ED Current Medications Medications Dose Ordered Sig/Kasandra Route Start Time Stop Time Status Last Admin Dose Admin Acetaminophen/ Hydrocodone Bitart 1 ea ONCE ONCE PO 02/22/22 13:30 02/22/22 13:33 DC 02/22/22 13:51 1 EA Ondansetron HCl 4 mg ONCE ONCE IVP 02/22/22 13:30 02/22/22 13:33 DC 02/22/22 13:51 4 MG Vital Signs/I&O 02/22/22 13:06 Temp 36.5 Pulse 86 Resp 18 B/P (MAP) 154/55 (88) O2 Delivery Room Air Progress Progress Note : Progress Note 76-year-old female coming in for essentially chronic diarrhea. ABCs were intact and vitals were stable on presentation. Physical exam reassuring including a soft and nontender abdomen. An IV was placed and she was given a bolus of IV fluids as well as nausea medicine. She is having some dysuria so urinalysis was drawn as well and is consistent with infection. White blood cell count is normal, CRP is near normal, creatinine is just slightly above her baseline which fits with her mild dehydration with her diarrhea. She is tolerating p.o. here and I believe she is appropriate for outpatient follow-up with her PCP. She is on Macrobid 100 mg once daily chronically for prophylaxis for UTI, we will change her to a different medication for the next 5 days. Of note, the patient came in for "bloody diarrhea". Her stool was brown here and Hemoccult negative. I have a very low suspicion for GI bleed. She also does not take any NSAIDs, no blood thinners, has no history of liver disease, does not drink alcohol, has had upper GI scopes which were normal, and with a CRP near normal, it is very unlikely in the absence of abdominal pain that this is a Crohn's flare as well. Departure Impression Primary Impression: Cystitis with hematuria Additional Impression: Diarrhea Qualified Codes: K59.1 - Functional diarrhea Disposition: 01 HOME, SELF-CARE Condition: Stable Departure-Patient Inst. Decision time for Depature: 14:09 Referrals: CANDIDO KEARNEY APRN (PCP) Primary Care Physician [facility] (Family) Primary Care Physician Patient Instructions: Urinary Tract Infection, Adult ED, Diarrhea, Adult ED Add. Discharge Instructions: Be sure to drink plenty of fluids and try to take in fluids every time you have an episode of liquid diarrhea. Nausea medicines were sent to your pharmacy as well as an antibiotic which she will change for the next 5 days. Do not take the nitrofurantoin also known as Macrobid that you are prescribed for the next 5 days while on that. Medicines for diarrhea were also sent to your pharmacy. Try to use these sparingly. Follow-up with your regular doctor to see if you may need a referral to a GI specialist. Scripts Ciprofloxacin HCl (Ciprofloxacin HCl) 500 Mg Tablet 500 MG PO BID for 5 Days, #10 TAB Prov: NANCY SWANSON MD 02/22/22 Loperamide HCl (Loperamide) 2 Mg Tablet 2 MG PO Q12H PRN for DIARRHEA for 7 Days, #14 TAB Prov: NANCY SWANSON MD 02/22/22 Ondansetron (Ondansetron Odt) 4 Mg Tab.rapdis 4 MG PO Q6H PRN for NAUSEA/VOMITING-1ST LINE for 5 Days, #20 TAB Prov: NANCY SWANSON MD 02/22/22 NANCY SWANSON MD Feb 22, 2022 13:34
[2022-02-22 13:36] LABS: BILIRUBIN,URINE NEGATIVE (NEGATIVE); COLOR,URINE YELLOW; GLUCOSE, URINE (UA) NEGATIVE (NEGATIVE); KETONES,URINE NEGATIVE (NEGATIVE); LEUKOCYTE ESTERASE ,URINE 2+ (NEGATIVE); NITRITE,URINE NEGATIVE (NEGATIVE); PH,URINE 5.5 (5-9); PROTEIN,URINE NEGATIVE (NEGATIVE)
[2022-02-22 13:40] LABS: BACTERIA,URINE LARGE /HPF; CLARITY,URINE CLOUDY; WBC,URINE TNTC /HPF; YEAST,URINE MODERATE /HPF
[2022-02-22 13:56] LABS: ALBUMIN 4.4 GM/DL (3.2-4.5); BILIRUBIN,TOTAL 0.2 MG/DL (0.1-1.0); CALCIUM 10.4 MG/DL (8.5-10.1); CREATININE SERUM 1.44 MG/DL (0.60-1.30); POTASSIUM 5.2 MMOL/L (3.6-5.0); TOTAL PROTEIN 7.5 GM/DL (6.4-8.2)
[2022-02-22] MEDS ORDERED: ONDA4TAB11 PO ×2 (14:12→14:19)
[2022-02-22] MEDS ORDERED: CIPR500T5 PO ×2 (14:12→14:19)
[2022-02-22] MEDS ORDERED: LOPE2TAB34 PO ×2 (14:12→14:19)
[2022-02-22 14:34] VITALS: BP 137/67
== END 2022-02-22 14:34 | disposition home or self-care (01) ==
LOC: EDUNIT# 13:00 → ER FS 13:01
DX: N30.91 Cystitis, unspecified with hematuria (principal); R19.7 Diarrhea, unspecified; E86.0 Dehydration; Z88.2 Allergy status to sulfonamides
CPT/HCPCS: 36415; 80053; 81000; 83690; 85025; 86141; 87077; 87088

== ENCOUNTER 2022-02-25 19:07 | Emergency (ER) | payer MEDICARE ==
[~2022-02-25] VITALS: Ht 162.5 cm; Wt 63.5 kg
[~2022-02-25 19:07] MED LIST changes: +LOPE2TAB34 PO; +ONDA4TAB11 PO
--- NOTE | 2022-02-25 19:09 | ED General ---
General Stated Complaint: WEAKNESS,N/V/D Source of Information: Patient Exam Limitations: No Limitations History of Present Illness Date Seen by Provider: Feb 25, 2022 Time Seen by Provider: 19:09 Initial Comments 76-year-old female presents with a neighbor/friend for concerns that she is worsening in her overall condition. The patient herself tells me she has had diarrhea for the last 3 to 4 weeks. It is profuse voluminous. There was a time when she thought it might have been bloody but it currently is brown. She denies any fevers or chills. She has some difficulty with eating due to decreased appetite and vomiting immediately after any oral intake per her report. She does endorse some weight loss with this and increasing generalized weakness. Pain is described as a dull throbbing sensation in her epigastric region without radiation. No aggravating or alleviating factors outside of food intake. Mild at present. She denies any fevers or chills. No changes in her urination she was seen here on Thursday and had a work-up consisting of labs and stool studies. She was found to have a possible urinary tract infection and has been taking antibiotics for this. Her neighbor is concerned because she states patient's is a hoarder and the house is in a state of disrepair with objects in the house. Patient has a history of Crohns disease Allergies and Home Medications Allergies Coded Allergies: Sulfa (Sulfonamide Antibiotics) (Verified Allergy, Severe, 02/01/21) Patient Home Medication List Home Medication List Reviewed: Yes Ciprofloxacin HCl (Ciprofloxacin HCl) 500 Mg Tablet, 500 MG PO BID Prescribed by: CHUCHO LEO on 02/17/21 1501 Ciprofloxacin HCl (Ciprofloxacin HCl) 500 Mg Tablet, 500 MG PO BID Prescribed by: NANCY SWANSON on 02/22/22 1419 Citalopram Hydrobromide (Citalopram HBr) 20 Mg Tablet, 20 MG PO HS, (Reported) Entered as Reported by: CANDIDO GUTIERREZ on 04/05/19 1041 Dicyclomine HCl (Dicyclomine HCl) 10 Mg Capsule, 20 MG PO QID, (Reported) Entered as Reported by: RAIN RUDOLPH on 04/05/19 0253 Docusate Sodium (Colace) 100 Mg Capsule, 100 MG PO HS, (Reported) Entered as Reported by: CANDIDO GUTIERREZ on 04/05/19 1044 Gemfibrozil (Gemfibrozil) 600 Mg Tablet, 600 MG PO BID, (Reported) Entered as Reported by: RAIN RUDOLPH on 04/05/19252 Glimepiride (Glimepiride) 4 Mg Tablet, 4 MG PO BIDAC, (Reported) Entered as Reported by: RAIN RUDOLPH on 04/05/19252 Isosorbide Mononitrate (Isosorbide Mononitrate ER) 30 Mg Tab.er.24h, 30 MG PO DAILY, (Reported) Entered as Reported by: RAIN RUDOLPH on 04/05/19252 Loperamide HCl (Loperamide) 2 Mg Tablet, 2 MG PO Q12H PRN for DIARRHEA Prescribed by: NANCY SWANSON on 02/22/22 141 Losartan Potassium (Losartan Potassium) 100 Mg Tablet, 100 MG PO DAILY, (Reported) Entered as Reported by: DAVID ARITA on 04/25/20 0859 Metformin HCl (Metformin HCl) 500 Mg Tablet, 1,000 MG PO BID, (Reported) Entered as Reported by: CANDIDO GUTIERREZ on 04/05/19 104 Metoprolol Succinate (Toprol Xl) 25 Mg Tab.er.24h, 25 MG PO DAILY, (Reported) Entered as Reported by: CONRAD WAGONER on 01/26/21 0908 Nitroglycerin (Nitroglycerin) 0.4 Mg Tab.subl, 0.4 MG SL UD PRN for CHEST PAIN, (Reported) Entered as Reported by: RAIN RUDOLPH on 04/05/19252 Ondansetron (Ondansetron Odt) 4 Mg Tab.rapdis, 4 MG PO Q6H PRN for NAUSEA/VOMITING-1ST LINE Prescribed by: NANCY SWANSON on 02/22/22 1419 Pantoprazole Sodium (Pantoprazole Sodium) 20 Mg Tablet.dr, 20 MG PO DAILY, (Reported) Entered as Reported by: DAVID ARITA on 04/25/20 0938 Prednisone (Prednisone) 5 Mg Tablet, 5 MG PO DAILY, (Reported) Entered as Reported by: DAVID ARITA on 04/25/20 0859 Simvastatin (Simvastatin) 40 Mg Tablet, 40 MG PO HS, (Reported) Entered as Reported by: RAIN RUDOLPH on 04/05/19 025 Tramadol HCl (Tramadol HCl) 50 Mg Tablet, 50 MG PO Q6H PRN for PAIN-MODERATE, (Reported) Entered as Reported by: RAIN RUDOLPH on 04/05/19252 [Insulin] , 10 UNITS SQ, (Reported) Entered as Reported by: CONRAD WAGONER on 01/26/21 0910 Review of Systems Review of Systems Constitutional: weakness EENTM: no symptoms reported Respiratory: no symptoms reported Cardiovascular: no symptoms reported Gastrointestinal: abdominal pain, diarrhea, nausea, vomiting Genitourinary: no symptoms reported Musculoskeletal: no symptoms reported Skin: no symptoms reported Psychiatric/Neurological: No Symptoms Reported Hematologic/Lymphatic: No Symptoms Reported Immunological/Allergic: no symptoms reported Past Ytyhxan-Srvgnl-Qanwvr Hx Patient Social History Tobacco Use?: No Use of E-Cig and/or Vaping dev: No Substance use?: No Alcohol Use?: No Immunizations Up To Date First/Initial COVID19 Vaccinat: YES Second COVID19 Vaccination Dickson: YES Seasonal Allergies Seasonal Allergies: No Past Medical History Surgeries: Yes (Cystourethroscopy, colonoscopy, EGD, removal spinal stimulator, ESWL) Appendectomy, Gallbladder, Hysterectomy Respiratory: Yes Pneumonia Currently Using CPAP: No Cardiac: Yes (Diastolic dysfunction) Hypertension Neurological: Yes Neuropathy Female Reproductive Disorders: Denies [employer] History: Hysterectomy HIV/AIDS: No Genitourinary: Yes (Urethral strictures, Hx Klebsiella cystitis) Kidney Stones, UTI-Chronic Gastrointestinal: Yes (Regional enteritis) Gastroesophageal Reflux, Crohns Disease Musculoskeletal: No Chronic Back Pain Endocrine: Yes (DM Type II) Diabetes, Insulin dep HEENT: No Hearing Impairment: Denies Cancer: No Psychosocial: No Integumentary: No Blood Disorders: No Family Medical History Reviewed Nursing Family Hx No Pertinent Family Hx Physical Exam Vital Signs Vital Signs - First Documented 02/25/22 19:10 Temp 37.2 Pulse 79 Resp 16 B/P (MAP) 197/82 (120) Pulse Ox 99 O2 Delivery Room Air Capillary Refill : Height, Weight, BMI Height: 5'5.00" Weight: 132lbs. oz. 59.444273gk; 25.00 BMI Method:Stated General Appearance: No Apparent Distress, WD/WN HEENT: TMs Normal, Normal ENT Inspection, Pharynx Normal Neck: Normal Inspection, Non Tender, Supple Respiratory: Chest Non Tender, Lungs Clear, Normal Breath Sounds, No Accessory Muscle Use, No Respiratory Distress Cardiovascular: Regular Rate, Rhythm, No Edema, No Gallop, No JVD, No Murmur, Normal Peripheral Pulses, Other (Hypertension) Gastrointestinal: Normal Bowel Sounds, No Organomegaly, Soft, Tenderness (Tenderness palpation bilateral upper abdomen with voluntary guarding. No rebound tenderness. No mass organomegaly. No skin changes. Abdomen does appear slightly distended) Extremity: Normal Capillary Refill, Normal Inspection, Normal Range of Motion, Non Tender, No Calf Tenderness Neurologic/Psychiatric: Alert, Oriented x3 Skin: Normal Color, Warm/Dry Progress/Results/Core Measures Suspected Sepsis SIRS Temperature: Pulse: Respiratory Rate: Laboratory Tests 02/25/22 18:25: White Blood Count 6.5 Blood Pressure / Mean: Laboratory Tests 02/25/22 18:25: Creatinine 1.29, Platelet Count 340, Total Bilirubin < 0.2 Results/Orders Lab Results Laboratory Tests Test 02/25/22 18:25 Range/Units White Blood Count 6.5 4.3-11.0 10^3/uL Red Blood Count 3.67 L 3.80-5.11 10^6/uL Hemoglobin 10.4 L 11.5-16.0 g/dL Hematocrit 31 L 35-52 % Mean Corpuscular Volume 85 80-99 fL Mean Corpuscular Hemoglobin 28 25-34 pg Mean Corpuscular Hemoglobin Concent 34 32-36 g/dL Red Cell Distribution Width 14.7 H 10.0-14.5 % Platelet Count 340 130-400 10^3/uL Mean Platelet Volume 10.0 9.0-12.2 fL Immature Granulocyte % (Auto) 0 % Neutrophils (%) (Auto) 63 42-75 % Lymphocytes (%) (Auto) 30 12-44 % Monocytes (%) (Auto) 7 0-12 % Eosinophils (%) (Auto) 0 0-10 % Basophils (%) (Auto) 0 0-10 % Neutrophils # (Auto) 4.1 1.8-7.8 10^3/uL Lymphocytes # (Auto) 1.9 1.0-4.0 10^3/uL Monocytes # (Auto) 0.4 0.0-1.0 10^3/uL Eosinophils # (Auto) 0.0 0.0-0.3 10^3/uL Basophils # (Auto) 0.0 0.0-0.1 10^3/uL Immature Granulocyte # (Auto) 0.0 0.0-0.1 10^3/uL Sodium Level 136 135-145 MMOL/L Potassium Level 4.8 3.6-5.0 MMOL/L Chloride Level 103 98-107 MMOL/L Carbon Dioxide Level 15 L 21-32 MMOL/L Anion Gap 18 H 5-14 MMOL/L Blood Urea Nitrogen 32 H 7-18 MG/DL Creatinine 1.29 0.60-1.30 MG/DL Estimat Glomerular Filtration Rate 43 BUN/Creatinine Ratio 25 Glucose Level 119 H 70-105 MG/DL Calcium Level 10.0 8.5-10.1 MG/DL Corrected Calcium 9.7 8.5-10.1 MG/DL Total Bilirubin < 0.2 0.1-1.0 MG/DL Aspartate Amino Transf (AST/SGOT) 27 5-34 U/L Alanine Aminotransferase (ALT/SGPT) 13 0-55 U/L Alkaline Phosphatase 132 40-136 U/L Total Protein 7.2 6.4-8.2 GM/DL Albumin 4.4 3.2-4.5 GM/DL Lipase 11 8-78 U/L My Orders Orders - ADIA BAUTISTA DO Cbc With Automated Diff (02/25/22 19:18) Comprehensive Metabolic Panel (02/25/22 19:18) Lipase (02/25/22 19:18) Ct Abd/Pelv W (Appendicitis) (02/25/22 19:18) Ua Culture If Indicated (02/25/22 19:18) Ns Iv 500 Ml (Sodium Chloride 0.9%) (02/25/22 19:30) Iohexol Injection (Omnipaque 350 Mg/Ml 1 (02/25/22 19:30) Di Iv Start (Assessment) .IV start (02/25/22 19:20) Received Contrast (Hold Metformin- Contr (02/25/22 19:30) Ns (Ivpb) (Sodium Chloride 0.9% Ivpb Bag (02/25/22 19:30) Ed Iv/Invasive Line Start (02/25/22 19:28) Medications Given in ED Current Medications Medications Dose Ordered Sig/Kasandra Route Start Time Stop Time Status Last Admin Dose Admin Iohexol 100 ml ONCE ONCE IV 02/25/22 19:30 02/25/22 19:31 DC 02/25/22 19:56 80 ML Sodium Chloride 100 ml ONCE ONCE IV 02/25/22 19:30 02/25/22 19:31 DC 02/25/22 19:56 100 ML Vital Signs/I&O 02/25/22 19:10 Temp 37.2 Pulse 79 Resp 16 B/P (MAP) 197/82 (120) Pulse Ox 99 O2 Delivery Room Air Capillary Refill : Diagnostic Imaging Diagonstic Imaging: CT Plain Films/CT/US/NM/MRI: abdomen, pelvis Comments Negative for any acute findings Departure Communication (Admissions) Patient is hemodynamically stable. She has no evidence for an acute medical emergency at this time. Labs are actually markedly improved from when they were checked on Thursday. CT scan obtained due to her upper abdominal discomfort and inability to tolerate p.o. per her report. This is negative for any acute findings. She continues to be on antibiotics for urinary tract infection as per her previous visit. Urine culture showed E. coli, sensitivities not available yet. The patient is generally weak and but if she is able to transfer herself and stand briefly. She states there are many boxes and things lining the halls at home which she uses to help her ambulate. With that I discharged her home in stable condition. She is given recommendation for follow-up in 48 hours with her primary doctor and I did recommend she look into short versus long-term nurs ing facilities that may offer some rehabilitation services as well Impression Primary Impression: Diarrhea Qualified Codes: R19.7 - Diarrhea, unspecified Additional Impression: Generalized weakness Disposition: 01 HOME, SELF-CARE Condition: Stable Departure-Patient Inst. Referrals: CANDIDO KEARNEY APRN (PCP) Primary Care Physician [facility] (Family) Primary Care Physician NEERAJ DELA CRUZ DO Patient Instructions: Diarrhea, Adult ED Add. Discharge Instructions: Please follow-up with her primary doctor for possible stool sample as she was unable to provide that here today. Her electrolytes and kidney function, overall hydration are markedly improved from her evaluation on Thursday. Her CT scan shows no acute significant findings. Unfortunately I do not have any reason to admit her to the hospital at this time. I think some of her symptoms are related to chronic deconditioning. She may benefit from short-term or long- term care in a nursing facility. Please continue to work with your family to check on availability of local nursing facilities that may work with your insurance and financial needs. Regarding her eating and digestive issues, I recommend you follow-up with Dr. Dela Cruz by calling to schedule an appointment. He may be able to perform an upper and lower endoscopy which may shed some light on the cause of your symptoms. Return to the emergency department for any severe concerns. Follow-up with your primary physician in the next 48 hours for further evaluation and treatment recommendations. ADIA BAUTISTA DO Feb 25, 2022 19:09
[2022-02-25 19:27] LABS: BASOPHILS % (AUTO) 0 % (0-10); EOSINOPHILS % (AUTO) 0 % (0-10); HEMATOCRIT 31 % (35-52); HEMOGLOBIN 10.4 g/dL (11.5-16.0); LYMPHOCYTES # (AUTO) 1.9 10^3/uL (1.0-4.0); LYMPHOCYTES % (AUTO) 30 % (12-44); MEAN CORPUSCULAR HEMOGLOBIN 28 pg (25-34); MEAN CORPUSCULAR HGB CONC 34 g/dL (32-36); MEAN CORPUSCULAR VOLUME 85 fL (80-99); MONOCYTES # (AUTO) 0.4 10^3/uL (0.0-1.0); MONOCYTES % (AUTO) 7 % (0-12); NEUTROPHILS # (AUTO) 4.1 10^3/uL (1.8-7.8); NEUTROPHILS % (AUTO) 63 % (42-75); PLATELET COUNT 340 10^3/uL (130-400); WHITE BLOOD COUNT 6.5 10^3/uL (4.3-11.0)
[2022-02-25] MEDS ORDERED: NS 100 ML (IVPB) BAG IV ONE (19:30)
[2022-02-25] MEDS ORDERED: NS IV 500 ML 500 ML IV SCH (19:30)
[2022-02-25] MEDS ORDERED: IOHEXOL 350 MG/ML 100 ML (OMNIPAQUE 350) VIAL IV ONE (19:30)
[2022-02-25] MEDS ORDERED: HOLD METFORMIN - RECEIVED CONTRAST 20 ML VIAL IV SCH (19:30)
[2022-02-25 19:49] LABS: BUN/CREATININE RATIO 25; CARBON DIOXIDE 15 MMOL/L (21-32); CHLORIDE 103 MMOL/L (98-107); CREATININE SERUM 1.29 MG/DL (0.60-1.30); GFR ESTIMATED 43; GLUCOSE 119 MG/DL (70-105); POTASSIUM 4.8 MMOL/L (3.6-5.0); SODIUM 136 MMOL/L (135-145)
[2022-02-25 19:50] LABS: ALANINE AMINOTRANSFERASE 13 U/L (0-55); ALBUMIN 4.4 GM/DL (3.2-4.5); ALKALINE PHOSPHATASE 132 U/L (40-136); BILIRUBIN,TOTAL < 0.2 MG/DL (0.1-1.0); LIPASE 11 U/L (8-78); TOTAL PROTEIN 7.2 GM/DL (6.4-8.2)
--- NOTE | 2022-02-25 20:31 | Diagnostic Imaging Report ---
PROCEDURE: CT abdomen and pelvis with contrast, rule out appendicitis. TECHNIQUE: Multiple contiguous axial images were obtained through the abdomen and pelvis after the administration of intravenous contrast. All CT scans use one or more of the following dose optimizing techniques: automated exposure control, MA and/or KvP adjustment based on patient size and exam type or iterative reconstruction. INDICATION: Diffuse abdominal pain and distention, nausea and vomiting. COMPARISON: 02/17/2021 FINDINGS: There is a calcified granuloma in the left lung base. Lung bases are otherwise clear. The heart is normal in size. The liver demonstrates no focal lesions. Cholecystectomy clips are noted. Mild prominence of the biliary tree is likely due to postcholecystectomy change. The spleen has calcified granulomas. 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 No main ductal dilatation is seen. The adrenal glands appear normal. The kidneys demonstrate no hydronephrosis or enhancing lesions. There are simple cysts on the right kidney. The urinary bladder demonstrates some anterior trabeculation which may be from chronic outlet obstruction. There is a small amount of air in the bladder. The appendix appears to be resected. The bowel loops are nondistended without obstruction. There is a small hiatal hernia. There is wall thickening of the descending and sigmoid colon. There is no surrounding edema. There is diverticulosis of the distal colon. No free fluid or free air is seen. The aorta demonstrates atherosclerosis, with no aneurysm seen. There are postsurgical changes and degenerative changes in the spine. There is a compression deformity of L1 which appears new since the prior exam. IMPRESSION: 1. Trabeculation of the bladder which may be from chronic outlet obstruction. Small amount of air in the bladder, please correlate with recent instrumentation or urinalysis. 2. Mild wall thickening of the descending and sigmoid colon. This is most likely due to underdistention, but a colitis is difficult to exclude. There is not significant surrounding edema and no free fluid or fluid collection. 3. Mild prominence of the biliary ducts, likely from prior cholecystectomy. 4. 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 Nonemergent follow-up with MRI could be considered. 5. Small hiatal hernia. Dictated by: Dictated on workstation # [id number]
[2022-02-25 20:53] VITALS: BP 197/82
== END 2022-02-25 20:53 | disposition home or self-care (01) ==
LOC: EDUNIT# 19:07 → ER FS 19:09
DX: R19.7 Diarrhea, unspecified (principal); R53.1 Weakness; N39.0 Urinary tract infection, site not specified; E11.40 Type 2 diabetes mellitus with diabetic neuropathy, unspecified; Z87.442 Personal history of urinary calculi; Z79.4 Long term (current) use of insulin
CPT/HCPCS: 36415; 74177; 80053; 83690; 85025; Q9967

== ENCOUNTER → 2022-04-30 | Outpatient (RCR) | payer MEDICARE ==
[~2022-04-30] MED LIST changes: +VITAMIN K 1 MG/ML ORAL SOLN 1 ML SYRINGE PO ONE
[2022-04-30 14:47] LABS: INR 1.1 (0.8-1.4); PROTHROMBIN TIME PATIENT 14.5 SEC (12.2-14.7)
[2022-04-30 14:48] LABS: ABSOLUTE RETIC # 61 10e9/uL (24-90); BASOPHILS % (AUTO) 0 % (0-10); EOSINOPHILS # (AUTO) 0.1 10^3/uL (0.0-0.3); EOSINOPHILS % (AUTO) 1 % (0-10); HEMATOCRIT 30 % (35-52); HEMOGLOBIN 9.3 g/dL (11.5-16.0); LYMPHOCYTES # (AUTO) 1.9 10^3/uL (1.0-4.0); LYMPHOCYTES % (AUTO) 24 % (12-44); MEAN CORPUSCULAR HEMOGLOBIN 29 pg (25-34); MEAN CORPUSCULAR HGB CONC 31 g/dL (32-36); MEAN CORPUSCULAR VOLUME 93 fL (80-99); MEAN PLATELET VOLUME 11.1 fL (9.0-12.2); MONOCYTES # (AUTO) 0.4 10^3/uL (0.0-1.0); MONOCYTES % (AUTO) 5 % (0-12); NEUTROPHILS # (AUTO) 5.4 10^3/uL (1.8-7.8); NEUTROPHILS % (AUTO) 69 % (42-75); PLATELET COUNT 316 10^3/uL (130-400); RETICULOCYTE % 1.89 % (0.50-2.40); WHITE BLOOD COUNT 7.8 10^3/uL (4.3-11.0)
== END ==
LOC: ONC 12:26
PROVIDERS: ATTEND Internal Medicine Hematology & Oncology
DX: D64.9 Anemia, unspecified (principal); E11.9 Type 2 diabetes mellitus without complications; I10 Essential (primary) hypertension; E78.2 Mixed hyperlipidemia; R79.1 Abnormal coagulation profile
CPT/HCPCS: 82607; 82728; 82746; 83540; 83550; 83615; 84238; 85025; 85045; 85610; 85730; G0463; 99204

== ENCOUNTER 2022-05-14 12:24 | Outpatient (RCR) | payer MEDICARE ==
[~2022-05-14 12:24] MED LIST changes: -VITAMIN K 1 MG/ML ORAL SOLN 1 ML SYRINGE PO ONE
[2022-05-14 13:23] LABS: BASOPHILS % (AUTO) 0 % (0-10); EOSINOPHILS # (AUTO) 0.1 10^3/uL (0.0-0.3); EOSINOPHILS % (AUTO) 1 % (0-10); HEMATOCRIT 30 % (35-52); HEMOGLOBIN 9.6 g/dL (11.5-16.0); LYMPHOCYTES # (AUTO) 2.1 10^3/uL (1.0-4.0); LYMPHOCYTES % (AUTO) 26 % (12-44); MEAN CORPUSCULAR HEMOGLOBIN 29 pg (25-34); MEAN CORPUSCULAR HGB CONC 32 g/dL (32-36); MEAN CORPUSCULAR VOLUME 92 fL (80-99); MONOCYTES # (AUTO) 0.4 10^3/uL (0.0-1.0); MONOCYTES % (AUTO) 5 % (0-12); NEUTROPHILS # (AUTO) 5.4 10^3/uL (1.8-7.8); NEUTROPHILS % (AUTO) 68 % (42-75); PLATELET COUNT 295 10^3/uL (130-400)
[2022-05-14 13:40] LABS: ALBUMIN 3.8 GM/DL (3.2-4.5); BILIRUBIN,TOTAL 0.2 MG/DL (0.1-1.0); CALCIUM 9.7 MG/DL (8.5-10.1); CREATININE SERUM 1.01 MG/DL (0.60-1.30); POTASSIUM 4.7 MMOL/L (3.6-5.0); TOTAL PROTEIN 6.6 GM/DL (6.4-8.2)
[2022-05-27] MEDS ORDERED: INSU100I32 SC (16:18)
[2022-05-27] MEDS ORDERED: NITR50CA PO (16:18)
[2022-05-27] MEDS ORDERED: TMSL.4C PO (16:18)
[2022-05-27] MEDS ORDERED: ISOS60TA63 PO (16:18)
[2022-05-27] MEDS ORDERED: PANT40TA52 PO (16:18)
[2022-05-27] MEDS ORDERED: METH1TAB92 PO (16:18)
[2022-05-27] MEDS ORDERED: ALBU18HF2 INH (16:18)
[2022-05-27] MEDS ORDERED: DOXY100T2 PO (16:18)
[2022-05-27] MEDS ORDERED: MTP25TSR PO (16:18)
[2022-05-30] MEDS ORDERED: DICY10CA12 PO (12:05)
[2022-05-30] MEDS ORDERED: OXC5T PO (12:05)
[2022-05-30] MEDS ORDERED: TMSL.4C PO (12:05)
[2022-05-30] MEDS ORDERED: LACT20SO2 PO (12:05)
[2022-05-30] MEDS ORDERED: ENOX40DI8 SC (12:05)
[2022-05-30] MEDS ORDERED: ALPR0.5T7 PO (12:05)
[2022-05-30] MEDS ORDERED: LOSA100T57 PO (12:05)
[2022-05-30] MEDS ORDERED: TRM50T PO (12:05)
[2022-05-30] MEDS ORDERED: PANT40TA52 PO (12:05)
[2022-05-30] MEDS ORDERED: MTP25TSR PO (12:05)
[2022-05-30] MEDS ORDERED: NF-SODBICA PO (12:05)
[2022-05-30] MEDS ORDERED: ALBU18HF2 INH (12:05)
[2022-05-30] MEDS ORDERED: GEMF600T88 PO (12:05)
[2022-05-30] MEDS ORDERED: SIMV40TA25 PO (12:05)
[2022-05-30] MEDS ORDERED: CYAN-41 PO (12:05)
[2022-05-30] MEDS ORDERED: PRED5TAB PO (12:05)
[2022-05-30] MEDS ORDERED: NITR0.4T39 SL (12:05)
[2022-05-30] MEDS ORDERED: ACET325T49 PO (12:05)
[2022-05-30] MEDS ORDERED: ISOS60TA63 PO (12:05)
[2022-05-30] MEDS ORDERED: INSU100I32 SC (12:05)
[2022-05-30] MEDS ORDERED: CITA20TA9 PO (12:05)
[2022-05-30] MEDS ORDERED: MAGN200T8 PO (12:09)
[2022-05-30] MEDS ORDERED: NITR-65 PO (12:11)
== END 2022-05-31 | disposition home or self-care (01) ==
LOC: ONC 12:24
PROVIDERS: ATTEND Internal Medicine Hematology & Oncology
DX: D64.9 Anemia, unspecified (principal)
CPT/HCPCS: 80053; 85025; G0463; 36415; 99213

== ENCOUNTER 2022-05-25 19:12 | Inpatient (IN) | payer MEDICARE ==
[~2022-05-25] VITALS: Ht 162.5 cm; Wt 61.7 kg
--- NOTE | 2022-05-25 19:18 | ED Abdominal Pain ---
General Stated Complaint: NOT FEELING WELL Source of Information: Patient, EMS Exam Limitations: No Limitations History of Present Illness Date Seen by Provider: May 25, 2022 Time Seen by Provider: 19:18 Initial Comments 77 y/o female presents tonight by EMS for generalized weakness, fatigue, and malaise x 1-2 days. Pt is rather poor historian. She states she has not eaten today, did take her normal daily insulin. EMS reports blood sugar was 60 when they arrived at her house, they gave peanut butter to patient but she become nauseous, so they administered D10. Timing/Duration: 1-2 Days Severity/Quality: Mild, Aching Location: Generalized Abdomen Radiation: No Radiation Activities at Onset: None Associated Symptoms: No Back Pain, No Chest Pain, No Diaphoresis, No Fever/Chills; Fatigue; No Headache, No Heartburn; Nausea/Vomiting (nausea, denies vomiting); No Shortness of Air, No Swelling/Mass in Abdomen, No Syncope; Weakness Allergies and Home Medications Allergies Coded Allergies: Sulfa (Sulfonamide Antibiotics) (Verified Allergy, Severe, 02/01/21) Patient Home Medication List Home Medication List Reviewed: Yes Ciprofloxacin HCl (Ciprofloxacin HCl) 500 Mg Tablet, 500 MG PO BID Prescribed by: CHUCHO LEO on 02/17/21 1501 Ciprofloxacin HCl (Ciprofloxacin HCl) 500 Mg Tablet, 500 MG PO BID Prescribed by: NANCY SWANSON on 02/22/22 1419 Citalopram Hydrobromide (Citalopram HBr) 20 Mg Tablet, 20 MG PO HS, (Reported) Entered as Reported by: CANDIDO GUTIERREZ on 04/05/19 1041 Dicyclomine HCl (Dicyclomine HCl) 10 Mg Capsule, 20 MG PO QID, (Reported) Entered as Reported by: RAIN RUDOLPH on 04/05/19 025 Docusate Sodium (Colace) 100 Mg Capsule, 100 MG PO HS, (Reported) Entered as Reported by: CANDIDO GUTIERREZ on 04/05/19 1044 Gemfibrozil (Gemfibrozil) 600 Mg Tablet, 600 MG PO BID, (Reported) Entered as Reported by: RAIN RUDOLPH on 04/05/19 025 Glimepiride (Glimepiride) 4 Mg Tablet, 4 MG PO BIDAC, (Reported) Entered as Reported by: RAIN RUDOLPH on 04/05/19252 Isosorbide Mononitrate (Isosorbide Mononitrate ER) 30 Mg Tab.er.24h, 30 MG PO DAILY, (Reported) Entered as Reported by: RAIN RUDOLPH on 04/05/19252 Loperamide HCl (Loperamide) 2 Mg Tablet, 2 MG PO Q12H PRN for DIARRHEA Prescribed by: NANCY SWANSON on 02/22/22 141 Losartan Potassium (Losartan Potassium) 100 Mg Tablet, 100 MG PO DAILY, (Reported) Entered as Reported by: DAVID ARITA on 04/25/20 08 Metformin HCl (Metformin HCl) 500 Mg Tablet, 1,000 MG PO BID, (Reported) Entered as Reported by: CANDIDO GUTIERREZ on 04/05/19 104 Metoprolol Succinate (Toprol Xl) 25 Mg Tab.er.24h, 25 MG PO DAILY, (Reported) Entered as Reported by: CONRAD WAGONER on 01/26/21 0908 Nitroglycerin (Nitroglycerin) 0.4 Mg Tab.subl, 0.4 MG SL UD PRN for CHEST PAIN, (Reported) Entered as Reported by: RAIN RUDOLPH on 04/05/19252 Ondansetron (Ondansetron Odt) 4 Mg Tab.rapdis, 4 MG PO Q6H PRN for NAUSEA/VOMITING-1ST LINE Prescribed by: NANCY SWANSON on 02/22/22 141 Pantoprazole Sodium (Pantoprazole Sodium) 20 Mg Tablet.dr, 20 MG PO DAILY, (Reported) Entered as Reported by: DAVID ARITA on 04/25/20 0938 Prednisone (Prednisone) 5 Mg Tablet, 5 MG PO DAILY, (Reported) Entered as Reported by: DAVID ARITA on 04/25/20 0859 Simvastatin (Simvastatin) 40 Mg Tablet, 40 MG PO HS, (Reported) Entered as Reported by: RAIN RUDOLPH on 04/05/19252 Tramadol HCl (Tramadol HCl) 50 Mg Tablet, 50 MG PO Q6H PRN for PAIN-MODERATE, (Reported) Entered as Reported by: RAIN RUDOLPH on 04/05/19252 [Insulin] , 10 UNITS SQ, (Reported) Entered as Reported by: CONRAD WAGONER on 01/26/21 0910 Review of Systems Review of Systems Constitutional: No chills, No diaphoresis, No dizziness, No fever; malaise, weakness EENTM: No Ear Drainage, No Ear Pain, No Nose Congestion, No Throat Pain Respiratory: Denies Cough, Denies Shortness of Air, Denies Wheezing Gastrointestinal: Denies Abdomen Distended; Abdominal Pain; Denies Diarrhea; Nausea, Poor Appetite, Poor Fluid Intake; Denies Vomiting Genitourinary: No Symptoms Reported Musculoskeletal: no symptoms reported Skin: no symptoms reported Past Lrbdjdw-Dxobyk-Yghsge Hx Immunizations Up To Date First/Initial COVID19 Vaccinat: YES Second COVID19 Vaccination Dickson: YES Seasonal Allergies Seasonal Allergies: No Past Medical History Surgeries: Yes (Cystourethroscopy, colonoscopy, EGD, removal spinal stimulator, ESWL) Appendectomy, Gallbladder, Hysterectomy Respiratory: Yes Pneumonia Currently Using CPAP: No Cardiac: Yes (Diastolic dysfunction) Hypertension Neurological: Yes Neuropathy Female Reproductive Disorders: Denies 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 HIV/AIDS: No Genitourinary: Yes (Urethral strictures, Hx Klebsiella cystitis) Kidney Stones, UTI-Chronic Gastrointestinal: Yes (Regional enteritis) Gastroesophageal Reflux, Crohns Disease Musculoskeletal: No Chronic Back Pain Endocrine: Yes (DM Type II) Diabetes, Insulin dep HEENT: No Hearing Impairment: Denies Cancer: No Psychosocial: No Integumentary: No Blood Disorders: No Family Medical History No Pertinent Family Hx Physical Exam Vital Signs Vital Signs - First Documented 05/25/22 19:16 Temp 36.0 Pulse 94 Resp 17 B/P (MAP) 130/59 (82) Pulse Ox 99 O2 Delivery Room Air Capillary Refill : Height/Weight/BMI Height: 5'5.00" Weight: 132lbs. oz. 59.316064vk; 24.00 BMI Method:Stated General Appearance: no apparent distress, other (ill appearing) HEENT: PERRL/EOMI, normal ENT inspection Neck: non-tender, full range of motion, supple, normal inspection Respiratory: chest non-tender, lungs clear, normal breath sounds, no respiratory distress Cardiovascular: normal peripheral pulses, regular rate, rhythm, no edema, no murmur Gastrointestinal: soft, no organomegaly; No distended, No guarding, No rebound; tenderness (mild, diffuse) Extremities: non-tender, normal inspection, no pedal edema Back: normal inspection, no CVA tenderness Neurologic/Psychiatric: no motor/sensory deficits, alert, normal mood/affect, oriented x 3 Skin: normal color, warm/dry Focused Exam Sepsis Stage: Sepsis Possible Source: Genitouriary Lactate Level 05/25/22 20:47: Time of Focused Exam: 19:18 Respiratory: Chest Non Tender, Lungs Clear, Normal Breath Sounds, No Accessory Muscle Use, No Respiratory Distress Cardiovascular: Regular Rate, Rhythm, No Edema, No Murmur, Normal Peripheral Pulses Capillary Refill: Less Than 3 Seconds Skin: normal color, warm/dry Lactic Acid Level Laboratory Tests Test 05/25/22 20:47 Within 3hrs of presentation: Admin fluids, Admin ABX, Blood cultures prior to ABX's, Lactate level Progress/Results/Core Measures Results/Orders Lab Results Laboratory Tests Test 05/25/22 19:23 05/25/22 19:31 05/25/22 19:37 05/25/22 20:47 Range/Units White Blood Count 12.5 H 4.3-11.0 10^3/uL Red Blood Count 3.24 L 3.80-5.11 10^6/uL Hemoglobin 9.3 L 11.5-16.0 g/dL Hematocrit 29 L 35-52 % Mean Corpuscular Volume 89 80-99 fL Mean Corpuscular Hemoglobin 29 25-34 pg Mean Corpuscular Hemoglobin Concent 32 32-36 g/dL Red Cell Distribution Width 15.0 H 10.0-14.5 % Platelet Count 519 H 130-400 10^3/uL Mean Platelet Volume 9.9 9.0-12.2 fL Immature Granulocyte % (Auto) 1 % Neutrophils (%) (Auto) 91 H 42-75 % Lymphocytes (%) (Auto) 4 L 12-44 % Monocytes (%) (Auto) 4 0-12 % Eosinophils (%) (Auto) 0 0-10 % Basophils (%) (Auto) 0 0-10 % Neutrophils # (Auto) 11.4 H 1.8-7.8 10^3/uL Lymphocytes # (Auto) 0.5 L 1.0-4.0 10^3/uL Monocytes # (Auto) 0.5 0.0-1.0 10^3/uL Eosinophils # (Auto) 0.0 0.0-0.3 10^3/uL Basophils # (Auto) 0.0 0.0-0.1 10^3/uL Immature Granulocyte # (Auto) 0.1 0.0-0.1 10^3/uL Neutrophils % (Manual) 94 % Lymphocytes % (Manual) 4 % Monocytes % (Manual) 2 % [place] Cells SLIGHT Sodium Level 137 135-145 MMOL/L Potassium Level 5.2 H 3.6-5.0 MMOL/L Chloride Level 109 H 98-107 MMOL/L Carbon Dioxide Level 11 L 21-32 MMOL/L Anion Gap 17 H 5-14 MMOL/L Blood Urea Nitrogen 25 H 7-18 MG/DL Creatinine 1.14 0.60-1.30 MG/DL Estimat Glomerular Filtration Rate 50 BUN/Creatinine Ratio 22 Glucose Level 128 H 70-105 MG/DL Calcium Level 9.9 8.5-10.1 MG/DL Corrected Calcium 10.4 H 8.5-10.1 MG/DL Total Bilirubin 0.2 0.1-1.0 MG/DL Aspartate Amino Transf (AST/SGOT) 38 H 5-34 U/L Alanine Aminotransferase (ALT/SGPT) 31 0-55 U/L Alkaline Phosphatase 137 H 40-136 U/L Total Protein 7.0 6.4-8.2 GM/DL Albumin 3.4 3.2-4.5 GM/DL Lipase 12 8-78 U/L Influenza Type A (RT-PCR) Not Detected Not Detecte Influenza Type B (RT-PCR) Not Detected Not Detecte SARS-CoV-2 RNA (RT-PCR) Not Detected Not Detecte Urine Color YELLOW Urine Clarity CLEAR Urine pH 5.5 5-9 Urine Specific [place] 1.020 1.016-1.022 Urine Protein 1+ H NEGATIVE Urine Glucose (UA) NEGATIVE NEGATIVE Urine Ketones 1+ H NEGATIVE Urine Nitrite POSITIVE H NEGATIVE Urine Bilirubin NEGATIVE NEGATIVE Urine Urobilinogen 0.2 < = 1.0 MG/DL Urine Leukocyte Esterase 3+ H NEGATIVE Urine RBC (Auto) 1+ H NEGATIVE Urine RBC 2-5 H /HPF Urine WBC 50-100 H /HPF Urine Squamous Epithelial Cells 0-2 /HPF Urine Crystals NONE /LPF Urine Bacteria LARGE H /HPF Urine Casts NONE /LPF Urine Mucus NEGATIVE /LPF Urine Culture Indicated YES My Orders Orders - ERNIE CHEW APRN Cbc With Automated Diff (05/25/22 19:21) Comprehensive Metabolic Panel (05/25/22 19:21) Lipase (05/25/22 19:21) Urinalysis (05/25/22 19:21) Ed Iv/Invasive Line Start (05/25/22 19:27) Lactated Ringers (Lr 1000 Ml Iv Solution (05/25/22 19:30) Ondansetron Injection (Zofran Injectio (05/25/22 19:30) Covid 19 Inhouse Test (05/25/22 19:27) Influenza A And B By Pcr (05/25/22 19:27) Isolation Central Supply Req (05/25/22 19:27) Manual Differential (05/25/22 19:23) Urine Culture (05/25/22 19:37) Lactic Acid Analyzer (05/25/22 20:36) Blood Culture (05/25/22 20:36) Arterial Blood Gas (05/25/22 20:45) Vancomycin Injection (Vancomycin Injecti (05/25/22 20:45) Meropenem (Merrem 1000 Mg) (05/25/22 20:45) Ed Admission (Communication) (05/25/22 21:05) Medications Given in ED Current Medications Medications Dose Ordered Sig/Kasandra Route Start Time Stop Time Status Last Admin Dose Admin Meropenem 1000 mg/ Sodium Chloride 100 ml @ 200 mls/hr ONCE ONCE IV 05/25/22 20:45 05/25/22 21:14 DC 05/25/22 21:21 200 MLS/HR Ondansetron HCl 4 mg ONCE ONCE IVP 05/25/22 19:30 05/25/22 19:31 DC 05/25/22 19:57 4 MG Vital Signs/I&O 05/25/22 19:16 Temp 36.0 Pulse 94 Resp 17 B/P (MAP) 130/59 (82) Pulse Ox 99 O2 Delivery Room Air Departure Communication (Admissions) Time/Spoke to Admitting Phy: 20:[address] Ann, will admit for observation--cardiac stepdown unit, she recommends vancomycin and meropenem. ABG, Urine and blood cultures pending on admission. Impression Primary Impression: Sepsis Additional Impressions: UTI (urinary tract infection) Hyperkalemia Disposition: 09 ADMITTED INPATIENT Condition: Stable Admissions Decision to Admit Reason: Admit from ER (General) Decision to Admit/Date: May 25, 2022 Time/Decision to Admit Time: 20:48 Departure-Patient Inst. Referrals: CANDIDO KEARNEY APRN (PCP) Primary Care Physician [facility] (Family) Primary Care Physician ERNIE CHEW APRN May 25, 2022 19:18
[2022-05-25 19:29] LABS: BASOPHILS % (AUTO) 0 % (0-10); EOSINOPHILS % (AUTO) 0 % (0-10); HEMATOCRIT 29 % (35-52); HEMOGLOBIN 9.3 g/dL (11.5-16.0); LYMPHOCYTES # (AUTO) 0.5 10^3/uL (1.0-4.0); LYMPHOCYTES % (AUTO) 4 % (12-44); MEAN CORPUSCULAR HEMOGLOBIN 29 pg (25-34); MEAN CORPUSCULAR HGB CONC 32 g/dL (32-36); MEAN CORPUSCULAR VOLUME 89 fL (80-99); MEAN PLATELET VOLUME 9.9 fL (9.0-12.2); MONOCYTES # (AUTO) 0.5 10^3/uL (0.0-1.0); MONOCYTES % (AUTO) 4 % (0-12); NEUTROPHILS # (AUTO) 11.4 10^3/uL (1.8-7.8); NEUTROPHILS % (AUTO) 91 % (42-75); PLATELET COUNT 519 10^3/uL (130-400); WHITE BLOOD COUNT 12.5 10^3/uL (4.3-11.0)
[2022-05-25] MEDS ORDERED: LACTATED RINGERS 1,000 ML IV SCH (19:30)
[2022-05-25] MEDS ORDERED: ONDANSETRON 4 MG/2 ML (SDV) Z0FRAN IVP ONE (19:30)
[2022-05-25 19:43] LABS: BILIRUBIN,URINE NEGATIVE (NEGATIVE); CLARITY,URINE CLEAR; COLOR,URINE YELLOW; GLUCOSE, URINE (UA) NEGATIVE (NEGATIVE); KETONES,URINE 1+ (NEGATIVE); LEUKOCYTE ESTERASE ,URINE 3+ (NEGATIVE); NITRITE,URINE POSITIVE (NEGATIVE); PH,URINE 5.5 (5-9); PROTEIN,URINE 1+ (NEGATIVE)
[2022-05-25 19:45] LABS: ALBUMIN 3.4 GM/DL (3.2-4.5); POTASSIUM 5.2 MMOL/L (3.6-5.0)
[2022-05-25 19:46] LABS: CALCIUM 9.9 MG/DL (8.5-10.1)
[2022-05-25 19:49] LABS: BILIRUBIN,TOTAL 0.2 MG/DL (0.1-1.0)
[2022-05-25 19:50] LABS: BURR CELLS SLIGHT; LYMPHOCYTES % (MANUAL) 4 %; MONOCYTES % (MANUAL) 2 %; NEUTROPHILS % (MANUAL) 94 %
[2022-05-25 19:51] LABS: CREATININE SERUM 1.14 MG/DL (0.60-1.30)
[2022-05-25 19:54] LABS: BACTERIA,URINE LARGE /HPF; SQUAMOUS EPITHELIAL CELL,UR 0-2 /HPF; WBC,URINE 50-100 /HPF
[2022-05-25] MEDS ORDERED: cefTRIAXone 1,000 MG VIAL IM ONE (20:45)
[2022-05-25] MEDS ORDERED: MEROPENEM 1,000 MG in NS (IVPB) 100 ML IV ONE (20:45)
[2022-05-25] MEDS ORDERED: LIDOCAINE 1% INJ 20 ML VIAL INJ ONE (20:45)
[2022-05-25] MEDS ORDERED: VANCOMYCIN INJECTION 1,250 MG in NS (IVPB) 250 ML IV ONE (20:45)
[2022-05-25] MEDS ORDERED: VANCOMYCIN INJECTION 1,000 MG in NS (IVPB) 250 ML IV ONE (21:15)
[2022-05-25] MEDS ORDERED: ANTACID SUSP 30 ML UDC (MYLANTA) PO PRN (21:30)
[2022-05-25] MEDS ORDERED: ONDANSETRON 4 MG (ZOFRAN) ORAL DISSOLVE TAB PO PRN (21:30)
[2022-05-25] MEDS ORDERED: CALCIUM CARBONATE 500 MG (TUMS) TAB.CHEW PO PRN (21:30)
[2022-05-25] MEDS ORDERED: BISACODYL 10 MG SUPP (DULCOLAX) PR PRN (21:30)
[2022-05-25] MEDS ORDERED: cloNIDine 0.1 MG (CATAPRES) TAB PO PRN (21:30)
[2022-05-25] MEDS ORDERED: NS IV 1000 ML 1,000 ML IV SCH (21:30)
[2022-05-25] MEDS ORDERED: LACTULOSE SYRUP 10GM/15ML (ENULOSE) 30ML UDC PO PRN (21:30)
[2022-05-25] MEDS ORDERED: MILK OF MAGNESIA 400 MG/5 ML 30 ML UDC PO PRN (21:30)
[2022-05-25] MEDS ORDERED: diphenhydrAMINE 25 MG TAB (BENADRYL) PO PRN (21:30)
[2022-05-25] MEDS ORDERED: ACETAMINOPHEN 325 MG TABLET PO PRN (21:30)
[2022-05-25] MEDS ORDERED: VANCOMYCIN INJECTION 0.1 MG in NS (IVPB) 250 ML IV SCH (21:30)
[2022-05-25] MEDS ORDERED: ONDANSETRON 4 MG/2 ML (SDV) Z0FRAN IV PRN (21:30)
[2022-05-25] MEDS ORDERED: polyethylene glycoL POWDER 17 GM (MIRALAX) PACK PO PRN (21:30)
[2022-05-25] MEDS ORDERED: diphenhydrAMINE 50 MG/ML INJ (BENADRYL) IVP PRN (21:30)
[2022-05-25 21:45] VITALS: BP 128/71
[2022-05-25 21:48] VITALS: BP 128/71
[2022-05-25 22:25] VITALS: BP 130/59
[2022-05-25 22:27] LABS: ABG BASE EXCESS -14.5 MMOL/L (-2.5-2.5); ABG OXYGEN SATURATION 99 % (94-100); ABG PCO2 21 MMHG (35-45); ABG PO2 116 MMHG (79-93); ABG TCO2 11.2 MMOL/L (21.0-31.0)
[2022-05-25 22:30] LABS: ALLENS TEST YES-POS; INSPIRED O2 RS; PATIENT TEMP 36.8; VENTILATOR NO
[2022-05-25] MEDS ORDERED: RT-ALBUTEROL SULF 2.5 MG/3 ML PRE-MIX VIAL INH PRN (22:30)
[2022-05-25 22:31] LABS: ABG PH 7.32 (7.37-7.43)
[2022-05-26] VITALS (17 sets, daily range): BP systolic 123–178; BP diastolic 61–98
[2022-05-26 03:42] LABS: BASOPHILS % (AUTO) 0 % (0-10); EOSINOPHILS % (AUTO) 0 % (0-10); HEMATOCRIT 29 % (35-52); HEMOGLOBIN 9.2 g/dL (11.5-16.0); LYMPHOCYTES # (AUTO) 1.1 10^3/uL (1.0-4.0); LYMPHOCYTES % (AUTO) 11 % (12-44); MEAN CORPUSCULAR HEMOGLOBIN 29 pg (25-34); MEAN CORPUSCULAR HGB CONC 32 g/dL (32-36); MEAN CORPUSCULAR VOLUME 90 fL (80-99); MEAN PLATELET VOLUME 10.1 fL (9.0-12.2); MONOCYTES # (AUTO) 0.9 10^3/uL (0.0-1.0); MONOCYTES % (AUTO) 8 % (0-12); NEUTROPHILS # (AUTO) 8.8 10^3/uL (1.8-7.8); NEUTROPHILS % (AUTO) 81 % (42-75); PLATELET COUNT 513 10^3/uL (130-400); WHITE BLOOD COUNT 10.9 10^3/uL (4.3-11.0)
[2022-05-26 03:59] LABS: ALBUMIN 3.1 GM/DL (3.2-4.5); BILIRUBIN,TOTAL 0.2 MG/DL (0.1-1.0); CALCIUM 9.4 MG/DL (8.5-10.1); CREATININE SERUM 0.98 MG/DL (0.60-1.30); POTASSIUM 4.1 MMOL/L (3.6-5.0); TOTAL PROTEIN 6.4 GM/DL (6.4-8.2)
[2022-05-26] MEDS: MEROPENEM 500 MG in NS (IVPB) 100 ML IV SCH ×3 (04:17→20:06)
[2022-05-26] MEDS ORDERED: inSUlin ASPART (NovoLOG) 1 UNIT/0.01 ML (CHARGE PER UNIT) SC SCH (06:00)
--- NOTE | 2022-05-26 06:44 | History & Physical-Hospitalist ---
History of Present Illness HPI/Chief Complaint Chief complaint: Normoglycemic DKA with sepsis from UTI HPI: This is a 77-year-old female who was admitted from the ER with sepsis from UTI but upon further evaluation the metabolic acidosis was so profound with bicarb of 11 I continued the work-up revealing a normal glycemic DKA (use of long-acting oral hypoglycemic agents at home and presented as hypoglycemia) along with sepsis from UTI. She was initiated on broad-spectrum antibiotics due to multiple antibiotics use recently. She remains at her baseline orientation of 12. Source: patient Exam Limitations: clinical condition Date Seen 05/26/22 Time Seen by a Provider: 11:00 Attending Physician Sushila Lynch Aprn PCP Admitting Physician: Shakira Ann DO Attending Physician: Shakira Ann DO Referring Physician Date of Admission May 25, 2022 at 21:06 Home Medications & Allergies Home Medications Reviewed patient Home Medication Reconciliation performed by pharmacy medication reconciliations health and safety technician and/or nursing. Patients Allergies have been reviewed. Allergies Allergies Coded Allergies Sulfa (Sulfonamide Antibiotics) (Verified Allergy, Severe, 02/01/21) Past Bdahqxg-Otzopz-Pcveip Hx Patient Social History Marrital Status: Employed/Student: retired Tobacco Use?: No Smoking Status: Unknown if Ever Smoked Use of E-Cig and/or Vaping dev: No Substance use?: No Alcohol Use?: No Pt feels they are or have been: No Immunizations Up To Date Date of Influenza Vaccine: Mar 05, 2020 First/Initial COVID19 Vaccinat: YES Second COVID19 Vaccination Dickson: YES Date of Pneumonia Vaccine: Apr 14, 2018 Seasonal Allergies Seasonal Allergies: No Current Status Communicates: Verbally Primary Language: Samoan Preferred Spoken Language: Samoan Is interpretation needed?: No Sensory deficits: Vision impairment Past Medical History Surgeries: Appendectomy, Gallbladder, Hysterectomy Pneumonia Currently Using CPAP: No Hypertension Dementia, Neuropathy 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 oz. 59.952231zv; 21.85 BMI Method:Stated General Appearance: No Apparent Distress, Chronically ill Respiratory: Chest Non Tender, Lungs Clear, Normal Breath Sounds, No Accessory Muscle Use, No Respiratory Distress Cardiovascular: Regular Rate, Rhythm, No Edema, No Gallop, No JVD, No Murmur, Normal Peripheral Pulses Neurologic/Psychiatric: Alert, Depressed Affect, Disoriented Results Results/Procedures Labs Laboratory Tests 05/25/22 19:23 05/26/22 03:18 05/26/22 06:05 05/26/22 09:03 05/26/22 14:59 Patient resulted labs reviewed. Assessment/Plan Admission Diagnosis Assessment: Normoglycemic DKA due to long-term use of extended release oral hypoglycemic agents Sepsis from UTI Dementia CAD Angina Plan: Insulin drip IV antibiotics broad-spectrum due to recent multiple antibiotics Supportive care in ICU Admission Status: Inpatient Order (span 2 midnights) Reason for Inpatient Admission: DKA and sepsis Diagnosis/Problems Diagnosis/Problems (1) DKA (diabetic ketoacidosis) (2) Sepsis (3) Hyperkalemia Status: Acute (4) UTI (urinary tract infection) Status: Acute SHAKIRA ANN DO May 26, 2022 06:44
[2022-05-26] MEDS ORDERED: NS IV 500 ML 500 ML IV PRN (06:45)
[2022-05-26] MEDS ORDERED: NS IV 1000 ML 1,000 ML IV SCH (06:45)
[2022-05-26] MEDS ORDERED: POTASSIUM CL 10MEQ/50ML IVPB 50 ML IV SCH (06:45)
[2022-05-26 07:08] LABS: CALCIUM 9.1 MG/DL (8.5-10.1); CREATININE SERUM 0.87 MG/DL (0.60-1.30); POTASSIUM 3.6 MMOL/L (3.6-5.0)
[2022-05-26 08:35] LABS: ABG BASE EXCESS -13.6 MMOL/L (-2.5-2.5); ABG OXYGEN SATURATION 63 % (94-100); ABG PCO2 24 MMHG (35-45); ABG PO2 40 MMHG (79-93); ABG TCO2 12.5 MMOL/L (21.0-31.0)
[2022-05-26 08:43] LABS: ALLENS TEST YES-POS; INSPIRED O2 ROOM AIR; PATIENT TEMP 36.2; VENTILATOR NO
[2022-05-26] MEDS: POTASSIUM CL 10MEQ/50ML IVPB 50 ML IV SCH ×12 (08:45→23:32)
[2022-05-26] MEDS: D5 1/2 NS 1000 ML IV SOLUTION 1,000 ML IV SCH ×4 (08:45→23:32)
[2022-05-26] MEDS: SENNOSIDES 8.6 MG (SENOKOT) TAB PO SCH ×2 (09:00→20:07)
[2022-05-26] MEDS: DOCUSATE SODIUM 100 MG (COLACE) CAP PO SCH ×2 (09:00→20:07)
[2022-05-26 09:22] LABS: CALCIUM 9.6 MG/DL (8.5-10.1); CREATININE SERUM 0.95 MG/DL (0.60-1.30); POTASSIUM 3.6 MMOL/L (3.6-5.0)
[2022-05-26] MEDS: SODIUM BICARBONATE 650 MG TABLET PO SCH ×2 (09:28→20:07)
[2022-05-26] MEDS: ENOXAPARIN 40 MG/0.4 ML (LOVENOX) SYR SC SCH (09:28)
[2022-05-26 09:53] LABS: SALICYLATE < 5.0 MG/DL (5.0-20.0)
[2022-05-26 09:55] LABS: ACETAMINOPHEN < 10 UG/ML (10-30)
--- NOTE | 2022-05-26 10:25 | Physical Therapy Progress Note ---
Therapy Progress Note Patient on Hold per RN due to medical status/testing. Will attempt tomorrow JADON Beth PT May 26, 2022 10:25
--- NOTE | 2022-05-26 10:35 | Tele-ICU Consult ---
History of Present Illness History of Present Illness Date Seen by Provider: May 26, 2022 Time Seen by Provider: 10:35 Date of Admission (Tele-ICU Physician , consultation as per request of PCP Service provided via interactive audio and video telecommunParametric Dining E-CARE system to a patient admitted to ICU bed in [facility]. Available chart/ vitals / labs / Images reviewed H&P is from ER notes Patient's information available about PMH, Shx, Fhx allergy reviewed inEMR. ROS as per chart and RN report Now in ICU, hemodynamically stable Video assessment done using teleICU camera, rest of exam as per RN Discussed with RN. Consultants: Hospital course: (05/25) 77yr F admitted for UTI. Patient has had generalized weakness and fatigue for 2 days. 05/26 - persistent acidosis met 0 started on iin ulin gtt A/P Severe met acidosis on admiciaon with elev lactate - Tx with IVF and ABX , lactate normalized - met AG met acidosis persisted with bicrb 8 - given + ketones started on insulin gtt ( BS <200 during this admission - etiology still not clear , ketones can be partially with fasting, renal function WNL , on metformin . Will check ASA levels ans osmols - might consider possibility of methanol and ethylene glycol intoxication DM - hypoglycemic borderline by EMS - started on insulin gtt with presumed DKA UTI - cx pending - started on ABX - vanco and merrem in ER 05/25 Acute mental statu schanged - ? TME - see w/up above Lines : periph , (Central Line Necessity Reviewed) Garner: + OG: Nutrition: NPO Analgesia: Anxiety/ delirium VTE Prophylaxis: suleiman 40 Stress Ulcer Prophylaxis: na Plans in collaboration with bedside consultants and IM MDs. Discussed with RN to reach out if any questions or concerns A total of 33 minutes of critical care time was devoted to this patient today, required to treat and/or prevent further deterioration of critical care condition ( as above ) . I am remotely monitoring this patient from another state. I am unable to do the bedside exam, and history/physical and pertinent information is taken from other notes in the computer and bedside staff. . Allergies and Home Medications Allergies Coded Allergies: Sulfa (Sulfonamide Antibiotics) (Verified Allergy, Severe, 02/01/21) Home Medications Ciprofloxacin HCl 500 Mg Tablet, 500 MG PO BID Prescribed by: CHUCHO LEO on 02/17/21 1501 Ciprofloxacin HCl 500 Mg Tablet, 500 MG PO BID Prescribed by: NANCY SWANSON on 02/22/22 1419 Citalopram Hydrobromide 20 Mg Tablet, 20 MG PO HS, (Reported) Dicyclomine HCl 10 Mg Capsule, 20 MG PO QID, (Reported) TAKES 2 (10MG) CAPSULES Docusate Sodium 100 Mg Capsule, 100 MG PO HS, (Reported) Gemfibrozil 600 Mg Tablet, 600 MG PO BID, (Reported) Glimepiride 4 Mg Tablet, 4 MG PO BIDAC, (Reported) Isosorbide Mononitrate 30 Mg Tab.er.24h, 30 MG PO DAILY, (Reported) Loperamide HCl 2 Mg Tablet, 2 MG PO Q12H PRN for DIARRHEA Prescribed by: NANCY SWANSON on 02/22/22 141 Losartan Potassium 100 Mg Tablet, 100 MG PO DAILY, (Reported) Metformin HCl 500 Mg Tablet, 1,000 MG PO BID, (Reported) TAKES 2 (500MG) TABLETS Metoprolol Succinate 25 Mg Tab.er.24h, 25 MG PO DAILY, (Reported) Nitroglycerin 0.4 Mg Tab.subl, 0.4 MG SL UD PRN for CHEST PAIN, (Reported) Ondansetron 4 Mg Tab.rapdis, 4 MG PO Q6H PRN for NAUSEA/VOMITING-1ST LINE Prescribed by: NANCY SWANSON on 02/22/22 141 Pantoprazole Sodium 20 Mg Tablet.dr, 20 MG PO DAILY, (Reported) Prednisone 5 Mg Tablet, 5 MG PO DAILY, (Reported) Simvastatin 40 Mg Tablet, 40 MG PO HS, (Reported) Tramadol HCl 50 Mg Tablet, 50 MG PO Q6H PRN for PAIN-MODERATE, (Reported) Past Medical/Social/Family Hx Patient Social History Tobacco Use?: No Use of E-Cig and/or Vaping dev: No Substance use?: No Alcohol Use?: No Pt stated abuse/neglect: No Immunizations Up To Date Influenza Vaccine Up-to-Date: Yes; Up-to-Date First/Initial COVID19 Vaccinat: YES Second COVID19 Vaccination Dickson: YES Date of Pneumonia Vaccine: Apr 14, 2018 Current Status Communicates: Verbally Primary Language: Yoruba Preferred Spoken Language: Yoruba Is interpretation needed?: No Sensory deficits: Vision impairment Review of Systems Constitutional: see HPI Focused Exam Lactate Level 05/25/22 20:47: Lactic Acid Level 3.14*H 05/25/22 22:51: Lactic Acid Level 2.32*H 05/26/22 06:05: Lactic Acid Level 0.80 Height, Weight, BMI Height: 5'5.00" Weight: 132lbs. oz. 59.667528ny; 21.85 BMI Method:Stated Time of Focused Exam: 19:18 Exam Exam Patient acknowledged, consented, and participated in this virtual visit which was conducted using real time audio/video Vital Signs Date Time Temp Pulse Resp B/P (MAP) Pulse Ox O2 Delivery O2 Flow Rate FiO2 05/26/22 10:00 90 22 138/64 (88) 97 Room Air 05/26/22 09:00 106 20 100 Room Air 05/26/22 08:00 103 18 145/69 (94) 99 Room Air 05/26/22 07:54 36.2 05/26/22 07:00 113 05/26/22 04:00 123 23 158/90 (112) 98 Room Air 05/26/22 03:31 36.6 05/26/22 01:00 122 05/26/22 00:00 117 21 148/61 (90) 99 05/25/22 23:55 36.6 05/25/22 22:57 99 Room Air 05/25/22 22:34 92 05/25/22 22:25 36.0 94 99 21 05/25/22 21:48 36.8 130 20 128/71 (90) 95 Room Air 05/25/22 21:45 106 18 128/71 (90) 96 05/25/22 21:32 110 16 158/84 98 Room Air 05/25/22 19:16 36.0 94 17 130/59 (82) 99 Room Air I & O 05/26/22 07:00 Intake Total 600 ml Output Total 250 ml Balance 350 ml Height & Weight Height: 5'5.00" Weight: 132lbs. oz. 59.916472mn; 21.85 BMI Method:Stated General Appearance: Other Respiratory: Chest Non Tender, Lungs Clear, Normal Breath Sounds, No Accessory Muscle Use, No Respiratory Distress Cardiovascular: Regular Rate, Rhythm, No Edema, No Murmur, Normal Peripheral Pulses Capillary Refill: Less Than 3 Seconds Gastrointestinal: soft, no organomegaly; No distended, No guarding, No rebound; tenderness (mild, diffuse) Results Lab Laboratory Tests 05/25/22 19:23 05/26/22 03:18 05/26/22 06:05 05/26/22 09:03 Assessment/Plan Assessment/Plan 1 MOISÉS ROWELL MD May 26, 2022 10:35
--- NOTE | 2022-05-26 10:36 | Occ Therapy Progress Note ---
Therapy Progress Note OT order received. Per PT therapy on hold this date due to medical status and current testing. Will see in a.m. [id number] HUDSON SHAW OT May 26, 2022 10:36
[2022-05-26] MEDS: 1/2 NS IV SOLUTION 1,000 ML IV SCH ×5 (11:00→23:32)
[2022-05-26] MEDS ORDERED: VANCOMYCIN 750 MG/NS 250 ML IVPB IV SCH ×2 (14:00)
[2022-05-26 15:26] LABS: CALCIUM 9.2 MG/DL (8.5-10.1)
[2022-05-26 15:30] LABS: CREATININE SERUM 0.9 MG/DL (0.60-1.30)
[2022-05-26 23:06] LABS: POTASSIUM 4.2 MMOL/L (3.6-5.0)
[2022-05-26 23:07] LABS: CALCIUM 8.8 MG/DL (8.5-10.1)
[2022-05-26 23:12] LABS: CREATININE SERUM 0.82 MG/DL (0.60-1.30)
[2022-05-27] VITALS (7 sets, daily range): BP systolic 143–165; BP diastolic 66–94
[2022-05-27] MEDS: POTASSIUM CL 10MEQ/50ML IVPB 50 ML IV SCH ×5 (01:33→06:50)
[2022-05-27] MEDS: 1/2 NS IV SOLUTION 1,000 ML IV SCH ×2 (02:48→05:48)
[2022-05-27] MEDS: D5 1/2 NS 1000 ML IV SOLUTION 1,000 ML IV SCH ×2 (03:06→06:50)
[2022-05-27] MEDS: MEROPENEM 500 MG in NS (IVPB) 100 ML IV SCH ×3 (04:46→21:01)
[2022-05-27 04:52] LABS: BASOPHILS % (AUTO) 0 % (0-10); EOSINOPHILS # (AUTO) 0.1 10^3/uL (0.0-0.3); EOSINOPHILS % (AUTO) 1 % (0-10); HEMATOCRIT 28 % (35-52); HEMOGLOBIN 8.9 g/dL (11.5-16.0); LYMPHOCYTES # (AUTO) 2.3 10^3/uL (1.0-4.0); LYMPHOCYTES % (AUTO) 18 % (12-44); MEAN CORPUSCULAR HEMOGLOBIN 29 pg (25-34); MEAN CORPUSCULAR HGB CONC 31 g/dL (32-36); MEAN CORPUSCULAR VOLUME 93 fL (80-99); MEAN PLATELET VOLUME 9.8 fL (9.0-12.2); MONOCYTES % (AUTO) 8 % (0-12); NEUTROPHILS # (AUTO) 9.1 10^3/uL (1.8-7.8); NEUTROPHILS % (AUTO) 72 % (42-75); PLATELET COUNT 442 10^3/uL (130-400); WHITE BLOOD COUNT 12.6 10^3/uL (4.3-11.0)
[2022-05-27 05:35] LABS: ALBUMIN 2.7 GM/DL (3.2-4.5); BILIRUBIN,TOTAL 0.3 MG/DL (0.1-1.0); CALCIUM 8.8 MG/DL (8.5-10.1); CREATININE SERUM 0.76 MG/DL (0.60-1.30); PHOSPHORUS 1.6 MG/DL (2.3-4.7); POTASSIUM 4.4 MMOL/L (3.6-5.0); TOTAL PROTEIN 5.5 GM/DL (6.4-8.2)
[2022-05-27 05:43] LABS: MAGNESIUM 1.1 MG/DL (1.6-2.4)
[2022-05-27] MEDS: KCL 20 MEQ TAB (K-DUR) PO SCH (05:48)
[2022-05-27] MEDS: MAGNESIUM 1 GM/100 ML IVPB 100 ML IV SCH ×4 (05:48→08:02)
[2022-05-27] MEDS: SENNOSIDES 8.6 MG (SENOKOT) TAB PO SCH ×2 (08:06→21:01)
[2022-05-27] MEDS: DOCUSATE SODIUM 100 MG (COLACE) CAP PO SCH ×2 (08:06→21:01)
[2022-05-27] MEDS: SODIUM BICARBONATE 650 MG TABLET PO SCH ×2 (08:06→21:01)
[2022-05-27] MEDS: ENOXAPARIN 40 MG/0.4 ML (LOVENOX) SYR SC SCH (08:06)
--- NOTE | 2022-05-27 08:44 | Diagnostic Imaging Report ---
Indication: Respiratory distress. Study compared with 04/25/2020. Findings: There is no infiltrate with bronchograms and airspace opacity left lower lobe, presumptive pneumonia. No component of volume loss apparent. The right lung clear. Impression: Left lower lobe pneumonia. Dictated by: Dictated on workstation # [id number]
[2022-05-27 09:54] LABS: ABG BASE EXCESS -11.9 MMOL/L (-2.5-2.5); ABG OXYGEN SATURATION 100 % (94-100); ABG PH 7.43 (7.37-7.43); ABG PO2 201 MMHG (79-93); ABG TCO2 12.4 MMOL/L (21.0-31.0)
--- NOTE | 2022-05-27 09:54 | Physical Therapy Evaluation ---
PT Evaluation-General Medical Diagnosis Admission Date May 25, 2022 at 21:06 Medical Diagnosis: hyperkalemia/sepsis/UTI Onset Date: May 25, 2022 Therapy Diagnosis Therapy Diagnosis: debility/weakness Height/Weight Height (Feet): 5 Height (Inches): 5.00 Weight (Pounds): 132 Precautions Precautions/Isolations: Fall Prevention, Standard Precautions Referral Physician: Marissa Reason for Referral: Evaluation/Treatment Medical History Pertinent Medical History: DM, HTN, Neuropathy Current History EMS secondary to weakness, fatigue, malaise Reviewed History: Yes Social History Home: Single Level Current Living Status: Spouse Entry Into Home: Level Entry Prior Prior Level of Function SCALE: Activities may be completed with or without assistive devices. 5-Uphwkhyxuz-vuwzses completes the activity by him/herself with no assistance from a helper. 5-Set-up or Clean-up Assistance-helper sets up or cleans up; patient completes activity. [place] assists only prior to or following the activity. 4-Supervision or Touching Assistance-helper provides verbal cues and/or touching/steadying and/or contact guard assistance as patient completes activity. Assistance may be provided throughout the activity or intermittently. 3-Partial/Moderate Assistance-helper does LESS THAN HALF the effort. [place] lifts, holds or supports trunk or limbs, but provides less than half the effort. 2-Substantial/Maximal Assistance-helper does MORE THAN HALF the effort. [place] lifts or holds trunk or limbs and provides more than half the effort. 7-Plmlbeefd-vqxsvb does ALL the effort. Patient does none of the effort to complete the activity. Or, the assistance of 2 or more helpers is required for the patient to complete the activity. If activity was not attempted, code reason: 7-Patient Refused. 9-Not Applicable-not attempted and the patient did not perform the activity before the current illness, exacerbation or injury. 10-Not Attempted due to Environmental Limitations-(lack of equipment, weather restraints, etc.). 88-Not Attempted due to Medical Conditions or Safety Concerns. Bed Mobility: 6 Transfers (B,C,W/C): 6 Gait: 6 Stairs: 9 Indoor Mobility (Ambulation): Independent Stairs: Not Applicalbe Prior Devices Use: Walker per patient report PT Evaluation-Current Subjective Patient agrees to PT. Objective Patient Orientation: Person Attachments: Garner Catheter, IV ROM/Strength ROM Lower Extremities bilateral LE WFL Strength Lower Extremities 3/5 grossly bilateral LE all planes Integumentary/Posture Bowel Incontinence: No Bladder Incontinence: Garner Cath Posture WFL Neuromuscular (Tone, Coordination, Reflexes) grossly intact Sensory Vision: Functional Hearing: Functional Transfers Lying to Sitting/Side of Bed(Q: 3 Sit to Stand (QC): 3 Chair/Uib-rt-Duwif Xfer(QC): 3 Gait Mode of Locomotion: Walk Anticipated Mode of Locomotion: Walk Walk 10 feet (QC): 3 Walk 50 ft with 2 Turns(QC): 88 Walk 150 ft (QC): 88 Distance: 10' Gait Assistive Device: FWW Comments/Gait Description slightly unsteady with PT correct Balance Sitting Static: Normal Sitting Dynamic: Normal Standing Static: Fair Standing Dynamic: Fair Assessment/Needs Patient will benefit from skilled PT to address functional strength and mobility to improve current LOF to safely return to home at maximum LOF. Rehab Potential: Fair PT Intermediate Goals Hospitalist Goals PT Hospitalist Goals Time Frame: Jun 14, 2022 Roll Left & Right (QC): 6 Sit to Lying (QC): 6 Lying-Sitting on Side/Bed(QC): 6 Sit to Stand (QC): 6 Chair/Axe-tr-Mbjsd Xfer(QC): 6 Toilet Transfer (QC): 6 Walk 10 feet (QC): 5 Walk 50ft with 2 Turns (QC): 5 Walk 150 ft (QC): 5 PT Plan Problem List Problem List: Activity Tolerance, Functional Strength, Safety, Balance, Gait, Transfer, Bed Mobility Treatment/Plan Treatment Plan: Continue Plan of Care Treatment Plan: Bed Mobility, Education, Functional Activity Stephanie, Functional Strength, Gait, Safety, Therapeutic Exercise, Transfers Treatment Duration: Jun 14, 2022 Frequency: 6 times per week Estimated Hrs Per Day: .25 hour per day Time Time In: 800 Time Out: 813 DATE: May 27, 2022 Total Billed Treatment Time: 13 Total Billed Treatment 1 visit [facility] 13 min JADON EMMANUEL PT May 27, 2022 09:54
[2022-05-27 09:56] LABS: ABG PCO2 18 MMHG (35-45); ALLENS TEST YES-POS; INSPIRED O2 ROOM AIR; PATIENT TEMP 36.4; VENTILATOR NO
--- NOTE | 2022-05-27 10:18 | Tele-ICU Progress Note ---
Subjective Date Seen by a Provider: May 27, 2022 Time Seen by a Provider: 10:18 Subjective/Events-last exam (Tele-ICU Physician , Progress Note ) Service provided via interactive audio and video telecommunications E-CARE system to a patient admitted to ICU bed in [facility]. Available chart/ vitals / labs / Images reviewed Video assessment done using teleICU camera, rest of exam as per RN Discussed with RN Events overnight : Afebrile hemodynamically stable Respiratory - ra I/O = Drips: insulin gtt Pressors- no Consultants: Hospital course: (05/25) 77yr F admitted for UTI. Patient has had generalized weakness and fatigue for 2 days. 05/26 - persistent acidosis met 0 started on iin ulin gtt A/P Severe met acidosis on admiciaon with elev lactate - Tx with IVF and ABX , lactate normalized - met AG met acidosis persisted with bicrb 8 - given + ketones started on insulin gtt ( BS <200 during this admission -05/27 - AG closed , BS contrlled , no lactate , no ASA on tox screen, off metformin - acidosis still present - etiology still not clear , might consider possibility of methanol and ethylene glycol intoxication DM - hypoglycemic borderline by EMS - started on insulin gtt with presumed DKA - AG closed - will stop gtt UTI - cx pending - started on ABX - vanco and merrem in ER 05/25 Acute mental status schanged - ? TME -as per RN , close to baseline by description , but weak Lines : periph , (Central Line Necessity Reviewed) Garner: + OG: Nutrition: NPO Analgesia: Anxiety/ delirium VTE Prophylaxis: suleiman 40 Stress Ulcer Prophylaxis: na Plans in collaboration with bedside consultants and IM MDs. Discussed with RN to reach out if any questions or concerns A total of 31 minutes of critical care time was devoted to this patient today, required to treat and/or prevent further deterioration of critical care condition ( as above ) . I am remotely monitoring this patient from another state. I am unable to do the bedside exam, and history/physical and pertinent information is taken from other notes in the computer and bedside staff. . Sepsis Event Evaluation Height, Weight, BMI Height: 5'5.00" Weight: 132lbs. oz. 59.941835my; 21.81 BMI Method:Stated Focused Exam Lactate Level 05/25/22 20:47: Lactic Acid Level 3.14*H 05/25/22 22:51: Lactic Acid Level 2.32*H 05/26/22 06:05: Lactic Acid Level 0.80 Time of Focused Exam: 19:18 Exam Exam Patient acknowledged, consented, and participated in this virtual visit which was conducted using real time audio/video Vital Signs Date Time Temp Pulse Resp B/P (MAP) Pulse Ox O2 Delivery O2 Flow Rate FiO2 05/27/22 10:00 104 161/83 (109) 97 Room Air 05/27/22 09:00 94 156/75 (102) 99 Room Air 05/27/22 08:00 98 163/76 (105) 99 Room Air 05/27/22 07:43 98 Room Air 05/27/22 07:31 36.6 05/27/22 07:12 75 05/27/22 07:00 81 16 135/60 (85) 97 Room Air 05/27/22 06:00 76 14 143/66 (91) 97 Room Air 05/27/22 05:00 106 23 165/81 (109) 99 Room Air 05/27/22 04:01 37.2 Room Air 05/27/22 04:00 77 18 146/69 (94) 99 Room Air 05/27/22 04:00 98 Room Air 05/27/22 03:13 36.9 Room Air 05/27/22 03:00 80 26 143/94 (110) 99 Room Air 05/27/22 02:00 80 24 152/80 (104) 98 Room Air 05/27/22 01:00 100 05/27/22 01:00 92 20 144/69 (94) 98 Room Air 05/27/22 00:42 37.0 Room Air 05/27/22 00:28 99 Room Air 05/27/22 00:00 106 31 155/69 (97) 99 Room Air 05/26/22 23:00 106 21 163/78 (106) 99 Room Air 05/26/22 22:00 102 21 154/69 (97) 98 Room Air 05/26/22 21:00 102 16 133/72 (92) 98 Room Air 05/26/22 20:36 99 Room Air 05/26/22 20:00 103 21 147/72 (97) 98 Room Air 05/26/22 20:00 97 Room Air 05/26/22 20:00 37.2 05/26/22 19:43 Room Air 05/26/22 19:00 107 16 178/98 (124) 99 Room Air 05/26/22 19:00 108 05/26/22 18:00 102 15 155/88 (110) 99 Room Air 05/26/22 17:00 96 17 151/98 (115) 98 Room Air 05/26/22 16:00 98 Room Air 05/26/22 16:00 101 14 135/87 (103) 100 Room Air 05/26/22 15:56 37.1 05/26/22 15:00 92 11 138/68 (91) 98 Room Air 05/26/22 14:00 93 21 140/70 (93) 98 Room Air 05/26/22 13:00 89 14 143/68 (93) 99 Room Air 05/26/22 12:48 88 05/26/22 12:00 76 16 131/66 (87) 98 Room Air 05/26/22 12:00 94 Room Air 05/26/22 12:00 36.2 05/26/22 11:00 80 22 123/62 (82) 98 Room Air I & O 05/27/22 07:00 Intake Total 5825 ml Output Total 3025 ml Balance 2800 ml Height & Weight Height: 5'5.00" Weight: 132lbs. oz. 59.980674gt; 21.81 BMI Method:Stated General Appearance: No Apparent Distress, Chronically ill Respiratory: Chest Non Tender, Lungs Clear, Normal Breath Sounds, No Accessory Muscle Use, No Respiratory Distress Cardiovascular: Regular Rate, Rhythm, No Edema, No Gallop, No JVD, No Murmur, Normal Peripheral Pulses Capillary Refill: Less Than 3 Seconds Gastrointestinal: soft, no organomegaly; No distended, No guarding, No rebound; tenderness (mild, diffuse) Neurologic/Psychiatric: Alert, Depressed Affect, Disoriented Results Lab Laboratory Tests 05/25/22 19:23 05/26/22 03:18 05/26/22 06:05 05/26/22 09:03 05/26/22 14:59 05/26/22 22:53 05/27/22 04:28 Assessment/Plan Assessment/Plan 1 MOISÉS ROWELL MD May 27, 2022 10:18
[2022-05-27] MEDS: inSUlin ASPART (NovoLOG) 1 UNIT/0.01 ML (CHARGE PER UNIT) SC SCH ×3 (10:32→21:00)
--- NOTE | 2022-05-27 10:37 | Progress Note - Hospitalist ---
RANDI LYN 05/27/22 1037: Subjective HPI/CC On Admission Date Seen by Provider: May 27, 2022 Time Seen by Provider: 08:15 Chief complaint: Normoglycemic DKA with sepsis from UTI HPI: This is a 77-year-old female who was admitted from the ER with sepsis from UTI but upon further evaluation the metabolic acidosis was so profound with bicarb of 11 I continued the work-up revealing a normal glycemic DKA (use of long-acting oral hypoglycemic agents at home and presented as hypoglycemia) along with sepsis from UTI. She was initiated on broad-spectrum antibiotics due to multiple antibiotics use recently. She remains at her baseline orientation of 12. Subjective/Events-last exam pt was seen today sittin in her chair finishing breakfast, she appeared moderately disoriented and was consequently a poor historian. She denied feeling sick, but complained of being shaky. She still appears to be septic and requires substantial monitoring due to her ongoing confusion. Review of Systems General: Fatigue HEENT: No Head Aches, No Visual Changes, No Eye Pain, No Ear Pain, No Dysphasia, No Sinus Congestion, No Post Nasal Drip, No Sore Throat Pulmonary: No Dyspnea, No Cough, No Pleuritic Chest Pain, No Other Cardiovascular: No: Chest Pain, Palpitations, Orthopnea, Paroxysmal Noc. Dys pnea, Edema, Lt Headedness Gastrointestinal: Abdominal Pain Genitourinary: No Dysuria, No Frequency, No Incontinence, No Hematuria, No Retention, No Other Musculoskeletal: No: neck pain, shoulder pain, arm pain, back pain, hand pain, leg pain, foot pain Neurological: No: Weakness, Numbness, Incoordination, Change in speech, Confusion, Seizures, Other Focused Exam Lactate Level 05/25/22 20:47: Lactic Acid Level 3.14*H 05/25/22 22:51: Lactic Acid Level 2.32*H 05/26/22 06:05: Lactic Acid Level 0.80 Time of Focused Exam: 19:18 Objective Exam Vital Signs Vital Signs Date Time Temp Pulse Resp B/P (MAP) Pulse Ox O2 Delivery O2 Flow Rate FiO2 05/27/22 10:00 104 161/83 (109) 97 Room Air 05/27/22 07:31 36.6 05/27/22 07:00 16 05/25/22 22:25 21 Capillary Refill : Less Than 3 Seconds General Appearance: No Apparent Distress, WD/WN HEENT: PERRL/EOMI, TMs Normal, Normal ENT Inspection, Pharynx Normal Neck: Full Range of Motion, Normal Inspection, Non Tender, Supple Respiratory: Chest Non Tender, No Accessory Muscle Use, No Respiratory Distress, Decreased Breath Sounds Cardiovascular: No Edema, No Gallop, No JVD, No Murmur, Tachycardia Gastrointestinal: Normal Bowel Sounds, No Organomegaly, No Pulsatile Mass, Non Tender, Soft Back: Normal Inspection Extremity: Normal Capillary Refill, Normal Inspection, Normal Range of Motion, Non Tender, No Calf Tenderness, No Pedal Edema Neurologic/Psychiatric: Alert, Depressed Affect, Disoriented Skin: Normal Color, Warm/Dry Lymphatic: No Adenopathy Results/Procedures Lab Laboratory Tests 05/26/22 14:59 05/26/22 22:53 05/27/22 04:28 Patient resulted labs reviewed. 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 I reviewed and verified all information documented by the medical student and made modifications to such information, when appropriate. I personally performed the physical exam and medical decision making. Shakira Paige May 28, 2022,05:13 RANDI LYN May 27, 2022 10:37 SHAKIRA PAIGE DO May 28, 2022 05:14
--- NOTE | 2022-05-27 11:15 | Occupational Therapy Eval ---
OT Evaluation-General/PLF Medical Diagnosis Admission Date May 26, 2022 at 20:34 Medical Diagnosis: hyperkalemia/sepsis/UTI Onset Date: May 25, 2022 Therapy Diagnosis Therapy Diagnosis: reduced adl status/weakness Height/Weight Height (Feet): 5 Height (Inches): 5.00 Weight (Pounds): 132 Precautions Precautions/Isolations: Fall Prevention, Standard Precautions Safety Interventions: Reorient-Attempt Referral Physician: Marissa Referral Reason: Evaluation/Treatment Medical History Pertinent Medical History: CAD, DM, Dementia, HTN, Neuropathy Current History Pt presented to ER with weakness, fatigue, and malaise. Pt is a poor historian, unsure of accuracy of responses. Per patient, she lives with her spouse in a single story home. She is a unclear on if/how much assist she needs with adls. She does report she was using a walker at baseline. Reviewed History: Yes Social History Home: Single Level Current Living Status: Spouse Entry Into Home: Level Entry ADL-Prior Level of Function SCALE: Activities may be completed with or without assistive devices. 0-Qatgxojlqm-rlypggg completes the activity by him/herself with no assistance from a helper. 5-Set-up or Clean-up Assistance-helper sets up or cleans up; patient completes activity. [place] assists only prior to or following the activity. 4-Supervision or Touching Assistance-helper provides verbal cues and/or touching/steadying and/or contact guard assistance as patient completes activity. Assistance may be provided throughout the activity or intermittently. 3-Partial/Moderate Assistance-helper does LESS THAN HALF the effort. [place] lifts, holds or supports trunk or limbs, but provides less than half the effort. 2-Substantial/Maximal Assistance-helper does MORE THAN HALF the effort. [place] lifts or holds trunk or limbs and provides more than half the effort. 8-Qgoxmubmy-uiejdo does ALL the effort. Patient does none of the effort to complete the activity. Or, the assistance of 2 or more helpers is required for the patient to complete the activity. If activity was not attempted, code reason: 7-Patient Refused. 9-Not Applicable-not attempted and the patient did not perform the activity before the current illness, exacerbation or injury. 10-Not Attempted due to Environmental Limitations-(lack of equipment, weather restraints, etc.). 88-Not Attempted due to Medical Conditions or Safety Concerns. Self Care: Unknown Functional Cognition: Unknown DME/Equipment: Bath Chair, Tub/Shower OT Current Status Subjective Pt denies pain, reports feeling better Appearance Pt left sitting in recliner, all needs within reach. Mental Status/Objective Patient Orientation: Person, Confused Attachments: Garner Catheter, IV, Oxygen, Telemetry Current Glasses/Contacts: Yes (readers ) Hearing Aids: No Dentures/Partials: Yes Hand Dominance: Right Upper Extremity ROM AROM R shoulder ~30 degrees, L shoulder ~20 degrees AAROM: bilateral shoulders: full range Range limited by weakness Upper Extremity Strength 2+/5 shoulders Elbows: 3-/5 Poor ambulette driver strength ADL-Treatment Eating (QC): 2 On/Off Footwear (QC): 1 Toileting Hygiene (QC): 1 RN reports patient required assistance to eat meal this morning. When observed, pt is able to grasp utensils and cup but is unable to lift arms secondary to weakness. Attempt at having her reach in different planes, but unable to tolerate after 2 reps. She fatigues very quickly and thus will require assist with eating, oral care, and any upper body adls. Dependent to don footwear, again due to weakness. Unsure how much assist spouse provides at home, however at this time pt requires significant assistance with all adls. Education OT Patient Education: Correct positioning, Purpose of tx/functional activities, Safety issues Teaching Recipient: Patient Teaching Methods: Discussion Response to Teaching: Verbalize Understanding, Reinforcement Needed OT Long-Term Goals Payroll Associate Goals Time Frame: Jun 17, 2022 Eating (QC): 4 Oral Hygiene (QC): 4 Toileting Hygiene (QC): 3 Shower/Bathe Self (QC): 3 Upper Body Dressing (QC): 3 Lower Body Dressing (QC): 3 On/Off Footwear (QC): 3 Additional Goals: 1-Demonstrate ADL Tasks, 2-Verbalize Understanding, 3- ImproveStrength/Stephanie 1=Demonstrate adherence to instructed precautions during ADL tasks. 2=Patient will verbalize/demonstrate understanding of assistive devices/modifications for ADL. 3=Patient will improve strength/tolerance for activity to enable patient to perform ADL's. OT Education/Plan Problem List/Assessment Assessment: Decreased Activ Tolerance, Decreased Safety Aware, Decreased UE Strength, Dependent Transfers, Impaired Bed Mobility, Impaired Cognition, Impaired Coordination, Impaired Funct Balance, Impaired I ADL's, Impaired Self- Care Skills, Restricted Funct UE ROM Discharge Recommendations Plan/Recommendations: Continue POC Therapy Discharge Recommendati: Post Acute OT Treatment Plan/Plan of Care Treatment,Training & Education: Yes Patient would benefit from OT for education, treatment and training to promote independence in ADL's, mobility, safety and/or upper extremity function for ADL's. Plan of Care: ADL Retraining, Caregiver Training, Functional Mobility, Group Exercise/Act as Ind, UE Funct Exercise/Act Treatment Duration: Jun 17, 2022 Frequency: 3 times per week (3-5x/week ) Estimated Hrs Per Day: .25 hour per day Rehab Potential: Poor Time Start Time: 10:54 Stop Time: 11:04 DATE: May 27, 2022 Total Time Billed (hr/min): 10 Billed Treatment Time 1 visit Sasha Frazier OT May 27, 2022 11:15
[2022-05-27] MEDS: ALPRAZolam 0.5 MG (XANAX) TAB PO PRN (12:38)
[2022-05-27] MEDS: HYDROmorphone 2 MG/ML VIAL (DILAUDID) IV PRN ×2 (12:45→17:39)
[2022-05-27] MEDS ORDERED: TROUGH ORDER-PHARMACY XX ONE (13:00)
[2022-05-27 13:19] LABS: CALCIUM 9.3 MG/DL (8.5-10.1); CREATININE SERUM 0.68 MG/DL (0.60-1.30); POTASSIUM 4.1 MMOL/L (3.6-5.0)
[2022-05-27] MEDS ORDERED: NS 100 ML (IVPB) BAG IV ONE (13:30)
[2022-05-27] MEDS ORDERED: IOHEXOL 350 MG/ML 100 ML (OMNIPAQUE 350) VIAL IV ONE (13:30)
--- NOTE | 2022-05-27 14:21 | Diagnostic Imaging Report ---
PROCEDURE: CT abdomen and pelvis with and without contrast. TECHNIQUE: Precontrast acquisitions were acquired through the abdomen and pelvis. Multiple contiguous axial images were obtained through the abdomen and pelvis after the administration of intravenous contrast. Auto Exposure Controls were utilized during the CT exam to meet ALARA standards for radiation dose reduction. INDICATION: Sepsis: There is infiltrate present at the left lung base consistent with pneumonia. There is an effusion layering out to depths of 1 cm. Liver appears normal. The gallbladder surgically absent. There is fatty replacement of pancreas. The spleen is not enlarged. Kidneys and adrenals appear normal. Small bowel is not dilated. The appendix is surgically absent. There is colonic diverticulosis without evidence of diverticulitis. Urinary bladder is decompressed. There is an air bubble within the urinary bladder. There is a Garner catheter in the bladder. Uterus is surgically absent. There is trace amount of free fluid in the cul-de-sac. There are postsurgical changes from discectomy and dorsal fusion at L4-L5. There is compression fracture of L1 that is new since 10/22/2021. It was present on a previous CT from 02/25/2022. IMPRESSION: Left lower lobe pneumonia with an effusion. Surgically absent appendix, uterus and gallbladder. There is uncomplicated diverticulosis of the colon. There is a Garner catheter in the urinary bladder. Dictated by: Dictated on workstation # [id number]
[2022-05-27] MEDS ORDERED: INSU100I32 SC (16:18)
[2022-05-27] MEDS ORDERED: METH1TAB92 PO (16:18)
[2022-05-27] MEDS ORDERED: TMSL.4C PO (16:18)
[2022-05-27] MEDS ORDERED: ALBU18HF2 INH (16:18)
[2022-05-27] MEDS ORDERED: MTP25TSR PO (16:18)
[2022-05-27] MEDS ORDERED: DOXY100T2 PO (16:18)
[2022-05-27] MEDS ORDERED: ISOS60TA63 PO (16:18)
[2022-05-27] MEDS ORDERED: NITR50CA PO (16:18)
[2022-05-27] MEDS ORDERED: PANT40TA52 PO (16:18)
[2022-05-28] MEDS: HYDROmorphone 2 MG/ML VIAL (DILAUDID) IV PRN ×2 (02:50→05:20)
[2022-05-28 04:11] LABS: BASOPHILS % (AUTO) 0 % (0-10); EOSINOPHILS # (AUTO) 0.1 10^3/uL (0.0-0.3); EOSINOPHILS % (AUTO) 2 % (0-10); HEMATOCRIT 27 % (35-52); HEMOGLOBIN 8.6 g/dL (11.5-16.0); LYMPHOCYTES # (AUTO) 2.8 10^3/uL (1.0-4.0); LYMPHOCYTES % (AUTO) 33 % (12-44); MEAN CORPUSCULAR HEMOGLOBIN 29 pg (25-34); MEAN CORPUSCULAR HGB CONC 32 g/dL (32-36); MEAN CORPUSCULAR VOLUME 90 fL (80-99); MEAN PLATELET VOLUME 9.8 fL (9.0-12.2); MONOCYTES # (AUTO) 0.8 10^3/uL (0.0-1.0); MONOCYTES % (AUTO) 10 % (0-12); NEUTROPHILS # (AUTO) 4.7 10^3/uL (1.8-7.8); NEUTROPHILS % (AUTO) 55 % (42-75); PLATELET COUNT 482 10^3/uL (130-400); WHITE BLOOD COUNT 8.6 10^3/uL (4.3-11.0)
[2022-05-28 04:28] LABS: ALBUMIN 2.5 GM/DL (3.2-4.5)
[2022-05-28 04:29] LABS: POTASSIUM 4.3 MMOL/L (3.6-5.0)
[2022-05-28 04:31] LABS: TOTAL PROTEIN 5.4 GM/DL (6.4-8.2)
[2022-05-28 04:33] LABS: BILIRUBIN,TOTAL 0.3 MG/DL (0.1-1.0)
[2022-05-28 04:34] LABS: PHOSPHORUS 2.6 MG/DL (2.3-4.7)
[2022-05-28 04:35] LABS: CREATININE SERUM 0.68 MG/DL (0.60-1.30)
[2022-05-28 04:37] LABS: MAGNESIUM 1.5 MG/DL (1.6-2.4)
[2022-05-28] MEDS: MEROPENEM 500 MG in NS (IVPB) 100 ML IV SCH ×3 (04:47→23:05)
[2022-05-28] MEDS: POTASSIUM CL 10MEQ/50ML IVPB 50 ML IV SCH (05:01)
[2022-05-28] MEDS: inSUlin ASPART (NovoLOG) 1 UNIT/0.01 ML (CHARGE PER UNIT) SC SCH ×4 (05:02→23:07)
[2022-05-28] MEDS: KCL 20 MEQ TAB (K-DUR) PO SCH (05:02)
[2022-05-28] MEDS: MAGNESIUM 1 GM/100 ML IVPB 100 ML IV SCH ×2 (05:03→05:20)
--- NOTE | 2022-05-28 08:43 | Diagnostic Imaging Report ---
INDICATION: Dyspnea. TECHNIQUE: Single view chest 5:22 AM. CORRELATION STUDY: 05/27/2022 FINDINGS: The heart size, mediastinal configuration and pulmonary vascularity are within normal limits. Infiltrate-like opacity left mid and lower lung muro persisting. Overall stable to slightly improved. Thoracic spine stimulator lead present with rightward convexity of the thoracic spine. IMPRESSION: 1. Left basilar pneumonia, perhaps slightly improved. Dictated by: Dictated on workstation # [id number]
[2022-05-28] MEDS: DOCUSATE SODIUM 100 MG (COLACE) CAP PO SCH ×2 (09:04→23:06)
[2022-05-28] MEDS: ENOXAPARIN 40 MG/0.4 ML (LOVENOX) SYR SC SCH (09:04)
[2022-05-28] MEDS: SODIUM BICARBONATE 650 MG TABLET PO SCH ×2 (09:04→23:06)
[2022-05-28] MEDS: SENNOSIDES 8.6 MG (SENOKOT) TAB PO SCH ×2 (09:04→23:06)
[2022-05-28] MEDS ORDERED: ONDANSETRON 4 MG (ZOFRAN) ORAL DISSOLVE TAB PO PRN (09:15)
[2022-05-28] MEDS ORDERED: NITROGLYCERIN 0.4 MG SL TABS BTL 25'S SL PRN (09:15)
[2022-05-28] MEDS ORDERED: RT-ALBUTEROL SULF 2.5 MG/3 ML PRE-MIX VIAL INH PRN (09:15)
--- NOTE | 2022-05-28 09:40 | Physical Therapy Daily Note ---
PT Daily Note-Current Subjective Patient in bed pre tx, agrees to PT, has pain she says "all over", unrated, states nurse has already given her pain meds. Pain Section J - Health Conditions 1. Rarely or not at all 2. Occasionally 3. Frequently 4. Almost constantly 8. Unable to answer Pain Effect on Sleep: 2 Pain Interference with Therapy: 2 Pain Interference w/Day-to-Day: 2 Appearance Patient in recliner post tx with nurse call, phone, tray, all needs met, chair alarm on. Mental Status Patient Orientation: Person, Confused Attachments: Garner Catheter Transfers SCALE: Activities may be completed with or without assistive devices. 8-Jaxljmjlrs-bbbgrrh completes the activity by him/herself with no assistance from a helper. 5-Set-up or Clean-up Assistance-helper sets up or cleans up; patient completes activity. [place] assists only prior to or following the activity. 4-Supervision or Touching Assistance-helper provides verbal cues and/or touching/steadying and/or contact guard assistance as patient completes activity. Assistance may be provided throughout the activity or intermittently. 3-Partial/Moderate Assistance-helper does LESS THAN HALF the effort. [place] lifts, holds or supports trunk or limbs, but provides less than half the effort. 2-Substantial/Maximal Assistance-helper does MORE THAN HALF the effort. [place] lifts or holds trunk or limbs and provides more than half the effort. 8-Lkjlrqwtj-ibgcon does ALL the effort. Patient does none of the effort to complete the activity. Or, the assistance of 2 or more helpers is required for the patient to complete the activity. If activity was not attempted, code reason: 7-Patient Refused. 9-Not Applicable-not attempted and the patient did not perform the activity before the current illness, exacerbation or injury. 10-Not Attempted due to Environmental Limitations-(lack of equipment, weather restraints, etc.). 88-Not Attempted due to Medical Conditions or Safety Concerns. Roll Left & Right (QC): 3 Lying to Sitting/Side of Bed(Q: 3 Sit to Stand (QC): 3 Chair/Idx-hr-Czjqq Xfer(QC): 3 Gait Training Distance: 20' Walk 10 feet (QC): 3 Gait Persons Needed: 1 Gait Assistive Device: FWW patient needs assist guiding walker, she needs cues for big steps, patient has trouble with foot clearance, very shaky Exercises Seated Therapy Exercises: Ankle pumps, Long arc quads Seated Reps: 20 Treatments bed mobility and transfers, ambulation, LE ROM Assessment Current Status: Fair Progress slow improvement in functional mobility PT Nursing Home Goals Nursing Home Goals PT Nursing Home Goals Time Frame: Jun 14, 2022 Roll Left & Right (QC): 6 Sit to Lying (QC): 6 Lying-Sitting on Side/Bed(QC): 6 Sit to Stand (QC): 6 Chair/Jtq-wk-Vxsmz Xfer(QC): 6 Toilet Transfer (QC): 6 Walk 10 feet (QC): 5 Walk 50ft with 2 Turns (QC): 5 Walk 150 ft (QC): 5 PT Plan Problem List Problem List: Activity Tolerance, Functional Strength, Safety, Balance, Gait, Transfer, Bed Mobility, ROM Treatment/Plan Treatment Plan: Continue Plan of Care Treatment Plan: Bed Mobility, Education, Functional Activity Stephanie, Functional Strength, Gait, Safety, Therapeutic Exercise, Transfers Treatment Duration: Jun 14, 2022 Frequency: 6 times per week Estimated Hrs Per Day: .25 hour per day Safety Risks/Education Patient Education: Gait Training, Transfer Techniques, Correct Positioning, Safety Issues Teaching Recipient: Patient Teaching Methods: Demonstration, Discussion Response to Teaching: Reinforcement Needed Time Time In: 910 Time Out: 924 DATE: May 28, 2022 Total Billed Treatment Time: 14 Total Billed Treatment 1 visit FA RAMYA JOHNSON PT May 28, 2022 09:40
[2022-05-28] MEDS: PANTOPRAZOLE 40 MG (PROTONIX) TAB PO SCH (10:00)
[2022-05-28] MEDS: predniSONE 5 MG TAB PO SCH (10:00)
[2022-05-28] MEDS: ISOSORBIDE MONONITRATE 60 MG (IMDUR) TAB PO SCH (10:00)
[2022-05-28] MEDS: TAMSULOSIN 0.4 MG (FLOMAX) CAP PO SCH (10:00)
--- NOTE | 2022-05-28 10:42 | Occupational Ther Daily Note ---
OT Current Status-Daily Note Subjective Pt alert, demonstrating less confusion. Sitting in recliner talking on room phone upon FORD entering room. No c/o pain. Agrees to therapy. Mental Status/Objective Patient Orientation: Person, Situation (knows she was taken to the hospital in an ambulance) Attachments: Garner Catheter, IV, Telemetry ADL-Treatment After set up and SBA to focus on task. Pt able to complete oral care, brushing hair and washing face by self. Pt unable to open denture tablet packaging, assist given. Will bring pt therapy foam next treatment session. After therapy, pt sitting in recliner with call light/phone in reach. Safety measures in place. All needs met. Therapy Code Descriptions/Definitions Functional [place] Measure: 0=Not Assessed/NA 4=Minimal Assistance 1=Total Assistance 5=Supervision or Setup 2=Maximal Assistance 6=Modified [place] 3=Moderate Assistance 7=Complete IndependenceSCALE: Activities may be completed with or without assistive devices. 2-Qxqfsamhth-rwnnlae completes the activity by him/herself with no assistance from a helper. 5-Set-up or Clean-up Assistance-helper sets up or cleans up; patient completes activity. [place] assists only prior to or following the activity. 4-Supervision or Touching Assistance-helper provides verbal cues and/or touchi ng/steadying and/or contact guard assistance as patient completes activity. Assistance may be provided throughout the activity or intermittently. 3-Partial/Moderate Assistance-helper does LESS THAN HALF the effort. [place] lifts, holds or supports trunk or limbs, but provides less than half the effort. 2-Substantial/Maximal Assistance-helper does MORE THAN HALF the effort. [place] lifts or holds trunk or limbs and provides more than half the effort. 5-Ybwvmmdte-gqjjyp does ALL the effort. Patient does none of the effort to complete the activity. Or, the assistance of 2 or more helpers is required for the patient to complete the activity. If activity was not attempted, code reason: 7-Patient Refused. 9-Not Applicable-not attempted and the patient did not perform the activity before the current illness, exacerbation or injury. 10-Not Attempted due to Environmental Limitations-(lack of equipment, weather restraints, etc.). 88-Not Attempted due to Medical Conditions or Safety Concerns. Oral Hygiene (QC): 4 OT Senior Care Goals Senior Care Goals Time Frame: Jun 17, 2022 Eating (QC): 4 Oral Hygiene (QC): 4 Toileting Hygiene (QC): 3 Shower/Bathe Self (QC): 3 Upper Body Dressing (QC): 3 Lower Body Dressing (QC): 3 On/Off Footwear (QC): 3 Additional Goals: 1-Demonstrate ADL Tasks, 2-Verbalize Understanding, 3- ImproveStrength/Stephanie 1=Demonstrate adherence to instructed precautions during ADL tasks. 2=Patient will verbalize/demonstrate understanding of assistive devices/modifications for ADL. 3=Patient will improve strength/tolerance for activity to enable patient to perform ADL's. OT Education/Plan Problem List/Assessment Assessment: Decreased Activ Tolerance, Decreased Safety Aware, Decreased UE Strength, Impaired Cognition, Impaired Self-Care Skills Discharge Recommendations Plan/Recommendations: Continue POC Treatment Plan/Plan of Care Patient would benefit from OT for education, treatment and training to promote independence in ADL's, mobility, safety and/or upper extremity function for ADL's. Plan of Care: ADL Retraining, Caregiver Training, Functional Mobility, Group Exercise/Act as Ind, UE Funct Exercise/Act Treatment Duration: Jun 17, 2022 Frequency: 3 times per week (3-5x/week ) Estimated Hrs Per Day: .25 hour per day Rehab Potential: Poor Time Start Time: 10:20 Stop Time: 10:35 DATE: May 28, 2022 Total Time Billed (hr/min): 15 Billed Treatment Time 1 visit-ADL 1 (15 min) SOFI DELEON May 28, 2022 10:42
--- NOTE | 2022-05-28 11:27 | Progress Note - Hospitalist ---
RIKIRANDI 05/28/22 1127: Subjective HPI/CC On Admission Date Seen by Provider: May 28, 2022 Time Seen by Provider: 07:30 Chief complaint: Normoglycemic DKA with sepsis from UTI HPI: This is a 77-year-old female who was admitted from the ER with sepsis from UTI but upon further evaluation the metabolic acidosis was so profound with bicarb of 11 I continued the work-up revealing a normal glycemic DKA (use of long-acting oral hypoglycemic agents at home and presented as hypoglycemia) along with sepsis from UTI. She was initiated on broad-spectrum antibiotics due to multiple antibiotics use recently. She remains at her baseline orientation of 12. Subjective/Events-last exam Pt was seen drinking a protein shake sitting in bed, she was just slightly more alert and oriented today. She was concerned about being ready for back surgery on June 03 but is being advised against it due to her current state and frailty. Her blood labs are more regulated, and WBC count indicates decrease in her infection. Imaging did return back with signs of left lower lobe PNA w/ effusion along with uncomplicated diverticulosis. She reports feeling a small improvement. Focused Exam Lactate Level 05/25/22 20:47: Lactic Acid Level 3.14*H 05/25/22 22:51: Lactic Acid Level 2.32*H 05/26/22 06:05: Lactic Acid Level 0.80 Time of Focused Exam: 19:18 Objective Exam Vital Signs Vital Signs Date Time Temp Pulse Resp B/P (MAP) Pulse Ox O2 Delivery O2 Flow Rate FiO2 05/28/22 10:00 95 12 133/51 (78) 98 Room Air 05/28/22 08:00 37.3 05/25/22 22:25 21 Capillary Refill : Less Than 3 Seconds General Appearance: No Apparent Distress, WD/WN HEENT: PERRL/EOMI, TMs Normal, Normal ENT Inspection, Pharynx Normal Neck: Full Range of Motion, Normal Inspection, Non Tender, Supple Respiratory: Chest Non Tender, No Accessory Muscle Use, No Respiratory Distress, Crackles, Decreased Breath Sounds Cardiovascular: Regular Rate, Rhythm, No Edema, No Gallop, No JVD, No Murmur, Normal Peripheral Pulses Gastrointestinal: Normal Bowel Sounds, No Organomegaly, No Pulsatile Mass, Non Tender, Soft Back: Normal Inspection, No CVA Tenderness, No Vertebral Tenderness Extremity: Normal Capillary Refill, Normal Inspection, Non Tender, No Calf Tenderness, No Pedal Edema Neurologic/Psychiatric: Alert, No Motor/Sensory Deficits, Normal Mood/Affect, mushroom growth media mixer II-XII Norm as Tested, Disoriented Skin: Normal Color, Warm/Dry Lymphatic: No Adenopathy Results/Procedures Lab Laboratory Tests 05/27/22 13:02 05/28/22 03:39 Patient resulted labs reviewed. Assessment/Plan Assessment and Plan Assess & Plan/Chief Complaint Assessment: Normoglycemic DKA due to long-term use of extended release oral hypoglycemic agents Sepsis from UTI Dementia CAD Angina Normocytic Anemia thrombocytosis Plan: IV antibiotics broad-spectrum due to recent multiple antibiotics Supportive care in ICU look into SNF SHAKIRA PAIGE DO 05/29/22 0451: Subjective Subjective/Events-last exam Patient improved Moving down to fourth floor Bicarb 14 Planning on having back surgery by Dr. 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 I reviewed and verified all information documented by the medical student and made modifications to such information, when appropriate. I personally performed the physical exam and medical decision making. Shakira Paige May 29, 2022,04:50 RANDI LYN May 28, 2022 11:27 SHAKIRA PAIGE DO May 29, 2022 04:51
[2022-05-28] MEDS: DICYCLOMINE 10 MG (BENTYL) CAP PO SCH ×3 (12:02→23:05)
[2022-05-28 13:52] VITALS: BP 116/47
[2022-05-28 16:00] VITALS: BP 134/60
[2022-05-28 19:41] VITALS: BP 121/58
[2022-05-28] MEDS ORDERED: NON-FORMULARY MEDICATION 1 EA EA (Simvastatin 40 MG) PO SCH (21:00)
[2022-05-28] MEDS: GEMFIBROZIL 600 MG (LOPID) TAB PO SCH (23:06)
[2022-05-28] MEDS: MELATONIN 3 MG TABLET PO PRN (23:07)
[2022-05-28] MEDS: ALPRAZolam 0.5 MG (XANAX) TAB PO PRN (23:07)
[2022-05-29] VITALS (9 sets, daily range): BP systolic 106–157; BP diastolic 53–68
[2022-05-29] MEDS: DICYCLOMINE 10 MG (BENTYL) CAP PO SCH ×5 (00:01→20:27)
[2022-05-29] MEDS: MEROPENEM 500 MG in NS (IVPB) 100 ML IV SCH ×3 (06:21→20:27)
[2022-05-29 06:53] LABS: BASOPHILS % (AUTO) 0 % (0-10); EOSINOPHILS # (AUTO) 0.1 10^3/uL (0.0-0.3); EOSINOPHILS % (AUTO) 2 % (0-10); HEMATOCRIT 23 % (35-52); HEMOGLOBIN 7.4 g/dL (11.5-16.0); LYMPHOCYTES # (AUTO) 2.7 10^3/uL (1.0-4.0); LYMPHOCYTES % (AUTO) 32 % (12-44); MEAN CORPUSCULAR HEMOGLOBIN 29 pg (25-34); MEAN CORPUSCULAR HGB CONC 32 g/dL (32-36); MEAN CORPUSCULAR VOLUME 90 fL (80-99); MEAN PLATELET VOLUME 10.3 fL (9.0-12.2); MONOCYTES # (AUTO) 0.7 10^3/uL (0.0-1.0); MONOCYTES % (AUTO) 8 % (0-12); NEUTROPHILS # (AUTO) 4.9 10^3/uL (1.8-7.8); NEUTROPHILS % (AUTO) 57 % (42-75); PLATELET COUNT 437 10^3/uL (130-400); WHITE BLOOD COUNT 8.5 10^3/uL (4.3-11.0)
[2022-05-29 07:39] LABS: ALBUMIN 2.5 GM/DL (3.2-4.5); BILIRUBIN,TOTAL 0.2 MG/DL (0.1-1.0); CREATININE SERUM 0.67 MG/DL (0.60-1.30); MAGNESIUM 1.5 MG/DL (1.6-2.4); POTASSIUM 4.5 MMOL/L (3.6-5.0); TOTAL PROTEIN 5.2 GM/DL (6.4-8.2)
[2022-05-29] MEDS: inSUlin ASPART (NovoLOG) 1 UNIT/0.01 ML (CHARGE PER UNIT) SC SCH ×4 (07:42→20:37)
[2022-05-29] MEDS: TAMSULOSIN 0.4 MG (FLOMAX) CAP PO SCH (08:38)
[2022-05-29] MEDS: SODIUM BICARBONATE 650 MG TABLET PO SCH ×2 (08:39→20:27)
[2022-05-29] MEDS: predniSONE 5 MG TAB PO SCH (08:39)
[2022-05-29] MEDS: PANTOPRAZOLE 40 MG (PROTONIX) TAB PO SCH (08:39)
[2022-05-29] MEDS: SENNOSIDES 8.6 MG (SENOKOT) TAB PO SCH ×2 (08:39→20:28)
[2022-05-29] MEDS: ISOSORBIDE MONONITRATE 60 MG (IMDUR) TAB PO SCH (08:39)
[2022-05-29] MEDS: GEMFIBROZIL 600 MG (LOPID) TAB PO SCH ×2 (08:39→20:28)
[2022-05-29] MEDS: LOSARTAN 100 MG (COZAAR) TABLET PO SCH (08:39)
[2022-05-29] MEDS: DOCUSATE SODIUM 100 MG (COLACE) CAP PO SCH ×2 (08:40→20:27)
[2022-05-29] MEDS: ENOXAPARIN 40 MG/0.4 ML (LOVENOX) SYR SC SCH (08:40)
--- NOTE | 2022-05-29 09:59 | Physical Therapy Daily Note ---
PT Daily Note-Current Subjective Patient agrees to PT. Pain Numeric Pain Scale: 5-Moderate Pain Location: Lower Location Body Site: Back Pain Description: Chronic Section J - Health Conditions 1. Rarely or not at all 2. Occasionally 3. Frequently 4. Almost constantly 8. Unable to answer Pain Effect on Sleep: 2 Pain Interference with Therapy: 2 Pain Interference w/Day-to-Day: 2 Mental Status Patient Orientation: Person, Time, Situation Attachments: Garner Catheter Transfers SCALE: Activities may be completed with or without assistive devices. 3-Kbeafgfuzf-gcawmpe completes the activity by him/herself with no assistance from a helper. 5-Set-up or Clean-up Assistance-helper sets up or cleans up; patient completes activity. [place] assists only prior to or following the activity. 4-Supervision or Touching Assistance-helper provides verbal cues and/or touching/steadying and/or contact guard assistance as patient completes activity. Assistance may be provided throughout the activity or intermittently. 3-Partial/Moderate Assistance-helper does LESS THAN HALF the effort. [place] lifts, holds or supports trunk or limbs, but provides less than half the effort. 2-Substantial/Maximal Assistance-helper does MORE THAN HALF the effort. [place] lifts or holds trunk or limbs and provides more than half the effort. 9-Xzazrvifr-alhfln does ALL the effort. Patient does none of the effort to complete the activity. Or, the assistance of 2 or more helpers is required for the patient to complete the activity. If activity was not attempted, code reason: 7-Patient Refused. 9-Not Applicable-not attempted and the patient did not perform the activity before the current illness, exacerbation or injury. 10-Not Attempted due to Environmental Limitations-(lack of equipment, weather restraints, etc.). 88-Not Attempted due to Medical Conditions or Safety Concerns. Lying to Sitting/Side of Bed(Q: 4 Sit to Stand (QC): 4 Chair/Mhl-bq-Ncsvd Xfer(QC): 4 Gait Training Distance: 50' Walk 10 feet (QC): 3 Walk 50 ft with 2 Turns(QC): 3 Walk 150 ft (QC): 88 Gait Assistive Device: FWW very, very slow, shuffle gait sequence with minimal foot clearance Exercises Supine Ex: Ankle pumps, Quad Set, Heel Slides, Straight leg raise Supine Reps: 12 Seated Therapy Exercises: Long arc quads Seated Reps: 15 Assessment Patient requires time to complete all functional tasks. Patient reports she ambulates this slowly PLOF. SW present. Patient is up in recliner with needs met. Patient reports she is to have back surgery 06/04/22 PT [facility] Goals User Support Analyst Supervisor Goals PT [facility] Goals Time Frame: Jun 14, 2022 Roll Left & Right (QC): 6 Sit to Lying (QC): 6 Lying-Sitting on Side/Bed(QC): 6 Sit to Stand (QC): 6 Chair/Jgo-ca-Phzdr Xfer(QC): 6 Toilet Transfer (QC): 6 Walk 10 feet (QC): 5 Walk 50ft with 2 Turns (QC): 5 Walk 150 ft (QC): 5 PT Plan Treatment/Plan Treatment Plan: Continue Plan of Care Treatment Plan: Bed Mobility, Education, Functional Activity Stephanie, Functional Strength, Gait, Safety, Therapeutic Exercise, Transfers Treatment Duration: Jun 14, 2022 Frequency: 6 times per week Estimated Hrs Per Day: .25 hour per day Time Time In: 905 Time Out: 929 DATE: May 29, 2022 Total Billed Treatment Time: 24 Total Billed Treatment 1 visit EX 9 min GT 15 min JADON EMMANUEL PT May 29, 2022 09:59
[2022-05-29] MEDS ORDERED: NS IV 500 ML 500 ML IV SCH (11:45)
[2022-05-29] MEDS ORDERED: BISACODYL 10 MG SUPP (DULCOLAX) PR PRN (11:45)
[2022-05-29] MEDS ORDERED: LACTULOSE SYRUP 10GM/15ML (ENULOSE) 30ML UDC PO NR (12:00)
[2022-05-29] MEDS ORDERED: SENNA W/DOCUSATE (SENOKOT S) TABLET PO NR (12:00)
[2022-05-29] MEDS ORDERED: BISACODYL 10 MG SUPP (DULCOLAX) PR NR (12:00)
--- NOTE | 2022-05-29 14:03 | Occupational Ther Daily Note ---
OT Current Status-Daily Note Subjective Pt alert, sitting in recliner. Pt agrees to therapy. No c/o pain. Mental Status/Objective Patient Orientation: Person, Place, Time, Situation Attachments: Garner Catheter, IV ADL-Treatment CGA to ambulate using FWW to bathroom and stand at sink to complete oral care/grooming. Pt has slow shuffling gait. CGA while standing at sink due to unsteadiness even while leaning on counter. Pt completed oral care by self. After session, pt sitting in recliner with call light/phone in reach. All needs met in room. Safety measures in place. Therapy Code Descriptions/Definitions Functional [place] Measure: 0=Not Assessed/NA 4=Minimal Assistance 1=Total Assistance 5=Supervision or Setup 2=Maximal Assistance 6=Modified [place] 3=Moderate Assistance 7=Complete IndependenceSCALE: Activities may be completed with or without assistive devices. 3-Vbgelnprqt-oycyzto completes the activity by him/herself with no assistance from a helper. 5-Set-up or Clean-up Assistance-helper sets up or cleans up; patient completes activity. [place] assists only prior to or following the activity. 4-Supervision or Touching Assistance-helper provides verbal cues and/or touching/steadying and/or contact guard assistance as patient completes activity. Assistance may be provided throughout the activity or intermittently. 3-Partial/Moderate Assistance-helper does LESS THAN HALF the effort. [place] lifts, holds or supports trunk or limbs, but provides less than half the effort. 2-Substantial/Maximal Assistance-helper does MORE THAN HALF the effort. [place] lifts or holds trunk or limbs and provides more than half the effort. 1-Puzatigqr-cxnxeh does ALL the effort. Patient does none of the effort to complete the activity. Or, the assistance of 2 or more helpers is required for the patient to complete the activity. If activity was not attempted, code reason: 7-Patient Refused. 9-Not Applicable-not attempted and the patient did not perform the activity before the current illness, exacerbation or injury. 10-Not Attempted due to Environmental Limitations-(lack of equipment, weather restraints, etc.). 88-Not Attempted due to Medical Conditions or Safety Concerns. Oral Hygiene (QC): 4 OT Dictating Transcribing Machine Servicer Goals Dictating Transcribing Machine Servicer Goals Time Frame: Jun 17, 2022 Eating (QC): 4 Oral Hygiene (QC): 4 Toileting Hygiene (QC): 3 Shower/Bathe Self (QC): 3 Upper Body Dressing (QC): 3 Lower Body Dressing (QC): 3 On/Off Footwear (QC): 3 Additional Goals: 1-Demonstrate ADL Tasks, 2-Verbalize Understanding, 3- ImproveStrength/Stephanie 1=Demonstrate adherence to instructed precautions during ADL tasks. 2=Patient will verbalize/demonstrate understanding of assistive devices/modifications for ADL. 3=Patient will improve strength/tolerance for activity to enable patient to perform ADL's. OT Education/Plan Problem List/Assessment Assessment: Decreased Activ Tolerance, Decreased Safety Aware, Impaired Funct Balance, Impaired Self-Care Skills Discharge Recommendations Plan/Recommendations: Continue POC Treatment Plan/Plan of Care Patient would benefit from OT for education, treatment and training to promote independence in ADL's, mobility, safety and/or upper extremity function for ADL's. Plan of Care: ADL Retraining, Caregiver Training, Functional Mobility, Group Exercise/Act as Ind, UE Funct Exercise/Act Treatment Duration: Jun 17, 2022 Frequency: 3 times per week (3-5x/week ) Estimated Hrs Per Day: .25 hour per day Rehab Potential: Poor Time Start Time: 13:30 Stop Time: 13:53 DATE: May 29, 2022 Total Time Billed (hr/min): 23 Billed Treatment Time 1 visit-ADL 2 (23 min) SOFI DELEON May 29, 2022 14:03
--- NOTE | 2022-05-29 14:22 | Progress Note - Hospitalist ---
RANDI LYN 05/29/22 1422: Subjective HPI/CC On Admission Date Seen by Provider: May 29, 2022 Time Seen by Provider: 10:00 Chief complaint: Normoglycemic DKA with sepsis from UTI HPI: This is a 77-year-old female who was admitted from the ER with sepsis from UTI but upon further evaluation the metabolic acidosis was so profound with bicarb of 11 I continued the work-up revealing a normal glycemic DKA (use of long-acting oral hypoglycemic agents at home and presented as hypoglycemia) along with sepsis from UTI. She was initiated on broad-spectrum antibiotics due to multiple antibiotics use recently. She remains at her baseline orientation of 12. Subjective/Events-last exam Pt was on the phone when I arrived, she was much more lucid and oriented today and able to have a conversation, her metabolic acidosis appears to be corrected and her chief complaint is now abdominal distension and LLQ pain. She hasnt had a BM since 05/26/22. She says that all her information about her health and future surgeries are on her phone but that her has the phone, however, no one has been able to contact the . She is going to recieve 1L blood transfusion for her anemia. Review of Systems General: No Chills, No Night Sweats, No Fatigue, No Malaise, No Appetite HEENT: No Head Aches, No Visual Changes, No Eye Pain, No Ear Pain, No Dysphasia, No Sinus Congestion, No Post Nasal Drip, No Sore Throat Pulmonary: No Dyspnea, No Cough, No Pleuritic Chest Pain, No Other Cardiovascular: No: Chest Pain, Palpitations, Orthopnea, Paroxysmal Noc. Dyspnea, Edema, Lt Headedness Gastrointestinal: Abdominal Pain, Constipation Genitourinary: No Dysuria, No Frequency, No Incontinence, No Hematuria, No Retention, No Other Musculoskeletal: No: neck pain, shoulder pain, arm pain, back pain, hand pain, leg pain, foot pain Neurological: Weakness, Incoordination Focused Exam Time of Focused Exam: 19:18 Objective Exam Vital Signs Vital Signs Date Time Temp Pulse Resp B/P (MAP) Pulse Ox O2 Delivery O2 Flow Rate FiO2 05/29/22 11:08 36.7 68 18 106/53 (70) 96 Room Air 05/25/22 22:25 21 Capillary Refill : Less Than 3 Seconds General Appearance: No Apparent Distress, Thin Neck: Full Range of Motion, Normal Inspection, Non Tender, Supple Respiratory: Chest Non Tender, Lungs Clear, Normal Breath Sounds, No Accessory Muscle Use, No Respiratory Distress Cardiovascular: Regular Rate, Rhythm, No Edema, No Gallop, No JVD, No Murmur, Normal Peripheral Pulses Gastrointestinal: No Organomegaly, No Pulsatile Mass, Distended, Tenderness Back: Normal Inspection, No CVA Tenderness, No Vertebral Tenderness Extremity: Normal Capillary Refill, Normal Inspection, Normal Range of Motion, Non Tender, No Calf Tenderness, No Pedal Edema Neurologic/Psychiatric: Alert, Oriented x3, No Motor/Sensory Deficits, Normal Mood/Affect Skin: Normal Color, Warm/Dry Lymphatic: No Adenopathy Results/Procedures Lab Laboratory Tests 05/29/22 05:42 Patient resulted labs reviewed. Assessment/Plan Assessment and Plan Assess & Plan/Chief Complaint Assessment: Normoglycemic DKA due to long-term use of extended release oral hypoglycemic agents Dementia CAD Angina Normocytic Anemia thrombocytosis Abdominal pain 2/2 constipation Plan: IV antibiotics broad-spectrum due to recent multiple antibiotics Supportive care in ICU look into SNF laxatives 1L blood transfusion (A+ BT) SHAKIRA PAIGE DO 05/30/22 0453: Supervisory-Addendum Brief Verification & Attestation Participated in pt care: history, MDM, physical Personally performed: exam, history, MDM, supervision of care Care discussed with: Medical Student Procedures: n/a Results interpretation: Verified all documentation Verification and Attestation of Medical Student E/M Service A medical student performed and documented this service in my presence. I reviewed and verified all information documented by the medical student and made modifications to such information, when appropriate. I personally performed the physical exam and medical decision making. Shakira Paige May 30, 2022,04:52 RANDI LYN May 29, 2022 14:22 SHAKIRA PAIGE DO May 30, 2022 04:53
[2022-05-29] MEDS: LACTULOSE SYRUP 10GM/15ML (ENULOSE) 30ML UDC PO SCH (20:28)
[2022-05-29] MEDS: SENNA W/DOCUSATE (SENOKOT S) TABLET PO SCH (20:28)
[2022-05-30 03:25] VITALS: BP 165/76
[2022-05-30] MEDS: inSUlin ASPART (NovoLOG) 1 UNIT/0.01 ML (CHARGE PER UNIT) SC SCH ×4 (04:50→20:57)
[2022-05-30] MEDS: MEROPENEM 500 MG in NS (IVPB) 100 ML IV SCH ×3 (04:56→20:56)
[2022-05-30] MEDS ORDERED: IRON SUCROSE 200 MG/10 ML (VENOFER) VIAL IV ONE (07:00)
[2022-05-30 07:24] LABS: BASOPHILS % (AUTO) 0 % (0-10); EOSINOPHILS # (AUTO) 0.2 10^3/uL (0.0-0.3); EOSINOPHILS % (AUTO) 3 % (0-10); HEMATOCRIT 31 % (35-52); LYMPHOCYTES # (AUTO) 3.2 10^3/uL (1.0-4.0); LYMPHOCYTES % (AUTO) 34 % (12-44); MEAN CORPUSCULAR HEMOGLOBIN 29 pg (25-34); MEAN CORPUSCULAR HGB CONC 33 g/dL (32-36); MEAN CORPUSCULAR VOLUME 89 fL (80-99); MEAN PLATELET VOLUME 9.7 fL (9.0-12.2); MONOCYTES # (AUTO) 0.9 10^3/uL (0.0-1.0); MONOCYTES % (AUTO) 9 % (0-12); NEUTROPHILS # (AUTO) 5.2 10^3/uL (1.8-7.8); NEUTROPHILS % (AUTO) 54 % (42-75); PLATELET COUNT 489 10^3/uL (130-400); WHITE BLOOD COUNT 9.6 10^3/uL (4.3-11.0)
[2022-05-30 07:35] LABS: ALBUMIN 2.9 GM/DL (3.2-4.5)
[2022-05-30 07:36] LABS: POTASSIUM 4.6 MMOL/L (3.6-5.0)
[2022-05-30 07:37] LABS: CALCIUM 9.1 MG/DL (8.5-10.1)
[2022-05-30 07:38] LABS: TOTAL PROTEIN 6.1 GM/DL (6.4-8.2)
[2022-05-30 07:40] LABS: BILIRUBIN,TOTAL 0.3 MG/DL (0.1-1.0)
[2022-05-30 07:42] LABS: CREATININE SERUM 0.73 MG/DL (0.60-1.30)
[2022-05-30 07:44] LABS: MAGNESIUM 1.4 MG/DL (1.6-2.4)
[2022-05-30 08:38] VITALS: BP 145/66
[2022-05-30] MEDS: predniSONE 5 MG TAB PO SCH (08:42)
[2022-05-30] MEDS: ISOSORBIDE MONONITRATE 60 MG (IMDUR) TAB PO SCH (08:42)
[2022-05-30] MEDS: PANTOPRAZOLE 40 MG (PROTONIX) TAB PO SCH (08:42)
[2022-05-30] MEDS: DICYCLOMINE 10 MG (BENTYL) CAP PO SCH ×4 (08:42→20:54)
[2022-05-30] MEDS: DOCUSATE SODIUM 100 MG (COLACE) CAP PO SCH ×2 (08:43→19:41)
[2022-05-30] MEDS: LACTULOSE SYRUP 10GM/15ML (ENULOSE) 30ML UDC PO SCH ×2 (08:43→19:41)
[2022-05-30] MEDS: TAMSULOSIN 0.4 MG (FLOMAX) CAP PO SCH (08:43)
[2022-05-30] MEDS: ENOXAPARIN 40 MG/0.4 ML (LOVENOX) SYR SC SCH (08:43)
[2022-05-30] MEDS: SODIUM BICARBONATE 650 MG TABLET PO SCH ×2 (08:43→20:55)
[2022-05-30] MEDS: GEMFIBROZIL 600 MG (LOPID) TAB PO SCH ×2 (08:43→20:55)
[2022-05-30] MEDS: LOSARTAN 100 MG (COZAAR) TABLET PO SCH (08:43)
[2022-05-30] MEDS: SENNOSIDES 8.6 MG (SENOKOT) TAB PO SCH ×2 (08:44→19:42)
[2022-05-30] MEDS: SENNA W/DOCUSATE (SENOKOT S) TABLET PO SCH ×2 (08:44→19:42)
[2022-05-30] MEDS ORDERED: CYANOCOBALAMIN INJ 1000 MCG/ML IM ONE (09:00)
--- NOTE | 2022-05-30 10:13 | Physical Therapy Daily Note ---
PT Daily Note-Current Subjective Patient agrees to PT. Pain Section J - Health Conditions 1. Rarely or not at all 2. Occasionally 3. Frequently 4. Almost constantly 8. Unable to answer Pain Effect on Sleep: 2 Pain Interference with Therapy: 2 Pain Interference w/Day-to-Day: 2 Mental Status Patient Orientation: Person, Time, Situation Transfers SCALE: Activities may be completed with or without assistive devices. 2-Mxthkjokhf-wsiotlv completes the activity by him/herself with no assistance from a helper. 5-Set-up or Clean-up Assistance-helper sets up or cleans up; patient completes activity. [place] assists only prior to or following the activity. 4-Supervision or Touching Assistance-helper provides verbal cues and/or touching/steadying and/or contact guard assistance as patient completes activity. Assistance may be provided throughout the activity or intermittently. 3-Partial/Moderate Assistance-helper does LESS THAN HALF the effort. [place] lifts, holds or supports trunk or limbs, but provides less than half the effort. 2-Substantial/Maximal Assistance-helper does MORE THAN HALF the effort. [place] lifts or holds trunk or limbs and provides more than half the effort. 5-Mrurpqmai-paswta does ALL the effort. Patient does none of the effort to complete the activity. Or, the assistance of 2 or more helpers is required for the patient to complete the activity. If activity was not attempted, code reason: 7-Patient Refused. 9-Not Applicable-not attempted and the patient did not perform the activity before the current illness, exacerbation or injury. 10-Not Attempted due to Environmental Limitations-(lack of equipment, weather restraints, etc.). 88-Not Attempted due to Medical Conditions or Safety Concerns. Sit to Stand (QC): 3 Chair/Xig-nx-Rtchl Xfer(QC): 3 Toilet Transfer (QC): 3 (PT assist to cleanse after toileting (BM)) Gait Training Distance: 50' Walk 10 feet (QC): 3 Walk 50 ft with 2 Turns(QC): 3 Gait Assistive Device: FWW very slow, unsteady gait sequence Exercises Seated Therapy Exercises: Ankle pumps, Long arc quads Seated Reps: 15 Assessment Patient tolerated treatment well and remains up in recliner with chair alarm activated. This PT voices concern for patient safety if returning to home due t o patient demonstrates unsteady gait sequence with PT correct and noted weakness. Patient is unaware of safety concerns. PT Intensive Care Ambulance Paramedic Goals Skilled Nursing Goals PT Skilled Nursing Goals Time Frame: Jun 14, 2022 Roll Left & Right (QC): 6 Sit to Lying (QC): 6 Lying-Sitting on Side/Bed(QC): 6 Sit to Stand (QC): 6 Chair/Pym-gk-Hmlec Xfer(QC): 6 Toilet Transfer (QC): 6 Walk 10 feet (QC): 5 Walk 50ft with 2 Turns (QC): 5 Walk 150 ft (QC): 5 PT Plan Treatment/Plan Treatment Plan: Continue Plan of Care Treatment Plan: Bed Mobility, Education, Functional Activity Stephanie, Functional Strength, Gait, Safety, Therapeutic Exercise, Transfers Treatment Duration: Jun 14, 2022 Frequency: 6 times per week Estimated Hrs Per Day: .25 hour per day Time Time In: 921 Time Out: 944 DATE: May 30, 2022 Total Billed Treatment Time: 23 Total Billed Treatment 1 visit FA 8 min GT 15 min JADON EMMANUEL PT May 30, 2022 10:13
[2022-05-30 11:21] VITALS: BP 132/63
--- NOTE | 2022-05-30 11:50 | Occupational Ther Daily Note ---
OT Current Status-Daily Note Subjective Pt alert, sitting in recliner. Pt agrees to therapy. No c/o pain. Mental Status/Objective Patient Orientation: Person, Place, Time, Situation ADL-Treatment Pt donned/doffed socks by self after set up and washed feet. SBA to ambulate using FWW to bathroom and stand at sink to complete oral care/grooming. Pt has slow shuffling gait. SBA while standing at sink due to unsteadiness though was able to maintain balance. Pt completed oral care by self. Pt completed toileting with SBA. Min A for toilet transfer. After session, pt sitting in recliner with call light/phone in reach. All needs met in room. Safety measures in place. Therapy Code Descriptions/Definitions Functional [place] Measure: 0=Not Assessed/NA 4=Minimal Assistance 1=Total Assistance 5=Supervision or Setup 2=Maximal Assistance 6=Modified [place] 3=Moderate Assistance 7=Complete IndependenceSCALE: Activities may be completed with or without assistive devices. 9-Ekgdhtjzwr-oawjebt completes the activity by him/herself with no assistance from a helper. 5-Set-up or Clean-up Assistance-helper sets up or cleans up; patient completes activity. [place] assists only prior to or following the activity. 4-Supervision or Touching Assistance-helper provides verbal cues and/or touching/steadying and/or contact guard assistance as patient completes activity. Assistance may be provided throughout the activity or intermittently. 3-Partial/Moderate Assistance-helper does LESS THAN HALF the effort. [place] lifts, holds or supports trunk or limbs, but provides less than half the effort. 2-Substantial/Maximal Assistance-helper does MORE THAN HALF the effort. [place] lifts or holds trunk or limbs and provides more than half the effort. 1-Ixxabouby-msztyd does ALL the effort. Patient does none of the effort to complete the activity. Or, the assistance of 2 or more helpers is required for the patient to complete the activity. If activity was not attempted, code reason: 7-Patient Refused. 9-Not Applicable-not attempted and the patient did not perform the activity before the current illness, exacerbation or injury. 10-Not Attempted due to Environmental Limitations-(lack of equipment, weather restraints, etc.). 88-Not Attempted due to Medical Conditions or Safety Concerns. Oral Hygiene (QC): 4 Toileting Hygiene (QC): 4 Toilet Transfer (QC): 3 OT Residential Goals Residential Goals Time Frame: Jun 17, 2022 Eating (QC): 4 Oral Hygiene (QC): 4 Toileting Hygiene (QC): 3 Shower/Bathe Self (QC): 3 Upper Body Dressing (QC): 3 Lower Body Dressing (QC): 3 On/Off Footwear (QC): 3 Additional Goals: 1-Demonstrate ADL Tasks, 2-Verbalize Understanding, 3- ImproveStrength/Stephanie 1=Demonstrate adherence to instructed precautions during ADL tasks. 2=Patient will verbalize/demonstrate understanding of assistive devic es/modifications for ADL. 3=Patient will improve strength/tolerance for activity to enable patient to perform ADL's. OT Education/Plan Problem List/Assessment Assessment: Decreased Activ Tolerance, Impaired Funct Balance Discharge Recommendations Plan/Recommendations: Continue POC Treatment Plan/Plan of Care Patient would benefit from OT for education, treatment and training to promote independence in ADL's, mobility, safety and/or upper extremity function for ADL's. Plan of Care: ADL Retraining, Caregiver Training, Functional Mobility, Group Exercise/Act as Ind, UE Funct Exercise/Act Treatment Duration: Jun 17, 2022 Frequency: 3 times per week (3-5x/week ) Estimated Hrs Per Day: .25 hour per day Rehab Potential: Poor Time Start Time: 10:55 Stop Time: 11:20 DATE: May 30, 2022 Total Time Billed (hr/min): 25 Billed Treatment Time 1 vsiit-ADL 2 (25 min) SOFI DELEON May 30, 2022 11:50
[2022-05-30] MEDS ORDERED: PRED5TAB PO (12:05)
[2022-05-30] MEDS ORDERED: LOSA100T57 PO (12:05)
[2022-05-30] MEDS ORDERED: SIMV40TA25 PO (12:05)
[2022-05-30] MEDS ORDERED: ACET325T49 PO (12:05)
[2022-05-30] MEDS ORDERED: CITA20TA9 PO (12:05)
[2022-05-30] MEDS ORDERED: ENOX40DI8 SC (12:05)
[2022-05-30] MEDS ORDERED: INSU100I32 SC (12:05)
[2022-05-30] MEDS ORDERED: OXC5T PO (12:05)
[2022-05-30] MEDS ORDERED: CYAN-41 PO (12:05)
[2022-05-30] MEDS ORDERED: LACT20SO2 PO (12:05)
[2022-05-30] MEDS ORDERED: TRM50T PO (12:05)
[2022-05-30] MEDS ORDERED: TMSL.4C PO (12:05)
[2022-05-30] MEDS ORDERED: GEMF600T88 PO (12:05)
[2022-05-30] MEDS ORDERED: MTP25TSR PO (12:05)
[2022-05-30] MEDS ORDERED: NITR0.4T39 SL (12:05)
[2022-05-30] MEDS ORDERED: PANT40TA52 PO (12:05)
[2022-05-30] MEDS ORDERED: ISOS60TA63 PO (12:05)
[2022-05-30] MEDS ORDERED: ALPR0.5T7 PO (12:05)
[2022-05-30] MEDS ORDERED: ALBU18HF2 INH (12:05)
[2022-05-30] MEDS ORDERED: DICY10CA12 PO (12:05)
[2022-05-30] MEDS ORDERED: NF-SODBICA PO (12:05)
[2022-05-30] MEDS ORDERED: MAGN200T8 PO (12:09)
--- NOTE | 2022-05-30 12:10 | Discharge Inst-Skilled Nursing ---
Discharge Inst-Skilled NF Reconcile Patient Problems Problems Reviewed?: Yes Chief Complaint Chief complaint: Normoglycemic DKA with sepsis from UTI HPI: This is a 77-year-old female who was admitted from the ER with sepsis from UTI but upon further evaluation the metabolic acidosis was so profound with bicarb of 11 I continued the work-up revealing a normal glycemic DKA (use of long-acting oral hypoglycemic agents at home and presented as hypoglycemia) along with sepsis from UTI. She was initiated on broad-spectrum antibiotics due to multiple antibiotics use recently. She remains at her baseline orientation of 12. Patient Instructions Patient Problems: Debility UTI Metabolic acidosis Consult/Follow Up/Orders Follow Up Appt.: PCP [facility] rounds Skilled NF Admit to: Certification (SNF) I certify that SNF services are required to be given on an inpatient basis because of the above named patient's need for longterm care on a continuing basis for the conditions(s) for which he/she was receiving inpatient hospital services prior to his/her transfer to the SNF. [facility] Facility Order: Nursing Services, Print Developer Automatic-Evaluate & Treat, Physical Therapy-Evaluate & Treat, Speech Language-Evaluate & Treat Oxygen Delivery Method: Room Air Discharge Diet: ADA Diet Resuscitation Status: Full Code New & Resume Previous Orders Shakira Ann May 30, 2022 12:09 SHAKIRA ANN DO May 30, 2022 12:10
[2022-05-30] MEDS ORDERED: NITR-65 PO (12:11)
--- NOTE | 2022-05-30 12:11 | Discharge Summary ---
Discharge Summary Hospital Course Problems/Dx: (1) DKA (diabetic ketoacidosis) (2) Sepsis (3) Hyperkalemia Status: Acute (4) UTI (urinary tract infection) Status: Acute Hospital Course Date of Admission: May 26, 2022 at 20:34 Admission Diagnosis : Family Physician/Provider: [facility] Date of Discharge: 05/30/22 Discharge Diagnosis: [ ] Hospital Course: [ ] Labs and Pending Lab Test: Laboratory Tests 05/29/22 12:19: Iron Level 45, Vitamin B12 Level 352 05/29/22 15:43: Glucometer 209H 05/29/22 20:33: Glucometer 205H 05/30/22 04:44: Glucometer 133H 05/30/22 07:06: White Blood Count 9.6, Red Blood Count 3.48L, Hemoglobin 10.0#L, Hematocrit 31L, Mean Corpuscular Volume 89, Mean Corpuscular Hemoglobin 29, Mean Corpuscular Hemoglobin Concent 33, Red Cell Distribution Width 16.2H, Platelet Count 489H, Mean Platelet Volume 9.7, Immature Granulocyte % (Auto) 1, Neutrophils (%) (Auto) 54, Lymphocytes (%) (Auto) 34, Monocytes (%) (Auto) 9, Eosinophils (%) (Auto) 3, Basophils (%) (Auto) 0, Neutrophils # (Auto) 5.2, Lymphocytes # (Auto) 3.2, Monocytes # (Auto) 0.9, Eosinophils # (Auto) 0.2, Basophils # (Auto) 0.0, Immature Granulocyte # (Auto) 0.1, Sodium Level 138, Potassium Level 4.6, Chloride Level 108H, Carbon Dioxide Level 19L, Anion Gap 11, Blood Urea Nitrogen 13, Creatinine 0.73, Estimat Glomerular Filtration Rate 85, BUN/Creatinine Ratio 18, Glucose Level 124H, Calcium Level 9.1, Corrected Calcium 10.0, Magnesium Level 1.4L, Total Bilirubin 0.3, Aspartate Amino Transf (AST/SGOT) 21, Alanine Aminotransferase (ALT/SGPT) 23, Alkaline Phosphatase 98, Total Protein 6.1L, Albumin 2.9L 05/30/22 10:20: Glucometer 220H Microbiology 05/26/22 MRSA Screen - Final, Complete MRSA not isolated 05/25/22 Blood Culture - Preliminary, Resulted No growth 05/25/22 Urine Culture - Final, Complete Enterobacter cloacae complex Enterobacter cloacae complex#2 Mixed Bacterial Rosie Home Meds Active Macrobid 100 mg Capsule (Nitrofurantoin Monohyd/M-Cryst) 100 Mg Capsule 1 Tab PO BID Mag-Oxide (Magnesium Oxide) 200 Mg Magnesium Tablet 200 Mg PO DAILY Vitamin B-12 (Cyanocobalamin (Vitamin B-12)) 1,000 Mcg Tablet 1,000 Mcg PO DAILY@0700 Sodium Bicarbonate 650 Mg Tablet 1,300 Mg PO BID Lactulose 20 Gram/30 Ml Solution 10 Gm PO BID Alprazolam 0.5 Mg Tablet 0.5 Mg PO Q4HR PRN Acetaminophen 325 Mg Tablet 650 Mg PO Q4H PRN Oxyir Tablet (Oxycodone HCl) 5 Mg Tab 5 Mg PO Q4HR PRN Enoxaparin Sodium 40 Mg/0.4 Ml Syringe 40 Mg SC DAILY Isosorbide Mononitrate ER (Isosorbide Mononitrate) 60 Mg Tab 60 Mg PO DAILY Tresiba Flextouch U-100 (Insulin Degludec) 100 Unit/Ml (3 Ml) Insuln.pen 10 Units SC HS Metoprolol Succinate 25 Mg Tab.er.24h 25 Mg PO DAILY Flomax (Tamsulosin HCl) 0.4 Mg Cap 0.4 Mg PO DAILY Pantoprazole Sodium 40 Mg Tablet.dr 40 Ng PO DAILY Ventolin Hfa (Albuterol Sulfate) 90 Mcg Hfa.aer.ad 2 Puff INH Q6H PRN Prednisone 5 Mg Tablet 5 Mg PO DAILY Losartan Potassium 100 Mg Tablet 100 Mg PO DAILY Citalopram HBr (Citalopram Hydrobromide) 20 Mg Tablet 20 Mg PO HS Nitroglycerin 0.4 Mg Tab.subl 0.4 Mg SL UD PRN Tramadol HCl 50 Mg Tablet 50 Mg PO Q6H PRN Simvastatin 40 Mg Tablet 40 Mg PO HS Gemfibrozil 600 Mg Tablet 600 Mg PO BID Dicyclomine HCl 10 Mg Capsule 20 Mg PO QID TAKES 2 (10MG) CAPSULES Ondansetron Odt (Ondansetron) 4 Mg Tab.rapdis 4 Mg PO Q6H PRN 5 Days Reported Nitrofurantoin (Nitrofurantoin Macrocrystal) 50 Mg Capsule 50 Mg PO DAILY Hiprex (Methenamine Hippurate) 1 Gram Tablet 1 Gm PO BID Doxycycline Hyclate 100 Mg Tablet 100 Mg PO BID FILLED 05-20-2022 #14/7 DAY SUPPLY Metformin HCl 500 Mg Tablet 1,000 Mg PO BID TAKES 2 (500MG) TABLETS Discharge Instructions Discharge Diet: ADA Diet Discharge Physical Examination Vital Signs Vital Signs Date Time Temp Pulse Resp B/P (MAP) Pulse Ox O2 Delivery O2 Flow Rate FiO2 05/30/22 11:21 36.7 62 18 132/63 (86) 96 Room Air 05/25/22 22:25 21 Allergies: Coded Allergies: Sulfa (Sulfonamide Antibiotics) (Verified Allergy, Severe, 02/01/21) Discharge Summary Date of Admission May 26, 2022 at 20:34 Date of Discharge Discharge Date: May 30, 2022 Admission Diagnosis Assessment: Normoglycemic DKA due to long-term use of extended release oral hypoglycemic agents Sepsis from UTI Dementia CAD Angina Plan: Insulin drip IV antibiotics broad-spectrum due to recent multiple antibiotics Supportive care in ICU Discharge Diagnosis Assessment: 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
[2022-05-30] MEDS: MAGNESIUM OXIDE (MAG-OX)400 MG TAB PO SCH ×2 (12:30→16:32)
--- NOTE | 2022-05-30 13:36 | Progress Note - Hospitalist ---
RANDI LYN 05/30/22 1336: Subjective HPI/CC On Admission Date Seen by Provider: May 30, 2022 Time Seen by Provider: 11:00 Chief complaint: Normoglycemic DKA with sepsis from UTI HPI: This is a 77-year-old female who was admitted from the ER with sepsis from UTI but upon further evaluation the metabolic acidosis was so profound with bicarb of 11 I continued the work-up revealing a normal glycemic DKA (use of long-acting oral hypoglycemic agents at home and presented as hypoglycemia) along with sepsis from UTI. She was initiated on broad-spectrum antibiotics due to multiple antibiotics use recently. She remains at her baseline orientation of 12. Subjective/Events-last exam Hospital Course: On 05/25/22 pt was brought to the ED for exacerbation of Normoglycemic DKA, she was very disoriented and had no clarity of thought. She was taken to the ICU floor to be monitored by internal med. She was place on an insulin drip and treated for her acidosis. 05/27/22- after a day of prolonged treatment she started to come to and become more aware of her situation. She was moderately- severly anemic and found to be septic from UTI superimposed on her DKA. She was given abx and it cleared the infection. 05/28/22- She was seen in the ICU and showed more improvement and that her sepsis was controlled and improved, she agreed to be moved to the med-surg floor. She says her had all her information about her health and upcoming spinal surgery schedules, but no one was able to get in contact with him. 05/29/22- she was much improved and able to think clearly, oriented x3. Still no contact with , but she complained of abdominal distension and tenderness of LLQ, she had not had a BM since the . 05/30/22- she is recovered from her acidosis and sepsis, she also had 5 BMs but still reports abdominal tenderness, and now speaking to social work about being moved to a SNF to help her recover from her debility, and she will follow up with her spinal surgeon the following week. has still yet to answer or come to the hospital and so it is being discussed to send for a police wellness check. She is in need of DM education and how to manage it so that she doesnt experience this again. Review of Systems General: Fatigue Pulmonary: No Dyspnea, No Cough, No Pleuritic Chest Pain, No Other Cardiovascular: No: Chest Pain, Palpitations, Orthopnea, Paroxysmal Noc. Dyspnea, Edema, Lt Headedness Gastrointestinal: Abdominal Pain, Diarrhea Genitourinary: No Dysuria, No Frequency, No Incontinence, No Hematuria, No Retention, No Other Musculoskeletal: No: neck pain, shoulder pain, arm pain, back pain, hand pain, leg pain, foot pain Neurological: No: Weakness, Numbness, Incoordination, Change in speech, Confusion, Seizures, Other Focused Exam Time of Focused Exam: 19:18 Objective Exam Vital Signs Vital Signs Date Time Temp Pulse Resp B/P (MAP) Pulse Ox O2 Delivery O2 Flow Rate FiO2 05/30/22 11:21 36.7 62 18 132/63 (86) 96 Room Air 05/25/22 22:25 21 Capillary Refill : Less Than 3 Seconds General Appearance: No Apparent Distress, Thin HEENT: PERRL/EOMI, TMs Normal, Normal ENT Inspection, Pharynx Normal Neck: Full Range of Motion, Normal Inspection, Non Tender, Supple Respiratory: Chest Non Tender, Lungs Clear, Normal Breath Sounds, No Accessory Muscle Use, No Respiratory Distress Cardiovascular: Regular Rate, Rhythm, No Edema, No Gallop, No JVD, No Murmur, Normal Peripheral Pulses Gastrointestinal: Normal Bowel Sounds, No Organomegaly, No Pulsatile Mass, Distended, Tenderness Back: Normal Inspection, No CVA Tenderness, No Vertebral Tenderness Extremity: Normal Capillary Refill, Normal Inspection, Normal Range of Motion, Non Tender, No Calf Tenderness Neurologic/Psychiatric: Alert, Oriented x3, No Motor/Sensory Deficits, Normal Mood/Affect, non destructive tester II-XII Norm as Tested Skin: Normal Color, Warm/Dry Lymphatic: No Adenopathy Results/Procedures Lab Laboratory Tests 05/30/22 07:06 Patient resulted labs reviewed. Assessment/Plan Assessment and Plan Assess & Plan/Chief Complaint Assessment: S/P Normoglycemic DKA due to long-term use of extended release oral hypoglycemic agents Dementia CAD Angina Normocytic Anemia thrombocytosis Abdominal pain Hyperglycemia Plan: look into SNF laxatives 1L blood transfusion (A+ BT) DM education Social work consult SHAKIRA PAIGE DO 05/30/222128: Supervisory-Addendum Brief Verification & Attestation Participated in pt care: history, MDM, physical Personally performed: exam, history, MDM, supervision of care Care discussed with: Medical Student Procedures: n/a Results interpretation: Verified all documentation Verification and Attestation of Medical Student E/M Service A medical student performed and documented this service in my presence. I reviewed and verified all information documented by the medical student and made modifications to such information, when appropriate. I personally performed the physical exam and medical decision making. Shakira Paige May 30, 2022,21:29 RANDI LYN May 30, 2022 13:36 SHAKIRA PAIGE DO May 30, 2022 21:29
[2022-05-30 15:29] VITALS: BP 124/60
[2022-05-30 19:14] VITALS: BP 149/65
[2022-05-30 23:40] VITALS: BP 172/75
[2022-05-31 03:26] VITALS: BP 148/67
--- NOTE | 2022-05-31 05:34 | Progress Note - Hospitalist ---
Subjective HPI/CC On Admission Date Seen by Provider: May 31, 2022 Time Seen by Provider: 05:30 Chief complaint: Normoglycemic DKA with sepsis from UTI HPI: This is a 77-year-old female who was admitted from the ER with sepsis from UTI but upon further evaluation the metabolic acidosis was so profound with bicarb of 11 I continued the work-up revealing a normal glycemic DKA (use of long-acting oral hypoglycemic agents at home and presented as hypoglycemia) along with sepsis from UTI. She was initiated on broad-spectrum antibiotics due to multiple antibiotics use recently. She remains at her baseline orientation o f 12. Subjective/Events-last exam Patient doing well No pain is reported Supportive care will continue Waiting for Thursday for discharge to fpc Review of Systems General: Fatigue, Malaise Focused Exam Time of Focused Exam: 19:18 Objective Exam Vital Signs Vital Signs Date Time Temp Pulse Resp B/P (MAP) Pulse Ox O2 Delivery O2 Flow Rate FiO2 05/31/22 11:44 36.6 69 20 162/69 (100) 97 Room Air 05/31/22 08:23 0.00 05/25/22 22:25 21 Capillary Refill : Less Than 3 Seconds General Appearance: No Apparent Distress, WD/WN, Chronically ill Respiratory: Lungs Clear Cardiovascular: Regular Rate, Rhythm Results/Procedures Lab Laboratory Tests 05/31/22 08:18 Patient resulted labs reviewed. 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
[2022-05-31] MEDS: inSUlin ASPART (NovoLOG) 1 UNIT/0.01 ML (CHARGE PER UNIT) SC SCH ×4 (05:39→21:08)
[2022-05-31] MEDS: CYANOCOBALAMIN 1,000 MCG (VITAMIN B-12) TABLET PO SCH (05:39)
[2022-05-31 07:40] VITALS: BP 174/75
[2022-05-31] MEDS: LACTULOSE SYRUP 10GM/15ML (ENULOSE) 30ML UDC PO SCH ×2 (07:48→21:02)
[2022-05-31] MEDS: SENNA W/DOCUSATE (SENOKOT S) TABLET PO SCH ×2 (07:48→21:02)
[2022-05-31 08:36] LABS: BASOPHILS % (AUTO) 0 % (0-10); EOSINOPHILS # (AUTO) 0.2 10^3/uL (0.0-0.3); EOSINOPHILS % (AUTO) 2 % (0-10); HEMATOCRIT 30 % (35-52); HEMOGLOBIN 9.5 g/dL (11.5-16.0); LYMPHOCYTES % (AUTO) 39 % (12-44); MEAN CORPUSCULAR HEMOGLOBIN 29 pg (25-34); MEAN CORPUSCULAR HGB CONC 32 g/dL (32-36); MEAN CORPUSCULAR VOLUME 90 fL (80-99); MEAN PLATELET VOLUME 9.6 fL (9.0-12.2); MONOCYTES # (AUTO) 0.9 10^3/uL (0.0-1.0); MONOCYTES % (AUTO) 12 % (0-12); NEUTROPHILS # (AUTO) 3.5 10^3/uL (1.8-7.8); NEUTROPHILS % (AUTO) 45 % (42-75); PLATELET COUNT 493 10^3/uL (130-400); WHITE BLOOD COUNT 7.8 10^3/uL (4.3-11.0)
[2022-05-31 08:55] LABS: ALBUMIN 2.7 GM/DL (3.2-4.5); POTASSIUM 4.5 MMOL/L (3.6-5.0)
[2022-05-31 08:56] LABS: CALCIUM 9.1 MG/DL (8.5-10.1)
[2022-05-31 08:58] LABS: TOTAL PROTEIN 5.7 GM/DL (6.4-8.2)
[2022-05-31 08:59] LABS: BILIRUBIN,TOTAL 0.3 MG/DL (0.1-1.0)
[2022-05-31 09:01] LABS: CREATININE SERUM 0.66 MG/DL (0.60-1.30)
[2022-05-31 09:04] LABS: MAGNESIUM 1.7 MG/DL (1.6-2.4)
[2022-05-31] MEDS: SODIUM BICARBONATE 650 MG TABLET PO SCH ×2 (09:41→21:08)
[2022-05-31] MEDS: DICYCLOMINE 10 MG (BENTYL) CAP PO SCH ×4 (09:41→21:08)
[2022-05-31] MEDS: DOCUSATE SODIUM 100 MG (COLACE) CAP PO SCH ×2 (09:41→21:02)
[2022-05-31] MEDS: GEMFIBROZIL 600 MG (LOPID) TAB PO SCH ×2 (09:41→21:08)
[2022-05-31] MEDS: PANTOPRAZOLE 40 MG (PROTONIX) TAB PO SCH (09:41)
[2022-05-31] MEDS: ENOXAPARIN 40 MG/0.4 ML (LOVENOX) SYR SC SCH (09:41)
[2022-05-31] MEDS: ISOSORBIDE MONONITRATE 60 MG (IMDUR) TAB PO SCH (09:42)
[2022-05-31] MEDS: LOSARTAN 100 MG (COZAAR) TABLET PO SCH (09:42)
[2022-05-31] MEDS: predniSONE 5 MG TAB PO SCH (09:42)
[2022-05-31] MEDS: TAMSULOSIN 0.4 MG (FLOMAX) CAP PO SCH (09:42)
[2022-05-31] MEDS: SENNOSIDES 8.6 MG (SENOKOT) TAB PO SCH ×2 (09:42→21:02)
[2022-05-31] MEDS: MAGNESIUM OXIDE (MAG-OX)400 MG TAB PO SCH ×2 (09:42→18:20)
[2022-05-31 11:44] VITALS: BP 162/69
--- NOTE | 2022-05-31 13:25 | Physical Therapy Daily Note ---
PT Daily Note-Current Subjective Pt in recliner and agrees to PT. No pain reported this date. Pain Section J - Health Conditions 1. Rarely or not at all 2. Occasionally 3. Frequently 4. Almost constantly 8. Unable to answer Pain Effect on Sleep: 2 Pain Interference with Therapy: 2 Pain Interference w/Day-to-Day: 2 Mental Status Patient Orientation: Person, Place, Time Transfers SCALE: Activities may be completed with or without assistive devices. 8-Drvpbjvugt-wuwykzd completes the activity by him/herself with no assistance from a helper. 5-Set-up or Clean-up Assistance-helper sets up or cleans up; patient completes activity. [place] assists only prior to or following the activity. 4-Supervision or Touching Assistance-helper provides verbal cues and/or touching/steadying and/or contact guard assistance as patient completes activity. Assistance may be provided throughout the activity or intermittently. 3-Partial/Moderate Assistance-helper does LESS THAN HALF the effort. [place] lifts, holds or supports trunk or limbs, but provides less than half the effort. 2-Substantial/Maximal Assistance-helper does MORE THAN HALF the effort. [place] lifts or holds trunk or limbs and provides more than half the effort. 1-Hfcicqxnh-itihlb does ALL the effort. Patient does none of the effort to complete the activity. Or, the assistance of 2 or more helpers is required for the patient to complete the activity. If activity was not attempted, code reason: 7-Patient Refused. 9-Not Applicable-not attempted and the patient did not perform the activity before the current illness, exacerbation or injury. 10-Not Attempted due to Environmental Limitations-(lack of equipment, weather restraints, etc.). 88-Not Attempted due to Medical Conditions or Safety Concerns. Sit to Stand (QC): 3 Gait Training Does the Patient Walk?: Yes Distance: 50' Walk 10 feet (QC): 4 Walk 50 ft with 2 Turns(QC): 4 Gait Persons Needed: 1 Gait Assistive Device: FWW amb very slowly Exercises Seated Therapy Exercises: Ankle pumps, Long arc quads Seated Reps: 15 Treatments Pt TFs from recliner and amb into valdez and then amb back to recliner and performs seated exs. Pt in recliner as PT departs and all needs met and call light in hand. Assessment Current Status: Good Progress Pt required verbal and tactile cues in order to perform all TFs correctly. Pt becomes fatigued towards end of treatment. PT Detention Goals Detention Goals PT Detention Goals Time Frame: Jun 14, 2022 Roll Left & Right (QC): 6 Sit to Lying (QC): 6 Lying-Sitting on Side/Bed(QC): 6 Sit to Stand (QC): 6 Chair/Dzq-tn-Pehzq Xfer(QC): 6 Toilet Transfer (QC): 6 Walk 10 feet (QC): 5 Walk 50ft with 2 Turns (QC): 5 Walk 150 ft (QC): 5 PT Plan Problem List Problem List: Activity Tolerance, Functional Strength Treatment/Plan Treatment Plan: Continue Plan of Care Treatment Plan: Bed Mobility, Education, Functional Activity Stephanie, Functional Strength, Gait, Safety, Therapeutic Exercise, Transfers Treatment Duration: Jun 14, 2022 Frequency: 6 times per week Estimated Hrs Per Day: .25 hour per day Safety Risks/Education Patient Education: Gait Training, Correct Positioning Teaching Recipient: Patient Teaching Methods: Discussion Response to Teaching: Return Demonstration Time Time In: 1125 Time Out: 1145 DATE: May 31, 2022 Total Billed Treatment Time: 20 Total Billed Treatment 1, GT JOHN ALVARADO BIOTECHNICIAN May 31, 2022 13:25
[2022-05-31 16:24] VITALS: BP 130/65
[2022-05-31 20:17] VITALS: BP 137/65
[2022-05-31] MEDS: ALPRAZolam 0.5 MG (XANAX) TAB PO PRN (21:11)
[2022-06-01 00:12] VITALS: BP 145/65
[2022-06-01 04:09] VITALS: BP 138/70
--- NOTE | 2022-06-01 05:30 | Progress Note - Hospitalist ---
Subjective HPI/CC On Admission Date Seen by Provider: Jun 01, 2022 Time Seen by Provider: 05:30 Chief complaint: Normoglycemic DKA with sepsis from UTI HPI: This is a 77-year-old female who was admitted from the ER with sepsis from UTI but upon further evaluation the metabolic acidosis was so profound with bicarb of 11 I continued the work-up revealing a normal glycemic DKA (use of long-acting oral hypoglycemic agents at home and presented as hypoglycemia) along with sepsis from UTI. She was initiated on broad-spectrum antibiotics due to multiple antibiotics use recently. She remains at her baseline orientation of 12. Subjective/Events-last exam No major events Requesting Refresh Tears Labs reviewed Review of Systems General: Fatigue, Malaise Focused Exam Time of Focused Exam: 19:18 Objective Exam Vital Signs Vital Signs Date Time Temp Pulse Resp B/P (MAP) Pulse Ox O2 Delivery O2 Flow Rate FiO2 06/01/22 08:15 36.4 59 18 157/77 (103) 97 Room Air 05/31/22 08:23 0.00 Capillary Refill : Less Than 3 Seconds General Appearance: No Apparent Distress, WD/WN, Chronically ill Respiratory: Lungs Clear, Normal Breath Sounds Cardiovascular: Regular Rate, Rhythm Neurologic/Psychiatric: Alert, Oriented x3, Disoriented Results/Procedures Lab Laboratory Tests 06/01/22 05:29 Patient resulted labs reviewed. 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
[2022-06-01] MEDS: CYANOCOBALAMIN 1,000 MCG (VITAMIN B-12) TABLET PO SCH (05:31)
[2022-06-01 05:46] LABS: BASOPHILS % (AUTO) 0 % (0-10); EOSINOPHILS # (AUTO) 0.2 10^3/uL (0.0-0.3); EOSINOPHILS % (AUTO) 2 % (0-10); HEMATOCRIT 28 % (35-52); LYMPHOCYTES # (AUTO) 2.6 10^3/uL (1.0-4.0); LYMPHOCYTES % (AUTO) 33 % (12-44); MEAN CORPUSCULAR HEMOGLOBIN 29 pg (25-34); MEAN CORPUSCULAR HGB CONC 32 g/dL (32-36); MEAN CORPUSCULAR VOLUME 90 fL (80-99); MEAN PLATELET VOLUME 9.7 fL (9.0-12.2); MONOCYTES # (AUTO) 0.8 10^3/uL (0.0-1.0); MONOCYTES % (AUTO) 10 % (0-12); NEUTROPHILS # (AUTO) 4.2 10^3/uL (1.8-7.8); NEUTROPHILS % (AUTO) 54 % (42-75); PLATELET COUNT 524 10^3/uL (130-400); WHITE BLOOD COUNT 7.8 10^3/uL (4.3-11.0)
[2022-06-01 05:57] LABS: ALBUMIN 2.7 GM/DL (3.2-4.5); POTASSIUM 4.7 MMOL/L (3.6-5.0)
[2022-06-01 06:00] LABS: TOTAL PROTEIN 5.6 GM/DL (6.4-8.2)
[2022-06-01] MEDS: ARTIFICAL TEARS 0.4 ML UNIT DOSE (REFRESH PLUS) OU PRN ×2 (06:01→09:01)
[2022-06-01 06:02] LABS: BILIRUBIN,TOTAL 0.2 MG/DL (0.1-1.0)
[2022-06-01] MEDS: inSUlin ASPART (NovoLOG) 1 UNIT/0.01 ML (CHARGE PER UNIT) SC SCH ×4 (06:02→22:18)
[2022-06-01 06:03] LABS: CREATININE SERUM 0.68 MG/DL (0.60-1.30)
[2022-06-01 06:06] LABS: MAGNESIUM 1.6 MG/DL (1.6-2.4)
[2022-06-01 08:15] VITALS: BP 157/77
[2022-06-01] MEDS: DOCUSATE SODIUM 100 MG (COLACE) CAP PO SCH ×2 (08:56→22:15)
[2022-06-01] MEDS: SENNA W/DOCUSATE (SENOKOT S) TABLET PO SCH ×2 (08:57→22:17)
[2022-06-01] MEDS: LACTULOSE SYRUP 10GM/15ML (ENULOSE) 30ML UDC PO SCH ×2 (08:57→22:18)
[2022-06-01] MEDS: SENNOSIDES 8.6 MG (SENOKOT) TAB PO SCH ×2 (08:57→22:19)
[2022-06-01] MEDS: MAGNESIUM OXIDE (MAG-OX)400 MG TAB PO SCH ×2 (08:58→17:08)
[2022-06-01] MEDS: PANTOPRAZOLE 40 MG (PROTONIX) TAB PO SCH (08:59)
[2022-06-01] MEDS: LOSARTAN 100 MG (COZAAR) TABLET PO SCH (08:59)
[2022-06-01] MEDS: TAMSULOSIN 0.4 MG (FLOMAX) CAP PO SCH (08:59)
[2022-06-01] MEDS: DICYCLOMINE 10 MG (BENTYL) CAP PO SCH ×4 (08:59→22:16)
[2022-06-01] MEDS: ISOSORBIDE MONONITRATE 60 MG (IMDUR) TAB PO SCH (08:59)
[2022-06-01] MEDS: SODIUM BICARBONATE 650 MG TABLET PO SCH ×2 (09:00→22:17)
[2022-06-01] MEDS: predniSONE 5 MG TAB PO SCH (09:00)
[2022-06-01] MEDS: ENOXAPARIN 40 MG/0.4 ML (LOVENOX) SYR SC SCH (09:00)
[2022-06-01] MEDS: GEMFIBROZIL 600 MG (LOPID) TAB PO SCH ×2 (09:12→22:18)
[2022-06-01 11:23] VITALS: BP 150/73
[2022-06-01 15:25] VITALS: BP 120/64
[2022-06-01] MEDS: ALPRAZolam 0.5 MG (XANAX) TAB PO PRN (22:16)
[2022-06-01 23:15] VITALS: BP 149/76
[2022-06-02 06:36] LABS: BASOPHILS % (AUTO) 0 % (0-10); EOSINOPHILS # (AUTO) 0.2 10^3/uL (0.0-0.3); EOSINOPHILS % (AUTO) 2 % (0-10); HEMATOCRIT 27 % (35-52); HEMOGLOBIN 8.3 g/dL (11.5-16.0); LYMPHOCYTES # (AUTO) 3.2 10^3/uL (1.0-4.0); LYMPHOCYTES % (AUTO) 34 % (12-44); MEAN CORPUSCULAR HEMOGLOBIN 29 pg (25-34); MEAN CORPUSCULAR HGB CONC 31 g/dL (32-36); MEAN CORPUSCULAR VOLUME 92 fL (80-99); MEAN PLATELET VOLUME 9.7 fL (9.0-12.2); MONOCYTES # (AUTO) 0.8 10^3/uL (0.0-1.0); MONOCYTES % (AUTO) 8 % (0-12); NEUTROPHILS # (AUTO) 5.1 10^3/uL (1.8-7.8); NEUTROPHILS % (AUTO) 54 % (42-75); PLATELET COUNT 544 10^3/uL (130-400); WHITE BLOOD COUNT 9.4 10^3/uL (4.3-11.0)
[2022-06-02] MEDS: inSUlin ASPART (NovoLOG) 1 UNIT/0.01 ML (CHARGE PER UNIT) SC SCH ×4 (06:51→20:58)
[2022-06-02 06:52] LABS: ALBUMIN 2.8 GM/DL (3.2-4.5); BILIRUBIN,TOTAL 0.1 MG/DL (0.1-1.0); CREATININE SERUM 0.62 MG/DL (0.60-1.30); MAGNESIUM 1.4 MG/DL (1.6-2.4); POTASSIUM 4.3 MMOL/L (3.6-5.0); TOTAL PROTEIN 5.6 GM/DL (6.4-8.2)
[2022-06-02] MEDS: CYANOCOBALAMIN 1,000 MCG (VITAMIN B-12) TABLET PO SCH (07:35)
[2022-06-02 07:51] VITALS: BP 166/69
[2022-06-02] MEDS ORDERED: MAGNESIUM OXIDE (MAG-OX)400 MG TAB PO NR (09:00)
[2022-06-02] MEDS: ISOSORBIDE MONONITRATE 60 MG (IMDUR) TAB PO SCH (09:28)
[2022-06-02] MEDS: TAMSULOSIN 0.4 MG (FLOMAX) CAP PO SCH (09:28)
[2022-06-02] MEDS: MAGNESIUM OXIDE (MAG-OX)400 MG TAB PO SCH ×2 (09:28→17:33)
[2022-06-02] MEDS: predniSONE 5 MG TAB PO SCH (09:28)
[2022-06-02] MEDS: PANTOPRAZOLE 40 MG (PROTONIX) TAB PO SCH (09:29)
[2022-06-02] MEDS: SODIUM BICARBONATE 650 MG TABLET PO SCH ×2 (09:29→20:58)
[2022-06-02] MEDS: LOSARTAN 100 MG (COZAAR) TABLET PO SCH (09:37)
[2022-06-02] MEDS: GEMFIBROZIL 600 MG (LOPID) TAB PO SCH ×2 (09:37→20:58)
[2022-06-02] MEDS: DICYCLOMINE 10 MG (BENTYL) CAP PO SCH ×4 (09:37→20:58)
[2022-06-02] MEDS: ENOXAPARIN 40 MG/0.4 ML (LOVENOX) SYR SC SCH (09:38)
[2022-06-02] MEDS: LACTULOSE SYRUP 10GM/15ML (ENULOSE) 30ML UDC PO SCH ×2 (09:38→20:59)
--- NOTE | 2022-06-02 09:43 | Occupational Ther Daily Note ---
OT Current Status-Daily Note Subjective Concerns about going home w/ HH services vs Rehab stay Pain Numeric Pain Scale: 0-No Pain Appearance Sitting in recliner w/ blankets Mental Status/Objective Patient Orientation: Person ADL-Treatment Requires minimal assistance for transfers from recliner and toilet, unsafe use of FWW. Minimal assist for LB garments and toilet hygiene d/t BM incontinence Therapy Code Descriptions/Definitions Functional [place] Measure: 0=Not Assessed/NA 4=Minimal Assistance 1=Total Assistance 5=Supervision or Setup 2=Maximal Assistance 6=Modified [place] 3=Moderate Assistance 7=Complete IndependenceSCALE: Activities may be completed with or without assistive devices. 6-Gmdcbyeluf-kbemzlx completes the activity by him/herself with no assistance from a helper. 5-Set-up or Clean-up Assistance-helper sets up or cleans up; patient completes activity. [place] assists only prior to or following the activity. 4-Supervision or Touching Assistance-helper provides verbal cues and/or touching/steadying and/or contact guard assistance as patient completes activity. Assistance may be provided throughout the activity or intermittently. 3-Partial/Moderate Assistance-helper does LESS THAN HALF the effort. [place] lifts, holds or supports trunk or limbs, but provides less than half the effort. 2-Substantial/Maximal Assistance-helper does MORE THAN HALF the effort. [place] lifts or holds trunk or limbs and provides more than half the effort. 2-Zzsuakqdj-ctgqhj does ALL the effort. Patient does none of the effort to complete the activity. Or, the assistance of 2 or more helpers is required for the patient to complete the activity. If activity was not attempted, code reason: 7-Patient Refused. 9-Not Applicable-not attempted and the patient did not perform the activity before the current illness, exacerbation or injury. 10-Not Attempted due to Environmental Limitations-(lack of equipment, weather restraints, etc.). 88-Not Attempted due to Medical Conditions or Safety Concerns. Education OT Patient Education: Correct positioning, Energy conservation, Modified ADL techniques, Progress toward Goal/Update tx plan, Purpose of tx/functional activities, Safety issues, Transfer techniques Teaching Recipient: Patient Teaching Methods: Demonstration, Discussion Response to Teaching: Verbalize Understanding, Reinforcement Needed Pt seated in recliner w/ new, clean brief, call light and tray table in reach OT Short Term Goals Short Term Goals Time Frame: Jun 02, 2022 Toileting hygiene: 17 OT Metal Sorter Goals Shelter Goals Time Frame: Jun 17, 2022 Eating (QC): 4 Oral Hygiene (QC): 4 Toileting Hygiene (QC): 3 Shower/Bathe Self (QC): 3 Upper Body Dressing (QC): 3 Lower Body Dressing (QC): 3 On/Off Footwear (QC): 3 Additional Goals: 1-Demonstrate ADL Tasks, 2-Verbalize Understanding, 3- ImproveStrength/Stephanie 1=Demonstrate adherence to instructed precautions during ADL tasks. 2=Patient will verbalize/demonstrate understanding of assistive devices/modifications for ADL. 3=Patient will improve strength/tolerance for activity to enable patient to perform ADL's. OT Education/Plan Discharge Recommendations Plan/Recommendations: Continue POC Treatment Plan/Plan of Care Patient would benefit from OT for education, treatment and training to promote independence in ADL's, mobility, safety and/or upper extremity function for ADL's. Plan of Care: Functional Mobility, Group Exercise/Act as Ind, UE Funct Exercise/Act Treatment Duration: Jun 17, 2022 Frequency: 3 times per week (3-5x/week ) Estimated Hrs Per Day: .25 hour per day Rehab Potential: Poor Time Start Time: 09:29 Stop Time: 09:46 DATE: Jun 02, 2022 Total Time Billed (hr/min): 17 Billed Treatment Time 1 ADL 17 min ERNIE PERRY OT Jun 02, 2022 09:43
[2022-06-02] MEDS: SENNA W/DOCUSATE (SENOKOT S) TABLET PO SCH ×2 (09:50→20:59)
[2022-06-02] MEDS: DOCUSATE SODIUM 100 MG (COLACE) CAP PO SCH ×2 (09:50→20:59)
[2022-06-02] MEDS: SENNOSIDES 8.6 MG (SENOKOT) TAB PO SCH ×2 (09:50→20:59)
--- NOTE | 2022-06-02 10:31 | Physical Therapy Daily Note ---
PT Daily Note-Current Subjective Patient agrees to PT. She reports she is feeling better today. Pain Section J - Health Conditions 1. Rarely or not at all 2. Occasionally 3. Frequently 4. Almost constantly 8. Unable to answer Pain Effect on Sleep: 2 Pain Interference with Therapy: 2 Pain Interference w/Day-to-Day: 2 Mental Status Patient Orientation: Normal For Age Transfers SCALE: Activities may be completed with or without assistive devices. 2-Swvaxciuok-aufahpk completes the activity by him/herself with no assistance from a helper. 5-Set-up or Clean-up Assistance-helper sets up or cleans up; patient completes activity. [place] assists only prior to or following the activity. 4-Supervision or Touching Assistance-helper provides verbal cues and/or touching/steadying and/or contact guard assistance as patient completes activity. Assistance may be provided throughout the activity or intermittently. 3-Partial/Moderate Assistance-helper does LESS THAN HALF the effort. [place] lifts, holds or supports trunk or limbs, but provides less than half the effort. 2-Substantial/Maximal Assistance-helper does MORE THAN HALF the effort. [place] lifts or holds trunk or limbs and provides more than half the effort. 3-Uznlwhsmh-xuyucf does ALL the effort. Patient does none of the effort to complete the activity. Or, the assistance of 2 or more helpers is required for the patient to complete the activity. If activity was not attempted, code reason: 7-Patient Refused. 9-Not Applicable-not attempted and the patient did not perform the activity before the current illness, exacerbation or injury. 10-Not Attempted due to Environmental Limitations-(lack of equipment, weather restraints, etc.). 88-Not Attempted due to Medical Conditions or Safety Concerns. Sit to Stand (QC): 4 Chair/Czn-wh-Cgbvm Xfer(QC): 4 CGA for safety Gait Training Distance: 125' Walk 10 feet (QC): 4 Walk 50 ft with 2 Turns(QC): 4 Gait Assistive Device: FWW very slow, steady gait sequence ( noted shuffle gait with minimal foot clearance) Exercises Seated Therapy Exercises: Ankle pumps, Long arc quads Seated Reps: 15 Assessment Patient remains up in recliner with needs met. Plan dismissal to [place] for continued care this week per report. PT [facility] Goals [facility] Goals PT [facility] Goals Time Frame: Jun 14, 2022 Roll Left & Right (QC): 6 Sit to Lying (QC): 6 Lying-Sitting on Side/Bed(QC): 6 Sit to Stand (QC): 6 Chair/Ljr-xd-Xybsj Xfer(QC): 6 Toilet Transfer (QC): 6 Walk 10 feet (QC): 5 Walk 50ft with 2 Turns (QC): 5 Walk 150 ft (QC): 5 PT Plan Treatment/Plan Treatment Plan: Continue Plan of Care Treatment Plan: Bed Mobility, Education, Functional Activity Stephanie, Functional Strength, Gait, Safety, Therapeutic Exercise, Transfers Treatment Duration: Jun 14, 2022 Frequency: 6 times per week Estimated Hrs Per Day: .25 hour per day Time Time In: 935 Time Out: 947 DATE: Jun 02, 2022 Total Billed Treatment Time: 12 Total Billed Treatment 1 visit GT 12 min JADON EMMANUEL PT Jun 02, 2022 10:31
[2022-06-02 13:30] VITALS: BP 166/69
[2022-06-02 15:30] VITALS: BP 131/59
--- NOTE | 2022-06-02 15:48 | Progress Note ---
Subjective Subjective/Events-last exam Afebrile, no acute events. Denies concerns other than wondering when she can go. Focused Exam Time of Focused Exam: 19:18 Objective Exam Last Set of Vital Signs Vital Signs Date Time Temp Pulse Resp B/P (MAP) Pulse Ox O2 Delivery O2 Flow Rate FiO2 06/02/22 15:30 36.2 65 16 131/59 (83) 97 Room Air 06/01/22 23:15 0.00 0.00 Capillary Refill : Less Than 3 Seconds I&O Intake and Output 06/02/22 00:00 Intake Total 3130 ml Balance 3130 ml Intake Oral 1630 ml IV Total 1500 ml # Voids 8 # Bowel Movements 5 General: Alert, Oriented X3 Lungs: Clear to Auscultation, Normal Air Movement Heart: Regular Rate, No Murmurs Abdomen: Normal Bowel Sounds, Soft, Other (mild diffuse ttp) Extremities: No Edema Neuro: Normal Speech Psych/Mental Status: Mood NL Results/Procedures Lab Laboratory Tests 06/02/22 05:30: Glucometer 89 06/02/22 06:04: White Blood Count 9.4, Red Blood Count 2.91L, Hemoglobin 8.3L, Hematocrit 27L, Mean Corpuscular Volume 92, Mean Corpuscular Hemoglobin 29, Mean Corpuscular Hemoglobin Concent 31L, Red Cell Distribution Width 15.4H, Platelet Count 544H, Mean Platelet Volume 9.7, Immature Granulocyte % (Auto) 1, Neutrophils (%) (Auto) 54, Lymphocytes (%) (Auto) 34, Monocytes (%) (Auto) 8, Eosinophils (%) (Auto) 2, Basophils (%) (Auto) 0, Neutrophils # (Auto) 5.1, Lymphocytes # (Auto) 3.2, Monocytes # (Auto) 0.8, Eosinophils # (Auto) 0.2, Basophils # (Auto) 0.0, Immature Granulocyte # (Auto) 0.1, Sodium Level 141, Potassium Level 4.3, Chloride Level 109H, Carbon Dioxide Level 22, Anion Gap 10, Blood Urea Nitrogen 8, Creatinine 0.62, Estimat Glomerular Filtration Rate 92, BUN/Creatinine Ratio 13, Glucose Level 91, Calcium Level 9.0, Corrected Calcium 10.0, Magnesium Level 1.4L, Total Bilirubin 0.1, Aspartate Amino Transf (AST/SGOT) 17, Alanine Aminotransferase (ALT/SGPT) 10, Alkaline Phosphatase 93, Total Protein 5.6L, Albumin 2.8L 06/02/22 11:10: Glucometer 194H Microbiology 05/26/22 MRSA Screen - Final, Complete MRSA not isolated 05/25/22 Blood Culture - Final, Complete No growth 05/25/22 Urine Culture - Final, Complete Enterobacter cloacae complex Enterobacter cloacae complex#2 Mixed Bacterial Rosie Assessment/Plan Assessment/Plan (1) Sepsis Status: Resolved Assessment & Plan: Secondary to UTI, s/p meropenem (2) DKA (diabetic ketoacidosis) Status: Resolved Assessment & Plan: s/p insulin drip in ICU (3) Anemia Status: Chronic Qualifiers: Qualified Codes: D63.8 - Anemia in other chronic diseases classified elsewhere (4) Diabetes mellitus, type 2 Status: Chronic Qualifiers: (5) Hypertension Status: Chronic (6) GERD (gastroesophageal reflux disease) Status: Chronic (7) Cystitis with hematuria Status: Resolved Assessment & Plan: s/p treatment with meropenem (8) Metabolic acidosis Status: Resolved Assessment & Plan: Initially treated for DKA which resolved but acidosis persisted, requiring sodium bicarb, stable/resolved. (9) Generalized weakness Status: Acute Assessment & Plan: Plan to d/c to SNF when able (10) Crohn disease Status: Chronic Assessment & Plan: On prednisone. (11) Depression Status: Chronic (12) CKD (chronic kidney disease) Status: Chronic (13) Hyperlipidemia Status: Chronic (14) Hyperkalemia Status: Resolved (15) DVT prophylaxis Status: Acute Assessment & Plan: Enoxaparin MERON LAMBERT MD Jun 02, 2022 15:48
[2022-06-02 19:35] VITALS: BP 126/68
[2022-06-02] MEDS: ALPRAZolam 0.5 MG (XANAX) TAB PO PRN (20:58)
[2022-06-02] MEDS: MELATONIN 3 MG TABLET PO PRN (20:58)
[2022-06-02 23:35] VITALS: BP 127/65
[2022-06-03 04:00] VITALS: BP 163/69
[2022-06-03] MEDS: inSUlin ASPART (NovoLOG) 1 UNIT/0.01 ML (CHARGE PER UNIT) SC SCH ×2 (05:18→11:47)
[2022-06-03] MEDS: MAGNESIUM OXIDE (MAG-OX)400 MG TAB PO SCH (06:05)
[2022-06-03] MEDS: CYANOCOBALAMIN 1,000 MCG (VITAMIN B-12) TABLET PO SCH (06:08)
[2022-06-03 06:09] LABS: BASOPHILS % (AUTO) 0 % (0-10); EOSINOPHILS # (AUTO) 0.2 10^3/uL (0.0-0.3); EOSINOPHILS % (AUTO) 2 % (0-10); HEMATOCRIT 27 % (35-52); HEMOGLOBIN 8.3 g/dL (11.5-16.0); LYMPHOCYTES # (AUTO) 2.8 10^3/uL (1.0-4.0); LYMPHOCYTES % (AUTO) 32 % (12-44); MEAN CORPUSCULAR HEMOGLOBIN 29 pg (25-34); MEAN CORPUSCULAR HGB CONC 31 g/dL (32-36); MEAN CORPUSCULAR VOLUME 93 fL (80-99); MEAN PLATELET VOLUME 9.7 fL (9.0-12.2); MONOCYTES # (AUTO) 0.8 10^3/uL (0.0-1.0); MONOCYTES % (AUTO) 9 % (0-12); NEUTROPHILS # (AUTO) 4.9 10^3/uL (1.8-7.8); NEUTROPHILS % (AUTO) 56 % (42-75); PLATELET COUNT 487 10^3/uL (130-400); WHITE BLOOD COUNT 8.8 10^3/uL (4.3-11.0)
[2022-06-03 06:36] LABS: ALBUMIN 2.7 GM/DL (3.2-4.5); BILIRUBIN,TOTAL 0.1 MG/DL (0.1-1.0); CALCIUM 8.8 MG/DL (8.5-10.1); CREATININE SERUM 0.66 MG/DL (0.60-1.30); MAGNESIUM 1.4 MG/DL (1.6-2.4); POTASSIUM 4.1 MMOL/L (3.6-5.0); TOTAL PROTEIN 5.3 GM/DL (6.4-8.2)
[2022-06-03 07:24] VITALS: BP 151/70
[2022-06-03] MEDS: TAMSULOSIN 0.4 MG (FLOMAX) CAP PO SCH (08:03)
[2022-06-03] MEDS: ISOSORBIDE MONONITRATE 60 MG (IMDUR) TAB PO SCH (08:03)
[2022-06-03] MEDS: predniSONE 5 MG TAB PO SCH (08:03)
[2022-06-03] MEDS: MAGNESIUM 1 GM/100 ML IVPB 100 ML IV SCH ×2 (08:03→09:12)
[2022-06-03] MEDS: SODIUM BICARBONATE 650 MG TABLET PO SCH (08:04)
[2022-06-03] MEDS: DICYCLOMINE 10 MG (BENTYL) CAP PO SCH ×2 (08:04→13:26)
[2022-06-03] MEDS: LOSARTAN 100 MG (COZAAR) TABLET PO SCH (08:04)
[2022-06-03] MEDS: SENNA W/DOCUSATE (SENOKOT S) TABLET PO SCH (08:04)
[2022-06-03] MEDS: PANTOPRAZOLE 40 MG (PROTONIX) TAB PO SCH (08:04)
[2022-06-03] MEDS: GEMFIBROZIL 600 MG (LOPID) TAB PO SCH (08:04)
[2022-06-03] MEDS: LACTULOSE SYRUP 10GM/15ML (ENULOSE) 30ML UDC PO SCH (08:05)
[2022-06-03] MEDS: DOCUSATE SODIUM 100 MG (COLACE) CAP PO SCH (08:05)
[2022-06-03] MEDS: SENNOSIDES 8.6 MG (SENOKOT) TAB PO SCH (08:05)
[2022-06-03] MEDS: ENOXAPARIN 40 MG/0.4 ML (LOVENOX) SYR SC SCH (08:06)
--- NOTE | 2022-06-03 08:07 | Occupational Ther Daily Note ---
OT Current Status-Daily Note Subjective Pt laying in bed on arrival, vitals taken prior to OT entering room Pain Numeric Pain Scale: 0-No Pain Mental Status/Objective Patient Orientation: Person, Place, Time, Eyes Open ADL-Treatment Transfer from bed on far side, applied socks edge of bed, ambulation w/ FWW and gait belt to bathroom for toileting and hygiene CGA, Standing w/ FWW at lavatory for oral/face and hair care. OT set up breakfast meal in room at chair w/ bed tray table Therapy Code Descriptions/Definitions Functional [place] Measure: 0=Not Assessed/NA 4=Minimal Assistance 1=Total Assistance 5=Supervision or Setup 2=Maximal Assistance 6=Modified [place] 3=Moderate Assistance 7=Complete IndependenceSCALE: Activities may be completed with or without assistive devices. 2-Esmpibqysp-xuvqtvt completes the activity by him/herself with no assistance from a helper. 5-Set-up or Clean-up Assistance-helper sets up or cleans up; patient completes activity. [place] assists only prior to or following the activity. 4-Supervision or Touching Assistance-helper provides verbal cues and/or touching/steadying and/or contact guard assistance as patient completes activity. Assistance may be provided throughout the activity or intermittently. 3-Partial/Moderate Assistance-helper does LESS THAN HALF the effort. [place] lifts, holds or supports trunk or limbs, but provides less than half the effort. 2-Substantial/Maximal Assistance-helper does MORE THAN HALF the effort. [place] lifts or holds trunk or limbs and provides more than half the effort. 8-Hpypkusdj-bhhdde does ALL the effort. Patient does none of the effort to complete the activity. Or, the assistance of 2 or more helpers is required for the patient to complete the activity. If activity was not attempted, code reason: 7-Patient Refused. 9-Not Applicable-not attempted and the patient did not perform the activity before the current illness, exacerbation or injury. 10-Not Attempted due to Environmental Limitations-(lack of equipment, weather restraints, etc.). 88-Not Attempted due to Medical Conditions or Safety Concerns. Oral Hygiene (QC): 5 On/Off Footwear: 5 Toileting Hygiene (QC): 5 Toilet Transfer (QC): 4 (small LOB) Education OT Patient Education: Correct positioning, Energy conservation, Progress toward Goal/Update tx plan, Purpose of tx/functional activities, Reviewed precautions, Safety issues, Transfer techniques, Use of adapted equipment Teaching Recipient: Patient Teaching Methods: Demonstration, Discussion Response to Teaching: Verbalize Understanding, Return Demonstration, Reinforcement Needed OT Short Term Goals Short Term Goals Time Frame: Jun 02, 2022 Toileting hygiene: 17 OT Management Consultant Goals Management Consultant Goals Time Frame: Jun 17, 2022 Eating (QC): 4 Oral Hygiene (QC): 4 Toileting Hygiene (QC): 3 Shower/Bathe Self (QC): 3 Upper Body Dressing (QC): 3 Lower Body Dressing (QC): 3 On/Off Footwear (QC): 3 Additional Goals: 1-Demonstrate ADL Tasks, 2-Verbalize Understanding, 3- ImproveStrength/Stephanie 1=Demonstrate adherence to instructed precautions during ADL tasks. 2=Patient will verbalize/demonstrate understanding of assistive devices/modifications for ADL. 3=Patient will improve strength/tolerance for activity to enable patient to perform ADL's. OT Education/Plan Discharge Recommendations Plan/Recommendations: Continue POC Treatment Plan/Plan of Care Treatment,Training & Education: Yes Patient would benefit from OT for education, treatment and training to promote independence in ADL's, mobility, safety and/or upper extremity function for ADL's. Plan of Care: Functional Mobility, Group Exercise/Act as Ind, UE Funct Exercise /Act Treatment Duration: Jun 17, 2022 Frequency: 3 times per week (3-5x/week ) Estimated Hrs Per Day: .25 hour per day Rehab Potential: Poor Time Start Time: 07:21 Stop Time: 07:46 DATE: Jun 03, 2022 Total Time Billed (hr/min): 25 Billed Treatment Time 1 visit, 2 ADLs 25 minutes ERNIE PERRY OT Jun 03, 2022 08:07
--- NOTE | 2022-06-03 10:42 | Physical Therapy Daily Note ---
PT Daily Note-Current Subjective Patient agrees to PT. Pain Section J - Health Conditions 1. Rarely or not at all 2. Occasionally 3. Frequently 4. Almost constantly 8. Unable to answer Pain Effect on Sleep: 1 Pain Interference with Therapy: 1 Pain Interference w/Day-to-Day: 1 Mental Status Patient Orientation: Normal For Age Attachments: IV Transfers SCALE: Activities may be completed with or without assistive devices. 2-Hcubwqmzxr-qjgqxdz completes the activity by him/herself with no assistance from a helper. 5-Set-up or Clean-up Assistance-helper sets up or cleans up; patient completes activity. [place] assists only prior to or following the activity. 4-Supervision or Touching Assistance-helper provides verbal cues and/or touching/steadying and/or contact guard assistance as patient completes ac tivity. Assistance may be provided throughout the activity or intermittently. 3-Partial/Moderate Assistance-helper does LESS THAN HALF the effort. [place] lifts, holds or supports trunk or limbs, but provides less than half the effort. 2-Substantial/Maximal Assistance-helper does MORE THAN HALF the effort. [place] lifts or holds trunk or limbs and provides more than half the effort. 1-Kmwwwkiuf-tosrwi does ALL the effort. Patient does none of the effort to complete the activity. Or, the assistance of 2 or more helpers is required for the patient to complete the activity. If activity was not attempted, code reason: 7-Patient Refused. 9-Not Applicable-not attempted and the patient did not perform the activity before the current illness, exacerbation or injury. 10-Not Attempted due to Environmental Limitations-(lack of equipment, weather restraints, etc.). 88-Not Attempted due to Medical Conditions or Safety Concerns. Sit to Stand (QC): 4 Gait Training Distance: 150' Walk 10 feet (QC): 4 Walk 50 ft with 2 Turns(QC): 4 Walk 150 ft (QC): 4 Gait Assistive Device: FWW SBA/very slow, decreased marti with minimal foot clearance Exercises Seated Therapy Exercises: Ankle pumps, Long arc quads Seated Reps: 15 Assessment Patient improved on this date and is SBA with mobility. Patient reports she is feeling better on this date. SW notified. PT [facility] Goals [facility] Goals PT [facility] Goals Time Frame: Jun 14, 2022 Roll Left & Right (QC): 6 Sit to Lying (QC): 6 Lying-Sitting on Side/Bed(QC): 6 Sit to Stand (QC): 6 Chair/Pjh-qs-Wnhrv Xfer(QC): 6 Toilet Transfer (QC): 6 Walk 10 feet (QC): 5 Walk 50ft with 2 Turns (QC): 5 Walk 150 ft (QC): 5 PT Plan Treatment/Plan Treatment Plan: Continue Plan of Care Treatment Plan: Bed Mobility, Education, Functional Activity Stephanie, Functional Strength, Gait, Safety, Therapeutic Exercise, Transfers Treatment Duration: Jun 14, 2022 Frequency: 6 times per week Estimated Hrs Per Day: .25 hour per day Time Time In: 915 Time Out: 931 DATE: Jun 03, 2022 Total Billed Treatment Time: 16 Total Billed Treatment 1 visit FA 16 min JADON EMMANUEL PT Jun 03, 2022 10:42
[2022-06-03 11:25] VITALS: BP 121/56
--- NOTE | 2022-06-03 14:40 | Discharge Summary ---
Discharge Summary Hospital Course Hospital Course Date of Admission: May 26, 2022 at 20:34 Admission Diagnosis : (1) Sepsis (2) DKA (diabetic ketoacidosis) (3) Anemia (4) Diabetes mellitus, type 2 (5) Hypertension (6) GERD (gastroesophageal reflux disease) (7) Cystitis with hematuria (8) Metabolic acidosis (9) Generalized weakness (10) Crohn disease (11) Depression (12) CKD (chronic kidney disease) (13) Hyperlipidemia (14) Hyperkalemia Family Physician/Provider: [facility] Date of Discharge: 06/03/22 Discharge Diagnosis: See hospital course Hospital Course: (1) Sepsis Status: Resolved Assessment & Plan: Secondary to UTI, s/p meropenem (2) DKA (diabetic ketoacidosis) Status: Resolved Assessment & Plan: s/p insulin drip in ICU (3) Anemia Status: Chronic Qualifiers: Qualified Codes: D63.8 - Anemia in other chronic diseases classified elsewhere (4) Diabetes mellitus, type 2 Status: Chronic Qualifiers: (5) Hypertension Status: Chronic (6) GERD (gastroesophageal reflux disease) Status: Chronic (7) Cystitis with hematuria Status: Resolved Assessment & Plan: s/p treatment with meropenem (8) Metabolic acidosis Status: Resolved Assessment & Plan: Initially treated for DKA which resolved but acidosis persisted, requiring sodium bicarb, stable/resolved. (9) Generalized weakness Status: Acute Assessment & Plan: Plan to d/c to SNF when able (10) Crohn disease Status: Chronic Assessment & Plan: On prednisone. (11) Depression Status: Chronic (12) CKD (chronic kidney disease) Status: Chronic (13) Hyperlipidemia Status: Chronic (14) Hyperkalemia Status: Resolved Labs and Pending Lab Test: Laboratory Tests 06/02/22 15:44: Glucometer 162H 06/02/22 20:24: Glucometer 226H 06/02/22 23:43: Glucometer 133H 06/03/22 05:11: Glucometer 126H 06/03/22 05:50: White Blood Count 8.8, Red Blood Count 2.89L, Hemoglobin 8.3L, Hematocrit 27L, Mean Corpuscular Volume 93, Mean Corpuscular Hemoglobin 29, Mean Corpuscular Hemoglobin Concent 31L, Red Cell Distribution Width 15.3H, Platelet Count 487H, Mean Platelet Volume 9.7, Immature Granulocyte % (Auto) 1, Neutrophils (%) (Auto) 56, Lymphocytes (%) (Auto) 32, Monocytes (%) (Auto) 9, Eosinophils (%) (Auto) 2, Basophils (%) (Auto) 0, Neutrophils # (Auto) 4.9, Lymphocytes # (Auto) 2.8, Monocytes # (Auto) 0.8, Eosinophils # (Auto) 0.2, Basophils # (Auto) 0.0, Immature Granulocyte # (Auto) 0.1, Sodium Level 140, Potassium Level 4.1, Chloride Level 108H, Carbon Dioxide Level 22, Anion Gap 10, Blood Urea Nitrogen 7, Creatinine 0.66, Estimat Glomerular Filtration Rate 91, BUN/Creatinine Ratio 11, Glucose Level 133H, Calcium Level 8.8, Corrected Calcium 9.8, Magnesium Level 1.4L, Total Bilirubin 0.1, Aspartate Amino Transf (AST/SGOT) 17, Alanine Aminotransferase (ALT/SGPT) 11, Alkaline Phosphatase 97, Total Protein 5.3L, Albumin 2.7L 06/03/22 11:28: Glucometer 272H 06/03/22 12:12: Lab Scanned Report Transfusion Reaction Form Microbiology 05/26/22 MRSA Screen - Final, Complete MRSA not isolated 05/25/22 Blood Culture - Final, Complete No growth 05/25/22 Urine Culture - Final, Complete Enterobacter cloacae complex Enterobacter cloacae complex#2 Mixed Bacterial Rosie Home Meds Active Mag-Oxide (Magnesium Oxide) 200 Mg Magnesium Tablet 200 Mg PO DAILY Vitamin B-12 (Cyanocobalamin (Vitamin B-12)) 1,000 Mcg Tablet 1,000 Mcg PO DAILY@0700 Sodium Bicarbonate 650 Mg Tablet 1,300 Mg PO BID Lactulose 20 Gram/30 Ml Solution 10 Gm PO BID Alprazolam 0.5 Mg Tablet 0.5 Mg PO Q4HR PRN Acetaminophen 325 Mg Tablet 650 Mg PO Q4H PRN Oxyir Tablet (Oxycodone HCl) 5 Mg Tab 5 Mg PO Q4HR PRN Enoxaparin Sodium 40 Mg/0.4 Ml Syringe 40 Mg SC DAILY Isosorbide Mononitrate ER (Isosorbide Mononitrate) 60 Mg Tab 60 Mg PO DAILY Tresiba Flextouch U-100 (Insulin Degludec) 100 Unit/Ml (3 Ml) Insuln.pen 10 Units SC HS Metoprolol Succinate 25 Mg Tab.er.24h 25 Mg PO DAILY Flomax (Tamsulosin HCl) 0.4 Mg Cap 0.4 Mg PO DAILY Pantoprazole Sodium 40 Mg Tablet.dr 40 Ng PO DAILY Ventolin Hfa (Albuterol Sulfate) 90 Mcg Hfa.aer.ad 2 Puff INH Q6H PRN Prednisone 5 Mg Tablet 5 Mg PO DAILY Losartan Potassium 100 Mg Tablet 100 Mg PO DAILY Citalopram HBr (Citalopram Hydrobromide) 20 Mg Tablet 20 Mg PO HS Nitroglycerin 0.4 Mg Tab.subl 0.4 Mg SL UD PRN Tramadol HCl 50 Mg Tablet 50 Mg PO Q6H PRN Simvastatin 40 Mg Tablet 40 Mg PO HS Gemfibrozil 600 Mg Tablet 600 Mg PO BID Dicyclomine HCl 10 Mg Capsule 20 Mg PO QID TAKES 2 (10MG) CAPSULES Ondansetron Odt (Ondansetron) 4 Mg Tab.rapdis 4 Mg PO Q6H PRN 5 Days Reported Nitrofurantoin (Nitrofurantoin Macrocrystal) 50 Mg Capsule 50 Mg PO DAILY Hiprex (Methenamine Hippurate) 1 Gram Tablet 1 Gm PO BID Doxycycline Hyclate 100 Mg Tablet 100 Mg PO BID FILLED 05-20-2022 #14/7 DAY SUPPLY Metformin HCl 500 Mg Tablet 1,000 Mg PO BID TAKES 2 (500MG) TABLETS Skilled NF Admit to: [facility] ([facility]) I certify that SNF services are required to be given on an inpatient basis because of the above named patient's need for shelter care on a continuing basis for the conditions(s) for which he/she was receiving inpatient hospital services prior to his/her transfer to the SNF. [facility] Facility Order: Nursing Services, Radio Assembler-Evaluate & Treat, Physical Therapy-Evaluate & Treat, Speech Language-Evaluate & Treat Oxygen Delivery Method: Room Air Discharge Diet: ADA Diet Resuscitation Status: Full Code Meron Jones Jun 03, 2022 14:38 Discharge Physical Exam General: Alert, No Acute Distress Lungs: Clear to Auscultation, Normal Air Movement Heart: Regular Rate, No Murmurs Neuro: Normal Speech Psych/Mental Status: Mood NL MERON JONES MD Jun 03, 2022 14:40
[2022-06-03 15:50] VITALS: BP 121/56
[2022-06-03] MEDS ORDERED: NALOXONE 2 MG/2 ML (NARCAN) SYR IV ONE (15:54)
[2022-06-03] MEDS ORDERED: CATHETER FLUSH 10 ML SYR IVP ONE (15:54)
[2022-06-03] MEDS ORDERED: EPINEPHrine 0.1 MG/ML 10 ML (HOSPIRA) SYR INJ ONE (15:54)
[2022-06-03] MEDS ORDERED: AMIODARONE 150 MG/3 ML (CORDARONE) VIAL IV ONE (15:54)
== END 2022-06-03 15:55 | DRG 871 ==
LOC: EDUNIT# 19:12 → ER 19:13 → ICU 21:06 → UNDOADMOB 21:06 → ICU 21:50 → OBSVTOIN 05-26 20:34 → INTOOBSV 05-26 20:34 → ICU 05-27 16:21 → 4TH 05-28 13:37 → ICU 05-28 13:37 → UNDODISIN 06-03 15:55
PROVIDERS: ADMIT Internal Medicine; ATTEND Family Medicine
DX: A41.9 Sepsis, unspecified organism (principal); E11.10 Type 2 diabetes mellitus with ketoacidosis without coma; E87.21 Acute metabolic acidosis; D63.8 Anemia in other chronic diseases classified elsewhere; K21.9 Gastro-esophageal reflux disease without esophagitis; N30.91 Cystitis, unspecified with hematuria; R53.1 Weakness; F32.A Depression, unspecified; N18.9 Chronic kidney disease, unspecified; E78.5 Hyperlipidemia, unspecified; E87.5 Hyperkalemia; E11.22 Type 2 diabetes mellitus with diabetic chronic kidney disease; I12.9 Hypertensive chronic kidney disease with stage 1 through stage 4 chronic kidney disease, or unspecified chronic kidney disease; G89.29 Other chronic pain; M54.9 Dorsalgia, unspecified; D50.9 Iron deficiency anemia, unspecified; F03.90 Unspecified dementia, unspecified severity, without behavioral disturbance, psychotic disturbance, mood disturbance, and anxiety; I25.119 Atherosclerotic heart disease of native coronary artery with unspecified angina pectoris; D75.839 Thrombocytosis, unspecified; R53.81 Other malaise; K59.00 Constipation, unspecified; Z79.84 Long term (current) use of oral hypoglycemic drugs; Z79.899 Other long term (current) drug therapy; Z20.822 Contact with and (suspected) exposure to COVID-19
CPT/HCPCS: 36415; 71045; 74178; 80048; 80053; 80320; 80329; 81000; 82010; 82607; 82805; 82947; 83036; 83540; 83605; 83690; 83735; 83930; 84100; 85007; 85025; 85027; 86850; 86900; 86901; 86920; 87040; 87077; 87081; 87088; 87186; 87636; 94760; 96361; 96374; 96375; G0378

== ENCOUNTER 2022-06-18 09:38 | Day surgery (SDC) | payer MEDICARE ==
[~2022-06-18] VITALS: Wt 61.7 kg
[~2022-06-18 09:38] MED LIST changes: +ACET325T49 PO; +ALBU18HF2 INH; +ALPR0.5T7 PO; +CYAN-41 PO; +DOXY100T2 PO; +ENOX40DI8 SC; +INSU100I32 SC; +ISOS60TA63 PO; +LACT20SO2 PO; +MAGN200T8 PO; +METH1TAB92 PO; +MTP25TSR PO; +NF-SODBICA PO; +NITR-65 PO; +NITR50CA PO; +OXC5T PO; +PANT40TA52 PO; +TMSL.4C PO
[2022-06-18 10:09] VITALS: BP 139/60
[2022-06-18 10:10] LABS: ABSOLUTE RETIC # 87 10e9/uL (24-90); BASOPHILS % (AUTO) 0 % (0-10); EOSINOPHILS # (AUTO) 0.2 10^3/uL (0.0-0.3); EOSINOPHILS % (AUTO) 2 % (0-10); HEMATOCRIT 31 % (35-52); HEMOGLOBIN 9.6 g/dL (11.5-16.0); LYMPHOCYTES % (AUTO) 42 % (12-44); MEAN CORPUSCULAR HEMOGLOBIN 29 pg (25-34); MEAN CORPUSCULAR HGB CONC 31 g/dL (32-36); MEAN CORPUSCULAR VOLUME 94 fL (80-99); MONOCYTES # (AUTO) 0.9 10^3/uL (0.0-1.0); MONOCYTES % (AUTO) 9 % (0-12); NEUTROPHILS # (AUTO) 4.2 10^3/uL (1.8-7.8); NEUTROPHILS % (AUTO) 45 % (42-75); PLATELET COUNT 289 10^3/uL (130-400); RETICULOCYTE % 2.62 % (0.50-2.40); WHITE BLOOD COUNT 9.4 10^3/uL (4.3-11.0)
[2022-06-18] MEDS ORDERED: NS IV 1000 ML 1,000 ML IV STA (10:19)
[2022-06-18] MEDS ORDERED: LIDOCAINE 1% INJ 30 ML (XYLOCAINE) VIAL INJ ONE (10:30)
[2022-06-18] MEDS ORDERED: MIDAZOLAM 2 MG/2 ML (VERSED) VIAL IVP ONE (10:30)
[2022-06-18] MEDS ORDERED: fentaNYL INJ 100 MCG/2 ML AMP IVP ONE (10:30)
[2022-06-18 10:35] LABS: PROTHROMBIN TIME PATIENT 13.3 SEC (12.2-14.7)
[2022-06-18 11:02] LABS: EOSINOPHILS % (MANUAL) 4 %; LYMPHOCYTES % (MANUAL) 42 %; MONOCYTES % (MANUAL) 5 %; NEUTROPHILS % (MANUAL) 46 %; REACTIVE LYMPHOCYTES 3 %
[2022-06-18 11:03] LABS: ANISOCYTOSIS SLIGHT
[2022-06-18 11:10] VITALS: BP 139/57
[2022-06-18 11:15] VITALS: BP 138/55
--- NOTE | 2022-06-18 11:35 | Pre-Op Note & Conscious Sedat ---
Pre-Operative Progress Note Date of Available H&P: Jun 18, 2022 Date H&P Reviewed: Jun 18, 2022 Time H&P Reviewed: 09:00 Pre-Op Diagnosis: anemia Conscious Sedation Pre-Proced Time 09:00 ASA Score 2 For ASA 3 and 4: Consider anesthesia and medical clearance. Also, for patients with a history of failed moderate sedation consider anesthesia. Airway Lungs Heart ASA score ASA 1: a normal healthy patient ASA 2: a patient with a mild systemic disease (mid diabetes, controlled hypertension, obesity ASA 3: a patient with a severe systemic disease that limits activity (angina, COPD, prior Myocardial infarction) ASA 4: a patient with an incapacitating disease that is a constant threat to life (CHF, renal failure) ASA 5: a moribund patient not expected to survive 24 hrs. (ruptured aneurysm) ASA 6: a declared brain- patient whose organs are being harvested. For emergent operations, add the letter E after the classification Mallampati Classification Grade 2 Sedation Plan Analgesia, Amnesia, Plan communicated to team members, Discussed options with patient/fam, Discussed risks with patient/fam The patient is an appropriate candidate to undergo the planned procedure, sedation, and anesthesia. The patient immediately re-assessed prior to indication. TREY MORTENSEN MD Jun 18, 2022 11:35
--- NOTE | 2022-06-18 11:36 | Diagnostic Imaging Report ---
INDICATION: Anemia. Patient presents for CT-guided bone marrow aspiration and biopsy. Patient brought to the CT suite placed on table in the prone position. Axial imaging through the pelvis was performed to evaluate appropriate entry site. Low back was prepped and draped in usual sterile fashion. Small amount of 1% lidocaine was utilized for local anesthesia. Procedure was performed utilizing conscious sedation with radiology nursing and constant patient monitoring. Patient was given a total of 50 mcg of fentanyl intravenously and 1 mg of Versed intravenously. Total procedure time was approximately 4 minutes. Bone marrow needle was advanced and placed with its tip along the posterior cortex of the right iliac bone. Needle was advanced through the cortex utilizing the bone marrow drill. 2 bone marrow aspirates were then obtained. Next, the bone marrow drill was utilized to obtain a bone marrow core biopsy. The needle was removed and hemostasis was obtained using manual compression. The patient tolerated the procedure well and left the department in stable condition. IMPRESSION: Successful CT-guided bone marrow aspiration and core biopsy, utilizing conscious sedation. Pathology results are currently pending. Dictated by: Dictated on workstation # [id number]
[2022-06-18 11:43] VITALS: BP 105/52
[2022-06-18] MEDS ORDERED: HYDROcodone/APAP 5 MG/325 MG (LORTAB) TAB PO PRN (11:45)
[2022-06-18 12:01] VITALS: BP 105/52
== END 2022-06-18 13:01 | disposition home or self-care (01) ==
LOC: RAD 09:38 → SDC 11:28 → RAD 13:01
PROVIDERS: ATTEND Internal Medicine Hematology & Oncology
DX: D64.9 Anemia, unspecified (principal); Z87.891 Personal history of nicotine dependence
CPT/HCPCS: 36415; 38222; 77012; 85007; 85027; 85045; 85055; 85610; 85730; 99156

== ENCOUNTER → 2022-08-12 | Outpatient (CLI) | payer MEDICARE | LOC: CARDFS 12:15 | PROVIDERS: ATTEND Internal Medicine Cardiovascular Disease | DX: I10 Essential (primary) hypertension (principal) | CPT/HCPCS: 93306 ==

== ENCOUNTER 2022-09-17 13:42 | Observation (INO) | payer MEDICARE ==
[~2022-09-17] VITALS: Ht 162.6 cm; Wt 56.3 kg
[2022-09-17 13:57] LABS: BILIRUBIN,URINE NEGATIVE (NEGATIVE); CLARITY,URINE TURBID; COLOR,URINE YELLOW; GLUCOSE, URINE (UA) NEGATIVE (NEGATIVE); KETONES,URINE NEGATIVE (NEGATIVE); LEUKOCYTE ESTERASE ,URINE 3+ (NEGATIVE); NITRITE,URINE POSITIVE (NEGATIVE); PH,URINE 5.5 (5-9); PROTEIN,URINE TRACE (NEGATIVE)
[2022-09-17] MEDS ORDERED: cefTRIAXone IV/IM 1,000 MG in NS (IVPB) 50 ML IV STA (13:58)
[2022-09-17] MEDS ORDERED: ONDANSETRON 4 MG/2 ML (SDV) Z0FRAN IVP STA (13:58)
[2022-09-17] MEDS ORDERED: NS IV 1000 ML 1,000 ML IV STA ×2 (13:58→14:46)
[2022-09-17 14:03] LABS: RBC,URINE RARE /HPF; WBC,URINE TNTC /HPF
[2022-09-17 14:04] LABS: BACTERIA,URINE MODERATE /HPF; SQUAMOUS EPITHELIAL CELL,UR RARE /HPF
--- NOTE | 2022-09-17 14:04 | ED GU-Female ---
General Chief Complaint: - Reproductive Stated Complaint: GEN WEAKNESS Source: patient History of Present Illness Date Seen by Provider: Sep 17, 2022 Time Seen by Provider: 13:46 Initial Comments 77-year-old female presenting with complaints of generalized weakness and not feeling well. She has burning and pain with urination and intermittent nausea. She has had some episodes of vomiting and not eating well. She last threw up yesterday. She states that it feels similar to when she has had urine infections and sepsis in the past. She had contacted Candido Kearney through the [facility] and they had prescribed a Augmentin for 7 days on August 19. She states that she is finished the antibiotic but she was still having symptoms and it was not any better. When she talked to the clinic they told her to come to the emergency department since there is nothing different they could do through the clinic. She has felt like she had a fever but did not take her temperature. She has had chills. Timing/Duration: other (not improving over the last several weeks despite antibiotic from Candido Kearney, CATERING TRUCK OPERATOR) Severity/Quality: moderate (general weakness) Prior Genitourinary Problems: similar symptoms Modifying Factors: Worsens With Urinating Associated Symptoms: No abdominal pain, No diaphoresis; dysuria, fever/chills (subjective); No loss of bladder control; nausea/vomiting; No swelling; urinary frequency Allergies and Home Medications Allergies Coded Allergies: Sulfa (Sulfonamide Antibiotics) (Verified Allergy, Severe, 02/01/21) Patient Home Medication List Home Medication List Reviewed: Yes Acetaminophen (Acetaminophen) 325 Mg Tablet, 650 MG PO Q4H PRN for TEMPERATURE Prescribed by: ORA PAIGE on 05/30/22 1205 Albuterol Sulfate (Ventolin Hfa) 90 Mcg Hfa.aer.ad, 2 PUFF INH Q6H PRN for SHORTNESS OF BREATH Prescribed by: ORA PAIGE on 05/30/22 1205 Alprazolam (Alprazolam) 0.5 Mg Tablet, 0.5 MG PO Q4HR PRN for ANXIETY Prescribed by: ORA PAIGE on 05/30/22 1207 Citalopram Hydrobromide (Citalopram HBr) 20 Mg Tablet, 20 MG PO HS Prescribed by: ORA PAIGE on 05/30/22 1205 Cyanocobalamin (Vitamin B-12) (Vitamin B-12) 1,000 Mcg Tablet, 1,000 MCG PO DAILY@0700 Prescribed by: ORA PAIGE on 05/30/221204 Dicyclomine HCl (Dicyclomine HCl) 10 Mg Capsule, 20 MG PO QID Prescribed by: ORA PAIGE on 05/30/221204 Enoxaparin Sodium (Enoxaparin Sodium) 40 Mg/0.4 Ml Syringe, 40 MG SC DAILY Prescribed by: ORA PAIGE on 05/30/221204 Gemfibrozil (Gemfibrozil) 600 Mg Tablet, 600 MG PO BID Prescribed by: ORA PAIGE on 05/30/221204 Insulin Degludec (Tresiba Flextouch U-100) 100 Unit/Ml (3 Ml) Insuln.pen, 10 UNITS SC HS Prescribed by: ORA PAIGE on 05/30/221204 Isosorbide Mononitrate (Isosorbide Mononitrate ER) 60 Mg Tab, 60 MG PO DAILY Prescribed by: ORA PAIGE on 05/30/221204 Lactulose (Lactulose) 20 Gram/30 Ml Solution, 10 GM PO BID Prescribed by: ORA PAIGE on 05/30/221204 Losartan Potassium (Losartan Potassium) 100 Mg Tablet, 100 MG PO DAILY Prescribed by: ORA PAIGE on 05/30/221204 Magnesium Oxide (Mag-Oxide) 200 Mg Magnesium Tablet, 200 MG PO DAILY Prescribed by: ORA PAIGE on 05/30/22 120 Metoprolol Succinate (Metoprolol Succinate) 25 Mg Tab.er.24h, 25 MG PO DAILY Prescribed by: ORA PAIGE on 05/30/221204 Nitroglycerin (Nitroglycerin) 0.4 Mg Tab.subl, 0.4 MG SL UD PRN for CHEST PAIN Prescribed by: ORA PAIGE on 05/30/221204 Oxycodone Hcl (Oxyir Tablet) 5 Mg Tab, 5 MG PO Q4HR PRN for PAIN-SEE DOSE INSTRUCTIONS Prescribed by: ORA PAIGE on 05/30/22 120 Pantoprazole Sodium (Pantoprazole Sodium) 40 Mg Tablet.dr, 40 NG PO DAILY Prescribed by: ORA PAIGE on 05/30/221204 Prednisone (Prednisone) 5 Mg Tablet, 5 MG PO DAILY Prescribed by: ORA PAIGE on 05/30/22 120 Simvastatin (Simvastatin) 40 Mg Tablet, 40 MG PO HS Prescribed by: ORA PAIGE on 05/30/22 120 Sodium Bicarbonate (Sodium Bicarbonate) 650 Mg Tablet, 1,300 MG PO BID Prescribed by: ORA PAIGE on 05/30/22 120 Tamsulosin HCl (Flomax) 0.4 Mg Cap, 0.4 MG PO DAILY Prescribed by: ORA PAIGE on 05/30/22 120 Tramadol HCl (Tramadol HCl) 50 Mg Tablet, 50 MG PO Q6H PRN for PAIN-MODERATE Prescribed by: ORA PAIGE on 05/30/22 120 Review of Systems Review of Systems Constitutional: see HPI EENTM: no symptoms reported Respiratory: no symptoms reported Cardiovascular: no symptoms reported Gastrointestinal: see HPI Genitourinary: see HPI Skin: No rash Psychiatric/Neurological: Weakness (general) Past Lezczik-Pmjfdf-Yutoto Hx Immunizations Up To Date First/Initial COVID19 Vaccinat: YES Second COVID19 Vaccination Dickson: YES Third COVID19 Vaccination Date: YES Seasonal Allergies Seasonal Allergies: No Past Medical History Surgery/Hospitalization HX: DM1 Surgeries: Yes (Cystourethroscopy, colonoscopy, EGD, removal spinal stimulator, ESWL) Appendectomy, Gallbladder, Hysterectomy Respiratory: Yes Pneumonia Currently Using CPAP: No Cardiac: Yes (Diastolic dysfunction) Hypertension Neurological: Yes Dementia, Neuropathy Female Reproductive Disorders: Denies 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 HIV/AIDS: No Genitourinary: Yes (Urethral strictures, Hx Klebsiella cystitis) Kidney Stones, UTI-Chronic Gastrointestinal: Yes (Regional enteritis) Gastroesophageal Reflux, Crohns Disease Musculoskeletal: No Chronic Back Pain Endocrine: Yes (DM Type II) Diabetes, Insulin dep HEENT: No Hearing Impairment: Denies Cancer: No Psychosocial: No Integumentary: No Blood Disorders: No Family Medical History No Pertinent Family Hx Physical Exam Vital Signs Vital Signs - First Documented 09/17/22 13:50 Temp 36.6 Pulse 82 Resp 18 B/P (MAP) 121/58 (79) Pulse Ox 98 O2 Delivery Room Air Capillary Refill : Height, Weight, BMI Height: 5'5.00" Weight: 132lbs. oz. 59.092017af; 23.85 BMI Method:Stated General Appearance: other (chronically ill appearing) Cardiovascular: normal peripheral pulses, regular rate, rhythm Respiratory: chest non-tender, lungs clear, normal breath sounds, no respiratory distress, no accessory muscle use Gastrointestinal: normal bowel sounds, soft, no pulsatile mass; No distended, No guarding; tenderness (mild tenderness over suprapubic area) Extremities: normal range of motion, non-tender, normal capillary refill Neurologic/Psychiatric: alert, oriented x 3 Skin: normal color, warm/dry Focused Exam Sepsis Stage: Sepsis Possible Source: Genitouriary Lactate Level 09/17/22 13:54: Lactic Acid Level 3.28*H Time of Focused Exam: 14:48 Respiratory: Chest Non Tender, Lungs Clear, Normal Breath Sounds, No Accessory Muscle Use, No Respiratory Distress Cardiovascular: Regular Rate, Rhythm, Normal Peripheral Pulses Capillary Refill: Less Than 3 Seconds Peripheral Pulses: 2+ Radial Pulses (R), 2+ Radial Pulses (L) Skin: normal color, warm/dry Lactic Acid Level Laboratory Tests Test 09/17/22 13:54 Lactic Acid Level 3.28 MMOL/L (0.50-2.00) *H Within 3hrs of presentation: Admin fluids, Admin ABX, Blood cultures prior to ABX's, Focus exam, Lactate level Progress/Results/Core Measures Suspected Sepsis SIRS Temperature: Pulse: Respiratory Rate: Laboratory Tests 09/17/22 13:54: White Blood Count 10.5 Blood Pressure / Mean: 09/17/22 13:54: Lactic Acid Level 3.28*H Laboratory Tests 09/17/22 13:54: Creatinine 1.19, Platelet Count 407H, Total Bilirubin < 0.2 Results/Orders Lab Results Laboratory Tests Test 09/17/22 13:52 09/17/22 13:54 09/17/22 13:57 Range/Units Urine Color YELLOW Urine Clarity TURBID Urine pH 5.5 5-9 Urine Specific Shickley 1.020 1.016-1.022 Urine Protein TRACE H NEGATIVE Urine Glucose (UA) NEGATIVE NEGATIVE Urine Ketones NEGATIVE NEGATIVE Urine Nitrite POSITIVE H NEGATIVE Urine Bilirubin NEGATIVE NEGATIVE Urine Urobilinogen 0.2 < = 1.0 MG/DL Urine Leukocyte Esterase 3+ H NEGATIVE Urine RBC (Auto) 1+ H NEGATIVE Urine RBC RARE /HPF Urine WBC TNTC H /HPF Urine Squamous Epithelial Cells RARE /HPF Urine Crystals NONE /LPF Urine Bacteria MODERATE H /HPF Urine Casts NONE /LPF Urine Mucus NEGATIVE /LPF Urine Culture Indicated YES White Blood Count 10.5 4.3-11.0 10^3/uL Red Blood Count 3.83 3.80-5.11 10^6/uL Hemoglobin 11.4 L 11.5-16.0 g/dL Hematocrit 34 L 35-52 % Mean Corpuscular Volume 88 80-99 fL Mean Corpuscular Hemoglobin 30 25-34 pg Mean Corpuscular Hemoglobin Concent 34 32-36 g/dL Red Cell Distribution Width 14.6 H 10.0-14.5 % Platelet Count 407 H 130-400 10^3/uL Mean Platelet Volume 9.2 9.0-12.2 fL Immature Granulocyte % (Auto) 0 % Neutrophils (%) (Auto) 69 42-75 % Lymphocytes (%) (Auto) 25 12-44 % Monocytes (%) (Auto) 5 0-12 % Eosinophils (%) (Auto) 0 0-10 % Basophils (%) (Auto) 0 0-10 % Neutrophils # (Auto) 7.3 1.8-7.8 10^3/uL Lymphocytes # (Auto) 2.6 1.0-4.0 10^3/uL Monocytes # (Auto) 0.5 0.0-1.0 10^3/uL Eosinophils # (Auto) 0.0 0.0-0.3 10^3/uL Basophils # (Auto) 0.0 0.0-0.1 10^3/uL Immature Granulocyte # (Auto) 0.0 0.0-0.1 10^3/uL Sodium Level 131 L 135-145 MMOL/L Potassium Level 4.2 3.6-5.0 MMOL/L Chloride Level 93 L 98-107 MMOL/L Carbon Dioxide Level 19 L 21-32 MMOL/L Anion Gap 19 H 5-14 MMOL/L Blood Urea Nitrogen 26 H 7-18 MG/DL Creatinine 1.19 0.60-1.30 MG/DL Estimat Glomerular Filtration Rate 47 BUN/Creatinine Ratio 22 Glucose Level 120 H 70-105 MG/DL Lactic Acid Level 3.28 *H 0.50-2.00 MMOL/L Calcium Level 10.2 H 8.5-10.1 MG/DL Corrected Calcium 9.8 8.5-10.1 MG/DL Magnesium Level 1.7 1.6-2.4 MG/DL Total Bilirubin < 0.2 0.1-1.0 MG/DL Aspartate Amino Transf (AST/SGOT) 21 5-34 U/L Alanine Aminotransferase (ALT/SGPT) 9 0-55 U/L Alkaline Phosphatase 157 H 40-136 U/L C-Reactive Protein 0.57 H <0.50 MG/DL Total Protein 7.5 6.4-8.2 GM/DL Albumin 4.5 3.2-4.5 GM/DL Glucometer 113 H 70-110 MG/DL My Orders Orders - CHUCHO LEO MD Ua Culture If Indicated (09/17/22 13:47) Cbc With Automated Diff (09/17/22 13:50) Comprehensive Metabolic Panel (09/17/22 13:50) Blood Culture (09/17/22 13:50) Ed Iv/Invasive Line Start (09/17/22 13:50) Crp Fs (09/17/22 13:50) Lactic Acid Analyzer (09/17/22 13:50) Magnesium (09/17/22 13:50) Accucheck Stat ONCE (09/17/22 13:57) Ns Iv 1000 Ml (Sodium Chloride 0.9%) (09/17/22 13:58) Ceftriaxone Iv/Im (Rocephin Iv/Im) (09/17/22 13:58) Ondansetron Injection (Zofran Injectio (09/17/22 13:58) Urine Culture (09/17/22 13:52) Ed Admission (Communication) (09/17/22 14:44) Ns Iv 1000 Ml (Sodium Chloride 0.9%) (09/17/22 14:46) Vital Signs/I&O 09/17/22 13:50 Temp 36.6 Pulse 82 Resp 18 B/P (MAP) 121/58 (79) Pulse Ox 98 O2 Delivery Room Air Capillary Refill : Progress Note #1: Progress Note Potential diagnosis of sepsis, pyelonephritis, urinary tract infection, colitis, diverticulitis, DKA. Obtain peripheral IV access and send labs for complete blood count, comprehensive metabolic profile, magnesium, blood cultures, lactic acid. Obtain urine to check for signs of infection. Initially her heart rate is in the 70s and regular. Her oxygen saturation is 99 to 100% on room air. Blood pressure 121/58. She reports that her sugar was low so she had just eaten some candy prior to coming to the emergency department. Her Accu-Chek here in the ED is 113. Administer normal saline 1 L IV fluid bolus for hydration, Rocephin 1 g IV for likely UTI based off of her most recent urine culture in May. Zofran 4 mg IV for nausea and vomiting. Her urine specimen today was cloudy and foul smelling. She might require admit to hospital depending on her labs and vital signs. Progress Note #2: Time: 14:10 Progress Note Urinalysis does not show an elevated white blood cell count as it is at 10.5. Hemoglobin shows some mild anemia with a 11.4 value. Platelets are normal at 407. On the urinalysis she has positive nitrates, 3+ leukocyte esterase, too numerous to count white blood cells, moderate bacteria. This would go along wi th a suspicion of urinary tract infection. Progress Note #3: Time: 14:26 Progress Note Lab called with a lactic acid of 3.28. This would go with diagnosis of UTI from urosepsis. Continue with antibiotics and IV fluids. We will check with Dr. Paige the on-call doctor for [facility] about possible admission for IV fluids, IV antibiotics, strengthening and conditioning. Progress Note #4: Time: 14:42 Progress Note d/w Dr. Paige, connie scratcher hospitalist for [facility] service. Reviewed patient presentation with increased weakness and recent antibiotic of Augmentin for a week 08/19-. Her last urine culture had shown multiple antibiotic resistance traits but it did show sensitive to nitrofurantoin and cefriaxone so I had started with ceftriaxone. Labs had stable WBC at 10.5 but lactic acid elevated to 3.28. UA with nitritites, LE, WBC and bacteria. Metabolic profile had mild elevation of BUN to 26 and Cr to 1.19. She has had good vital signs with heart rate in 70s and sinus rhythm, blood pressure 118-128/53-68. Oxygen 99-100% on room air. Dr. Paige was concerned for resistant bacteria in urine of possible EBSL and will broaden spectrum of antibiotics once she arrives in [place]. Wi ll continue with IVF for hydration and arrange for admit to [place]. I called and notified the nursing supervisor carton and can supply. She will place a room on the tracker board. I updated the patient on test results and findings as well as plan for admit to [facility] for IV antibiotics and IV fluids. 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 I told her that until she has the Urine infection cleared up they would not want to do surgery as she would be at increased risk for morbidities and mortality. Departure Communication (Admissions) Time/Spoke to Admitting Phy: 14:42 d/w Dr. Paige, connie scratcher hospitalist for [facility] service. Reviewed patient presentation with increased weakness and recent antibiotic of Augmentin for a week 08/19-. Her last urine culture had shown multiple antibiotic resistance traits but it did show sensitive to nitrofurantoin and cefriaxone so I had started with ceftriaxone. Labs had stable WBC at 10.5 but lactic acid elevated to 3.28. UA with nitritites, LE, WBC and bacteria. Metabolic profile had mild elevation of BUN to 26 and Cr to 1.19. She has had good vital signs with heart rate in 70s and sinus rhythm, blood pressure 118-128/53-68. Oxygen 99-100% on room air. Dr. Paige was concerned for resistant bacteria in urine of possible EBSL and will broaden spectrum of antibiotics once she arrives in [place]. Will continue with IVF for hydration and arrange for admit to [place]. Impression Primary Impression: Sepsis Qualified Codes: A41.9 - Sepsis, unspecified organism Additional Impressions: Acute cystitis without hematuria Dehydration General weakness Disposition: 30 STILL A PATIENT Condition: Stable Admissions Decision to Admit Reason: Admit from ER (General) Decision to Admit/Date: Sep 17, 2022 Time/Decision to Admit Time: 14:42 Departure-Patient Inst. Referrals: CANDIDO KEARNEY APRN (PCP) Primary Care Physician [facility] (Family) Primary Care Physician CHUCHO LEO MD Sep 17, 2022 14:04
[2022-09-17 14:07] LABS: BASOPHILS % (AUTO) 0 % (0-10); EOSINOPHILS % (AUTO) 0 % (0-10); HEMATOCRIT 34 % (35-52); HEMOGLOBIN 11.4 g/dL (11.5-16.0); LYMPHOCYTES # (AUTO) 2.6 10^3/uL (1.0-4.0); LYMPHOCYTES % (AUTO) 25 % (12-44); MEAN CORPUSCULAR HEMOGLOBIN 30 pg (25-34); MEAN CORPUSCULAR HGB CONC 34 g/dL (32-36); MEAN CORPUSCULAR VOLUME 88 fL (80-99); MEAN PLATELET VOLUME 9.2 fL (9.0-12.2); MONOCYTES # (AUTO) 0.5 10^3/uL (0.0-1.0); MONOCYTES % (AUTO) 5 % (0-12); NEUTROPHILS # (AUTO) 7.3 10^3/uL (1.8-7.8); NEUTROPHILS % (AUTO) 69 % (42-75); PLATELET COUNT 407 10^3/uL (130-400); WHITE BLOOD COUNT 10.5 10^3/uL (4.3-11.0)
[2022-09-17 14:27] LABS: CHLORIDE 93 MMOL/L (98-107); POTASSIUM 4.2 MMOL/L (3.6-5.0); SODIUM 131 MMOL/L (135-145)
[2022-09-17 14:28] LABS: ALANINE AMINOTRANSFERASE 9 U/L (0-55); ALKALINE PHOSPHATASE 157 U/L (40-136); BILIRUBIN,TOTAL < 0.2 MG/DL (0.1-1.0); BUN/CREATININE RATIO 22; CALCIUM 10.2 MG/DL (8.5-10.1); CARBON DIOXIDE 19 MMOL/L (21-32); CREATININE SERUM 1.19 MG/DL (0.60-1.30); GFR ESTIMATED 47; GLUCOSE 120 MG/DL (70-105); MAGNESIUM 1.7 MG/DL (1.6-2.4); TOTAL PROTEIN 7.5 GM/DL (6.4-8.2)
[2022-09-17 14:29] LABS: ALBUMIN 4.5 GM/DL (3.2-4.5)
[2022-09-17 16:21] VITALS: BP 133/77
--- OUTSIDE RECORDS SUMMARY | 2022-09-17 16:31 | XMS REPORT | Clinical Summary ---
Author Author [facility] Organization [facility] Address Unknown Phone Unavailable Care Team Providers Care Polish Maker Name Role Phone Cris Sushila BRIANDA PCP Allergies Not on File Medications Not on file Active Problems Not on file Social History Date Tobacco Use Types Packs/Day Years Used Smoking Tobacco: Never Assessed Date Recorded Sex and Gender Information Value Sex Assigned at Not on file Gender Identity Not on file Sexual Orientation Not on file Last Filed Vital Signs Not on file Plan of Treatment Health Maintenance Due Date Last Done Comments Hepatitis C Screen 1945 Td/Tdap# 1945 COVID-19 Vaccine (#1) 1945 Zoster Vaccine# (1 of 2) 1996 Depression Screening 2011 PHQ-9 # Fall Risk Assessment # 2011 Osteoporosis Screening 2011 Pneumococcal Vaccine: 65+ 2011 Years (1 - PCV) Advance Care Planning 06/01/2022 Conversation# Medicare Annual Wellness 06/01/2022 Social Determinants of 06/01/2022 Health# Influenza Vaccine (Season 03/01/2023 Ended) Results Not on filefrom Last 3 Months Insurance Type Payer Benefit Subscriber ID Effective Phone Address Plan / Dates Group MEDICARE REPLACEMENT PLAN [facility] [id number] 2021-P [address] [place] [address] [place] [address] (Home) [place] [address] Care Teams Start Date End Date Polish Maker Relationship Specialty 02/20/22 Sushial Lynch APRN PCP - General Nurse Practitioner [address] [place] [address]
--- OUTSIDE RECORDS SUMMARY | 2022-09-17 16:31 | XMS REPORT ---
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 Name Role Phone CANDIDO KEARNEY Unavailable PROBLEMS Type Condition ICD9-CM Code OVV03-EH Code Onset Dates Condition S tatus W/U Status Risk SNOMED Code Notes Problem Lymphocytosis D72.820 confirmed 00925 009 Problem Precordial pain R07.2 Jun, confirmed [id number]_Migrated Problem Mild episode of recurrent major depressive disorder F33.0 confirmed [id number] Problem History of anemia Z86.2 confirmed 27 5552679 Problem Type 2 diabetes mellitus wit hout complication, without long-term current use of insulin E11.9 confirmed 311786090 Problem Hyperlipidemia, unspecified hyperlipidemia type E78.5 confirmed 17872313 Problem Urinary hesitancy R39.11 confirmed 59 67328 Problem Gastroesophageal reflux disease without esophagitis K21.9 confirmed 219081212 Problem Nocturnal hypoglycemia E16.1 confirmed 536119659 Problem Recurrent urinary tract infection N39.0 con firmed 324208218 Problem CKD (chronic kidney disease) stage 2, GFR 60-89 ml/min N18.2 confirmed 228376212 Problem Crohn's disease, unspecified, without complications K50.90 confirmed 06665185 Problem Hypoglycemia unawareness associated with type 2 diabetes mellitus E11.649 confirmed 448897768 Problem Diastolic dysfunction I51.9 14 Jul, 2012 confirmed [id number] -[id number]_Migrated Problem Gastro-esophageal reflux disease without esophagitis K21.9 confirmed 339007244 Problem Type 2 diabetes mellitus with hypoglycemia without coma E11.649 confirmed 01049970 Problem Urinary tract infection without hematuria, site unspecified N39.0 confirmed 25400819 Problem HTN (hypertension) I10 17 Jun, 2012 confirmed [id number] -693624_Migrated Problem Crohn disease K50.90 confirmed 576732 06 Problem Abnormal laboratory test result R89.9 confi rmed [id number] Problem Type 2 diabetes mellitus with ketoacidosis without coma E11.10 confirmed 734632869 Problem Anemia in other chronic diseases classified elsewhere D63.8 confirmed 972801261 ALLERGIES Allergen (clinical drug ingredient) Drug/Non Drug Allergy do cumented on EMR Reaction Allergy Type Onset Date Status sulfamethoxazole / trimethoprim Bactrim DS([facility] Code:[address]-5 1) Unknown Drug Allergy Active ENCOUNTERS from 1945 to 2022-08-09 Encounter Location Date Provider Diagnosis [id number] [place] [address] Aug, CANDIDO KEARNEY IMMUNIZATIONS Vaccine Route Administration Date Status prevnar pcv 13 (history) Unknown Feb 13, 2015 Adminis tered PRIVATE TDAP (BOOSTRIX) IM Intramuscular October 21, 2019 Adminis tered 2nd Booster MODERNA COVID-19, mRNA, 0.25mL IM Intramuscular October 22, 2021 Administered influenza (history) Unknown Mar 03, 2012 Administered td adult 2 Lf tetanus toxoid, preservative free, adsorbed (h istory) Unknown Jun 01, 1985 Administered pneumovax ppsv 23 (history) Unknown Jun 01, 1998 Admi nistered prevnar pcv 13 (history) Unknown Feb 26, 2017 Adminis tered pneumovax ppsv 23 (history) Unknown Feb 20, 2010 Admi nistered COVID-19 Moderna (history) Unknown August 21, 2020 Admin istered COVID-19 Moderna (history) Unknown Jul 24, 2020 Admin istered PRIVATE FLUZONE HIGH DOSE QUAD 0.7ML (65 and UP) 2019 IM Int ramuscular Feb 29, 2020 Administered influenza (history) Unknown Mar 15, 2019 Administered influenza (history) Unknown Mar 08, 2011 Administered influenza (history) Unknown Feb 17, 2009 Administered influenza (history) Unknown Apr 01, 2008 Administered influenza (history) Unknown Apr 05, 2004 Administered PRIVATE FLUZONE HIGH DOSE QUAD 0.7ML (65 and UP) 2020 IM Int ramuscular Mar 27, 2021 Administered influenza (history) Unknown Feb 19, 2018 Administered influenza (history) Unknown Feb 26, 2017 Administered influenza (history) Unknown Feb 27, 2016 Administered Booster HRSA MODERNA, COVID-19, 0.25mL IM Intramuscular Mar 27, 2021 Administered PRIVATE HIGH DOSE FLU 22-23 (FLUZONE HD) AGE 65YRS AND UP IM Intramuscular Mar 11, 2022 Administered 1st Booster MODERNA Bivalent, COVID-19, 0.5mL IM Intramuscular O 2021 Administered influenza (history) Unknown Feb 13, 2015 Administered influenza (history) Unknown Feb 16, 2014 Administered influenza (history) Unknown Feb 24, 2013 Administered SOCIAL HISTORY Sex Assigned At : Social History Observation Description Sex Assigned At Unknown Alcohol Screen (Audit-C) Question Answer Notes Did you have a drink containing alcohol in the past year? No Points 0 Interpretation Negative PHQ2 Question Answer Notes In the last 2 weeks, how often have you had little interest or pleasure in doing things? Nearly every day In the last 2 weeks, how often have you been feeling down, depressed, or hopeless? Nearly every day Total PHQ2 Score 6 Tobacco use other than smoking: Question Answer Notes Are you an other tobacco user? No REASON FOR REFERRAL No Information VITAL SIGNS No information MEDICATIONS Medication SIG (Take, Route, Frequency, Duration) Notes Start Da te End Date Status Estradiol 0.1 MG/GM Vaginal for 84 Days Not-Taking Tamsulosin HCl 0.4 MG 1 capsule Orally Once a day Active Methenamine Hippurate 1 GM Oral Active TRUEplus Pen [place] 32G X 4 MM USE DIRECTED for 90 Active Acetaminophen 500 MG prn Acti ve Metoprolol Succinate ER 25 MG TAKE 1 TABLET BY MOUTH ONCE DAILY Active Dicyclomine HCl 10 MG 2 capsules Orally 4 times a day for 90 days Active Vitamin C Not-Taking Cranberry Not-Taking Meloxicam 7.5 MG 1 tablet Oral Once a day for 30 days Not-Taking Citalopram Hydrobromide 20 MG TAKE ONE (1) TABLET BY MOUTH ONCE DAILY Active Blood Glucose System Del - as directed subcutaneously Once a day for 30 days E11.9 Please dispense glucometer that insurance will cover. Jun, Active Isosorbide Mononitrate ER 60 MG TAKE ONE (1) TABLET BY MOUTH ONCE DAILY IN THE MORNING Active hydroCHLOROthiazide 12.5 MG 1 tablet in the morning Or ally Once a day for 30 days Active Stool Softener prn Not-Taking Glimepiride 4 MG TAKE 1 TABLET BY MOUTH TWICE DAILY WITH MEALS for 9 0 Not-Taking Lancets - as directed subcutaneously Once a day fo r 30 days E11.9 Please dispense lancets that insurance will cover Jun, Active traMADol HCl 50 MG 1 tablet Orally every 6 hours Jul, 2 023 Active Januvia 100 MG TAKE ONE (1) TABLET BY MOUTH ONCE DAILY Not-Taking OneTouch Ultra - TEST FOUR (4) TIMES DAILY DIRECTED for 26 Not-Taking Gemfibrozil 600 MG TAKE ONE (1) TABLET BY MOUTH TWICE DAILY Active Gabapentin 100 MG 1 capsule Orally Once a day Not-Taking Albuterol Sulfate HFA 108 (90 Base) MCG/ACT 1 puff as needed Inhalation every 4- 6 hours as needed for 7 days May, Act xi Simvastatin 40 MG TAKE ONE (1) TABLET BY MOUTH ONCE DAILY Active predniSONE 5 MG TAKE ONE (1) TABLET BY MOUTH ONCE DAILY for 90 Active Ondanset[address] ONE (1) TABLET ON THE TONGUE AND ALLOW TO DISSOLVE EVERY 8 HOURS NEEDED for 5 Active Losartan Potassium 100 MG TAKE ONE (1) TABLET (100MG) BY MOUTH ONCE D AILY Active Iron 325 (65 Fe) MG 1 tablet Orally Once a day Active metFORMIN HCl 500 MG TAKE TWO (2) TABLETS BY MOUTH TWICE DAILY WITH M EALS Active Tresiba FlexTouch 100 UNIT/ML INJECT 10 UNITS SUBCUTAN EOUSLY (UNDER THE SKIN) AT BEDTIME Active Pantoprazole Sodium 40 MG TAKE ONE (1) TABLET BY MOUTH ONCE DAILY for 30 Active Macrobid 100 MG 1 capsule with food Orally Once a day given by urolog ist Active Nitrofurantoin Monohyd Macro 100 MG 1 capsule with yeny d Orally every 12 hrs for 5 days Jul, Active PROCEDURES No Information RESULTS No Results REASON FOR VISIT *Lab results-LVM MEDICAL (GENERAL) HISTORY Type Description Date Medical History Precordial pain Medical History HTN (hypertension) Medical History Diabetes mellitus Medical History Diastolic dysfunction Medical History Lymphocytosis Surgical History hysterectomy Surgical History gallbladder Surgical History bladder pin up Surgical History wrist surgery, left x3 Surgical History stimulator in back Surgical History appendectomy Surgical History cataract removal bilat Surgical History back surgeries Surgical History colonscopy 10/19 Surgical History Scope down throat and took pictures with abarca 02/19 Hospitalization History surgeries Hospitalization History blood sugar, infection Hospitalization History [facility] Hospitalization History [facility], severe uti and pneumoni a 05/25/22 Goals Section No Information Health Concerns No Information MEDICAL EQUIPMENT No Information MENTAL STATUS No Information FUNCTIONAL STATUS No Information ASSESSMENTS No Information PLAN OF TREATMENT Medication Medication Name Sig Start Date Stop Date Tresiba FlexTouch 100 UNIT/ML INJECT 10 UNITS SUBCUTAN EOUSLY (UNDER THE SKIN) AT BEDTIME Macrobid 100 MG 1 capsule with food Orally Once a day traMADol HCl 50 MG 1 tablet Orally every 6 hours Jul, Methenamine Hippurate 1 GM Oral metFORMIN HCl 500 MG TAKE TWO (2) TABLETS BY MOUTH TWICE DAILY W ITH MEALS Citalopram Hydrobromide 20 MG TAKE ONE (1) TABLET BY MOUTH ONCE DAILY Metoprolol Succinate ER 25 MG TAKE 1 TABLET BY MOUTH ONCE DAILY hydroCHLOROthiazide 12.5 MG 1 tablet in the morning Or ally Once a day for 30 days Losartan Potassium 100 MG TAKE ONE (1) TABLET (100MG) BY MOUTH O NCE DAILY Gemfibrozil 600 MG TAKE ONE (1) TABLET BY MOUTH TWICE DAILY Simvastatin 40 MG TAKE ONE (1) TABLET BY MOUTH ONCE DAILY Isosorbide Mononitrate ER 60 MG TAKE ONE (1) TABLET BY MOUTH ONCE DAILY IN THE MORNING Next Appt Details Provider Name:CANDIDO KEARNEY, 2022-12-05 11:20:00 AM, [address] [place], [address], Insurance Providers Payer Name Payer Address Payer Phone Insured Name Patient Relati onship to Insured Coverage Start Date Coverage End Date Subscriber Number Group Nu mber AARP Medicare Complete [place] PLAN [address] [address] [facility] [id number] Pat Gross Self - patient is the insured 9 [id number] [facility] PART A [address] [facility] [id number] Pat Gross Self - patient is the insured [id number] MEDICATIONS ADMINISTERED Medication Instructions Date of Administration Dosage Rocephin Jul, 1 g Rocephin Jul, 1 g Rocephin Jul, 1 g Rocephin Jul, 1 g DEXAMETHASONE 4MG/ML (PER 1 ML) Jul, 4 mg Rocephin Jul, 1 g Rocephin September, 1 g Rocephin September, 1 g Rocephin September, 1 g Rocephin September, 1 g Rocephin Jul, 1 g Rocephin Jul, 1 g cefTRIAXone Sodium September, 1 g DEPO MEDROL 80 MG/ML Jul, 80 mg
--- OUTSIDE RECORDS SUMMARY | 2022-09-17 16:31 | XMS REPORT ---
Author Author [facility] Address Unknown Phone Unavailable Care Team Providers Care Lithograph Press Operator Tinware Name Role Phone CANDIDO KEARNEY Unavailable PROBLEMS Type Condition ICD9-CM Code [id number] Code Onset Dates Condition S tatus W/U Status Risk SNOMED Code Notes Problem Lymphocytosis D72.820 confirmed 62792 009 Problem Precordial pain R07.2 Jun, confirmed [id number] -[id number]_Migrated Problem Mild episode of recurrent major depressive disorder F33.0 confirmed 776047657 Problem History of anemia Z86.2 confirmed 27 1692777 Problem Type 2 diabetes mellitus wit hout complication, without long-term current use of insulin E11.9 confirmed 990707356 Problem Hyperlipidemia, unspecified hyperlipidemia type E78.5 confirmed 97856765 Problem Urinary hesitancy R39.11 confirmed 59 66844 Problem Gastroesophageal reflux disease without esophagitis K21.9 confirmed 618923335 Problem Nocturnal hypoglycemia E16.1 confirmed 306447884 Problem Recurrent urinary tract infection N39.0 con firmed 986508492 Problem CKD (chronic kidney disease) stage 2, GFR 60-89 ml/min N18.2 confirmed 589372275 Problem Crohn's disease, unspecified, without complications K50.90 confirmed 39345879 Problem Hypoglycemia unawareness associated with type 2 diabetes mellitus E11.649 confirmed 359310915 Problem Diastolic dysfunction I51.9 14 Jul, 2012 confirmed 4426977 -693624_Migrated Problem Gastro-esophageal reflux disease without esophagitis K21.9 confirmed 555746892 Problem Type 2 diabetes mellitus with hypoglycemia without coma E11.649 confirmed 76730266 Problem Urinary tract infection without hematuria, site unspecified N39.0 confirmed 55343518 Problem HTN (hypertension) I10 17 Jun, 2012 confirmed [id number] -693624_Migrated Problem Crohn disease K50.90 confirmed 071874 06 Problem Abnormal laboratory test result R89.9 confi rmed [id number] Problem Type 2 diabetes mellitus with ketoacidosis without coma E11.10 confirmed 696206667 Problem Anemia in other chronic diseases classified elsewhere D63.8 confirmed 741915900 ALLERGIES Allergen (clinical drug ingredient) Drug/Non Drug Allergy do cumented on EMR Reaction Allergy Type Onset Date Status sulfamethoxazole / trimethoprim Bactrim DS([facility] Code:[address]-9 1) Unknown Drug Allergy Active ENCOUNTERS from 1945 to 2022-07-30 Encounter Location Date Provider Diagnosis [facility] [id number] [place] [address] Jul, CANDIDO KEARNEY HTN (hypertension) I 10 IMMUNIZATIONS Vaccine Route Administration Date Status influenza (history) Unknown Apr 05, 2004 Administered pneumovax ppsv 23 (history) Unknown Feb 20, 2010 Admi nistered pneumovax ppsv 23 (history) Unknown Jun 01, 1998 Admi nistered influenza (history) Unknown Mar 03, 2012 Administered influenza (history) Unknown Mar 08, 2011 Administered influenza (history) Unknown Feb 17, 2009 Administered influenza (history) Unknown Apr 01, 2008 Administered PRIVATE TDAP (BOOSTRIX) IM Intramuscular October 21, 2019 Adminis tered 2nd Booster MODERNA COVID-19, mRNA, 0.25mL IM Intramuscular October 22, 2021 Administered PRIVATE FLUZONE HIGH DOSE QUAD 0.7ML (65 and UP) 2020 IM Int ramuscular Mar 27, 2021 Administered COVID-19 Moderna (history) Unknown August 21, 2020 Admin istered COVID-19 Moderna (history) Unknown Jul 24, 2020 Admin istered PRIVATE FLUZONE HIGH DOSE QUAD 0.7ML (65 and UP) 2019 IM Int ramuscular Feb 29, 2020 Administered td adult 2 Lf tetanus toxoid, preservative free, adsorbed (h istory) Unknown Jun 01, 1985 Administered prevnar pcv 13 (history) Unknown Feb 26, 2017 Adminis tered prevnar pcv 13 (history) Unknown Feb 13, 2015 Adminis tered influenza (history) Unknown Mar 15, 2019 Administered influenza (history) Unknown Feb 19, 2018 Administered influenza (history) Unknown Feb 26, 2017 Administered influenza (history) Unknown Feb 27, 2016 Administered 1st Booster MODERNA Bivalent, COVID-19, 0.5mL IM Intramuscular O 2021 Administered PRIVATE HIGH DOSE FLU 22-23 (FLUZONE HD) AGE 65YRS AND UP IM Intramuscular Mar 11, 2022 Administered Booster HRSA MODERNA, COVID-19, 0.25mL IM Intramuscular Mar 27, 2021 Administered influenza (history) Unknown Feb 13, [...] Notes Start Da te End Date Status Cranberry Not-Taking Januvia 100 MG TAKE ONE (1) TABLET BY MOUTH ONCE DAILY Not-Taking Metoprolol Succinate ER 25 MG TAKE 1 TABLET BY MOUTH ONCE DAILY for 3 0 Active Gabapentin 100 MG 1 capsule Orally Once a day Not-Taking Dicyclomine HCl 10 MG 2 capsules Orally 4 times a day for 90 days Active metFORMIN HCl 500 MG TAKE TWO (2) TABLETS BY MOUT H TWICE DAILY WITH MEALS for 90 Active Meloxicam 7.5 MG 1 tablet Oral Once a day for 30 days Not-Taking Doxycycline Hyclate 100 MG 1 tablet Orally 2 times a day for 7 d ays May, Active Nitrofurantoin Monohyd Macro 100 MG 1 capsule with yeny d Orally every 12 hrs for 5 days Jul, Active Gemfibrozil 600 MG TAKE ONE (1) TABLET BY MOUTH TWICE DAILY Active Macrobid 100 MG 1/2 capsule at bedtime with food Orally Once a day for 90 days given by urologist Active Isosorbide Mononitrate ER 60 MG TAKE ONE (1) TABLET BY MOUTH ONCE DAILY IN THE MORNING for 90 Active Stool Softener prn Not-Taking hydroCHLOROthiazide 12.5 MG 1 tablet in the morning Or ally Once a day for 30 days please deliver Jul, Active Iron 325 (65 Fe) MG 1 tablet Orally Once a day Active Albuterol Sulfate HFA 108 (90 Base) MCG/ACT 1 puff as needed Inhalation every 4- 6 hours as needed for 7 days May, Act xi traMADol HCl 50 MG 1 tablet Orally every 6 hours for 28 days Jul, Active Lancets - as directed subcutaneously Once a day fo r 30 days E11.9 Please dispense lancets that insurance will cover Jun, Active Acetaminophen 500 MG prn Acti ve Benzonatate 200 MG 1 capsule Orally Three times a day for 5 May, Active Pantoprazole Sodium 40 MG TAKE ONE (1) TABLET BY MOUTH ONCE DAILY for 30 Active Estradiol 0.1 MG/GM Vaginal for 84 Days Not-Taking Citalopram Hydrobromide 20 MG TAKE ONE (1) TABLET BY MOUTH ONCE DAILY for 90 Active Simvastatin 40 MG TAKE ONE (1) TABLET BY MOUTH ONCE DAILY for 90 Active Losartan Potassium 100 MG TAKE ONE (1) TABLET (100MG) BY MOUTH ONCE DAILY for 90 Active OneTouch Ultra - TEST FOUR (4) TIMES DAILY DIRECTED for 26 Not-Taking Glimepiride 4 MG TAKE 1 TABLET BY MOUTH TWICE DAILY WITH MEALS for 9 0 Not-Taking Vitamin C Not-Taking Tresiba FlexTouch 100 UNIT/ML INJECT 10 UNITS SUBCUTAN EOUSLY (UNDER THE SKIN) AT BEDTIME Active Blood Glucose System Del - as directed subcutaneously Once a day for 30 days E11.9 Please dispense glucometer that insurance will cover. Jun, Active Tamsulosin HCl 0.4 MG 1 capsule Orally Once a day Active predniSONE 5 MG TAKE ONE (1) TABLET BY MOUTH ONCE DAILY for 90 Active Ondansetron [address] ONE (1) TABLET ON THE TONGUE AND ALLOW TO DISSOLVE EVERY 8 HOURS NEEDED for 5 Active TRUEplus Pen [place] 32G X 4 MM USE DIRECTED for 90 Active Shingrix 50 MCG/0.5ML as directed Intramuscular once for 1 days September, Active Methenamine Hippurate 1 GM Oral for 90 Days Active PROCEDURES No Information RESULTS No Results REASON FOR VISIT Controlled Med Refill MEDICAL (GENERAL) HISTORY Type Description Date Medical [...] History blood sugar, infection Hospitalization History [facility] for [facility] Goals Section No Information Health Concerns No Information MEDICAL EQUIPMENT No Information MENTAL STATUS No Information FUNCTIONAL STATUS No Information ASSESSMENTS Encounter Date Diagnosis Assessment Notes Treatment Notes Treatm ent Clinical Notes Jul, HTN (hypertension) (ICD-10 - I10) PLAN OF TREATMENT Medication Medication Name Sig Start Date Stop Date predniSONE 5 MG TAKE ONE (1) TABLET BY MOUTH ONCE DAILY for 90 TRUEplus Pen [place] 32G X 4 MM USE DIRECTED for 90 Losartan Potassium 100 MG TAKE ONE (1) TABLET (100MG) BY MOUTH ONCE DAILY for 90 traMADol HCl 50 MG 1 tablet Orally every 6 hours for 28 days Jul, Benzonatate 200 MG 1 capsule Orally Three times a day for 5 20 D , 2021 hydroCHLOROthiazide 12.5 MG 1 tablet in the morning Or ally Once a day for 30 days Jul, Nitrofurantoin Monohyd Macro 100 MG 1 capsule with yeny d Orally every 12 hrs for 5 days Jul, Isosorbide Mononitrate ER 60 MG TAKE ONE (1) TABLET BY MOUTH ONCE DAILY IN THE MORNING for 90 Albuterol Sulfate HFA 108 (90 Base) MCG/ACT 1 puff as needed Inhalation every 4- 6 hours as needed for 7 days May, Doxycycline Hyclate 100 MG 1 tablet Orally 2 times a day for 7 days May, Metoprolol Succinate ER 25 MG TAKE 1 TABLET BY MOUTH ONCE DAILY for 30 metFORMIN HCl 500 MG TAKE TWO (2) TABLETS BY MOUT H TWICE DAILY WITH MEALS for 90 Next Appt Details Provider Name:CANDIDO Gomez CHRISTEL, 2022-07-30 10:20:00 AM, [address] [place] [address], [id number], [place], [address], Insurance Providers Payer Name Payer Address Payer Phone Insured Name Patient Relati onship to Insured Coverage Start Date Coverage End Date Subscriber Number Group Nu mber [facility] PART A [address] [facility] [phone] Pat Gross Self - patient is the insured [id number] [place] [address] [address] [facility] [id number] Pat Gross Self - patient is the insured 9 [id number] MEDICATIONS ADMINISTERED Medication Instructions Date of Administration Dosage Rocephin Jul, 1 g Rocephin Jul, 1 g Rocephin Jul, 1 g Rocephin September, 1 g DEXAMETHASONE 4MG/ML (PER 1 ML) Jul, 4 mg Rocephin Jul, 1 g Rocephin September, 1 g Rocephin Jul, 1 g Rocephin September, 1 g cefTRIAXone Sodium September, 1 g Rocephin Jul, 1 g Rocephin Jul, 1 g Rocephin September, 1 g DEPO MEDROL 80 MG/ML Jul, 80 mg
--- OUTSIDE RECORDS SUMMARY | 2022-09-17 16:31 | XMS REPORT ---
Author Author [facility] Address Unknown Phone Unavailable Care Team Providers Care Internal Sales Name Role Phone CANDIDO KEARNEY Unavailable PROBLEMS Type Condition ICD9-CM Code DSS70-TN Code Onset Dates Condition S tatus W/U Status Risk SNOMED Code Notes Problem Lymphocytosis D72.820 confirmed 20307 009 Problem Precordial pain R07.2 Jun, confirmed [id number] -[id number]_Migrated Problem Mild episode of recurrent major depressive disorder F33.0 confirmed 066636489 Problem History of anemia Z86.2 confirmed 27 4774071 Problem Type 2 diabetes mellitus wit hout complication, without long-term current use of insulin E11.9 confirmed 054078056 Problem Hyperlipidemia, unspecified hyperlipidemia type E78.5 confirmed 90343506 Problem Urinary hesitancy R39.11 confirmed 59 34523 Problem Gastroesophageal reflux disease without esophagitis K21.9 confirmed 814774804 Problem Nocturnal hypoglycemia E16.1 confirmed 649282991 Problem Recurrent urinary tract infection N39.0 con firmed 661310164 Problem CKD (chronic kidney disease) stage 2, GFR 60-89 ml/min N18.2 confirmed 791014964 Problem Crohn's disease, unspecified, without complications K50.90 confirmed 63288359 Problem Hypoglycemia unawareness associated with type 2 diabetes mellitus E11.649 confirmed 115888438 Problem Diastolic dysfunction I51.9 14 Jul, 2012 confirmed 1536562 -693624_Migrated Problem Gastro-esophageal reflux disease without esophagitis K21.9 confirmed 264757176 Problem Type 2 diabetes mellitus with hypoglycemia without coma E11.649 confirmed 39732282 Problem Urinary tract infection without hematuria, site unspecified N39.0 confirmed 78528837 Problem HTN (hypertension) I10 17 Jun, 2012 confirmed 65071164 -693624_Migrated Problem Crohn disease K50.90 confirmed 404455 06 Problem Abnormal laboratory test result R89.9 confi rmed 104057095 Problem Type 2 diabetes mellitus with ketoacidosis without coma E11.10 confirmed 606375529 Problem Anemia in other chronic diseases classified elsewhere D63.8 confirmed 694710691 ALLERGIES Allergen (clinical drug ingredient) Drug/Non Drug Allergy do cumented on EMR Reaction Allergy Type Onset Date Status sulfamethoxazole / trimethoprim Bactrim DS([facility] Code:[address]-3 1) Unknown Drug Allergy Active ENCOUNTERS from 1945 to 2022-07-24 Encounter Location Date Provider Diagnosis [id number] [place] [address] Jul, CANDIDO KEARNEY IMMUNIZATIONS Vaccine Route Administration Date Status PRIVATE TDAP (BOOSTRIX) IM Intramuscular October 21, 2019 Adminis tered PRIVATE FLUZONE HIGH DOSE QUAD 0.7ML (65 and UP) 2020 IM Int ramuscular Mar 27, 2021 Administered 2nd Booster MODERNA COVID-19, mRNA, 0.25mL IM Intramuscular October 22, 2021 Administered influenza (history) Unknown Feb 17, 2009 Administered influenza (history) Unknown Apr 01, 2008 Administered influenza (history) Unknown Apr 05, 2004 Administered pneumovax ppsv 23 (history) Unknown Feb 20, 2010 Admi nistered prevnar pcv 13 (history) Unknown Feb 13, 2015 Adminis tered influenza (history) Unknown Feb 27, 2016 Administered influenza (history) Unknown Feb 13, 2015 Administered influenza (history) Unknown Feb 16, 2014 Administered influenza (history) Unknown Feb 24, 2013 Administered influenza (history) Unknown Mar 03, 2012 Administered td adult 2 Lf tetanus toxoid, preservative free, adsorbed (h istory) Unknown Jun 01, 1985 Administered pneumovax ppsv 23 (history) Unknown Jun 01, 1998 Admi nistered prevnar pcv 13 (history) Unknown Feb 26, 2017 Adminis tered Booster HRSA MODERNA, COVID-19, 0.25mL IM Intramuscular Mar 27, 2021 Administered 1st Booster MODERNA Bivalent, COVID-19, 0.5mL IM Intramuscular O 2021 Administered PRIVATE HIGH DOSE FLU 22-23 (FLUZONE HD) AGE 65YRS AND UP IM Intramuscular Mar 11, 2022 Administered COVID-19 Moderna (history) Unknown August 21, 2020 Admin istered influenza (history) Unknown Feb 26, 2017 Administered influenza (history) Unknown Feb 19, 2018 Administered PRIVATE FLUZONE HIGH DOSE QUAD 0.7ML (65 and UP) 2019 IM Int ramuscular Feb 29, 2020 Administered COVID-19 Moderna (history) Unknown Jul 24, 2020 Admin istered influenza (history) Unknown Mar 15, 2019 Administered influenza (history) Unknown Mar 08, 2011 Administered SOCIAL HISTORY Sex Assigned At : [...] (1) TABLET BY MOUTH ONCE DAILY Not-Taking traMADol HCl 50 MG 1 tablet Orally every 6 hours for 28 days Jun, Active Gabapentin 100 MG 1 capsule Orally [...] day for 7 d ays May, Active Isosorbide Mononitrate ER 60 MG TAKE ONE (1) TABLET BY MOUTH ONCE DAILY IN THE MORNING for 90 Active Gemfibrozil 600 MG TAKE ONE (1) TABLET BY MOUTH TWICE DAILY Active Macrobid 100 MG 1/2 capsule at bedtime with food Orally Once a day for 90 days given by urologist Active Metoprolol Succinate ER 25 MG TAKE 1 TABLET BY MOUTH ONCE DAILY for 3 0 Active Stool Softener prn Not-Taking Iron 325 (65 Fe) MG 1 tablet Orally Once a day Active Albuterol Sulfate HFA 108 (90 Base) MCG/ACT 1 puff as needed Inhalation every 4- 6 hours as needed for 7 days May, Act xi hydroCHLOROthiazide 12.5 MG 1 tablet in the morning Or ally Once a day for 30 days please deliver Jul, Active Lancets - as directed subcutaneously [...] HOURS NEEDED for 5 Active TRUEplus Pen [place] 32G X 4 MM USE DIRECTED for 90 Active Shingrix 50 MCG/0.5ML as directed Intramuscular once for 1 days September, Active Methenamine Hippurate 1 GM Oral for 90 Days Active PROCEDURES No Information RESULTS No Results REASON FOR VISIT FYI MEDICAL (GENERAL) HISTORY Type Description Date Medical [...] History blood sugar, infection Hospitalization History [facility] for back pain Goals Section No Information Health Concerns No Information MEDICAL EQUIPMENT No Information MENTAL STATUS No Information FUNCTIONAL STATUS No Information ASSESSMENTS No Information PLAN OF TREATMENT Medication Medication Name Sig Start Date Stop Date predniSONE 5 MG TAKE ONE (1) TABLET BY MOUTH ONCE DAILY for 90 TRUEplus Pen [place] 32G X 4 MM USE DIRECTED for 90 Losartan Potassium 100 MG TAKE ONE (1) TABLET (100MG) BY MOUTH ONCE DAILY for 90 hydroCHLOROthiazide 12.5 MG 1 tablet in the morning Or ally Once a day for 30 days Jul, Benzonatate 200 MG 1 capsule Orally Three times a day for 5 20 D , 2021 Isosorbide Mononitrate ER 60 MG TAKE ONE (1) TABLET BY MOUTH ONCE DAILY IN THE MORNING for 90 Metoprolol Succinate ER 25 MG TAKE 1 TABLET BY MOUTH ONCE DAILY for 30 Albuterol Sulfate HFA 108 (90 Base) MCG/ACT 1 puff as needed Inhalation every 4- 6 hours as needed for 7 days May, Doxycycline Hyclate 100 MG 1 tablet Orally 2 times a day for 7 days May, traMADol HCl 50 MG 1 tablet Orally every 6 hours for 28 days Jun, metFORMIN HCl 500 MG TAKE TWO (2) TABLETS BY MOUT H TWICE DAILY WITH MEALS for 90 Next Appt Details Provider Name:CANDIDO Gomez CHRISTEL, 2022-07-30 10:20:00 AM, [address] [place] [address], [id number], [place], [address], Insurance Providers Payer Name Payer Address Payer Phone Insured Name Patient Relati onship to Insured Coverage Start Date Coverage End Date Subscriber Number Group Grace VILLALTA Medicare Complete [place] PLAN [address] [address] [facility] [address] Pat Gross Self - patient is the insured 9 [id number] [facility] PART A [address] [facility] [phone] Pat Gross Self - patient is the insured [id number] MEDICATIONS ADMINISTERED Medication Instructions Date of Administration Dosage Rocephin September, 1 g Rocephin September, 1 g Rocephin Jul, 1 g Rocephin Jul, 1 g Rocephin Jul, 1 g Rocephin Jul, 1 g DEPO MEDROL 80 MG/ML Jul, 80 mg cefTRIAXone Sodium September, 1 g Rocephin Jul, 1 g DEXAMETHASONE 4MG/ML (PER 1 ML) Jul, 4 mg Rocephin September, 1 g Rocephin September, 1 g Rocephin Jul, 1 g Rocephin Jul, 1 g
--- OUTSIDE RECORDS SUMMARY | 2022-09-17 16:31 | XMS REPORT ---
Author Author [facility] Address Unknown Phone Unavailable Care Team Providers Care Corporate Real Estate Manager Name Role Phone CANDIDO KEARNEY Unavailable PROBLEMS Type Condition ICD9-CM Code RZW53-BD Code Onset Dates Condition S tatus W/U Status Risk SNOMED Code Notes Problem Lymphocytosis D72.820 confirmed 20391 009 Problem Precordial pain R07.2 Jun, confirmed [id number] -493624_Migrated Problem Mild episode of recurrent major depressive disorder F33.0 confirmed 185026882 Problem History of anemia Z86.2 confirmed 27 3394364 Problem Type 2 diabetes mellitus wit hout complication, without long-term current use of insulin E11.9 confirmed 270620924 Problem Hyperlipidemia, unspecified hyperlipidemia type E78.5 confirmed 22925269 Problem Urinary hesitancy R39.11 confirmed 59 77861 Problem Gastroesophageal reflux disease without esophagitis K21.9 confirmed 866749213 Problem Nocturnal hypoglycemia E16.1 confirmed 768152254 Problem Recurrent urinary tract infection N39.0 con firmed 134684401 Problem CKD (chronic kidney disease) stage 2, GFR 60-89 ml/min N18.2 confirmed 677519859 Problem Crohn's disease, unspecified, without complications K50.90 confirmed 97288317 Problem Hypoglycemia unawareness associated with type 2 diabetes mellitus E11.649 confirmed 482706084 Problem Diastolic dysfunction I51.9 14 Jul, 2012 confirmed 1818604 -693624_Migrated Problem Gastro-esophageal reflux disease without esophagitis K21.9 confirmed 028428921 Problem Type 2 diabetes mellitus with hypoglycemia without coma E11.649 confirmed 40385256 Problem Urinary tract infection without hematuria, site unspecified N39.0 confirmed 02986710 Problem HTN (hypertension) I10 17 Jun, 2012 confirmed 92972415 -693624_Migrated Problem Crohn disease K50.90 confirmed 939156 06 Problem Abnormal laboratory test result R89.9 confi rmed 152683853 Problem Type 2 diabetes mellitus with ketoacidosis without coma E11.10 confirmed 101237297 Problem Anemia in other chronic diseases classified elsewhere D63.8 confirmed 204701561 ALLERGIES Allergen (clinical drug ingredient) Drug/Non Drug Allergy do cumented on EMR Reaction Allergy Type Onset Date Status sulfamethoxazole / trimethoprim Bactrim DS([facility][NOTE 3] Code:[address]-2 1) Unknown Drug Allergy Active ENCOUNTERS from 1945 to 2022-09-07 Encounter Location Date Provider Diagnosis [id number] [place] [address] Aug, CANDIDOVIDYA KEARNEY IMMUNIZATIONS Vaccine Route Administration Date Status 2nd Booster MODERNA COVID-19, mRNA, 0.25mL IM Intramuscular October 22, 2021 Administered PRIVATE HIGH DOSE FLU -23 (FLUZONE HD) AGE 65YRS AND UP IM Intramuscular Mar 11, 2022 Administered 1st Booster MODERNA Bivalent, COVID-19, 0.5mL IM Intramuscular O 2021 Administered COVID-19 Moderna (history) Unknown Jul 24, 2020 Admin istered COVID-19 Moderna (history) Unknown August 21, 2020 Admin istered PRIVATE FLUZONE HIGH DOSE QUAD 0.7ML (65 and UP) 2020 IM Int ramuscular Mar 27, 2021 Administered Booster HRSA MODERNA, COVID-19, 0.25mL IM Intramuscular Mar 27, 2021 Administered PRIVATE TDAP (BOOSTRIX) IM Intramuscular October 21, 2019 Adminis tered influenza (history) Unknown Feb 17, 2009 Administered influenza (history) Unknown Apr 01, 2008 Administered influenza (history) Unknown Apr 05, 2004 Administered td adult 2 Lf tetanus toxoid, preservative free, adsorbed (h istory) Unknown Jun 01, 1985 Administered pneumovax ppsv 23 (history) Unknown Feb 20, 2010 Admi nistered pneumovax ppsv 23 (history) Unknown Jun 01, 1998 Admi nistered prevnar pcv 13 (history) Unknown Feb 26, 2017 Adminis tered prevnar pcv 13 (history) Unknown Feb 13, 2015 Adminis tered influenza (history) Unknown Feb 16, 2014 Administered influenza (history) Unknown Feb 13, 2015 Administered influenza (history) Unknown Feb 27, 2016 Administered influenza (history) Unknown Feb 26, 2017 Administered influenza (history) Unknown Mar 08, 2011 Administered influenza (history) Unknown Mar 03, 2012 Administered influenza (history) Unknown Feb 24, 2013 Administered influenza (history) Unknown Feb 19, 2018 Administered influenza (history) Unknown Mar 15, 2019 Administered PRIVATE FLUZONE HIGH DOSE QUAD 0.7ML (65 and UP) 2019 IM Int ramuscular Feb 29, 2020 Administered SOCIAL HISTORY Sex Assigned At : [...] 0.1 MG/GM Vaginal for 84 Days Not-Taking Acetaminophen 500 MG prn Acti ve Metoprolol Succinate ER 25 MG TAKE 1 TABLET BY MOUTH ONCE DAILY Active TRUEplus Pen [place] 32G X 4 MM USE DIRECTED for 90 Active OneTouch Ultra - TEST FOUR (4) TIMES DAILY DIRECTED for 26 Not-Taking predniSONE 5 MG TAKE ONE (1) TABLET BY MOUTH ONCE DAILY for 90 Active Cranberry Not-Taking Meloxicam 7.5 MG 1 tablet Oral Once a day for 30 days Not-Taking Simvastatin 40 MG TAKE ONE (1) TABLET BY MOUTH ONCE DAILY for 90 Active Tamsulosin HCl 0.4 MG 1 capsule Orally Once a day Active Methenamine Hippurate 1 GM Oral Active hydroCHLOROthiazide 12.5 MG 1 tablet in the morning Or ally Once a day for 30 days Active Dicyclomine HCl 10 MG 2 capsules Orally 4 times a day for 90 days Active Vitamin C Not-Taking Blood Glucose System Del - as directed subcutaneously Once a day for 30 days E11.9 Please dispense glucometer that insurance will cover. Jun, Active Glimepiride 4 MG TAKE 1 TABLET BY MOUTH TWICE DAILY WITH MEALS for 9 0 Not-Taking Lancets - as directed subcutaneously Once a day fo r 30 days E11.9 Please dispense lancets that insurance will cover Jun, Active Ondansetron [address] ONE (1) TABLET ON THE TONGUE AND ALLOW TO DISSOLVE EVERY 8 HOURS NEEDED for 5 Active Januvia 100 MG TAKE ONE (1) TABLET BY MOUTH ONCE DAILY Not-Taking Pantoprazole Sodium 40 MG TAKE ONE (1) TABLET BY MOUTH ONCE DAILY for 30 Active Citalopram Hydrobromide 20 MG TAKE ONE (1) TABLET BY MOUTH ONCE DAILY for 90 Active Gabapentin 100 MG 1 capsule Orally Once a day Not-Taking Isosorbide Mononitrate ER 60 MG TAKE ONE (1) TABLET BY MOUTH ONCE DAILY IN THE MORNING Active Albuterol Sulfate HFA 108 (90 Base) MCG/ACT 1 puff as needed Inhalation every 4- 6 hours as needed for 7 days May, Act xi Stool Softener prn Not-Taking Gemfibrozil 600 MG TAKE ONE (1) TABLET BY MOUTH TWICE DAILY Active Losartan Potassium 100 MG TAKE ONE (1) TABLET (100MG) BY MOUTH ONCE D AILY Active Iron 325 (65 Fe) MG 1 tablet Orally Once a day Active metFORMIN HCl 500 MG TAKE TWO (2) TABLETS BY MOUTH TWICE DAILY WITH M EALS Active Macrobid 100 MG 1 capsule with food Orally Once a day given by urolog ist Active Tresiba FlexTouch 100 UNIT/ML INJECT 10 UNITS SUBCUTAN EOUSLY (UNDER THE SKIN) AT BEDTIME Active Nitrofurantoin Monohyd Macro 100 MG 1 capsule with yeny d Orally every 12 hrs for 5 days Jul, Active traMADol HCl 50 MG 1 tablet Orally every 6 hours for 28 days Jul, Active PROCEDURES No Information RESULTS No Results REASON FOR VISIT Controlled Med Refill 09/26 MEDICAL (GENERAL) HISTORY Type Description Date Medical [...] Medication Name Sig Start Date Stop Date Macrobid 100 MG 1 capsule with food Orally Once a day traMADol HCl 50 MG 1 tablet Orally every 6 hours for 28 days Jul, metFORMIN HCl 500 MG TAKE TWO (2) TABLETS BY MOUTH TWICE DAILY W ITH MEALS Tresiba FlexTouch 100 UNIT/ML INJECT 10 UNITS SUBCUTAN EOUSLY (UNDER THE SKIN) AT BEDTIME Pantoprazole Sodium 40 MG TAKE ONE (1) TABLET BY MOUTH ONCE JES Y for 30 Isosorbide Mononitrate ER 60 MG TAKE ONE (1) TABLET BY MOUTH ONCE DAILY IN THE MORNING Citalopram Hydrobromide 20 MG TAKE ONE (1) TABLET BY MOUTH ONCE DAILY for 90 Gemfibrozil 600 MG TAKE ONE (1) TABLET BY MOUTH TWICE DAILY Simvastatin 40 MG TAKE ONE (1) TABLET BY MOUTH ONCE DAILY for 90 Losartan Potassium 100 MG TAKE ONE (1) TABLET (100MG) BY MOUTH O NCE DAILY hydroCHLOROthiazide 12.5 MG 1 tablet in the morning Or ally Once a day for 30 days Methenamine Hippurate 1 GM Oral Metoprolol Succinate ER 25 MG TAKE 1 TABLET BY MOUTH ONCE DAILY Next Appt Details Provider Name:CANDIDO KEARNEY, 2022-12-05 11:20:00 AM, [address] [place], [address], Insurance Providers Payer Name Payer Address Payer Phone Insured Name Patient Relati onship to Insured Coverage Start Date Coverage End Date Subscriber Number Group Nu mber AARP Medicare Complete [place] PLAN [address] [address] [facility] [phone] Pat Gross Self - patient is the insured 9 [id number] [facility] PART A [address] [facility] [address] Pat Gross Self - patient is the insured [id number] MEDICATIONS ADMINISTERED Medication Instructions Date of Administration Dosage Rocephin Jul, 1 g Rocephin Jul, 1 g Rocephin Jul, 1 g Rocephin Jul, 1 g DEXAMETHASONE 4MG/ML (PER 1 ML) Jul, 4 mg cefTRIAXone Sodium September, 1 g Rocephin September, 1 g Rocephin September, 1 g Rocephin September, 1 g Rocephin September, 1 g Rocephin Jul, 1 g Rocephin Jul, 1 g Rocephin Jul, 1 g DEPO MEDROL 80 MG/ML Jul, 80 mg
--- OUTSIDE RECORDS SUMMARY | 2022-09-17 16:31 | XMS REPORT ---
Author Author [facility] Address Unknown Phone Unavailable Care Team Providers Care Concessionist Name Role Phone CANDIDO KEARNEY Unavailable PROBLEMS Type Condition ICD9-CM Code SMD18-XD Code Onset Dates Condition S tatus W/U Status Risk SNOMED Code Notes Problem Lymphocytosis D72.820 confirmed 83105 009 Problem Precordial pain R07.2 Jun, confirmed [id number] -893624_Migrated Problem Mild episode of recurrent major depressive disorder F33.0 confirmed 460013087 Problem History of anemia Z86.2 confirmed 27 8435023 Problem Type 2 diabetes mellitus wit hout complication, without long-term current use of insulin E11.9 confirmed 354361209 Problem Hyperlipidemia, unspecified hyperlipidemia type E78.5 confirmed 10954790 Problem Urinary hesitancy R39.11 confirmed 59 16600 Problem Gastroesophageal reflux disease without esophagitis K21.9 confirmed 593915666 Problem Nocturnal hypoglycemia E16.1 confirmed 664337630 Problem Recurrent urinary tract infection N39.0 con firmed 942066861 Problem CKD (chronic kidney disease) stage 2, GFR 60-89 ml/min N18.2 confirmed 281058519 Problem Crohn's disease, unspecified, without complications K50.90 confirmed 54863075 Problem Hypoglycemia unawareness associated with type 2 diabetes mellitus E11.649 confirmed 181346757 Problem Diastolic dysfunction I51.9 14 Jul, 2012 confirmed 8511544 -693624_Migrated Problem Gastro-esophageal reflux disease without esophagitis K21.9 confirmed 758447595 Problem Type 2 diabetes mellitus with hypoglycemia without coma E11.649 confirmed 28074894 Problem Urinary tract infection without hematuria, site unspecified N39.0 confirmed 19467672 Problem HTN (hypertension) I10 17 Jun, 2012 confirmed 39728496 -693624_Migrated Problem Crohn disease K50.90 confirmed 489428 06 Problem Abnormal laboratory test result R89.9 confi rmed 981234914 Problem Type 2 diabetes mellitus with ketoacidosis without coma E11.10 confirmed 591617107 Problem Anemia in other chronic diseases classified elsewhere D63.8 confirmed 532711254 ALLERGIES Allergen (clinical drug ingredient) Drug/Non Drug Allergy do cumented on EMR Reaction Allergy Type Onset Date Status sulfamethoxazole / trimethoprim Bactrim DS([facility] Code:[address]-6 1) Unknown Drug Allergy Active ENCOUNTERS from 1945 to 2022-08-02 Encounter Location Date Provider Diagnosis [id number] [place] [address] 30 Jul, 2020 CANDIDO CHRISTEL Urinary pain R30.9 IMMUNIZATIONS Vaccine Route Administration Date Status 2nd Booster MODERNA COVID-19, mRNA, 0.25mL IM Intramuscular October 22, 2021 Administered PRIVATE HIGH DOSE FLU 22-23 [...] Hippurate 1 GM Oral Active TRUEplus Pen [place] 32G X 4 MM USE DIRECTED for [...] MG 1 tablet Orally every 6 hours 28 Jul, 2 023 Active Januvia 100 MG [...] Information RESULTS No Results REASON FOR VISIT Requests return call MEDICAL (GENERAL) HISTORY Type Description Date Medical [...] Treatment Notes Treatm ent Clinical Notes Jul, Urinary pain (ICD-10 - R30.9) PLAN OF TREATMENT Medication Medication Name Sig [...] BY MOUTH ONCE DAILY IN THE MORNING Future Test Test Name Order Date DIP (IN HOUSE) [id number] Next Appt Details Provider Name:CANDIDO KEARNEY, 2022-12-05 11:20:00 AM, [address] [place], [address], Insurance Providers Payer Name Payer Address Payer Phone Insured Name Patient Relati onship to Insured Coverage Start Date Coverage End Date Subscriber Number Group Nu mber [facility]PS [facility] PART A [address] [facility] [phone] Pat Gross Self - patient is the insured [id number] AARP Medicare Complete [place] PLAN [address] [address] [facility] [id number] Pat Gross Self - patient is the insured 9 [id number] MEDICATIONS ADMINISTERED Medication Instructions Date of Administration [...]
--- OUTSIDE RECORDS SUMMARY | 2022-09-17 16:31 | XMS REPORT ---
Author Author [facility] Address Unknown Phone Unavailable Care Team Providers Care [place] Name Role Phone CANDIDO KEARNEY Unavailable PROBLEMS Type Condition ICD9-CM Code KET39-XK Code Onset Dates Condition S tatus W/U Status Risk SNOMED Code Notes Problem Lymphocytosis D72.820 confirmed 71320 009 Problem Precordial pain R07.2 Jun, confirmed 12845335 -053624_Migrated Problem Mild episode of recurrent major depressive disorder F33.0 confirmed 174934229 Problem History of anemia Z86.2 confirmed 27 8021056 Problem Type 2 diabetes mellitus wit hout complication, without long-term current use of insulin E11.9 confirmed 570746221 Problem Hyperlipidemia, unspecified hyperlipidemia type E78.5 confirmed 69864894 Problem Urinary hesitancy R39.11 confirmed 59 47308 Problem Gastroesophageal reflux disease without esophagitis K21.9 confirmed 065523903 Problem Nocturnal hypoglycemia E16.1 confirmed 683149111 Problem Recurrent urinary tract infection N39.0 con firmed 243421660 Problem CKD (chronic kidney disease) stage 2, GFR 60-89 ml/min N18.2 confirmed 288771022 Problem Crohn's disease, unspecified, without complications K50.90 confirmed 84801508 Problem Hypoglycemia unawareness associated with type 2 diabetes mellitus E11.649 confirmed 712787681 Problem Diastolic dysfunction I51.9 14 Jul, 2012 confirmed 5560522 -693624_Migrated Problem Gastro-esophageal reflux disease without esophagitis K21.9 confirmed 756212140 Problem Type 2 diabetes mellitus with hypoglycemia without coma E11.649 confirmed 51780196 Problem Urinary tract infection without hematuria, site unspecified N39.0 confirmed 51203188 Problem HTN (hypertension) I10 17 Jun, 2012 confirmed 74602501 -693624_Migrated Problem Crohn disease K50.90 confirmed 259302 06 Problem Abnormal laboratory test result R89.9 confi rmed 235709958 Problem Type 2 diabetes mellitus with ketoacidosis without coma E11.10 confirmed 501017511 Problem Anemia in other chronic diseases classified elsewhere D63.8 confirmed 927076836 ALLERGIES Allergen (clinical drug ingredient) Drug/Non Drug Allergy do cumented on EMR Reaction Allergy Type Onset Date Status sulfamethoxazole / trimethoprim Bactrim DS([facility] Code:[address]-0 1) Unknown Drug Allergy Active ENCOUNTERS from 1945 to 2022-08-30 Encounter Location Date Provider Diagnosis [id number] [place] [address] Aug, CANDIDOVIDYA KEARNEY IMMUNIZATIONS Vaccine Route Administration [...] BY MOUTH ONCE DAILY Active TRUEplus Pen [place] 32G X 4 MM USE DIRECTED for [...] Information RESULTS No Results REASON FOR VISIT need a call back MEDICAL (GENERAL) HISTORY Type Description Date Medical [...] Name:CANDIDO KEARNEY, 2022-12-05 11:20:00 AM, [address] [place], [address], Insurance Providers Payer Name Payer Address Payer Phone Insured Name Patient Relati onship to Insured Coverage Start Date Coverage End Date Subscriber Number Group Nu mber AARP Medicare Complete [place] PLAN [address] [facility] [phone] Pat Gross Self - patient is the insured 9 [id number] [facility] PART A [address] [facility] [phone] Pat Gross Self - patient is the insured [id number] MEDICATIONS ADMINISTERED Medication Instructions Date of Administration [...]
[2022-09-17] MEDS ORDERED: polyethylene glycoL POWDER 17 GM (MIRALAX) PACK PO PRN (16:45)
[2022-09-17] MEDS ORDERED: diphenhydrAMINE 25 MG TAB (BENADRYL) PO PRN (16:45)
[2022-09-17] MEDS ORDERED: diphenhydrAMINE 50 MG/ML INJ (BENADRYL) IVP PRN (16:45)
[2022-09-17] MEDS ORDERED: HYDROmorphone 2 MG/ML VIAL (DILAUDID) IV PRN (16:45)
[2022-09-17] MEDS ORDERED: VANCOMYCIN INJECTION 0.1 MG in NS (IVPB) 250 ML IV SCH (16:45)
[2022-09-17] MEDS ORDERED: MELATONIN 3 MG TABLET PO PRN (16:45)
[2022-09-17] MEDS ORDERED: ONDANSETRON 4 MG (ZOFRAN) ORAL DISSOLVE TAB PO PRN (16:45)
[2022-09-17] MEDS ORDERED: ONDANSETRON 4 MG/2 ML (SDV) Z0FRAN IV PRN (16:45)
[2022-09-17] MEDS ORDERED: BISACODYL 10 MG SUPP (DULCOLAX) PR PRN (16:45)
[2022-09-17] MEDS ORDERED: ALPRAZolam 0.5 MG (XANAX) TAB PO PRN (16:45)
[2022-09-17] MEDS ORDERED: ANTACID SUSP 30 ML UDC (MYLANTA) PO PRN (16:45)
[2022-09-17 16:46] VITALS: BP 121/58
[2022-09-17] MEDS ORDERED: RT-ALBUTEROL SULF 2.5 MG/3 ML PRE-MIX VIAL INH PRN (17:00)
[2022-09-17] MEDS: ENOXAPARIN 40 MG/0.4 ML (LOVENOX) SYR SC SCH (17:33)
[2022-09-17] MEDS: NS IV 1000 ML 1,000 ML IV SCH (17:33)
[2022-09-17] MEDS: MEROPENEM 500 MG in NS (IVPB) 100 ML IV SCH (17:33)
[2022-09-17] MEDS ORDERED: VANCOMYCIN 1250MG/250ML PREMIX 250 ML IV NR (18:00)
[2022-09-17] MEDS: ACETAMINOPHEN 325 MG TABLET PO PRN (18:53)
[2022-09-17 19:37] VITALS: BP 146/64
[2022-09-17] MEDS: DOCUSATE SODIUM 100 MG (COLACE) CAP PO SCH (19:37)
[2022-09-17] MEDS: inSUlin ASPART (NovoLOG) 1 UNIT/0.01 ML (CHARGE PER UNIT) SC SCH (21:37)
[2022-09-18] VITALS (7 sets, daily range): BP systolic 126–153; BP diastolic 63–76
[2022-09-18] MEDS: MEROPENEM 500 MG in NS (IVPB) 100 ML IV SCH ×3 (00:46→17:45)
[2022-09-18] MEDS: NS IV 1000 ML 1,000 ML IV SCH ×2 (04:54→08:14)
[2022-09-18] MEDS: inSUlin ASPART (NovoLOG) 1 UNIT/0.01 ML (CHARGE PER UNIT) SC SCH ×5 (05:17→21:35)
[2022-09-18 05:37] LABS: BASOPHILS % (AUTO) 0 % (0-10); EOSINOPHILS # (AUTO) 0.1 10^3/uL (0.0-0.3); EOSINOPHILS % (AUTO) 1 % (0-10); HEMATOCRIT 28 % (35-52); HEMOGLOBIN 9.2 g/dL (11.5-16.0); LYMPHOCYTES # (AUTO) 2.8 10^3/uL (1.0-4.0); LYMPHOCYTES % (AUTO) 38 % (12-44); MEAN CORPUSCULAR HEMOGLOBIN 29 pg (25-34); MEAN CORPUSCULAR HGB CONC 33 g/dL (32-36); MEAN CORPUSCULAR VOLUME 88 fL (80-99); MEAN PLATELET VOLUME 9.7 fL (9.0-12.2); MONOCYTES # (AUTO) 0.7 10^3/uL (0.0-1.0); MONOCYTES % (AUTO) 9 % (0-12); NEUTROPHILS # (AUTO) 3.9 10^3/uL (1.8-7.8); NEUTROPHILS % (AUTO) 52 % (42-75); PLATELET COUNT 319 10^3/uL (130-400); WHITE BLOOD COUNT 7.5 10^3/uL (4.3-11.0)
[2022-09-18 05:48] LABS: ALBUMIN 3.3 GM/DL (3.2-4.5); POTASSIUM 3.3 MMOL/L (3.6-5.0)
[2022-09-18 05:49] LABS: CALCIUM 8.6 MG/DL (8.5-10.1)
[2022-09-18 05:51] LABS: TOTAL PROTEIN 5.6 GM/DL (6.4-8.2)
[2022-09-18 05:52] LABS: BILIRUBIN,TOTAL 0.2 MG/DL (0.1-1.0)
[2022-09-18 05:54] LABS: CREATININE SERUM 0.95 MG/DL (0.60-1.30)
[2022-09-18] MEDS: DOCUSATE SODIUM 100 MG (COLACE) CAP PO SCH ×3 (09:08→20:14)
[2022-09-18] MEDS ORDERED: SIMV40TA25 PO (10:15)
[2022-09-18] MEDS ORDERED: MTP25TSR PO (10:15)
[2022-09-18] MEDS ORDERED: GEMF600T88 PO (10:15)
[2022-09-18] MEDS ORDERED: TMSL.4C PO (10:15)
[2022-09-18] MEDS ORDERED: FERR-84 PO (10:15)
[2022-09-18] MEDS ORDERED: PRED5TAB PO (10:15)
[2022-09-18] MEDS ORDERED: HYDR12.56 PO (10:15)
[2022-09-18] MEDS ORDERED: PANT40TA52 PO (10:15)
[2022-09-18] MEDS ORDERED: DICY10CA12 PO (10:15)
[2022-09-18] MEDS ORDERED: LOSA100T57 PO (10:15)
[2022-09-18] MEDS ORDERED: ISOS60TA63 PO (10:15)
[2022-09-18] MEDS ORDERED: CITA20TA9 PO (10:15)
[2022-09-18] MEDS ORDERED: METF-397 PO (10:15)
[2022-09-18] MEDS ORDERED: TRAM50TA3 PO (10:15)
[2022-09-18] MEDS ORDERED: METH1TAB21 PO (10:15)
[2022-09-18] MEDS ORDERED: INSU100I32 SQ (10:15)
[2022-09-18] MEDS ORDERED: ACET-2267 PO (10:15)
--- NOTE | 2022-09-18 10:15 | Physical Therapy Evaluation ---
PT Evaluation-General Medical Diagnosis Admission Date Sep 17, 2022 at 16:24 Medical Diagnosis: Dehydration Onset Date: Sep 17, 2022 Therapy Diagnosis Therapy Diagnosis: debility/weakness Height/Weight Height (Feet): 5 Height (Inches): 5.00 Weight (Pounds): 132 Precautions Precautions/Isolations: Fall Prevention, Standard Precautions Weight Bear Status Right Lower Extremity: Right Full Weight Bearing Left Lower Extremity: Left Full Weight Bearing Referral Physician: Marissa Reason for Referral: Evaluation/Treatment Medical History Pertinent Medical History: CAD, DM, Dementia, HTN, Neuropathy Current History ER secondary to not feeling well/burning with urination Reviewed History: Yes Social History Home: Single Level Current Living Status: Spouse Prior Prior Level of Function SCALE: Activities may be completed with or without assistive devices. 3-Wutlicjmni-uooefwz completes the activity by him/herself with no assistance from a helper. 5-Set-up or Clean-up Assistance-helper sets up or cleans up; patient completes activity. Tina assists only prior to or following the activity. 4-Supervision or Touching Assistance-helper provides verbal cues and/or touching/steadying and/or contact guard assistance as patient completes activity. Assistance may be provided throughout the activity or intermittently. 3-Partial/Moderate Assistance-helper does LESS THAN HALF the effort. Tina lifts, holds or supports trunk or limbs, but provides less than half the effort. 2-Substantial/Maximal Assistance-helper does MORE THAN HALF the effort. Tina lifts or holds trunk or limbs and provides more than half the effort. 8-Wslvzzdfl-ciibpy does ALL the effort. Patient does none of the effort to complete the activity. Or, the assistance of 2 or more helpers is required for the patient to complete the activity. If activity was not attempted, code reason: 7-Patient Refused. 9-Not Applicable-not attempted and the patient did not perform the activity before the current illness, exacerbation or injury. 10-Not Attempted due to Environmental Limitations-(lack of equipment, weather restraints, etc.). 88-Not Attempted due to Medical Conditions or Safety Concerns. Bed Mobility: 6 Transfers (B,C,W/C): 6 Gait: 6 Indoor Mobility (Ambulation): Independent Prior Devices Use: Walker PT Evaluation-Current Subjective Patient agrees to PT. Objective Patient Orientation: Person, Time, Situation Attachments: IV ROM/Strength ROM Lower Extremities bilateral LE WFL Strength Lower Extremities 3-/5 grossly bilateral LE all planes Integumentary/Posture Bladder Incontinence: Yes Posture WFL Neuromuscular (Tone, Coordination, Reflexes) grossly intact Sensory Vision: Wears Glasses Hearing: Functional Transfers Lying to Sitting/Side of Bed(Q: 4 Sit to Stand (QC): 3 Chair/Ekz-ud-Obgxo Xfer(QC): 3 Gait Mode of Locomotion: Walk Anticipated Mode of Locomotion: Walk Walk 10 feet (QC): 3 Walk 50 ft with 2 Turns(QC): 7 Gait Assistive Device: FWW Comments/Gait Description slightly unsteady with PT correct. Balance Sitting Static: Normal Sitting Dynamic: Normal Standing Static: Fair Standing Dynamic: Fair Assessment/Needs Patient will benefit from skilled PT to address functional strength and mobility to improve current LOF to safely return to home at maximum LOF. Rehab Potential: Fair PT Supervisor Plastering Goals Assisted Goals PT Supervisor Plastering Goals Time Frame: October 04, 2022 Roll Left & Right (QC): 6 Sit to Lying (QC): 6 Lying-Sitting on Side/Bed(QC): 6 Sit to Stand (QC): 6 Chair/Jvt-do-Wexre Xfer(QC): 6 Toilet Transfer (QC): 6 Walk 10 feet (QC): 4 Walk 50ft with 2 Turns (QC): 4 Walk 150 ft (QC): 4 PT Plan Problem List Problem List: Activity Tolerance, Functional Strength, Safety, Balance, Gait, Transfer, Bed Mobility Treatment/Plan Treatment Plan: Continue Plan of Care Treatment Plan: Bed Mobility, Education, Functional Activity Stephanie, Functional Strength, Gait, Safety, Therapeutic Exercise, Transfers Treatment Duration: October 04, 2022 Frequency: 6 times per week Estimated Hrs Per Day: .25 hour per day Patient and/or Family Agrees t: Yes Time Time In: 835 Time Out: 845 DATE: Sep 18, 2022 Total Billed Treatment Time: 10 Total Billed Treatment 1 visit EVMod 10 min JADON EMMANUEL PT Sep 18, 2022 10:15
[2022-09-18] MEDS ORDERED: KCL 20 MEQ TAB (K-DUR) PO ONE (10:45)
--- NOTE | 2022-09-18 13:08 | Occupational Therapy Eval ---
OT Evaluation-General/PLF Medical Diagnosis Admission Date Sep 17, 2022 at 16:24 Medical Diagnosis: Dehydration Onset Date: Sep 17, 2022 Therapy Diagnosis Therapy Diagnosis: WEAKNESS Height/Weight Height (Feet): 5 Height (Inches): 5.00 Weight (Pounds): 132 Precautions Precautions/Isolations: Fall Prevention, Standard Precautions Weight Bear Status Weight Bearing Restriction: Full Weight Bearing Referral Physician: Marissa Referral Reason: Activity Tolerance, Self Care, Evaluation/Treatment, Strengthening/ROM Medical History Pertinent Medical History: CAD, DM, Dementia, HTN, Neuropathy Reviewed History: Yes Social History Home: Single Level Current Living Status: Spouse ADL-Prior Level of Function SCALE: Activities may be completed with or without assistive devices. 8-Pywmrpckjr-rfdzldf completes the activity by him/herself with no assistance from a helper. 5-Set-up or Clean-up Assistance-helper sets up or cleans up; patient completes activity. [place] assists only prior to or following the activity. 4-Supervision or Touching Assistance-helper provides verbal cues and/or touching/steadying and/or contact guard assistance as patient completes activity. Assistance may be provided throughout the activity or intermittently. 3-Partial/Moderate Assistance-helper does LESS THAN HALF the effort. [place] lifts, holds or supports trunk or limbs, but provides less than half the effort. 2-Substantial/Maximal Assistance-helper does MORE THAN HALF the effort. [place] lifts or holds trunk or limbs and provides more than half the effort. 4-Fkunfpftz-vhafat does ALL the effort. Patient does none of the effort to complete the activity. Or, the assistance of 2 or more helpers is required for the patient to complete the activity. If activity was not attempted, code reason: 7-Patient Refused. 9-Not Applicable-not attempted and the patient did not perform the activity before the current illness, exacerbation or injury. 10-Not Attempted due to Environmental Limitations-(lack of equipment, weather restraints, etc.). 88-Not Attempted due to Medical Conditions or Safety Concerns. Self Care: Independent Functional Cognition: Independent OT Current Status Subjective UP IN CHAIR, AGREEABLE TO OT. COMPLETED LUNCH Pain Numeric Pain Scale: 3 Location Body Site: Abdomen Mental Status/Objective Patient Orientation: Person, Time, Situation Current Glasses/Contacts: Yes Upper Extremity ROM BUE ROM WFLS Upper Extremity Coordination INTACT Upper Extremity Sensation INTACT Upper Extremity Strength -4/5 GROSSLY PATIENT REPORTS SHE WALKS AT HOME WITH HER , SOMETIMES SHE WALKS WITH HIM TO THE MAILBOX, DOES HELP W/ ADL AN DIS PERFORMING SPONGE BATHES ADL-Treatment Eating (QC): 6 Oral Hygiene (QC): 5 Shower/Bathe Self (QC): 7 Upper Body Dressing (QC): 4 Lower Body Dressing (QC): 4 On/Off Footwear (QC): 5 Toileting Hygiene (QC): 4 (BM HYGIENE AND WIPE CLOTHE) Education OT Patient Education: Energy conservation, Modified ADL techniques, Progress toward Goal/Update tx plan, Purpose of tx/functional activities, Reviewed precautions, Rehab process, Safety issues, Transfer techniques, Use of adapted equipment Teaching Recipient: Patient Teaching Methods: Demonstration, Discussion Response to Teaching: Verbalize Understanding, Reinforcement Needed OT Penitentiary Goals Penitentiary Goals Eating (QC): 6 Oral Hygiene (QC): 6 Toileting Hygiene (QC): 6 Shower/Bathe Self (QC): 4 Upper Body Dressing (QC): 5 Lower Body Dressing (QC): 5 On/Off Footwear (QC): 5 1=Demonstrate adherence to instructed precautions during ADL tasks. 2=Patient will verbalize/demonstrate understanding of assistive devices/modifications for ADL. 3=Patient will improve strength/tolerance for activity to enable patient to perform ADL's. OT Education/Plan Problem List/Assessment Assessment: Decreased Activ Tolerance, Impaired Self-Care Skills Discharge Recommendations Plan/Recommendations: Continue POC Treatment Plan/Plan of Care Treatment,Training & Education: Yes Patient would benefit from OT for education, treatment and training to promote independence in ADL's, mobility, safety and/or upper extremity function for ADL's. Plan of Care: ADL Retraining, Functional Mobility, UE Funct Exercise/Act Treatment Duration: Sep 20, 2022 Frequency: 3 times per week (3-5 TIMES PER WEEK) Estimated Hrs Per Day: .25 hour per day Rehab Potential: Fair RETURNED TO RECLINER FOLLOWING SESSION, ALL NEEDS MET Time Start Time: 12:49 Stop Time: 13:12 DATE: Sep 18, 2022 Total Time Billed (hr/min): 23 Billed Treatment Time EVM, ADL 23 MIN ERNIE PERRY OT Sep 18, 2022 13:07
--- NOTE | 2022-09-18 13:45 | History & Physical-Hospitalist ---
SALINA HIGHTOWER 09/18/22 1345: History of Present Illness HPI/Chief Complaint Ms. Gross is a 77 yo female with pertinent pmhx of urethral strictures, chronic UT Is, kelbsiella cystitis, and Crohns who presented to the ED yesterday with cc of generalized weakness. Pt reported burning pain with urination and intermittent nausea, loss of appetite, and vomiting. She was prescribed Augmentin from her primary doctor with no improvement of sx so was told to go to the ER. The workup in the ED showed that on urinalysis she has positive nitrates, 3+ leukocyte esterase, too numerous to count white blood cells, moderate bacteria and a lactic acid of 3.28. Today patient reports that she is still experiencing dysuria and nausea but with improvement. Pt denies any urgency, abdominal pain, vomiting, loss of appetite, cp, or SOB. No new or worsening sx. No other com plaints. Source: patient Date Seen 09/18/22 Attending Physician Sushila Lynch Aprn PCP Admitting Physician: Shakira Paige DO Attending Physician: Shakira Paige DO Referring Physician Date of Admission Sep 17, 2022 at 16:24 Home Medications & Allergies Home Medications Reviewed patient Home Medication Reconciliation performed by pharmacy medication reconciliations [employer] technician and/or nursing. Patients Allergies have been reviewed. Allergies Allergies Coded Allergies Sulfa (Sulfonamide Antibiotics) (Verified Allergy, Severe, 02/01/21) Past Ierkido-Rwoeot-Fwitzm Hx Patient Social History Tobacco Use?: No Smokeless Tobacco Frequency: Never a User Use of E-Cig and/or Vaping dev: No Substance use?: No Alcohol Use?: No Pt feels they are or have been: No Immunizations Up To Date Date of Influenza Vaccine: Mar 05, 2020 First/Initial COVID19 Vaccinat: unknown Second COVID19 Vaccination Dickson: YES Tetanus Booster (TDap): Unknown Hepatitis A: No Hepatitis B: No Date of Pneumonia Vaccine: Apr 14, 2018 Seasonal Allergies Seasonal Allergies: No Current Status status: No status: No Advance Directives: No Advance Directive Location: Home Communicates: Verbally Primary Language: Singaporean Preferred Spoken Language: Singaporean Is interpretation needed?: No Sensory deficits: Vision impairment Past Medical History Surgeries: Appendectomy, Gallbladder, Hysterectomy Pneumonia Currently Using CPAP: No Hypertension Dementia, Neuropathy 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 HIV/AIDS: No Kidney Stones, UTI-Chronic Gastroesophageal Reflux, Crohns Disease Chronic Back Pain Diabetes, Insulin dep Hearing Impairment: Denies Blood Disorders: No Family Medical History No Pertinent Family Hx Review of Systems Constitutional: no symptoms reported EENTM: no symptoms reported Respiratory: no symptoms reported Cardiovascular: no symptoms reported Gastrointestinal: abdominal pain, loss of appetite, nausea Genitourinary: dysuria Musculoskeletal: back pain Skin: no symptoms reported Psychiatric/Neurological: No Symptoms Reported All Other Systems Reviewed Negative Unless Noted: Yes Physical Exam Physical Exam Vital Signs Vital Signs - First Documented 09/17/22 09/17/22 09/18/22 13:50 16:46 08:35 Temp 36.6 Pulse 82 Resp 18 B/P (MAP) 121/58 (79) Pulse Ox 98 O2 Delivery Room Air O2 Flow Rate 0.00 FiO2 21 Capillary Refill : Less Than 3 Seconds Height, Weight, BMI Height: 5'5.00" Weight: 132lbs. oz. 59.755641gc; 21.29 BMI Method:Stated General Appearance: No Apparent Distress, WD/WN HEENT: PERRL/EOMI Respiratory: Chest Non Tender, Lungs Clear, Normal Breath Sounds, No Accessory Muscle Use, No Respiratory Distress Cardiovascular: Regular Rate, Rhythm, No Murmur, Normal Peripheral Pulses Gastrointestinal: Normal Bowel Sounds, No Organomegaly, No Pulsatile Mass, Distended, Tenderness (suprapubic ) Extremity: Normal Capillary Refill, No Pedal Edema Neurologic/Psychiatric: Alert, Oriented x3, Normal Mood/Affect Skin: Normal Color, Warm/Dry Lymphatic: No Adenopathy Results Results/Procedures Labs Laboratory Tests 09/17/22 13:54 09/18/22 05:04 Patient resulted labs reviewed. Assessment/Plan Admission Diagnosis Urosepsis Admission Status: Inpatient Order (span 2 midnights) Reason for Inpatient Admission: urosepsis Assessment and Plan Urosepsis Acute cystitis without hematuria Dehydration General weakness Chronic UTIs hx of urethral strictures Hx of Crohns Vancomycin Meropenum Dilaudid Zofran close monitoring replace potassium per protocol PT/OT Continue home meds as indicated Diet: regular Code status: full DVT prophylaxis: Lovenox Disposition: likely 1 more night pending pt status SHAKIRA PAIGE DO 09/19/22 0446: History of Present Illness Source: patient Time Seen by a Provider: 10:00 Past Tfxswag-Dffusr-Liskha Hx Patient Social History Marrital Status: single Employed/Student: retired Smoking Status: Never a Smoker Review of Systems Constitutional: see HPI, dizziness Physical Exam Physical Exam General Appearance: No Apparent Distress, Chronically ill Respiratory: Lungs Clear, Normal Breath Sounds Cardiovascular: Regular Rate, Rhythm Neurologic/Psychiatric: Alert, Oriented x3 Assessment/Plan Admission Diagnosis Admission Status: Observation Supervisory-Addendum Brief Verification & Attestation Participated in pt care: history, MDM, physical Personally performed: exam, history, MDM, supervision of care Care discussed with: Medical Student Procedures: n/a Results interpretation: Verified all documentation Verification and Attestation of Medical Student E/M Service A medical student performed and documented this service in my presence. I reviewed and verified all information documented by the medical student and made modifications to such information, when appropriate. I personally performed the physical exam and medical decision making. Shakira Paige, Sep 19, 2022,04:46 SALINA HIGHTOWER Sep 18, 2022 13:45 SHAKIRA PAIGE DO Sep 19, 2022 04:46
[2022-09-18] MEDS: ENOXAPARIN 40 MG/0.4 ML (LOVENOX) SYR SC SCH (17:45)
[2022-09-18] MEDS ORDERED: VANCOMYCIN 1 GM/NS 250 ML IVPB IV SCH ×2 (18:00)
[2022-09-18] MEDS: DICYCLOMINE 10 MG (BENTYL) CAP PO SCH (21:34)
[2022-09-18] MEDS: TAMSULOSIN 0.4 MG (FLOMAX) CAP PO SCH (21:34)
[2022-09-18] MEDS: GEMFIBROZIL 600 MG (LOPID) TAB PO SCH (21:34)
[2022-09-18] MEDS: metFORMIN 500 MG (GLUCOPHAGE) TAB PO SCH (21:34)
[2022-09-19] MEDS: MEROPENEM 500 MG in NS (IVPB) 100 ML IV SCH ×3 (01:31→17:02)
[2022-09-19 04:06] VITALS: BP 138/63
[2022-09-19] MEDS: inSUlin ASPART (NovoLOG) 1 UNIT/0.01 ML (CHARGE PER UNIT) SC SCH ×4 (05:22→20:27)
[2022-09-19] MEDS: KCL 20 MEQ TAB (K-DUR) PO SCH (05:24)
[2022-09-19 05:28] LABS: BASOPHILS % (AUTO) 0 % (0-10); EOSINOPHILS # (AUTO) 0.2 10^3/uL (0.0-0.3); EOSINOPHILS % (AUTO) 2 % (0-10); HEMATOCRIT 29 % (35-52); HEMOGLOBIN 9.9 g/dL (11.5-16.0); LYMPHOCYTES % (AUTO) 39 % (12-44); MEAN CORPUSCULAR HEMOGLOBIN 30 pg (25-34); MEAN CORPUSCULAR HGB CONC 34 g/dL (32-36); MEAN CORPUSCULAR VOLUME 89 fL (80-99); MEAN PLATELET VOLUME 9.4 fL (9.0-12.2); MONOCYTES # (AUTO) 0.6 10^3/uL (0.0-1.0); MONOCYTES % (AUTO) 8 % (0-12); NEUTROPHILS % (AUTO) 51 % (42-75); PLATELET COUNT 310 10^3/uL (130-400); WHITE BLOOD COUNT 7.8 10^3/uL (4.3-11.0)
[2022-09-19 05:40] LABS: ALBUMIN 3.3 GM/DL (3.2-4.5); CHLORIDE 112 MMOL/L (98-107); POTASSIUM 3.1 MMOL/L (3.6-5.0); SODIUM 141 MMOL/L (135-145)
[2022-09-19 05:41] LABS: CALCIUM 9.6 MG/DL (8.5-10.1)
[2022-09-19 05:42] LABS: GLUCOSE 112 MG/DL (70-105)
[2022-09-19 05:43] LABS: TOTAL PROTEIN 5.8 GM/DL (6.4-8.2)
[2022-09-19 05:44] LABS: BILIRUBIN,TOTAL 0.1 MG/DL (0.1-1.0); CARBON DIOXIDE 16 MMOL/L (21-32)
[2022-09-19 05:46] LABS: ALKALINE PHOSPHATASE 97 U/L (40-136); CREATININE SERUM 0.96 MG/DL (0.60-1.30); GFR ESTIMATED 61
[2022-09-19 05:47] LABS: BUN/CREATININE RATIO 19
[2022-09-19 05:49] LABS: ALANINE AMINOTRANSFERASE < 6 U/L (0-55)
[2022-09-19 07:55] VITALS: BP 91/55
[2022-09-19] MEDS ORDERED: LOSARTAN 100 MG (COZAAR) TABLET PO SCH (09:00)
[2022-09-19] MEDS: ISOSORBIDE MONONITRATE 60 MG (IMDUR) TAB PO SCH (09:59)
[2022-09-19] MEDS: DICYCLOMINE 10 MG (BENTYL) CAP PO SCH ×4 (09:59→20:24)
[2022-09-19] MEDS: GEMFIBROZIL 600 MG (LOPID) TAB PO SCH ×2 (10:00→20:23)
[2022-09-19] MEDS: FERROUS SULF 325 MG (IRON) TAB PO SCH (10:00)
[2022-09-19] MEDS: PANTOPRAZOLE 40 MG (PROTONIX) TAB PO SCH (10:01)
[2022-09-19] MEDS: metFORMIN 500 MG (GLUCOPHAGE) TAB PO SCH ×2 (10:01→20:23)
[2022-09-19] MEDS: DOCUSATE SODIUM 100 MG (COLACE) CAP PO SCH ×2 (10:01→20:27)
[2022-09-19] MEDS: predniSONE 5 MG TAB PO SCH (10:01)
--- NOTE | 2022-09-19 10:26 | Physical Therapy Daily Note ---
PT Daily Note-Current Subjective Patient agrees to PT. Pain Section J - Health Conditions 1. Rarely or not at all 2. Occasionally 3. Frequently 4. Almost constantly 8. Unable to answer Pain Effect on Sleep: 1 Pain Interference with Therapy: 1 Pain Interference w/Day-to-Day: 1 Mental Status Patient Orientation: Normal For Age Transfers SCALE: Activities may be completed with or without assistive devices. 7-Jvrpzzaemb-bbggqud completes the activity by him/herself with no assistance from a helper. 5-Set-up or Clean-up Assistance-helper sets up or cleans up; patient completes activity. [place] assists only prior to or following the activity. 4-Supervision or Touching Assistance-helper provides verbal cues and/or touching/steadying and/or contact guard assistance as patient completes activity. Assistance may be provided throughout the activity or intermittently. 3-Partial/Moderate Assistance-helper does LESS THAN HALF the effort. [place] lifts, holds or supports trunk or limbs, but provides less than half the effort. 2-Substantial/Maximal Assistance-helper does MORE THAN HALF the effort. [place] lifts or holds trunk or limbs and provides more than half the effort. 8-Tuvjyichw-kblsxq does ALL the effort. Patient does none of the effort to complete the activity. Or, the assistance of 2 or more helpers is required for the patient to complete the activity. If activity was not attempted, code reason: 7-Patient Refused. 9-Not Applicable-not attempted and the patient did not perform the activity before the current illness, exacerbation or injury. 10-Not Attempted due to Environmental Limitations-(lack of equipment, weather restraints, etc.). 88-Not Attempted due to Medical Conditions or Safety Concerns. Lying to Sitting/Side of Bed(Q: 4 Sit to Stand (QC): 4 Chair/Nka-nu-Ahvnf Xfer(QC): 4 Toilet Transfer (QC): 4 Weight Bearing Right Lower Extremity: Right Full Weight Bearing Left Lower Extremity: Left Full Weight Bearing Gait Training Distance: 30' x 1/150' x 1 Walk 10 feet (QC): 4 Walk 50 ft with 2 Turns(QC): 4 Walk 150 ft (QC): 4 Gait Assistive Device: FWW slightly with PT CGA with use of gait belt/NBOS stance Assessment Patient tolerated treatment well and is up in recliner with needs met. Patient improved on this date. PT to continue to increase activity as tolerated by patient. PT It Consulting Director Goals It Consulting Director Goals PT It Consulting Director Goals Time Frame: October 04, 2022 Roll Left & Right (QC): 6 Sit to Lying (QC): 6 Lying-Sitting on Side/Bed(QC): 6 Sit to Stand (QC): 6 Chair/Crp-de-Ckehu Xfer(QC): 6 Toilet Transfer (QC): 6 Walk 10 feet (QC): 4 Walk 50ft with 2 Turns (QC): 4 Walk 150 ft (QC): 4 PT Plan Treatment/Plan Treatment Plan: Continue Plan of Care Treatment Plan: Bed Mobility, Education, Functional Activity Stephanie, Functional Strength, Gait, Safety, Therapeutic Exercise, Transfers Treatment Duration: October 04, 2022 Frequency: 6 times per week Estimated Hrs Per Day: .25 hour per day Patient and/or Family Agrees t: Yes Time Time In: 907 Time Out: 926 DATE: Sep 19, 2022 Total Billed Treatment Time: 19 Total Billed Treatment 1 visit FA 19 min JADON EMMANUEL PT Sep 19, 2022 10:26
--- NOTE | 2022-09-19 10:47 | Occupational Ther Daily Note ---
OT Current Status-Daily Note Subjective Patient agreeable to OT Mental Status/Objective Patient Orientation: Person, Place, Time, Situation ADL-Treatment Therapy Code Descriptions/Definitions Functional [place] Measure: 0=Not Assessed/NA 4=Minimal Assistance 1=Total Assistance 5=Supervision or Setup 2=Maximal Assistance 6=Modified [place] 3=Moderate Assistance 7=Complete IndependenceSCALE: Activities may be completed with or without assistive devices. 4-Jigpdzcfhk-ptnxlwy completes the activity by him/herself with no assistance from a helper. 5-Set-up or Clean-up Assistance-helper sets up or cleans up; patient completes activity. [place] assists only prior to or following the activity. 4-Supervision or Touching Assistance-helper provides verbal cues and/or touching/steadying and/or contact guard assistance as patient completes activity. Assistance may be provided throughout the activity or intermittently. 3-Partial/Moderate Assistance-helper does LESS THAN HALF the effort. [place] lifts, holds or supports trunk or limbs, but provides less than half the effort. 2-Substantial/Maximal Assistance-helper does MORE THAN HALF the effort. [place] lifts or holds trunk or limbs and provides more than half the effort. 8-Fdzjmayyd-czqusq does ALL the effort. Patient does none of the effort to complete the activity. Or, the assistance of 2 or more helpers is required for the patient to complete the activity. If activity was not attempted, code reason: 7-Patient Refused. 9-Not Applicable-not attempted and the patient did not perform the activity before the current illness, exacerbation or injury. 10-Not Attempted due to Environmental Limitations-(lack of equipment, weather restraints, etc.). 88-Not Attempted due to Medical Conditions or Safety Concerns. Eating (QC): 6 Oral Hygiene (QC): 5 Shower/Bathe Self (QC): 7 Upper Body Dressing (QC): 4 Lower Body Dressing (QC): 4 On/Off Footwear: 5 Toileting Hygiene (QC): 4 Toilet Transfer (QC): 4 Education OT Patient Education: Modified ADL techniques, Progress toward Goal/Update tx plan, Purpose of tx/functional activities, Reviewed precautions, Rehab process, Safety issues, Transfer techniques Teaching Recipient: Patient Teaching Methods: Demonstration, Discussion Response to Teaching: Reinforcement Needed OT [facility] Goals Electrician Helper Goals Eating (QC): 6 Oral Hygiene (QC): 6 Toileting Hygiene (QC): 6 Shower/Bathe Self (QC): 4 Upper Body Dressing (QC): 5 Lower Body Dressing (QC): 5 On/Off Footwear (QC): 5 1=Demonstrate adherence to instructed precautions during ADL tasks. 2=Patient will verbalize/demonstrate understanding of assistive devices/modifications for ADL. 3=Patient will improve strength/tolerance for activity to enable patient to perform ADL's. OT Education/Plan Problem List/Assessment Assessment: Decreased Activ Tolerance, Impaired Self-Care Skills Discharge Recommendations Plan/Recommendations: Continue POC Treatment Plan/Plan of Care Treatment,Training & Education: Yes Patient would benefit from OT for education, treatment and training to promote independence in ADL's, mobility, safety and/or upper extremity function for ADL's. Plan of Care: ADL Retraining, Functional Mobility, UE Funct Exercise/Act Treatment Duration: Sep 20, 2022 Frequency: 3 times per week (3-5 TIMES PER WEEK) Estimated Hrs Per Day: .25 hour per day Agreement: Yes Rehab Potential: Fair Time Start Time: 09:07 Stop Time: :22 DATE: Sep 19, 2022 Total Time Billed (hr/min): 15 Billed Treatment Time ADL 15 min ERNEI PERRY OT Sep 19, 2022 10:47
[2022-09-19] MEDS ORDERED: NS (IVPB) 250 ML IV ONE (11:45)
[2022-09-19] MEDS ORDERED: KCL 20 MEQ TAB (K-DUR) PO NR (12:00)
--- NOTE | 2022-09-19 12:05 | Progress Note - Hospitalist ---
SALINA HIGHTOWER 09/19/22 1205: Subjective HPI/CC On Admission Date Seen by Provider: Sep 19, 2022 Time Seen by Provider: 08:20 Ms. Gross is a 77 yo female with pertinent pmhx of urethral strictures, chronic UTIs, kelbsiella cystitis, and Crohns who presented to the ED yesterday with cc of generalized weakness. Pt reported burning pain with urination and intermittent nausea, loss of appetite, and vomiting. She was prescribed Augmentin from her primary doctor with no improvement of sx so was told to go to the ER. The workup in the ED showed that on urinalysis she has positive nitrates, 3+ leukocyte esterase, too numerous to count white blood cells, moderate bacteria and a lactic acid of 3.28. Today patient reports that she is still experiencing dysuria and nausea but with improvement. Pt denies any urgency, abdominal pain, vomiting, loss of appetite, cp, or SOB. No new or worsening sx. No other complaints. Subjective/Events-last exam f/u on UTI Today patient reports that she is no longer having any abdominal pain or pain upon urination. Denies any N/V. Pt does report feeling more fatigued and dizzy when moving around. Pts potassium low so will replace. Pt denies any CP, SOB, or worsening sx. No other complaints Review of Systems General: Fatigue HEENT: No Head Aches Pulmonary: No Dyspnea Cardiovascular: Other (dizziness ); No: Chest Pain Gastrointestinal: No: Nausea, Vomiting, Abdominal Pain Genitourinary: No Dysuria Focused Exam Lactate Level 09/17/22 13:54: Lactic Acid Level 3.28*H 09/17/22 17:46: Lactic Acid Level 2.08*H 09/17/22 20:20: Lactic Acid Level 2.13*H Time of Focused Exam: 14:48 Objective Exam Vital Signs Vital Signs Date Time Temp Pulse Resp B/P (MAP) Pulse Ox O2 Delivery O2 Flow Rate FiO2 09/19/22 08:00 98 Room Air 0.00 09/19/22 07:55 36.7 108 18 91/55 (67) 09/17/22 16:46 21 Capillary Refill : Less Than 3 Seconds General Appearance: No Apparent Distress, WD/WN HEENT: PERRL/EOMI Respiratory: Chest Non Tender, Lungs Clear, Normal Breath Sounds, No Accessory Muscle Use, No Respiratory Distress Cardiovascular: Regular Rate, Rhythm, Normal Peripheral Pulses Gastrointestinal: Normal Bowel Sounds, No Organomegaly, No Pulsatile Mass, Non Tender, Soft Extremity: Normal Capillary Refill, No Pedal Edema Neurologic/Psychiatric: Alert, Oriented x3, Normal Mood/Affect Skin: Normal Color, Warm/Dry Lymphatic: No Adenopathy Results/Procedures Lab Laboratory Tests 09/19/22 05:18 Patient resulted labs reviewed. Assessment/Plan Assessment and Plan Assess & Plan/Chief Complaint Urosepsis Acute cystitis without hematuria Dehydration General weakness Chronic UTIs hx of urethral strictures Hx of Crohns Vancomycin Meropenum Dilaudid Zofran close monitoring replace potassium per protocol PT/OT Continue home meds as indicated Diet: regular Code status: full DVT prophylaxis: Lovenox Disposition: likely 1 more night pending pt status SHAKIRA PAIGE DO 09/19/22 1641: Supervisory-Addendum Brief Verification & Attestation Participated in pt care: history, MDM, physical Personally performed: exam, history, MDM, supervision of care Care discussed with: Medical Student Procedures: n/a Results interpretation: Verified all documentation Verification and Attestation of Medical Student E/M Service A medical student performed and documented this service in my presence. I reviewed and verified all information documented by the medical student and made modifications to such information, when appropriate. I personally performed the physical exam and medical decision making. Shakira Paige, Sep 19, 2022,16:41 SALINA HIGHTOWER Sep 19, 2022 12:05 SHAKIRA PAIGE DO Sep 19, 2022 16:41
[2022-09-19 12:29] VITALS: BP 115/70
[2022-09-19 15:23] VITALS: BP 96/51
[2022-09-19] MEDS: ENOXAPARIN 40 MG/0.4 ML (LOVENOX) SYR SC SCH (17:00)
[2022-09-19 19:24] VITALS: BP 109/65
[2022-09-19] MEDS: TAMSULOSIN 0.4 MG (FLOMAX) CAP PO SCH (20:23)
[2022-09-19 23:09] VITALS: BP 105/55
[2022-09-20] MEDS: MEROPENEM 500 MG in NS (IVPB) 100 ML IV SCH ×3 (01:22→16:31)
[2022-09-20 03:34] VITALS: BP 111/52
[2022-09-20] MEDS: inSUlin ASPART (NovoLOG) 1 UNIT/0.01 ML (CHARGE PER UNIT) SC SCH ×4 (05:18→21:06)
[2022-09-20] MEDS: KCL 20 MEQ TAB (K-DUR) PO SCH (05:24)
[2022-09-20 05:44] LABS: BASOPHILS % (AUTO) 0 % (0-10); EOSINOPHILS # (AUTO) 0.1 10^3/uL (0.0-0.3); EOSINOPHILS % (AUTO) 2 % (0-10); HEMATOCRIT 27 % (35-52); LYMPHOCYTES # (AUTO) 3.7 10^3/uL (1.0-4.0); LYMPHOCYTES % (AUTO) 40 % (12-44); MEAN CORPUSCULAR HEMOGLOBIN 30 pg (25-34); MEAN CORPUSCULAR HGB CONC 34 g/dL (32-36); MEAN CORPUSCULAR VOLUME 90 fL (80-99); MEAN PLATELET VOLUME 9.6 fL (9.0-12.2); MONOCYTES # (AUTO) 0.6 10^3/uL (0.0-1.0); MONOCYTES % (AUTO) 7 % (0-12); NEUTROPHILS # (AUTO) 4.7 10^3/uL (1.8-7.8); NEUTROPHILS % (AUTO) 51 % (42-75); PLATELET COUNT 296 10^3/uL (130-400); WHITE BLOOD COUNT 9.3 10^3/uL (4.3-11.0)
[2022-09-20 05:59] LABS: ALBUMIN 3.2 GM/DL (3.2-4.5); POTASSIUM 3.8 MMOL/L (3.6-5.0)
[2022-09-20 06:00] LABS: CALCIUM 9.6 MG/DL (8.5-10.1)
[2022-09-20 06:02] LABS: TOTAL PROTEIN 5.6 GM/DL (6.4-8.2)
[2022-09-20 06:04] LABS: BILIRUBIN,TOTAL 0.1 MG/DL (0.1-1.0)
[2022-09-20 06:05] LABS: CREATININE SERUM 0.89 MG/DL (0.60-1.30)
--- NOTE | 2022-09-20 06:06 | Progress Note - Hospitalist ---
Subjective HPI/CC On Admission Date Seen by Provider: Sep 20, 2022 Time Seen by Provider: 11:00 Ms. Gross is a 77 yo female with pertinent pmhx of urethral strictures, chronic UTIs, kelbsiella cystitis, and Crohns who presented to the ED yesterday with cc of generalized weakness. Pt reported burning pain with urination and intermitte nt nausea, loss of appetite, and vomiting. She was prescribed Augmentin from her primary doctor with no improvement of sx so was told to go to the ER. The workup in the ED showed that on urinalysis she has positive nitrates, 3+ leukocyte esterase, too numerous to count white blood cells, moderate bacteria and a lactic acid of 3.28. Today patient reports that she is still experiencing dysuria and nausea but with improvement. Pt denies any urgency, abdominal pain, vomiting, loss of appetite, cp, or SOB. No new or worsening sx. No other complaints. Subjective/Events-last exam NO major issues No pain Improved overall Awaiting UCx Review of Systems General: Fatigue, Malaise Focused Exam Lactate Level 09/17/22 17:46: Lactic Acid Level 2.08*H 09/17/22 20:20: Lactic Acid Level 2.13*H Time of Focused Exam: 14:48 Objective Exam Vital Signs Vital Signs Date Time Temp Pulse Resp B/P (MAP) Pulse Ox O2 Delivery O2 Flow Rate FiO2 09/20/22 12:15 36.7 82 18 146/67 (93) 100 Room Air 09/20/22 08:00 0.00 09/17/22 16:46 21 Capillary Refill : Less Than 3 Seconds General Appearance: No Apparent Distress, WD/WN, Chronically ill Respiratory: Lungs Clear, Normal Breath Sounds Cardiovascular: Regular Rate, Rhythm Neurologic/Psychiatric: Alert, Oriented x3, No Motor/Sensory Deficits, Normal Mood/Affect Results/Procedures Lab Laboratory Tests 09/20/22 05:34 Patient resulted labs reviewed. Assessment/Plan Assessment and Plan Assess & Plan/Chief Complaint Acute cystitis without hematuria Dehydration General weakness Chronic UTIs hx of urethral strictures Hx of Crohns Vancomycin Meropenum Dilaudid Zofran close monitoring replace potassium per protocol PT/OT Continue home meds as indicated Diet: regular Code status: full DVT prophylaxis: Lovenox Disposition: likely 1 more night pending pt status ORA PAIGE DO Sep 20, 2022 06:06
[2022-09-20 08:44] VITALS: BP 114/57
--- NOTE | 2022-09-20 09:05 | Physical Therapy Daily Note ---
PT Daily Note-Current Subjective Pt reclined in recliner upon arrival to room, agreeable to PT treatment. Reports she is feeling much better than yesterday. Pain Section J - Health Conditions 1. Rarely or not at all 2. Occasionally 3. Frequently 4. Almost constantly 8. Unable to answer Pain Effect on Sleep: 1 Pain Interference with Therapy: 1 Pain Interference w/Day-to-Day: 1 Appearance Following session, pt in chair, BLE elevated, call light, phone and tray table within reach. All needs met. Mental Status Patient Orientation: Person, Place, Situation Transfers SCALE: Activities may be completed with or without assistive devices. 3-Egnsgylwle-sygknlb completes the activity by him/herself with no assistance from a helper. 5-Set-up or Clean-up Assistance-helper sets up or cleans up; patient completes activity. [place] assists only prior to or following the activity. 4-Supervision or Touching Assistance-helper provides verbal cues and/or touching/steadying and/or contact guard assistance as patient completes activity. Assistance may be provided throughout the activity or intermittently. 3-Partial/Moderate Assistance-helper does LESS THAN HALF the effort. [place] lifts, holds or supports trunk or limbs, but provides less than half the effort. 2-Substantial/Maximal Assistance-helper does MORE THAN HALF the effort. [place] lifts or holds trunk or limbs and provides more than half the effort. 3-Slrvxhwqg-unstyv does ALL the effort. Patient does none of the effort to complete the activity. Or, the assistance of 2 or more helpers is required for the patient to complete the activity. If activity was not attempted, code reason: 7-Patient Refused. 9-Not Applicable-not attempted and the patient did not perform the activity before the current illness, exacerbation or injury. 10-Not Attempted due to Environmental Limitations-(lack of equipment, weather restraints, etc.). 88-Not Attempted due to Medical Conditions or Safety Concerns. Sit to Stand (QC): 4 Toilet Transfer (QC): 4 Weight Bearing Right Lower Extremity: Right Full Weight Bearing Left Lower Extremity: Left Full Weight Bearing Gait Training Walk 150 ft (QC): 4 Gait Assistive Device: FWW Pt ambulated 150 with slow, steady gait pattern. Small, shuffling steps with turning; however, good balance demonstrated. Treatments Prior to ambulation in hallway, pt requests to use the bathroom, transfers to and from toilet with SBA. Assessment Current Status: Good Progress Pt pleasant, and very talkative this morning. Good effort with ambulation and overall good demonstration of balance and gait. PT Production Stage Manager Goals Production Stage Manager Goals PT Snf Goals Time Frame: October 04, 2022 Roll Left & Right (QC): 6 Sit to Lying (QC): 6 Lying-Sitting on Side/Bed(QC): 6 Sit to Stand (QC): 6 Chair/Hac-mm-Qnxoq Xfer(QC): 6 Toilet Transfer (QC): 6 Walk 10 feet (QC): 4 Walk 50ft with 2 Turns (QC): 4 Walk 150 ft (QC): 4 PT Plan Problem List Problem List: Activity Tolerance, Functional Strength, Safety, Balance, Gait, Transfer, Bed Mobility, ROM Treatment/Plan Treatment Plan: Continue Plan of Care Treatment Plan: Bed Mobility, Education, Functional Activity Stephanie, Functional Strength, Gait, Safety, Therapeutic Exercise, Transfers Treatment Duration: October 04, 2022 Frequency: 6 times per week Estimated Hrs Per Day: .25 hour per day Patient and/or Family Agrees t: Yes Time Time In: 842 Time Out: 900 DATE: Sep 20, 2022 Total Billed Treatment Time: 18 Total Billed Treatment 1 visit GT (15') MARIANNA PATTEN PT Sep 20, 2022 09:05
[2022-09-20] MEDS: FERROUS SULF 325 MG (IRON) TAB PO SCH (09:24)
[2022-09-20] MEDS: DICYCLOMINE 10 MG (BENTYL) CAP PO SCH ×4 (09:25→21:05)
[2022-09-20] MEDS: GEMFIBROZIL 600 MG (LOPID) TAB PO SCH ×2 (09:25→21:05)
[2022-09-20] MEDS: ISOSORBIDE MONONITRATE 60 MG (IMDUR) TAB PO SCH (09:25)
[2022-09-20] MEDS: metFORMIN 500 MG (GLUCOPHAGE) TAB PO SCH ×2 (09:25→21:05)
[2022-09-20] MEDS: PANTOPRAZOLE 40 MG (PROTONIX) TAB PO SCH (09:26)
[2022-09-20] MEDS: predniSONE 5 MG TAB PO SCH (09:34)
[2022-09-20] MEDS: DOCUSATE SODIUM 100 MG (COLACE) CAP PO SCH ×2 (09:34→19:52)
[2022-09-20 12:15] VITALS: BP 146/67
[2022-09-20 16:16] VITALS: BP 136/63
[2022-09-20] MEDS: ACETAMINOPHEN 325 MG TABLET PO PRN (16:28)
[2022-09-20] MEDS: ENOXAPARIN 40 MG/0.4 ML (LOVENOX) SYR SC SCH (17:07)
[2022-09-20 20:03] VITALS: BP 117/55
[2022-09-20] MEDS: TAMSULOSIN 0.4 MG (FLOMAX) CAP PO SCH (21:07)
[2022-09-21 00:22] VITALS: BP 147/56
[2022-09-21] MEDS: MEROPENEM 500 MG in NS (IVPB) 100 ML IV SCH ×2 (01:30→08:38)
[2022-09-21 04:08] VITALS: BP 122/64
[2022-09-21 05:43] LABS: BASOPHILS % (AUTO) 0 % (0-10); EOSINOPHILS # (AUTO) 0.2 10^3/uL (0.0-0.3); EOSINOPHILS % (AUTO) 2 % (0-10); HEMATOCRIT 26 % (35-52); HEMOGLOBIN 8.5 g/dL (11.5-16.0); LYMPHOCYTES # (AUTO) 3.3 10^3/uL (1.0-4.0); LYMPHOCYTES % (AUTO) 40 % (12-44); MEAN CORPUSCULAR HEMOGLOBIN 30 pg (25-34); MEAN CORPUSCULAR HGB CONC 33 g/dL (32-36); MEAN CORPUSCULAR VOLUME 90 fL (80-99); MEAN PLATELET VOLUME 9.8 fL (9.0-12.2); MONOCYTES # (AUTO) 0.6 10^3/uL (0.0-1.0); MONOCYTES % (AUTO) 7 % (0-12); NEUTROPHILS # (AUTO) 4.2 10^3/uL (1.8-7.8); NEUTROPHILS % (AUTO) 50 % (42-75); PLATELET COUNT 285 10^3/uL (130-400); WHITE BLOOD COUNT 8.3 10^3/uL (4.3-11.0)
[2022-09-21] MEDS: inSUlin ASPART (NovoLOG) 1 UNIT/0.01 ML (CHARGE PER UNIT) SC SCH ×2 (05:46→12:33)
[2022-09-21 06:06] LABS: ALBUMIN 3.3 GM/DL (3.2-4.5)
[2022-09-21 06:07] LABS: POTASSIUM 4.3 MMOL/L (3.6-5.0)
[2022-09-21 06:08] LABS: CALCIUM 9.8 MG/DL (8.5-10.1)
[2022-09-21 06:09] LABS: TOTAL PROTEIN 5.5 GM/DL (6.4-8.2)
[2022-09-21 06:11] LABS: BILIRUBIN,TOTAL 0.1 MG/DL (0.1-1.0)
[2022-09-21 06:13] LABS: CREATININE SERUM 0.77 MG/DL (0.60-1.30)
--- NOTE | 2022-09-21 06:32 | Progress Note - Hospitalist ---
Subjective HPI/CC On Admission Date Seen by Provider: Sep 21, 2022 Time Seen by Provider: 11:00 Ms. Gross is a 77 yo female with pertinent pmhx of urethral strictures, chronic UTIs, kelbsiella cystitis, and Crohns who presented to the ED yesterday with cc of generalized weakness. Pt reported burning pain with urination and intermitte nt nausea, loss of appetite, and vomiting. She was prescribed Augmentin from her primary doctor with no improvement of sx so was told to go to the ER. The workup in the ED showed that on urinalysis she has positive nitrates, 3+ leukocyte esterase, too numerous to count white blood cells, moderate bacteria and a lactic acid of 3.28. Today patient reports that she is still experiencing dysuria and nausea but with improvement. Pt denies any urgency, abdominal pain, vomiting, loss of appetite, cp, or SOB. No new or worsening sx. No other complaints. Subjective/Events-last exam No major issues UCx results reviewed and cefdinir can cover DC planned Focused Exam Time of Focused Exam: 14:48 Objective Exam Vital Signs Vital Signs Date Time Temp Pulse Resp B/P (MAP) Pulse Ox O2 Delivery O2 Flow Rate FiO2 09/21/22 12:00 36.7 69 18 146/63 (90) 99 Room Air 09/20/22 08:00 0.00 09/17/22 16:46 21 Capillary Refill : Less Than 3 Seconds General Appearance: No Apparent Distress, WD/WN, Chronically ill Respiratory: Lungs Clear Cardiovascular: Regular Rate, Rhythm Neurologic/Psychiatric: Alert, Oriented x3, No Motor/Sensory Deficits, Normal Mood/Affect Results/Procedures Lab Laboratory Tests 09/21/22 05:27 Patient resulted labs reviewed. Assessment/Plan Assessment and Plan Assess & Plan/Chief Complaint Acute cystitis without hematuria Dehydration General weakness Chronic UTIs hx of urethral strictures Hx of Crohns Vancomycin Meropenum Dilaudid Zofran close monitoring replace potassium per protocol PT/OT Continue home meds as indicated Diet: regular Code status: full DVT prophylaxis: Lovenox Disposition: home GUILLERMO PAGIETim NAILS Sep 21, 2022 06:32
[2022-09-21] MEDS: KCL 20 MEQ TAB (K-DUR) PO SCH (06:33)
[2022-09-21 08:29] VITALS: BP 106/60
[2022-09-21] MEDS: PANTOPRAZOLE 40 MG (PROTONIX) TAB PO SCH (08:39)
[2022-09-21] MEDS: DICYCLOMINE 10 MG (BENTYL) CAP PO SCH ×2 (08:39→12:42)
[2022-09-21] MEDS: GEMFIBROZIL 600 MG (LOPID) TAB PO SCH (08:39)
[2022-09-21] MEDS: ISOSORBIDE MONONITRATE 60 MG (IMDUR) TAB PO SCH (08:39)
[2022-09-21] MEDS: metFORMIN 500 MG (GLUCOPHAGE) TAB PO SCH (08:39)
[2022-09-21] MEDS: FERROUS SULF 325 MG (IRON) TAB PO SCH (08:39)
[2022-09-21] MEDS: predniSONE 5 MG TAB PO SCH (08:39)
[2022-09-21] MEDS: DOCUSATE SODIUM 100 MG (COLACE) CAP PO SCH (08:40)
[2022-09-21] MEDS ORDERED: CEFD300C3 PO (11:51)
--- NOTE | 2022-09-21 11:53 | D/C HH Face to Face Order ---
D/C HH Face to Face Orders Reconcile Patient Problems Problems Reviewed?: Yes Instructions for Patient HH Patient Instructions/FollowUp: pcp this week Physician to follow Patient: chc Discharge Diet for Home: No Restrictions Patient Problems: uti Patient Data-Allergies,Ht & Wt Patient Allergies: Coded Allergies: Sulfa (Sulfonamide Antibiotics) (Verified Allergy, Severe, 02/01/21) Height (Feet): 5 Height (Inches): 5.00 Weight (Pounds): 132 Home Health Need/Face to Face Date of Face to Face: Sep 21, 2022 Clinical Findings: Generalized weakness and fatigue, Instability, Muscle weakness I have seen Pt [id number]: Yes Discharged To: Home Diagnosis/Conditions: uti Patient is Homebound due to: Muscle weakness Homebound Status Due to the above stated illness, injury or surgical procedure (medical condition or diagnosis) and associated clinical findings, the patient is homebound because of his/her inability to leave home except with aid of a supp ortive device and/or person AND leaving the home requires a considerable and taxing effort or is medically contraindicated. Pt req the following assistanc: Walker Home Health Nursing Orders Home Health Services Order: Nursing Services, Corrective And Manual Arts Therapist-Evaluate & Treat, Physical Therapy-Evaluate & Treat Home Health Infusion Therapy Line Start Date: Sep 21, 2022 Certify Stmt I certify that this patient is under my care and that I, a nurse practitioner or a physician; a fleet administrative assistant working with me, had a face to face encounter that - meets the physician face to face encounter requirements with this patient as dated. ORA PAIGE DO Sep 21, 2022 11:53
--- NOTE | 2022-09-21 11:53 | Discharge Summary ---
Discharge Summary Hospital Course Was the Problem List Reviewed?: Yes Problems/Dx: (1) UTI (urinary tract infection) Status: Acute Hospital Course Date of Admission: Sep 17, 2022 at 16:24 Admission Diagnosis : Family Physician/Provider: [place] Date of Discharge: 09/21/22 Discharge Diagnosis: [ ] Hospital Course: Uneventful course after she was admitted for sepsis and UTI presumed ESBL placed on Gabriel and required several days waiting on UCx so provided supportive care and UCx revealed e coli no ESBL so she was DC in improved condition and rx cefdinir. Labs and Pending Lab Test: Laboratory Tests 09/20/22 16:19: Glucometer 174H 09/20/22 20:05: Glucometer 266H 09/21/22 05:27: White Blood Count 8.3, Red Blood Count 2.83L, Hemoglobin 8.5L, Hematocrit 26L, Mean Corpuscular Volume 90, Mean Corpuscular Hemoglobin 30, Mean Corpuscular Hemoglobin Concent 33, Red Cell Distribution Width 15.1H, Platelet Count 285, Mean Platelet Volume 9.8, Immature Granulocyte % (Auto) 1, Neutrophils (%) (Auto) 50, Lymphocytes (%) (Auto) 40, Monocytes (%) (Auto) 7, Eosinophils (%) (Auto) 2, Basophils (%) (Auto) 0, Neutrophils # (Auto) 4.2, Lymphocytes # (Auto) 3.3, Monocytes # (Auto) 0.6, Eosinophils # (Auto) 0.2, Basophils # (Auto) 0.0, Immature Granulocyte # (Auto) 0.0, Sodium Level 140, Potassium Level 4.3, Chloride Level 113H, Carbon Dioxide Level 18L, Anion Gap 9, Blood Urea Nitrogen 19H, Creatinine 0.77, Estimat Glomerular Filtration Rate 80, BUN/Creatinine Ratio 25, Glucose Level 130H, Calcium Level 9.8, Corrected Calcium 10.4H, Total Bilirubin 0.1, Aspartate Amino Transf (AST/SGOT) 17, Alanine Aminotransferase (ALT/SGPT) 7, Alkaline Phosphatase 90, Total Protein 5.5L, Albumin 3.3 09/21/22 05:39: Glucometer 121H Microbiology 09/17/22 Blood Culture - Preliminary, Resulted No growth 09/17/22 Urine Culture - Final, Complete Escherichia coli Escherichia coli#2 Home Meds Active Cefdinir 300 Mg Capsule 300 Mg PO BID Reported Iron (Ferrous Sulfate) 325 Mg (65 Mg Iron) Tablet 325 Mg PO DAILY Tylenol Extra Strength (Acetaminophen) 500 Mg Tablet 1,000 Mg PO Q8H PRN Flomax (Tamsulosin HCl) 0.4 Mg Cap 0.4 Mg PO HS LAST FILLED 04-04-2022 #90/90 DAY SUPPLY Tresiba Flextouch U-100 (Insulin Degludec) 100 Unit/Ml (3 Ml) Insuln.pen 10 Unit SQ DAILY LAST FILLED 01-16-2022 #5PENS/150 DAY SUPPLY Methenamine Hippurate 1 Gram Tablet 1 Gm PO BID LAST FILLED 03-04-2022 #180/90 DAY SUPPLY Tramadol HCl 50 Mg Tablet 50 Mg PO Q6H PRN Hydrochlorothiazide 12.5 Mg Tablet 12.5 Mg PO DAILY Losartan Potassium 100 Mg Tablet 100 Mg PO DAILY Metformin HCl 500 Mg Tablet 1,000 Mg PO BID TAKES 2 (500MG) TABS Metoprolol Succinate 25 Mg Tab.er.24h 25 Mg PO DAILY Gemfibrozil 600 Mg Tablet 600 Mg PO BID Isosorbide Mononitrate ER (Isosorbide Mononitrate) 60 Mg Tab 60 Mg PO DAILY Prednisone 5 Mg Tablet 5 Mg PO DAILY Citalopram HBr (Citalopram Hydrobromide) 20 Mg Tablet 20 Mg PO DAILY Pantoprazole Sodium 40 Mg Tablet.dr 40 Mg PO DAILY Simvastatin 40 Mg Tablet 40 Mg PO DAILY Dicyclomine HCl 10 Mg Capsule 20 Mg PO QID TAKES 2 (10MG) CAPS Assessment/Pt Instructions PCP 1 week Discharge Planning: <30 minutes discharge planning Discharge Instructions Discharge Diet: No Restrictions Discharge Physical Examination Vital Signs Vital Signs Date Time Temp Pulse Resp B/P (MAP) Pulse Ox O2 Delivery O2 Flow Rate FiO2 09/21/22 08:29 36.4 65 18 106/60 (75) 98 Room Air 09/20/22 08:00 0.00 09/17/22 16:46 21 General Appearance: No Apparent Distress, WD/WN, Chronically ill Allergies: Coded Allergies: Sulfa (Sulfonamide Antibiotics) (Verified Allergy, Severe, 02/01/21) Discharge Summary Date of Admission Sep 17, 2022 at 16:24 Date of Discharge Discharge Date: Sep 21, 2022 Admission Diagnosis Urosepsis Discharge Diagnosis Acute cystitis without hematuria Dehydration General weakness Chronic UTIs hx of urethral strictures Hx of Crohns Vancomycin Meropenum Dilaudid Zofran close monitoring replace potassium per protocol PT/OT Continue home meds as indicated Diet: regular Code status: full DVT prophylaxis: Lovenox Disposition: likely 1 more night pending pt status ORA PAIGE DO Sep 21, 2022 11:53
[2022-09-21 12:00] VITALS: BP 146/63
[2022-09-21] MEDS ORDERED: CEFDINIR 300 MG (OMNICEF) CAP PO SCH (12:00)
[2022-09-21 14:43] VITALS: BP 146/63
== END 2022-09-21 14:46 | disposition home or self-care (01) ==
LOC: EDUNIT# 13:42 → ER FS 13:45 → INTOOBSV 16:24 → 4TH 16:24
PROVIDERS: ADMIT Internal Medicine; ATTEND Internal Medicine
DX: N30.00 Acute cystitis without hematuria (principal); R53.1 Weakness; A41.9 Sepsis, unspecified organism; E86.0 Dehydration; K50.90 Crohn's disease, unspecified, without complications; Z79.899 Other long term (current) drug therapy; Z87.448 Personal history of other diseases of urinary system
CPT/HCPCS: 36415; 80053 ×5; 81000; 82947 ×5; 83605 ×2; 83735; 85025 ×5; 86141; 87040; 87077; 87088; 87186; 94760; 94761; 96366 ×5; 96372 ×4; 96375; 96376 ×4; 97116; 97162; 97166; 97530; 97535; 99284; G0378

== ENCOUNTER 2022-10-01 13:05 | Outpatient (RCR) | payer MEDICARE ==
[~2022-10-01 13:05] MED LIST changes: +ACET-2267 PO; +CEFD300C3 PO; +FERR-84 PO; +HYDR12.56 PO; +INSU100I32 SQ; +METH1TAB21 PO; +TRAM50TA3 PO
[2022-10-01 14:01] LABS: BASOPHILS % (AUTO) 0 % (0-10); EOSINOPHILS % (AUTO) 1 % (0-10); HEMATOCRIT 26 % (35-52); HEMOGLOBIN 8.7 g/dL (11.5-16.0); LYMPHOCYTES # (AUTO) 1.9 10^3/uL (1.0-4.0); LYMPHOCYTES % (AUTO) 27 % (12-44); MEAN CORPUSCULAR HEMOGLOBIN 31 pg (25-34); MEAN CORPUSCULAR HGB CONC 33 g/dL (32-36); MEAN CORPUSCULAR VOLUME 92 fL (80-99); MONOCYTES # (AUTO) 0.3 10^3/uL (0.0-1.0); MONOCYTES % (AUTO) 5 % (0-12); NEUTROPHILS # (AUTO) 4.9 10^3/uL (1.8-7.8); NEUTROPHILS % (AUTO) 68 % (42-75); PLATELET COUNT 353 10^3/uL (130-400); WHITE BLOOD COUNT 7.2 10^3/uL (4.3-11.0)
[2022-10-01 14:10] LABS: ALBUMIN 4.2 GM/DL (3.2-4.5); BILIRUBIN,TOTAL 0.2 MG/DL (0.1-1.0); CALCIUM 9.9 MG/DL (8.5-10.1); CREATININE SERUM 1.13 MG/DL (0.60-1.30); TOTAL PROTEIN 6.9 GM/DL (6.4-8.2)
== END 2022-10-29 | disposition home or self-care (01) ==
LOC: ONC 13:05
PROVIDERS: ATTEND Internal Medicine Hematology & Oncology
DX: D64.9 Anemia, unspecified (principal); E11.9 Type 2 diabetes mellitus without complications; I10 Essential (primary) hypertension; E78.2 Mixed hyperlipidemia
CPT/HCPCS: 80053; 82728; 83540; 83550; 85025

== ENCOUNTER 2022-12-24 13:10 | Outpatient (RCR) | payer MEDICARE ==
[~2022-12-24 13:10] MED LIST changes: -LOSA100T57 PO; +LOSA100T58 PO
[2022-12-24 13:32] LABS: BASOPHILS % (AUTO) 1 % (0-10); EOSINOPHILS # (AUTO) 0.1 10^3/uL (0.0-0.3); EOSINOPHILS % (AUTO) 1 % (0-10); HEMATOCRIT 30 % (35-52); HEMOGLOBIN 9.9 g/dL (11.5-16.0); LYMPHOCYTES # (AUTO) 2.2 10^3/uL (1.0-4.0); LYMPHOCYTES % (AUTO) 29 % (12-44); MEAN CORPUSCULAR HEMOGLOBIN 31 pg (25-34); MEAN CORPUSCULAR HGB CONC 33 g/dL (32-36); MEAN CORPUSCULAR VOLUME 95 fL (80-99); MEAN PLATELET VOLUME 9.4 fL (9.0-12.2); MONOCYTES # (AUTO) 0.5 10^3/uL (0.0-1.0); MONOCYTES % (AUTO) 7 % (0-12); NEUTROPHILS # (AUTO) 4.6 10^3/uL (1.8-7.8); NEUTROPHILS % (AUTO) 61 % (42-75); PLATELET COUNT 376 10^3/uL (130-400); WHITE BLOOD COUNT 7.4 10^3/uL (4.3-11.0)
[2022-12-24 14:00] LABS: ALBUMIN 4.1 GM/DL (3.2-4.5); BILIRUBIN,TOTAL 0.2 MG/DL (0.1-1.0); CREATININE SERUM 1.35 MG/DL (0.60-1.30); POTASSIUM 4.9 MMOL/L (3.6-5.0); TOTAL PROTEIN 6.9 GM/DL (6.4-8.2)
== END 2022-12-29 | disposition home or self-care (01) ==
LOC: ONC 13:10
PROVIDERS: ATTEND Internal Medicine Hematology & Oncology
DX: D64.9 Anemia, unspecified (principal); E11.9 Type 2 diabetes mellitus without complications; I10 Essential (primary) hypertension; E78.2 Mixed hyperlipidemia
CPT/HCPCS: 36415; 80053; 82728; 83540; 83550; 85025

== ENCOUNTER 2023-03-02 18:52 | Emergency (ER) | payer MEDICARE ==
[~2023-03-02] VITALS: Ht 162.5 cm; Wt 58.0 kg
[~2023-03-02 18:52] MED LIST changes: +DICY-11 PO; -DICY10CA12 PO
[2023-03-02] MEDS ORDERED: ASPIRIN 81 MG CHEWABLE TABLET PO ONE (19:15)
--- NOTE | 2023-03-02 19:20 | ED General ---
General Chief Complaint: Cough/Cold/Flu Symptoms Stated Complaint: WHEEZING,TROUBLE SPEAKING Source of Information: Patient Exam Limitations: No Limitations History of Present Illness Date Seen by Provider: Mar 02, 2023 Time Seen by Provider: 19:06 Initial Comments 77-year-old female presents the emergency department today for shortness of breath and chest discomfort. Symptoms started this afternoon. She describes "pain in my throat." She points to her anterior neck and down into her chest as the location of pain. She states that does not specifically hurt when she swallows things, just a constant dull ache in this area. She denies any fevers or chills. She has had a cough and states she was wheezing this afternoon. She does take nitroglycerin for some chronic chest pains but does not believe this is similar to her previous symptoms. No fevers chills. No sick contacts. All other systems reviewed and negative except documented per HPI. Voice recognition software was used to help create this chart Allergies and Home Medications Allergies Coded Allergies: Sulfa (Sulfonamide Antibiotics) (Verified Allergy, Severe, 02/01/21) Patient Home Medication List Home Medication List Reviewed: Yes Acetaminophen (Tylenol Extra Strength) 500 Mg Tablet, 1,000 MG PO Q8H PRN for PAIN-MILD (1-4), (Reported) Entered as Reported by: DAVID ARITA on 09/18/22 1015 Cefdinir (Cefdinir) 300 Mg Capsule, 300 MG PO BID Prescribed by: ORA PAIGE on 09/21/22 1151 Citalopram Hydrobromide (Citalopram HBr) 20 Mg Tablet, 20 MG PO DAILY, (Reported) Entered as Reported by: DAVID ARITA on 09/18/22 1015 Dicyclomine HCl (Dicyclomine HCl) 10 Mg Capsule, 20 MG PO QID, (Reported) Entered as Reported by: DAVID ARITA on 09/18/22 1015 Ferrous Sulfate (Iron) 325 Mg (65 Mg Iron) Tablet, 325 MG PO DAILY, (Reported) Entered as Reported by: DAVID ARITA on 09/18/22 1015 Gemfibrozil (Gemfibrozil) 600 Mg Tablet, 600 MG PO BID, (Reported) Entered as Reported by: DAVID ARITA on 09/18/22 1015 Hydrochlorothiazide (Hydrochlorothiazide) 12.5 Mg Tablet, 12.5 MG PO DAILY, (Reported) Entered as Reported by: DAVID ARITA on 09/18/22 101 Insulin Degludec (Tresiba Flextouch U-100) 100 Unit/Ml (3 Ml) Insuln.pen, 10 UNIT SQ DAILY, (Reported) Entered as Reported by: DAVID ARITA on 09/18/221014 Isosorbide Mononitrate (Isosorbide Mononitrate ER) 60 Mg Tab, 60 MG PO DAILY, (Reported) Entered as Reported by: DAVID ARITA on 09/18/221014 Losartan Potassium (Losartan Potassium) 100 Mg Tablet, 100 MG PO DAILY, (Reported) Entered as Reported by: DAVID ARITA on 09/18/221014 Metformin HCl (Metformin HCl) 500 Mg Tablet, 1,000 MG PO BID, (Reported) Entered as Reported by: DAVID ARITA on 09/18/221014 Metoprolol Succinate (Metoprolol Succinate) 25 Mg Tab.er.24h, 25 MG PO DAILY, (Reported) Entered as Reported by: DAVID ARITA on 09/18/221014 Pantoprazole Sodium (Pantoprazole Sodium) 40 Mg Tablet.dr, 40 MG PO DAILY, (Reported) Entered as Reported by: DAVID ARITA on 09/18/221014 Prednisone (Prednisone) 5 Mg Tablet, 5 MG PO DAILY, (Reported) Entered as Reported by: DAVID ARITA on 09/18/221014 Simvastatin (Simvastatin) 40 Mg Tablet, 40 MG PO DAILY, (Reported) Entered as Reported by: DAVID ARITA on 09/18/221014 Tamsulosin HCl (Flomax) 0.4 Mg Cap, 0.4 MG PO HS, (Reported) Entered as Reported by: DAVID ARITA on 09/18/221014 Tramadol HCl (Tramadol HCl) 50 Mg Tablet, 50 MG PO Q6H PRN for PAIN-MODERATE (5- 7), (Reported) Entered as Reported by: DAVID ARITA on 09/18/221014 Review of Systems Review of Systems Constitutional: see HPI Past Rohsmqc-Hcnols-Noipho Hx Patient Social History Tobacco Use?: No Use of E-Cig and/or Vaping dev: No Substance use?: No Alcohol Use?: No Immunizations Up To Date First/Initial COVID19 Vaccinat: unknown Second COVID19 Vaccination Dickson: YES Third COVID19 Vaccination Date: YES Seasonal Allergies Seasonal Allergies: No Past Medical History Surgery/Hospitalization HX: DM1 BACK SURGERY TO LOWER BACK Surgeries: Yes (Cystourethroscopy, colonoscopy, EGD, removal spinal stimulator, ESWL) Appendectomy, Gallbladder, Hysterectomy Respiratory: Yes Pneumonia Currently Using CPAP: No Cardiac: Yes (Diastolic dysfunction) Hypertension Neurological: Yes Dementia, Neuropathy Female Reproductive Disorders: Denies [employer] History: Hysterectomy HIV/AIDS: No Genitourinary: Yes (Urethral strictures, Hx Klebsiella cystitis) Kidney Stones, UTI-Chronic Gastrointestinal: Yes (Regional enteritis) Gastroesophageal Reflux, Crohns Disease Musculoskeletal: No Chronic Back Pain Endocrine: Yes (DM Type II) Diabetes, Insulin dep HEENT: No Hearing Impairment: Denies Cancer: No Psychosocial: No Integumentary: No Blood Disorders: No Family Medical History No Pertinent Family Hx Physical Exam Vital Signs Vital Signs - First Documented Capillary Refill : Height, Weight, BMI Height: 5'5.00" Weight: 132lbs. oz. 59.820290qh; 21.29 BMI Method:Stated General Appearance: No Apparent Distress, WD/WN HEENT: Normal ENT Inspection, Pharynx Normal Neck: Normal Inspection, Non Tender, Supple Respiratory: Chest Non Tender, Lungs Clear, Normal Breath Sounds, No Accessory Muscle Use, No Respiratory Distress Cardiovascular: Regular Rate, Rhythm, No Murmur, Normal Peripheral Pulses Gastrointestinal: Normal Bowel Sounds, No Organomegaly, Non Tender, Soft Extremity: Normal Capillary Refill, No Pedal Edema Neurologic/Psychiatric: Alert, Oriented x3, No Motor/Sensory Deficits Skin: Normal Color, Warm/Dry Progress/Results/Core Measures Suspected Sepsis SIRS Temperature: Pulse: Respiratory Rate: Laboratory Tests 03/02/23 19:20: White Blood Count 8.2 Blood Pressure / Mean: Laboratory Tests 03/02/23 19:20: Creatinine 1.03, INR Comment 1.0, Platelet Count 299, Total Bilirubin < 0.2 Results/Orders Lab Results Laboratory Tests Test 03/02/23 19:20 Range/Units White Blood Count 8.2 4.3-11.0 10^3/uL Red Blood Count 3.20 L 3.80-5.11 10^6/uL Hemoglobin 9.7 L 11.5-16.0 g/dL Hematocrit 30 L 35-52 % Mean Corpuscular Volume 94 80-99 fL Mean Corpuscular Hemoglobin 30 25-34 pg Mean Corpuscular Hemoglobin Concent 32 32-36 g/dL Red Cell Distribution Width 13.3 10.0-14.5 % Platelet Count 299 130-400 10^3/uL Mean Platelet Volume 9.9 9.0-12.2 fL Immature Granulocyte % (Auto) 0 % Neutrophils (%) (Auto) 69 42-75 % Lymphocytes (%) (Auto) 25 12-44 % Monocytes (%) (Auto) 5 0-12 % Eosinophils (%) (Auto) 1 0-10 % Basophils (%) (Auto) 0 0-10 % Neutrophils # (Auto) 5.6 1.8-7.8 10^3/uL Lymphocytes # (Auto) 2.1 1.0-4.0 10^3/uL Monocytes # (Auto) 0.4 0.0-1.0 10^3/uL Eosinophils # (Auto) 0.1 0.0-0.3 10^3/uL Basophils # (Auto) 0.0 0.0-0.1 10^3/uL Immature Granulocyte # (Auto) 0.0 0.0-0.1 10^3/uL Prothrombin Time 13.2 12.2-14.7 SEC INR Comment 1.0 0.8-1.4 Activated Partial Thromboplast Time 29 24-35 SEC Sodium Level 136 135-145 MMOL/L Potassium Level 4.5 3.6-5.0 MMOL/L Chloride Level 100 98-107 MMOL/L Carbon Dioxide Level 20 L 21-32 MMOL/L Anion Gap 16 H 5-14 MMOL/L Blood Urea Nitrogen 31 H 7-18 MG/DL Creatinine 1.03 0.60-1.30 MG/DL Estimat Glomerular Filtration Rate 56 BUN/Creatinine Ratio 30 Glucose Level 261 H 70-105 MG/DL Calcium Level 10.2 H 8.5-10.1 MG/DL Corrected Calcium 9.9 8.5-10.1 MG/DL Magnesium Level 1.8 1.6-2.4 MG/DL Total Bilirubin < 0.2 0.1-1.0 MG/DL Aspartate Amino Transf (AST/SGOT) 18 5-34 U/L Alanine Aminotransferase (ALT/SGPT) 10 0-55 U/L Alkaline Phosphatase 125 40-136 U/L Troponin I < 0.30 <0.30 NG/ML Total Protein 7.2 6.4-8.2 GM/DL Albumin 4.4 3.2-4.5 GM/DL SARS-CoV-2 RNA (RT-PCR) Not Detected Not Detecte My Orders Orders - MICHELEADIA Demetrius DO Cbc And Automated Diff (03/02/23 19:12) Magnesium (03/02/23 19:12) Chest 1 View Ap/Pa Only (03/02/23 19:12) Ekg Tracing (03/02/23 19:12) Comprehensive Metabolic Panel (03/02/23 19:12) Protime With Inr (03/02/23 19:12) Partial Thromboplastin Time (03/02/23 19:12) Aspirin Chewable Tablet (Aspirin Chewabl (03/02/23 19:15) Ed Iv/Invasive Line Start (03/02/23 19:12) Troponin I Fs (03/02/23 19:12) Covid 19 Inhouse Test (03/02/23 19:20) Troponin I Fs (03/02/23 21:00) Medications Given in ED Current Medications Medications Dose Ordered Sig/Kasandra Route Start Time Stop Time Status Last Admin Dose Admin Aspirin 324 mg ONCE ONCE PO 03/02/23 19:15 03/02/23 19:16 DC 03/02/23 20:22 324 MG Vital Signs/I&O 03/02/23 03/02/23 18:55 18:55 Temp 36.7 Pulse 113 Resp 16 B/P (MAP) 191/99 (129) Pulse Ox 99 O2 Delivery Room Air Room Air Capillary Refill : ECG Comment T wave inversions in lead I and aVL. No other obvious ST or T wave abnormalities. No ectopy. Left axis deviation. Normal intervals. No STEMI. Departure Communication (Admissions) Upon reevaluation after I went in to tell her about her labs being normal and recommended a second troponin. She then told me that her symptoms had actually been going on since Thursday with burning in her throat. Regardless, her chest x-ray is clear oxygen saturation is 98%. Her vital signs are otherwise unremarkable and her exam is encouraging. Her EKG shows T wave inversions in 1 and aVL similar to 2019 comparison. She is afebrile and nontoxic white blood cell count is normal. She is not anemic. Her blood sugar slightly elevated and her bicarb is slightly low. There is no evidence for DKA at this time. We will get a second set of cardiac enzymes to complete the cardiac rule out. They are somewhat reluctant to stay initially as her is not supposed to drive aft er dark after discussion they are agreeable to staying for second set of heart enzymes. Impression Primary Impression: Upper respiratory infection Qualified Codes: J06.9 - Acute upper respiratory infection, unspecified Disposition: HOME, SELF-CARE Condition: Stable Departure-Patient Inst. Referrals: CANDIDO KEARNEY APRN (PCP) Primary Care Physician [facility] ([place]) Primary Care Physician Patient Instructions: Upper Respiratory Infection ED Add. Discharge Instructions: You are seen in the emergency department today for burning in your throat and shortness of breath. Your chest x-ray shows no evidence for pneumonia, collapsed lung or other acute problem. Your heart enzymes and electrical tracing of your heart do not show any reason for concern. Recommend you increase your fluids and rest. Use ibuprofen and Tylenol for the burning in your throat and follow-up with your primary doctor within the next week for further evaluation and treatment recommendations. Keep an eye on your blood sugars at home. Return to the emergency department for any severe concerns. All discharge instructions reviewed with patient and/or family. Voiced understanding. ADIA BAUTISTA DO Mar 02, 2023 19:20
[2023-03-02 19:35] LABS: BASOPHILS % (AUTO) 0 % (0-10); EOSINOPHILS # (AUTO) 0.1 10^3/uL (0.0-0.3); EOSINOPHILS % (AUTO) 1 % (0-10); HEMATOCRIT 30 % (35-52); HEMOGLOBIN 9.7 g/dL (11.5-16.0); LYMPHOCYTES # (AUTO) 2.1 10^3/uL (1.0-4.0); LYMPHOCYTES % (AUTO) 25 % (12-44); MEAN CORPUSCULAR HEMOGLOBIN 30 pg (25-34); MEAN CORPUSCULAR HGB CONC 32 g/dL (32-36); MEAN CORPUSCULAR VOLUME 94 fL (80-99); MEAN PLATELET VOLUME 9.9 fL (9.0-12.2); MONOCYTES # (AUTO) 0.4 10^3/uL (0.0-1.0); MONOCYTES % (AUTO) 5 % (0-12); NEUTROPHILS # (AUTO) 5.6 10^3/uL (1.8-7.8); NEUTROPHILS % (AUTO) 69 % (42-75); PLATELET COUNT 299 10^3/uL (130-400); WHITE BLOOD COUNT 8.2 10^3/uL (4.3-11.0)
--- NOTE | 2023-03-02 19:42 | Diagnostic Imaging Report ---
CHEST 1 VIEW AP/PA ONLY Indication: Chest pain. Comparison: 05/28/2022 Findings: No focal airspace disease in the visualized lungs. 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 No pleural effusion or pneumothorax. Normal cardiomediastinal silhouette. Impression: 1. No acute cardiopulmonary process by portable radiography. Dictated by: Dictated on workstation # [id number]
[2023-03-02 19:53] LABS: CALCIUM 10.2 MG/DL (8.5-10.1); CARBON DIOXIDE 20 MMOL/L (21-32); CHLORIDE 100 MMOL/L (98-107); GLUCOSE 261 MG/DL (70-105); MAGNESIUM 1.8 MG/DL (1.6-2.4); POTASSIUM 4.5 MMOL/L (3.6-5.0); PROTHROMBIN TIME PATIENT 13.2 SEC (12.2-14.7); SODIUM 136 MMOL/L (135-145)
[2023-03-02 19:54] LABS: BILIRUBIN,TOTAL < 0.2 MG/DL (0.1-1.0); TOTAL PROTEIN 7.2 GM/DL (6.4-8.2)
[2023-03-02 20:03] LABS: ALANINE AMINOTRANSFERASE 10 U/L (0-55); ALKALINE PHOSPHATASE 125 U/L (40-136); BUN/CREATININE RATIO 30; CREATININE SERUM 1.03 MG/DL (0.60-1.30); GFR ESTIMATED 56
[2023-03-02 20:04] LABS: ALBUMIN 4.4 GM/DL (3.2-4.5)
[2023-03-02 21:37] VITALS: BP 149/73
== END 2023-03-02 21:37 | disposition home or self-care (01) ==
LOC: EDUNIT# 18:52 → ER FS 18:54
DX: J06.9 Acute upper respiratory infection, unspecified (principal); E11.9 Type 2 diabetes mellitus without complications; Z79.4 Long term (current) use of insulin; Z20.822 Contact with and (suspected) exposure to COVID-19
CPT/HCPCS: 36415; 71045; 80053; 83735; 84484; 85025; 85610; 85730; 87636; 93005

== ENCOUNTER 2023-04-08 15:11 | Emergency (ER) | payer MEDICARE ==
[~2023-04-08] VITALS: Ht 162 cm; Wt 57.0 kg
[2023-04-08 15:16] VITALS: BP_DIAS 91
--- NOTE | 2023-04-08 15:46 | ED GU-Female ---
General Chief Complaint: - Reproductive Stated Complaint: BLOOD IN URINE Nursing Triage Note: Blood in urine for the last week. Source: patient History of Present Illness Date Seen by Provider: Apr 08, 2023 Time Seen by Provider: 15:18 Initial Comments 77-year-old female presenting with complaints of blood in her urine for the last week. She has suprapubic pain and pressure. She states that she has had this happen several years ago and had seen a urologist then but that her symptoms resolved and she did not go back. She was seen today at the [facility] and reportedly had an ultrasound done that showed clot versus mass in her bladder. She continued to have grossly bloody urine with clots. Because of the pain as well as the blood and clots in her urine she was sent from [facility] to the emergency department. Timing/Duration: week, getting worse Severity/Quality: moderate, full Location: suprapubic Radiation: suprapubic Activities at Onset: other (Urination) Prior Genitourinary Problems: similar symptoms Sexual Chaires History: not active Modifying Factors: Worsens With Urinating Associated Symptoms: abdominal pain (Suprapubic pain and pressure), dysuria, lower back pain, urinary frequency Allergies and Home Medications Allergies Coded Allergies: Sulfa (Sulfonamide Antibiotics) (Verified Allergy, Severe, 03/02/23) Patient Home Medication List Home Medication List Reviewed: Yes Acetaminophen (Tylenol Extra Strength) 500 Mg Tablet, 1,000 MG PO Q8H PRN for PAIN-MILD (1-4), (Reported) Entered as Reported by: DAVID ARITA on 09/18/22 1015 Cefdinir (Cefdinir) 300 Mg Capsule, 300 MG PO BID Prescribed by: ORA PAIGE on 09/21/22 1151 Citalopram Hydrobromide (Citalopram HBr) 20 Mg Tablet, 20 MG PO DAILY, (Reported) Entered as Reported by: DAVID ARITA on 09/18/22 1015 Dicyclomine HCl (Dicyclomine HCl) 10 Mg Capsule, 20 MG PO QID, (Reported) Entered as Reported by: DAVID ARITA on 09/18/22 1015 Ferrous Sulfate (Iron) 325 Mg (65 Mg Iron) Tablet, 325 MG PO DAILY, (Reported) Entered as Reported by: DAVID ARITA on 09/18/22 1015 Gemfibrozil (Gemfibrozil) 600 Mg Tablet, 600 MG PO BID, (Reported) Entered as Reported by: DAVID ARITA on 09/18/22 101 Hydrochlorothiazide (Hydrochlorothiazide) 12.5 Mg Tablet, 12.5 MG PO DAILY, (Reported) Entered as Reported by: DAVID ARITA on 09/18/22 101 Insulin Degludec (Tresiba Flextouch U-100) 100 Unit/Ml (3 Ml) Insuln.pen, 10 UNIT SQ DAILY, (Reported) Entered as Reported by: DAVID ARITA on 09/18/22 101 Isosorbide Mononitrate (Isosorbide Mononitrate ER) 60 Mg Tab, 60 MG PO DAILY, (Reported) Entered as Reported by: DAVID ARITA on 09/18/22 101 Losartan Potassium (Losartan Potassium) 100 Mg Tablet, 100 MG PO DAILY, (Reported) Entered as Reported by: DAVID ARITA on 09/18/22 101 Metformin HCl (Metformin HCl) 500 Mg Tablet, 1,000 MG PO BID, (Reported) Entered as Reported by: DAVID ARITA on 09/18/22 101 Metoprolol Succinate (Metoprolol Succinate) 25 Mg Tab.er.24h, 25 MG PO DAILY, (Reported) Entered as Reported by: DAVID ARITA on 09/18/221014 Pantoprazole Sodium (Pantoprazole Sodium) 40 Mg Tablet.dr, 40 MG PO DAILY, (Reported) Entered as Reported by: DAVID ARITA on 09/18/22 101 Prednisone (Prednisone) 5 Mg Tablet, 5 MG PO DAILY, (Reported) Entered as Reported by: DAVID ARITA on 09/18/22 101 Simvastatin (Simvastatin) 40 Mg Tablet, 40 MG PO DAILY, (Reported) Entered as Reported by: DAVID ARITA on 09/18/22 101 Tamsulosin HCl (Flomax) 0.4 Mg Cap, 0.4 MG PO HS, (Reported) Entered as Reported by: DAVID ARITA on 09/18/22 101 Tramadol HCl (Tramadol HCl) 50 Mg Tablet, 50 MG PO Q6H PRN for PAIN-MODERATE (5- 7), (Reported) Entered as Reported by: DAVID ARITA on 09/18/22 1015 Review of Systems Review of Systems Constitutional: No chills, No fever EENTM: no symptoms reported Respiratory: no symptoms reported Cardiovascular: no symptoms reported Gastrointestinal: see HPI Genitourinary: see HPI Musculoskeletal: see HPI Skin: no symptoms reported Past Kdecxdm-Kzfjzm-Xifyib Hx Immunizations Up To Date First/Initial COVID19 Vaccinat: "3 shots Second COVID19 Vaccination Dickson: "3 shots Third COVID19 Vaccination Date: "3 shots Seasonal Allergies Seasonal Allergies: No Past Medical History Surgery/Hospitalization HX: DM1, CROHNS, ACID REFLUX, HTN CAROTID STENT, HYSTERECTOMY, BLADDER PINUP X2, APPENDECTOMY, CHOLECYSTECTOMY Surgeries: Yes (Cystourethroscopy, colonoscopy, EGD, removal spinal stimulator, ESWL) Appendectomy, Gallbladder, Hysterectomy Respiratory: Yes Pneumonia Currently Using CPAP: No Cardiac: Yes (Diastolic dysfunction) Hypertension Neurological: Yes Dementia, Neuropathy Female Reproductive Disorders: Denies 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 HIV/AIDS: No Genitourinary: Yes (Urethral strictures, Hx Klebsiella cystitis) Kidney Stones, UTI-Chronic Gastrointestinal: Yes (Regional enteritis) Gastroesophageal Reflux, Crohns Disease Musculoskeletal: No Chronic Back Pain Endocrine: Yes (DM Type II) Diabetes, Insulin dep HEENT: No Hearing Impairment: Denies Cancer: No Psychosocial: No Integumentary: No Blood Disorders: No Family Medical History No Pertinent Family Hx Physical Exam Vital Signs Vital Signs - First Documented 04/08/23 15:16 Temp 36.7 Pulse 105 Resp 18 B/P (MAP) 202/91 (128) Pulse Ox 99 O2 Delivery Room Air Capillary Refill : Height, Weight, BMI Height: 5'5.00" Weight: 132lbs. oz. 59.259721gz; 21.00 BMI Method:Stated General Appearance: mild distress, thin HEENT: PERRL/EOMI Cardiovascular: normal peripheral pulses, regular rate, rhythm Respiratory: chest non-tender, lungs clear, normal breath sounds, no respiratory distress, no accessory muscle use Gastrointestinal: normal bowel sounds, soft, no pulsatile mass; No distended, No guarding, No rebound; tenderness (suprapubic) Extremities: normal range of motion, non-tender, normal capillary refill Neurologic/Psychiatric: alert, oriented x 3 Skin: normal color, warm/dry Progress/Results/Core Measures Suspected Sepsis SIRS Temperature: Pulse: 105 Respiratory Rate: 18 Laboratory Tests 04/08/23 15:25: White Blood Count 9.1 Blood Pressure 202 /91 Mean: 128 Laboratory Tests 04/08/23 15:25: Creatinine 1.08, INR Comment 1.0, Platelet Count 310, Total Bilirubin 0.2 Results/Orders Lab Results Laboratory Tests Test 04/08/23 15:20 04/08/23 15:25 Range/Units Urine Color RED H Urine Clarity CLOUDY Urine pH 6.5 5-9 Urine Specific [place] 1.015 L 1.016-1.022 Urine Protein 3+ H NEGATIVE Urine Glucose (UA) NEGATIVE NEGATIVE Urine Ketones TRACE H NEGATIVE Urine Nitrite POSITIVE H NEGATIVE Urine Bilirubin NEGATIVE NEGATIVE Urine Urobilinogen 1.0 < = 1.0 MG/DL Urine Leukocyte Esterase 1+ H NEGATIVE Urine RBC (Auto) 3+ H NEGATIVE Urine RBC >100 H /HPF Urine WBC NONE /HPF Urine Crystals NONE /LPF Urine Bacteria NEGATIVE /HPF Urine Casts NONE /LPF Urine Mucus NEGATIVE /LPF Urine Culture Indicated NO White Blood Count 9.1 4.3-11.0 10^3/uL Red Blood Count 3.25 L 3.80-5.11 10^6/uL Hemoglobin 9.9 L 11.5-16.0 g/dL Hematocrit 31 L 35-52 % Mean Corpuscular Volume 95 80-99 fL Mean Corpuscular Hemoglobin 31 25-34 pg Mean Corpuscular Hemoglobin Concent 32 32-36 g/dL Red Cell Distribution Width 13.3 10.0-14.5 % Platelet Count 310 130-400 10^3/uL Mean Platelet Volume 10.0 9.0-12.2 fL Immature Granulocyte % (Auto) 0 % Neutrophils (%) (Auto) 71 42-75 % Lymphocytes (%) (Auto) 23 12-44 % Monocytes (%) (Auto) 5 0-12 % Eosinophils (%) (Auto) 1 0-10 % Basophils (%) (Auto) 0 0-10 % Neutrophils # (Auto) 6.5 1.8-7.8 10^3/uL Lymphocytes # (Auto) 2.1 1.0-4.0 10^3/uL Monocytes # (Auto) 0.5 0.0-1.0 10^3/uL Eosinophils # (Auto) 0.1 0.0-0.3 10^3/uL Basophils # (Auto) 0.0 0.0-0.1 10^3/uL Immature Granulocyte # (Auto) 0.0 0.0-0.1 10^3/uL Prothrombin Time 13.2 12.2-14.7 SEC INR Comment 1.0 0.8-1.4 Activated Partial Thromboplast Time 29 24-35 SEC Sodium Level 136 135-145 MMOL/L Potassium Level 4.3 3.6-5.0 MMOL/L Chloride Level 99 98-107 MMOL/L Carbon Dioxide Level 20 L 21-32 MMOL/L Anion Gap 17 H 5-14 MMOL/L Blood Urea Nitrogen 25 H 7-18 MG/DL Creatinine 1.08 0.60-1.30 MG/DL Estimat Glomerular Filtration Rate 53 BUN/Creatinine Ratio 23 Glucose Level 146 H 70-105 MG/DL Calcium Level 10.0 8.5-10.1 MG/DL Corrected Calcium 9.8 8.5-10.1 MG/DL Total Bilirubin 0.2 0.1-1.0 MG/DL Aspartate Amino Transf (AST/SGOT) 20 5-34 U/L Alanine Aminotransferase (ALT/SGPT) 10 0-55 U/L Alkaline Phosphatase 114 40-136 U/L Total Protein 7.5 6.4-8.2 GM/DL Albumin 4.3 3.2-4.5 GM/DL Lipase 11 8-78 U/L My Orders Orders - CHUCHO LEO MD Comprehensive Metabolic Panel (04/08/23 15:40) Lipase (04/08/23 15:40) Ua Culture If Indicated (04/08/23 15:40) Ed Iv/Invasive Line Start (04/08/23 15:40) Cbc And Automated Diff (04/08/23 15:40) Ct Abdomen/Pelvis Wo (04/08/23 15:40) Protime With Inr (04/08/23 15:40) Partial Thromboplastin Time (04/08/23 15:40) Fentanyl Injection (Fentanyl Injection (04/08/23 16:26) Vital Signs/I&O 04/08/23 04/08/23 15:16 16:55 Temp 36.7 36.8 Pulse 105 83 Resp 18 16 B/P (MAP) 202/91 (128) Pulse Ox 99 94 O2 Delivery Room Air Room Air Capillary Refill : Blood Pressure Mean: 128 Progress Note #1: Progress Note Differential diagnosis of UTI, bladder cancer, kidney cancer, kidney stone, bladder mass. Establish peripheral IV access and send labs for complete blood count, comprehensive metabolic profile, coagulation factors, urinalysis. Order CT scan of the abdomen pelvis without IV contrast to look for pathology to be causing her gross hematuria. She is still able to urinate and passed blood clots at this point. I do not have access to a three-way Garner or bladder irrigation here so will defer that until I could get her transferred to someplace that has a urologist. Progress Note #2: Progress Note Her labs showed normal white blood cell count 9.1. She had chronic anemia with a stable hemoglobin of 9.9. Comprehensive metabolic profile did not show any acute electrolyte abnormalities but she did have mild elevation of her BUN to 25-creatinine of 1.08. Glucose elevated to 146. Her urinalysis had a specific gravity of 1.015 with 3+ protein and trace ketones. She did have positive nitrites but that may have been more from the gross hematuria. She had greater than 100 red blood cells per high-powered field. However she had no white blood cells or bacteria present in the urinalysis to indicate an infection. Her coagulation factors were normal with a pro time of 13.2, INR of 1, PTT of 29. I advised her and her that I felt the patient needed to be transferred to a facility that would have urology and she would likely benefit from a three- way Garner and bladder irrigation for her hematuria as well as urology may need to do a cystoscopy to evaluate for possible mass in the bladder. A CT scan without contrast was obtained and did show concern for bladder wall mass. Patient was able to urinate while here in the ED but was passing a lot of clots along with the urine. No catheter was placed since we did not have a three-way to be able to irrigate her bladder and she was continuing to be able to urinate on her own. Patient and spouse were agreeable to transfer for urology services. 1600 call placed to urology office for Dr. Knapp in [place]. As advised by his nurse Phuong that the urologist was doing outpatient clinic as well as surgeries at the hospital but was not taking call or seeing inpatients. 1614 call placed to [place] transfer line and discussed with DALILA Trinidad. She advised that [facility] was at capacity and did not have capacity or capability to take patient in transfer. 1615 call placed to [facility] transfer line and spoke with Heidy CONNER. She also advised that [facility] was at capacity and did not have capacity or capability to take the patient in transfer. 1617 call placed to [facility] transfer line and the did have urology and capability and capacity to take the patient to [facility]. They were able to a uto accept the patient for transfer and will call back with transfer physician information and number to call for report. Diagnostic Imaging Diagonstic Imaging: CT Plain Films/CT/US/NM/MRI: abdomen, pelvis Comments NAME: SUDHEER PATTERSON [facility] REC#: [id number] PT STATUS: REG ER : 1945 PHYSICIAN: CHUCHO LEO MD ADMIT DATE: 04/08/23/ER FS Draft Date of Exam:04/08/23 CT ABDOMEN/PELVIS WO CT ABDOMEN/PELVIS WO TECHNIQUE: Unenhanced CT imaging of the abdomen and pelvis was performed. 2-D reformats are created and submitted for interpretation. Automatic exposure controls were utilized to optimize patient dose. INDICATION: Hematuria and suprapubic pain. COMPARISON: 05/27/2022 FINDINGS: Lower chest: The lung bases are clear. No pericardial or pleural effusion. Peritoneum: No free intraperitoneal air or fluid. Liver and biliary system: Unenhanced liver is normal. Cholecystectomy. Spleen and Pancreas: Spleen is normal. Unenhanced pancreas is grossly normal. Adrenals: Normal. tract: No renal or ureteral calculi. No obstructive uropathy. There is some isodense material within the right dependent aspect of the urinary bladder. There is also mild asymmetric wall thickening in the right irasema-aspect of the dome of the urinary bladder. GI tract: Stomach is decompressed. No bowel obstruction. No pericolonic inflammatory changes. A large amount of stool is present throughout the colon. Sigmoid colon diverticulosis without diverticulitis. Vasculature and Lymph nodes: Normal caliber aorta. No abdominal or pelvic lymphadenopathy. Musculoskeletal: Levoscoliosis of the lumbar spine. Posterior instrumented fusion of L4-S1. There is no appreciable complication. Discectomies of L4-L5 and L5-S1 are noted. IMPRESSION: 1. Abnormal focal bladder wall thickening in the right irasema-aspect of the bladder dome is suspicious for bladder neoplasm. Urology consultation is advised. 2. There is some dependent isodense material within the urinary bladder that is likely hemorrhage. 3. No urinary tract calculi or obstructive uropathy. Dictated on workstation # [id number] Dict: 04/08/23 1625 Trans: 04/08/23 1633 CVB [id number] Interpreted by: VICTOR HUGO PEREZ MD Electronically signed by: Reviewed: Reviewed by Me Departure Impression Primary Impression: Gross hematuria Additional Impression: Acute suprapubic pain Disposition: XF S[facility]-TRM HOSP Condition: Stable Transfer Transfer Reason: Exceeds level of care (Needs Urology) Time Spoke to Accepting Phy: 16:[address] Brandon is accepting ED provider at [facility] for patient to be transferred so she can see Urology for her hematuria, bladder p ain, possible bladder cancer. Transfer Facility: [facility] Method of Transfer: EMS Departure-Patient Inst. Referrals: CANDIDO KEARNEY APRN (PCP/Family) Primary Care Physician CHUCHO LEO MD Apr 08, 2023 15:46
[2023-04-08 15:52] LABS: BASOPHILS % (AUTO) 0 % (0-10); EOSINOPHILS # (AUTO) 0.1 10^3/uL (0.0-0.3); EOSINOPHILS % (AUTO) 1 % (0-10); HEMATOCRIT 31 % (35-52); HEMOGLOBIN 9.9 g/dL (11.5-16.0); LYMPHOCYTES # (AUTO) 2.1 10^3/uL (1.0-4.0); LYMPHOCYTES % (AUTO) 23 % (12-44); MEAN CORPUSCULAR HEMOGLOBIN 31 pg (25-34); MEAN CORPUSCULAR HGB CONC 32 g/dL (32-36); MEAN CORPUSCULAR VOLUME 95 fL (80-99); MONOCYTES # (AUTO) 0.5 10^3/uL (0.0-1.0); MONOCYTES % (AUTO) 5 % (0-12); NEUTROPHILS # (AUTO) 6.5 10^3/uL (1.8-7.8); NEUTROPHILS % (AUTO) 71 % (42-75); PLATELET COUNT 310 10^3/uL (130-400); WHITE BLOOD COUNT 9.1 10^3/uL (4.3-11.0)
[2023-04-08 15:53] LABS: BILIRUBIN,URINE NEGATIVE (NEGATIVE); CLARITY,URINE CLOUDY; COLOR,URINE RED; GLUCOSE, URINE (UA) NEGATIVE (NEGATIVE); KETONES,URINE TRACE (NEGATIVE); PH,URINE 6.5 (5-9)
[2023-04-08 15:59] LABS: POTASSIUM 4.3 MMOL/L (3.6-5.0)
[2023-04-08 16:00] LABS: BACTERIA,URINE NEGATIVE /HPF; RBC,URINE >100 /HPF
[2023-04-08 16:02] LABS: LEUKOCYTE ESTERASE ,URINE 1+ (NEGATIVE); NITRITE,URINE POSITIVE (NEGATIVE)
[2023-04-08 16:03] LABS: PROTEIN,URINE 3+ (NEGATIVE)
[2023-04-08 16:04] LABS: ALBUMIN 4.3 GM/DL (3.2-4.5); BILIRUBIN,TOTAL 0.2 MG/DL (0.1-1.0); CREATININE SERUM 1.08 MG/DL (0.60-1.30); TOTAL PROTEIN 7.5 GM/DL (6.4-8.2)
[2023-04-08 16:08] LABS: PROTHROMBIN TIME PATIENT 13.2 SEC (12.2-14.7)
[2023-04-08] MEDS ORDERED: fentaNYL INJECTION 100 MCG/2 ML VIAL IVP STA (16:26)
--- NOTE | 2023-04-08 16:34 | Diagnostic Imaging Report ---
CT ABDOMEN/PELVIS WO TECHNIQUE: Unenhanced CT imaging of the abdomen and pelvis was performed. 2-D reformats are created and submitted for interpretation. Automatic exposure controls were utilized to optimize patient dose. INDICATION: Hematuria and suprapubic pain. COMPARISON: 05/27/2022 FINDINGS: Lower chest: The lung bases are clear. No pericardial or pleural effusion. Peritoneum: No free intraperitoneal air or fluid. Liver and biliary system: Unenhanced liver is normal. Cholecystectomy. Spleen and Pancreas: Spleen is normal. Unenhanced pancreas is grossly normal. Adrenals: Normal. tract: No renal or ureteral calculi. No obstructive uropathy. There is some isodense material within the right dependent aspect of the urinary bladder. There is also mild asymmetric wall thickening in the right irasema-aspect of the dome of the urinary bladder. GI tract: Stomach is decompressed. No bowel obstruction. No pericolonic inflammatory changes. A large amount of stool is present throughout the colon. Sigmoid colon diverticulosis without diverticulitis. Vasculature and Lymph nodes: Normal caliber aorta. No abdominal or pelvic lymphadenopathy. Musculoskeletal: Levoscoliosis of the lumbar spine. Posterior instrumented fusion of L4-S1. There is no appreciable complication. Discectomies of L4-L5 and L5-S1 are noted. IMPRESSION: 1. Abnormal focal bladder wall thickening in the right irasema-aspect of the bladder dome is suspicious for bladder neoplasm. Urology consultation is advised. 2. There is some dependent isodense material within the urinary bladder that is likely hemorrhage. 3. No urinary tract calculi or obstructive uropathy. Dictated by: Dictated on workstation # [id number]
[2023-04-08 16:55] VITALS: BP_SYST 5
== END 2023-04-08 17:43 | disposition short-term general hospital (02) ==
LOC: EDUNIT# 15:11 → ER FS 15:14
DX: R31.0 Gross hematuria (principal); R10.30 Lower abdominal pain, unspecified; E11.40 Type 2 diabetes mellitus with diabetic neuropathy, unspecified; Z90.49 Acquired absence of other specified parts of digestive tract; Z79.4 Long term (current) use of insulin
CPT/HCPCS: 36415; 74176; 80053; 81000; 83690; 85025; 85610; 85730; 96374